=== PATIENT | female | born 1955 | race American Indian/Alaskan Native ===

== ENCOUNTER 2017-04-08 19:18 | Inpatient (IN) | payer BC ==
[2017-04-08] MEDS ORDERED: ZOFRAN IM ONE (19:47)
[2017-04-08] MEDS ORDERED: TORADOL IM ONE (19:55)
[2017-04-08 20:36] LABS: Basophils % (Auto) 0.5 % (0.0-1.8); Eosinophils % (Auto) 0.4 % (0.0-4.3); Hematocrit 43.6 % (30.3-42.9); Hemoglobin 15.2 gm/dl (10.1-14.3); Mean Corpuscular HGB Conc 35 % (30-34); Mean Corpuscular Hemoglobin 31 pg (28-32); Mean Corpuscular Volume 89 fl (79-97); Platelet Count 254 K/mm3 (140-440); Red Blood Count 4.92 M/mm3 (3.65-5.03); White Blood Count 7.2 K/mm3 (4.5-11.0)
[2017-04-08 20:57] LABS: Alanine Aminotransferase 21 units/L (7-56); Albumin 4.7 g/dL (3.9-5); Albumin/Globulin Ratio 1.2 %; Alkaline Phosphatase 82 units/L (35-129); Anion Gap 24 mmol/L; BUN/Creatinine Ratio 11; Blood Urea Nitrogen 8 mg/dL (7-17); Calcium 10.3 mg/dL (8.4-10.2); Carbon Dioxide 24 mmol/L (22-30); Chloride 96.4 mmol/L (98-107); Glucose 140 mg/dL (65-100); Lipase 21 units/L (13-60); Potassium 4.4 mmol/L (3.6-5.0); Sodium 140 mmol/L (137-145); Total Protein 8.6 g/dL (6.3-8.2)
--- NOTE | 2017-04-08 22:11 | Emergency Department Report ---
ED Abdominal Pain HPI - General Chief Complaint: Abdominal Pain Stated Complaint: CHEST PAIN,KNOTS,SHAKY Time Seen by Provider: 04/08/17 22:08 Source: patient Mode of arrival: Ambulatory Limitations: No Limitations - History of Present Illness Initial Comments: Patient is 61-year-old female that presents with chest pain 4 hours and abdominal pain 4 hours. Patient states that the abdominal pain is generalized and is worse with eating and movement. Patient states that the chest pain and abdominal pain is better with rest. Chest pain is worse with movement. Denies shortness of breath and fever. MD Complaint: abdominal pain -: Sudden, hour(s) (4 hours ago) Location: diffuse Radiation: none Migration to: no migration Severity: severe Severity scale (0 -10): 10 Quality: cramping, stabbing Consistency: constant Improves With: rest Worsens With: eating, movement - Related Data Home Medications Medication Instructions Recorded Confirmed Last Taken No Known Home Medications [No 04/08/17 04/08/17 Unknown Reported Home Medications] Allergies Allergy/AdvReac Type Severity Reaction Status Date / Time No Known Allergies Allergy Verified 04/08/17 22:15 ED Review of Systems ROS: Stated complaint: CHEST PAIN,KNOTS,SHAKY Other details as noted in HPI Constitutional: no symptoms reported, see HPI Eyes: as per HPI ENT: as per HPI Respiratory: see HPI Cardiovascular: chest pain, palpitations Endocrine: no symptoms reported Gastrointestinal: as per HPI, abdominal pain Genitourinary: as per HPI Musculoskeletal: as per HPI, myalgia Skin: as per HPI Neurological: as per HPI Psychiatric: as per HPI Hematological/Lymphatic: as per HPI ED Past Medical Hx - Past Medical History Previous Medical History?: No - Surgical History Past Surgical History?: No - Social History Smoking Status: Never Smoker Substance Use Type: None - Medications Home Medications: Home Medications Medication Instructions Recorded Confirmed Last Taken Type No Known Home Medications [No 04/08/17 04/08/17 Unknown History Reported Home Medications] ED Physical Exam - General Limitations: No Limitations General appearance: alert, in no apparent distress - Head Head exam: Present: atraumatic, normocephalic - Eye Eye exam: Present: normal appearance - ENT ENT exam: Present: mucous membranes moist - Neck Neck exam: Present: normal inspection - Respiratory Respiratory exam: Present: normal lung sounds bilaterally. Absent: respiratory distress - Cardiovascular Cardiovascular Exam: Present: regular rate, normal rhythm. Absent: systolic murmur, diastolic murmur, rubs, gallop - GI/Abdominal GI/Abdominal exam: Present: soft, tenderness (generalized abdominal tenderness) , normal bowel sounds - Extremities Exam Extremities exam: Present: normal inspection - Back Exam Back exam: Present: normal inspection - Neurological Exam Neurological exam: Present: alert, oriented X3 - Psychiatric Psychiatric exam: Present: normal affect, normal mood - Skin Skin exam: Present: warm, dry, intact, normal color. Absent: rash ED Course Vital Signs 04/08/17 04/08/17 04/08/17 19:22 20:43 21:57 Temperature 97.8 F 97.7 F Pulse Rate 105 H 105 H Respiratory 22 18 Rate Blood Pressure 140/79 Blood Pressure 153/95 [Left] O2 Sat by Pulse 100 99 Oximetry 04/08/17 04/08/17 04/08/17 22:00 22:16 22:26 Temperature Pulse Rate Respiratory 22 Rate Blood Pressure 153/95 177/92 Blood Pressure [Left] O2 Sat by Pulse 100 100 Oximetry 04/08/17 04/08/17 04/08/17 22:54 22:56 23:00 Temperature Pulse Rate 97 H Respiratory 11 L 16 24 Rate Blood Pressure 170/72 170/72 Blood Pressure [Left] O2 Sat by Pulse 100 Oximetry 04/08/17 04/08/17 04/08/17 23:15 23:22 23:30 Temperature Pulse Rate 103 H 101 H Respiratory 13 16 17 Rate Blood Pressure 177/92 156/79 Blood Pressure [Left] O2 Sat by Pulse 100 97 Oximetry 04/08/17 04/08/17 04/08/17 23:45 23:51 23:52 Temperature Pulse Rate 108 H Respiratory 16 16 16 Rate Blood Pressure 156/79 Blood Pressure [Left] O2 Sat by Pulse 96 100 Oximetry 04/09/17 00:00 Temperature Pulse Rate 108 H Respiratory 18 Rate Blood Pressure 151/80 Blood Pressure [Left] O2 Sat by Pulse 100 Oximetry ED Medical Decision Making - Lab Data Result diagrams: 04/08/17 19:54 04/08/17 19:54 - EKG Data -: EKG Interpreted by Mi EKG shows normal: sinus rhythm Rate: tachycardia - EKG Data Interpretation: no acute changes, normal EKG - Medical Decision Making Patient is 61 year-old female present with chest pain and abdominal pain. Initial labs negative. EKG negative. Abdominal CT negative. Hospital's consult for admission. Hospice agreed to admit. - Differential Diagnosis cp, acs, abd pain Critical care attestation.: If time is entered above; I have spent that time in minutes in the direct care of this critically ill patient, excluding procedure time. ED Disposition Clinical Impression: Abdominal pain, Chest pain Disposition: DC09 OP ADMIT IP TO THIS HOSP Is pt being admited?: Yes Does the pt Need Aspirin: No Condition: Serious Time of Disposition: 00:46
[2017-04-08] MEDS ORDERED: DILAUDID ONE (22:24)
[2017-04-08] MEDS ORDERED: DILAUDID IV ONE ×2 (22:25→23:16)
[2017-04-08] MEDS ORDERED: NACL 0.9% 500 ML 1,000 ML IV ONE (22:54)
[2017-04-08] MEDS ORDERED: ROBAXIN 1,000 MG in NACL 0.9% 250ML 250 ML IV ONE (22:54)
[2017-04-08 23:02] LABS: Bilirubin,Urine NEG (Negative); Blood,Urine NEG (Negative); Ketones,Urine NEG (Negative); Leukocyte Esterase,Urine TR (Negative); Mucus,Urine FEW /HPF; Nitrite,Urine NEG (Negative); Protein,Urine <15 mg/dL mg/dL (Negative); Urobilinogen,Urine < 2.0 mg/dL (<2.0); WBC,Urine < 1.0 /HPF (0.0-6.0)
--- NOTE | 2017-04-08 23:04 | Cat Scan Report ---
FINAL REPORT EXAM: CT ABDOMEN PELVIS WO CON HISTORY: ABD PAIN TECHNIQUE: Standard unenhanced CT of the abdomen and pelvis. Coronal and sagittal reconstruction was also performed. PRIORS: None. FINDINGS: Within the abdomen, the liver, pancreas, adrenal glands, and kidneys are unremarkable. Layering high densities in the gallbladder are likely small stones or sludge. The several punctate calcified granulomas in the spleen are present. No evidence for retroperitoneal or pelvic lymphadenopathy is seen. The bowel loops have normal caliber. No soft tissue mass, fluid collection, inflammatory change, or free air is seen within the abdomen or pelvis. The appendix is normal and is retrocecal in position. Within the pelvis, the bladder is unremarkable. The uterus is normal in size. No evidence for mass or lymphadenopathy is seen in the pelvis. Images through the upper abdomen include the lung bases which are expanded and clear. Heavily calcified 5 mm granuloma in the left lower lobe laterally is seen. Bony structures show no focal abnormalities. Moderate facet joint degenerative changes are present from L3 through S1 bilaterally. Severe degenerative disc narrowing is present throughout the lower thoracic levels. IMPRESSION: 1. no acute intra-abdominal process noted. 2. granulomatous findings in the spleen and left lower lobe 3. Cholelithiasis 4. Degenerative changes in the lumbar spine.
[2017-04-09] MEDS ORDERED: ASPIRIN PO ONE (00:46)
[2017-04-09] MEDS ORDERED: TYLENOL PO PRN (01:42)
[2017-04-09] MEDS ORDERED: DULCOLAX PR PRN (01:42)
[2017-04-09] MEDS ORDERED: LOPRESSOR PO ONE (01:42)
[2017-04-09] MEDS ORDERED: PERCOCET 5/325 PO PRN (01:42)
[2017-04-09] MEDS ORDERED: MILK OF MAGNESIA PO PRN (01:42)
[2017-04-09] MEDS ORDERED: ZOFRAN IV PRN (01:42)
[2017-04-09] MEDS ORDERED: ATIVAN IV PRN ×2 (01:42)
--- NOTE | 2017-04-09 02:55 | History and Physical Report ---
History of Present Illness Date of examination: 04/09/17 History of present illness: 61 -year-old one with history of asthma comes emergency room with complaints of chest pain located in the epigastric area which she described as sharp pain, intermittent in nature, unable to say how long it lasts for, no radiation, intensity 5/10, cannot identify exacerbating or relieving factors. Also complaining of crampy abdominal pain intermittently. The symptoms started 3 hours after eating a hot dog at work.denies nausea vomiting, shortness of breath , diaphoresis or palpitation Review Of Systems: Constitutional: no weight loss Ears, eyes, nose, mouth and throat: no nasal congestion, no nasal discharge, no sinus pressure, blurry vision, diplopia Neck: No neck pain or rigidity. Cardiovascular: no orthopnea, palpitations Respiratory: No shortness of breath, cough Gastrointestinal: no hematochezia Genitourinary : no dysuria, frequency , hematuria Musculoskeletal: no muscle ache Integumentary: no rash, no pruritis Neurological: no parathesias, focal weakness Endocrine: no cold or heat intolerance, no polyuria or polydipsia Hematologic/Lymphatic: no easy bruising, no easy bleeding, no gland swelling Allergic/Immunologic: no urticaria, no angioedema. PAST MEDICAL HISTORY:asthma PAST SURGICAL HISTORY: None FAMILY HISTORY:asthma SOCIAL HISTORY: Denies alcohol, tobacco, drugs Medications and Allergies Allergies Allergy/AdvReac Type Severity Reaction Status Date / Time No Known Allergies Allergy Verified 04/08/17 22:15 Home Medications Medication Instructions Recorded Confirmed Last Taken Type No Known Home Medications [No 04/08/17 04/08/17 Unknown History Reported Home Medications] Active Meds: Active Medications Acetaminophen (Tylenol) 650 mg PO Q4H PRN PRN Reason: Pain MILD(1-3)/Fever >100.5/DAMON Bisacodyl (Dulcolax) 10 mg [place] QDAY PRN PRN Reason: Constipation unrelieved by MOM Enoxaparin Sodium (Lovenox) 30 mg SUB-Q QDAY CHRISTINE Lorazepam (Ativan) 2 mg IV Q1HR PRN PRN Reason: CIWA-Ar 8-15 Last Admin: 04/09/17 02:23 Dose: 2 mg Lorazepam (Ativan) 4 mg IV Q1HR PRN PRN Reason: CIWA-Ar 16-25 Magnesium Hydroxide (Milk Of Magnesia) 30 ml PO Q4H PRN PRN Reason: Constipation Ondansetron HCl (Zofran) 4 mg IV Q4H PRN PRN Reason: N/V unrelieved by Reglan Oxycodone/Acetaminophen (Percocet 5/325) 1 tab PO Q6H PRN PRN Reason: Pain, Moderate (4-6) Exam - Physical Exam Narrative exam: Gen. appearance: Patient lying in bed in no acute distress HEENT: Normocephalic/atraumatic, pupils equal round reactive to light, extra alkaline movement intact, no scleral icterus, no JVD or thyromegaly or nodule, neck is supple, mucous membrane moist, no erythema or exudate Heart: S1-S2, regular rate and rhythm Lungs: Clear to auscultation bilateral breathing comfortable Abdomen: Positive bowel sounds, nontender, nondistended, no organomegaly Extremities: No edema, cyanosis, clubbing Neuro:: Oriented 3 , cranial nerves II-12 intact, speech, motor intact Skin: No rash, nodules, warm dry - Constitutional Vitals: Temp Pulse Resp BP Pulse Ox 97.7 F 109 H 18 158/78 100 04/08/17 21:57 04/09/17 02:22 04/09/17 00:00 04/09/17 02:22 04/09/17 00:00 Results - Labs CBC & Chem 7: 04/08/17 19:54 04/08/17 19:54 Labs: Abnormal lab results 04/08/17 04/08/17 Range/Units 19:54 19:54 Hgb 15.2 H (10.1-14.3) gm/dl Hct 43.6 H (30.3-42.9) % MCHC 35 H (30-34) % RDW 16.0 H (13.2-15.2) % [place] % (Auto) 8.1 H (0.0-7.3) % Seg Neutrophils % 71.2 H (40.0-70.0) % Chloride 96.4 L (98-107) mmol/L Glucose 140 H (65-100) mg/dL Calcium 10.3 H (8.4-10.2) mg/dL Total Protein 8.6 H (6.3-8.2) g/dL - Imaging and Cardiology CT scan - abdomen: report reviewed CT scan - pelvis: report reviewed Assessment and Plan Assessment Hypertensive urgency, new onset Chest pain Alcohol withdrawal Gastroenteritis Asthma Plan Admit to medicine Check cardiac enzymes, stress test Start IV hydralazine as needed Start CIWA protocol with IV Ativan lopressor now DVT prophylaxis
[2017-04-09 02:58] LABS: Creatine Kinase MB 9.9 ng/mL (0.0-4.0)
[2017-04-09 02:59] LABS: Creatine Kinase 451 units/L (30-135)
[2017-04-09] MEDS ORDERED: APRESOLINE IV PRN (03:06)
--- NOTE | 2017-04-09 08:05 | Event Note ---
Date: 04/09/17 Patient seen and evaluated, medical records reviewed Admitted this morning with atypical chest pain, underwent stress test pending report Patient complains of mild intermittent chest pain, alert awake oriented 3 not in acute distress Vital signs reviewed Admitted with hypertensive urgency, we'll closely monitor, follow with stress test report Possible discharge tomorrow if stable Plan of care discussed with the patient and the family member at the bedside
[2017-04-09] MEDS ORDERED: LEXISCAN IV ONE (10:00)
[2017-04-09] MEDS ORDERED: LOVENOX SUB-Q SCH (10:00)
[2017-04-09] MEDS: LOVENOX SUB-Q SCH (10:34)
[2017-04-09 11:20] LABS: Creatine Kinase MB 9.9 ng/mL (0.0-4.0)
[2017-04-09 11:21] LABS: Creatine Kinase 560 units/L (30-135)
--- NOTE | 2017-04-10 04:27 | Treadmill Report ---
THALLIUM STRESS TEST LEFT VENTRICLE: Left ventricular chamber size is within normal spread. Perfusion study demonstrates homogeneous uptake of the tracer in all segments, no significant defects identified. Gated analysis demonstrates normal left ventricular systolic function, ejection fraction 70%. CONCLUSION: Normal myocardial perfusion study. JOB# [id number] CA/NTS
[2017-04-10 05:30] LABS: Basophils % (Auto) 1.1 % (0.0-1.8); Hematocrit 38.7 % (30.3-42.9); Hemoglobin 13.2 gm/dl (10.1-14.3); Mean Corpuscular HGB Conc 34 % (30-34); Mean Corpuscular Hemoglobin 31 pg (28-32); Mean Corpuscular Volume 90 fl (79-97); Platelet Count 167 K/mm3 (140-440); Red Blood Count 4.32 M/mm3 (3.65-5.03); Red Cell Distribution Width 15.8 % (13.2-15.2); White Blood Count 3.3 K/mm3 (4.5-11.0)
[2017-04-10 05:52] LABS: Anion Gap 16 mmol/L; BUN/Creatinine Ratio 17; Blood Urea Nitrogen 12 mg/dL (7-17); Calcium 9.6 mg/dL (8.4-10.2); Carbon Dioxide 26 mmol/L (22-30); Chloride 101.2 mmol/L (98-107); Glucose 84 mg/dL (65-100); Potassium 4.4 mmol/L (3.6-5.0); Sodium 139 mmol/L (137-145)
--- NOTE | 2017-04-10 08:53 | Discharge Summary ---
Providers - Providers Date of Admission: 04/09/17 02:25 Date of discharge: 04/10/17 Attending physician: DARLYN ARANA Primary care physician: CORPORATE TRAINING MANAGER Hospitalization Reason for admission: chest pain/malignant hypertension Condition: Serious Pertinent studies: Abdominal CT; no acute intra-abdominal process, granulomatous findings and the spleen and left lower lobe, cholelithiasis, degenerative lumbar spine Stress test; negative for reversible ischemia, normal left ventricular function Hospital course: 61-year-old female patient with a significant past medical history of bronchial asthma not on any medications was admitted through emergency room with chest pain patient was initially evaluated and noted to have very high blood pressures , admitted to the hospital symptomatically managed Serial cardiac enzymes and EKGs did not reveal any acute changes, however in view of risk factors Patient underwent exercise stress test, was negative for reversible ischemia and ejection fraction is 70% Patient's blood pressures were closely monitored, brought to reasonable levels did not need any medications except for when necessary hydralazine Patient's chest pain may be secondary to gastroesophageal reflux disease as well as musculoskeletal Patient is advised [id number] pain medications and Pepcid Today she is comfortable in bed no new complaints Vital signs reviewed stable Physical examination no new changes Hemodynamically and clinically stable for discharge Discharge diagnosis: -Hypertensive urgency, the time of admission, resolved -Noncardiac Chest pain probably secondary to gastroesophageal reflux disease -Alcohol abuse; counseling done advised to quit -History of Bronchial asthma; did not require any medications Advised to follow primary care physician in 2-3 days Disposition: DC-01 TO HOME OR SELFCARE Time spent for discharge: 32 min Core Measure Documentation - Palliative Care Palliative Care/ Comfort Measures: Not Applicable - Core Measures Any of the following diagnoses?: none Exam - Constitutional Vitals: Temp Pulse Resp BP Pulse Ox 97.5 F L 70 18 141/80 97 04/10/17 00:22 04/10/17 00:22 04/10/17 00:22 04/10/17 00:22 04/10/17 00:22 General appearance: Present: no acute distress, well-nourished - EENT Eyes: Present: PERRL, EOM intact - Neck Neck: Present: supple, normal ROM - Respiratory Respiratory effort: labored Respiratory: negative: rales, rhonchi, wheezing - Cardiovascular Rhythm: regular Heart Sounds: Present: S1 & S2 - Extremities Extremities: no ischemia, No edema Peripheral Pulses: within normal limits - Abdominal General gastrointestinal: Present: soft, non-tender, non-distended, normal bowel sounds - Integumentary Integumentary: Present: clear, warm - Musculoskeletal Musculoskeletal: strength equal bilaterally - Psychiatric Psychiatric: appropriate mood/affect, cooperative - Neurologic Neurologic: CNII-XII intact, moves all extremities Plan Activity: no restrictions Diet: regular Additional Instructions: If you have chest pain contact MD or go to ER. You need to see private fabrics and material cutter if you have recurrent chest pain for further evaluation. advised to take over the counter pain meds if you have pain Follow up with: [facility] [Provider Group] - 7 Days PRIMARY CARE, [Primary Care Provider] - 7 Days Forms: Work/School Release Form Prescriptions: Famotidine [Pepcid] 20 mg PO BID #30 tablet
[2017-04-10 10:11] VITALS: BP 137/77
[2017-04-10] MEDS: LOVENOX SUB-Q SCH (12:14)
== END 2017-04-10 15:17 | disposition home or self-care (01) | DRG 392 ==
LOC: ED 19:18 → 4A 04-09 02:25
PROVIDERS: ADMIT Internal Medicine; ATTEND Internal Medicine
DX: K21.9 Gastro-esophageal reflux disease without esophagitis (principal); F10.239 Alcohol dependence with withdrawal, unspecified; I16.0 Hypertensive urgency; J45.909 Unspecified asthma, uncomplicated; K52.9 Noninfective gastroenteritis and colitis, unspecified; Y90.9 Presence of alcohol in blood, level not specified; Z71.41 Alcohol abuse counseling and surveillance of alcoholic; Z82.5 Family history of asthma and other chronic lower respiratory diseases
CPT/HCPCS: 36415; 74176; 78452; 80048; 80053; 81001; 82550; 82553; 83690; 84484; 85025; 93005; 93010; 93017; 96365; 96372; 96375; 96376; A9502; J1170; J1650; J1885; J2060; J2405; J2785; J2800; J7040; J7050

== ENCOUNTER 2018-10-29 15:17 | Inpatient (IN) | payer BC ==
--- NOTE | 2018-10-29 16:05 | Emergency Department Report ---
Chief Complaint: Weakness Stated Complaint: CHILLS/WEAK/NOT EATING Time Seen by Provider: 10/29/18 16:01 - HPI History of Present Illness: This is a 62 y.o. F. that presents to the ER with weakness and abdominal pain for 2 days. Patient states patient is not eating only drinking beers daily for a few days. Yesterday was the last alcohol. PMH of Asthma and seasonal allergies. Patient states she is gargling with listerine to help sooth sore throat with no improvement of symptoms. Reports vomiting a few days ago which have resolved. Denies diarrhea - Exam Vital Signs: Vital Signs 10/29/18 16:01 Temperature 97.8 F Pulse Rate 148 H Respiratory 16 Rate Blood Pressure 183/157 O2 Sat by Pulse 98 Oximetry MSE screening note: Focused history and physical exam performed. Due to findings the following was ordered: This initial assessment/diagnostic orders/clinical plan/treatment(s) is/are subject to change based on patient's health status, clinical progression and re-assessment by fellow clinical providers in the ED. Further treatment and workup at subsequent clinical providers discretion. Patient/guardians urged not to elope from the ED as their condition may be serious if not clinically assessed and managed. Initial orders include: Labs, ekg, and CT of abdomen ED Disposition for MSE Condition: Stable
[2018-10-29] MEDS ORDERED: NACL 0.9% 1000 ML 1,000 ML IV ONE ×4 (17:21→22:02)
[2018-10-29] MEDS ORDERED: ZOFRAN IV ONE (17:21)
[2018-10-29] MEDS ORDERED: MORPHINE IV ONE (17:31)
[2018-10-29] MEDS ORDERED: MORPHINE ONE (17:41)
[2018-10-29 17:55] LABS: Mean Corpuscular HGB Conc 37 % (30-34); Mean Corpuscular Volume 97 fl (79-97); Red Blood Count 4.66 M/mm3 (3.65-5.03); Red Cell Distribution Width 12.8 % (13.2-15.2)
[2018-10-29 17:56] LABS: Hemoglobin 16.7 gm/dl (10.1-14.3)
[2018-10-29 17:57] LABS: Hematocrit 45.1 % (30.3-42.9)
[2018-10-29 18:17] LABS: BUN/Creatinine Ratio TNR; Blood Urea Nitrogen TNR mg/dL (7-17)
[2018-10-29 18:18] LABS: Alanine Aminotransferase TNR units/L (7-56); Albumin TNR g/dL (3.9-5); Calcium TNR mg/dL (8.4-10.2); Hemolysis Index TNR
[2018-10-29 19:12] LABS: Basophils % (Manual) 0 % (0.0-1.8); Eosinophils % (Manual) 0 % (0.0-4.3); Total Cells Counted 100
[2018-10-29 19:13] LABS: Giant Platelets 1+; Platelet Clumps 1+; RBC Morphology Normal
[2018-10-29 19:14] LABS: Platelet Count 151 K/mm3 (140-440)
[2018-10-29 19:35] LABS: Albumin 3.6 g/dL (3.9-5); Calcium 9.7 mg/dL (8.4-10.2)
[2018-10-29] MEDS ORDERED: ATIVAN IV ONE (20:10)
--- NOTE | 2018-10-29 20:10 | Emergency Department Report ---
ED General Adult HPI - General Chief complaint: Weakness Stated complaint: CHILLS/WEAK/NOT EATING Time Seen by Provider: 10/29/18 16:01 Source: patient Mode of arrival: Ambulatory Limitations: No Limitations - History of Present Illness Initial comments: Ms. Bunn is a 62 yo female without significant past medical hx who presents with weakness, sore throat poor appetite for 2 days. She was shaky and unable to walk. She drinks beer daily. She has drank more beer recently due to stress. Has been out of work for past 3 months. 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 Denies fever or abdominal pain. Further history obtained from the niece. Due to altered mental status most Oni gave limited history. Niece at the bedside explained that Ms. Bunn had previously abstained from alcohol 2 years ago. She began drinking again 2 years ago. Her drinking quickly escalated from social drinking to severe amount of drinking. 2 years ago her sister of cancer. Severe depression then ensued. Ms. Bunn has been estranged from her large family including her daughters and nieces and nephews the past several months. On yesterday the [place] [employer] police came to the niece's home for a wellness check. Ms. 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 According to the school police she had just not showed up. Nieces had a hard time contacting Mrs. Bunn. She was quite evasive. It was difficult to convince her to come out of the home. She is now living with a friend in her apartment complex. She told the family members that her jaw was "too much". Niece stated she had been on this job for possibly 10 years. -: Gradual, days(s) (2) Severity scale (0 -10): 3 Quality: aching Consistency: constant Improves with: none Worsens with: none Associated Symptoms: diaphoresis - Related Data Previous Rx's Medication Instructions Recorded Last Taken Type Famotidine [Pepcid] 20 mg PO BID #30 tablet 04/10/17 Unknown Rx Allergies Allergy/AdvReac Type Severity Reaction Status Date / Time No Known Allergies Allergy Verified 10/29/18 17:40 ED Review of Systems ROS: Stated complaint: CHILLS/WEAK/NOT EATING Other details as noted in HPI Comment: All other systems reviewed and negative Constitutional: malaise. denies: fever ENT: throat pain Neurological: abnormal gait ED Past Medical Hx - Past Medical History Previous Medical History?: No Hx Congestive Heart Failure: No Hx Diabetes: No Hx Pulmonary Embolism: No Hx Asthma: Yes Hx COPD: No - Surgical History Additional Surgical History: None patient could recall - Social History Smoking Status: Never Smoker Substance Use Type: Alcohol - Medications Home Medications: Home Medications Medication Instructions Recorded Confirmed Last Taken Type Famotidine [Pepcid] 20 mg PO BID #30 tablet 04/10/17 Unknown Rx ED Physical Exam - General Limitations: No Limitations General appearance: alert, other (appears chronically ill, tremulous, slow to respond to questions) - Head Head exam: Present: atraumatic, normocephalic - Eye Eye exam: Present: normal appearance, scleral icterus. Absent: conjunctival injection, nystagmus - ENT ENT exam: Present: mucous membranes moist - Neck Neck exam: Present: normal inspection, full ROM - Respiratory Respiratory exam: Present: normal lung sounds bilaterally. Absent: respiratory distress, wheezes, rales, rhonchi - Cardiovascular Cardiovascular Exam: Present: normal rhythm, tachycardia, normal heart sounds. Absent: systolic murmur, diastolic murmur, rubs, gallop - GI/Abdominal GI/Abdominal exam: Present: soft, distended, diminished bowel sounds. Absent: tenderness, guarding, rebound - Extremities Exam Extremities exam: Present: normal inspection - Back Exam Back exam: Present: normal inspection - Neurological Exam Neurological exam: Present: alert, oriented X3 - Psychiatric Psychiatric exam: Present: depressed, flat affect - Skin Skin exam: Present: warm, dry, intact, normal color. Absent: rash ED Course Vital Signs 10/29/18 10/29/18 10/29/18 16:01 17:14 17:30 Temperature 97.8 F Pulse Rate 148 H 131 H 127 H Respiratory 16 24 23 Rate Blood Pressure 183/157 116/79 O2 Sat by Pulse 98 Oximetry 10/29/18 10/29/18 10/29/18 17:51 18:00 18:30 Temperature Pulse Rate 113 H 106 H Respiratory 18 22 19 Rate Blood Pressure 110/74 129/78 O2 Sat by Pulse Oximetry 10/29/18 10/29/18 10/29/18 19:00 19:30 20:00 Temperature Pulse Rate 105 H 110 H 106 H Respiratory 20 24 22 Rate Blood Pressure 143/93 135/98 127/91 O2 Sat by Pulse 99 Oximetry 10/29/18 10/29/18 20:30 21:30 Temperature Pulse Rate 111 H 121 H Respiratory 29 H 14 Rate Blood Pressure 125/89 129/87 O2 Sat by Pulse 100 Oximetry ED Medical Decision Making - Lab Data Result diagrams: 10/29/18 17:45 10/29/18 18:43 - EKG Data 10/29/18 20:24 EKG obtained 1638 rate 130 bpm nl axis prolonged QTC no ST elevation no signs of ischemia - Radiology Data Radiology results: report reviewed CT head without contrast: NAP CT A/P without contrast: High-grade bowel obstruction secondary to cecal v olvulus portal venous air suspicious for underlying ischemic bowel - Medical Decision Making 1. SIRS, generalized malaise with tremor, tachycardia: suspect alcohol withdraw al, last drink yesterday CIWA score 13 CIWA protocol initiated; while in the ED patient is becoming more confused according to family member beside. With further w/u including elevated lactic acid, CT revealed cecal volvulus with portal venous gas after verbal report provided by radiologist, Dr. Gramajo came immediately to take patient to OR. I discussed case with anesthesiologist Dr. Alvarez who came to ED to evaluate patient prior to surgery. 2. sore throat: no evidence of pharyngitis on exam, possible esophagitis 3. hyponatremia due to beer pot[place] and hypovolemia 4. I suspect undiagnosed alcoholic liver disease with jaundice hyperbilirubinemia elevated transaminases Critical Care Time: Yes Critical care time in (mins) excluding proc time.: 40 Critical care attestation.: If time is entered above; I have spent that time in minutes in the direct care of this critically ill patient, excluding procedure time. 40 minutes of critical care time excluding procedures were used in the care of the patient. I was concerned for severe tachycardia. Patient appeared obviously ill. Patient required multiple assessments and interventions. I reviewed the electronic medical record. I obtained history from him at the bedside. I spoke with consultants involved in the care of the patient. ED Disposition Clinical Impression: Alcohol withdrawal, Hyponatremia, Alcoholic liver disease, Cecal volvulus, Bowel obstruction, Acute intestinal ischemic syndrome Disposition: OP ADMIT IP TO THIS HOSP Is pt being admited?: Yes Does the pt Need Aspirin: No Condition: Stable
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
[2018-10-29] MEDS ORDERED: LIBRIUM PO PRN (21:22)
[2018-10-29] MEDS ORDERED: ATIVAN IV PRN (21:22)
--- NOTE | 2018-10-29 21:51 | Cat Scan Report ---
PROCEDURE: CT ABDOMEN PELVIS WO CON TECHNIQUE: Computerized axial tomography of the abdomen and pelvis was performed without intravenous contrast. This study is performed without intravascular contrast material and its sensitivity for ab dominal and pelvic pathology, including neoplasms, inflammation, abscess, free fluid, thrombosis, art erial dissection and infarction, is reduced compared with a contrast enhanced study. CT DOSE LENGTH PRODUCT: mGycm HISTORY: poor appetite COMPARISONS: None . FINDINGS: This study is limited due to streak artifacts from the arms. Liver, spleen, pancreas and bilateral ad renal glands are within normal limits. Bilateral kidneys demonstrate normal density without calculi o r hydronephrosis. Urinary bladder is well-distended with normal outlines. Aorta is of normal caliber. There is no free fluid or free air. Air is identified in the portal venous system. There is evidence of malrotation of small bowel with duodenal jejunal flexure identified to the right of the spine. Mu ltiple severely dilated loops of small bowel are identified throughout abdomen and pelvis with air-fl uid levels. Cecum appears to be located in the left upper quadrant and is dilated measuring about 6.6 cm in diameter. Rest of the colon is decompressed. Vertebral height is normal. 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 Portal venous air is identified suspicious for underlying ischemic bowel This document is electronically signed by Milind Guy MD., October 29 2018 09:49:04 PM ET
[2018-10-29] MEDS ORDERED: DILAUDID IV PRN (23:30)
[2018-10-29] MEDS ORDERED: ZOFRAN IV PRN (23:30)
--- NOTE | 2018-10-29 23:30 | Anesthesia Consultation ---
Anesthesia Consult and Med Hx Date of service: 10/29/18 - Airway Anesthetic Teeth Evaluation: Dentures ROM Head & Neck: Adequate Mental/Hyoid Distance: Adequate Mallampati Class: Class II Intubation Access Assessment: Probably Good - Pulmonary Exam CTA: Yes - Cardiac Exam Cardiac Exam: RRR - Pre-Operative Health Status ASA Pre-Surgery Classification: ASA4 (Patient in alcoholic withdrawal syndrome and having high grade bowel obstruction likely ischemic ), Emergency - Pulmonary Hx Smoking: No Hx Asthma: Yes COPD: No Hx Pneumonia: No Hx Sleep Apnea: No - Cardiovascular System Hx Hypertension: No - Central Nervous System Hx Psychiatric Problems: No - Endocrine Hx End Stage Renal Disease: No - Other Systems Hx Alcohol Use: Yes (Alcoholic per niece drinks beer daily - unknown quantity) Hx Cancer: No - Additional Comments Anesthesia Medical History Comments: 62 year old female with unclear hx - narrated by niece who does not live with her.Patient is alcoholic and is in withdrawal - currently recieving saline boluses - 3 L so far and ativan , chemistry consistent with alcohol abuse as well as hemoconcentration with low K 3.1 and elevated Hb 16. Patient CT indicated high grade bowel obstruction for Ex lap as an Emergent case . Typed and screened.
--- NOTE | 2018-10-29 23:30 | Anesthesia Day of Surgery ---
Anesthesia Day of Surgery - Day of Surgery Patient Examined: Yes Patient H&P Reviewed: Yes Patient is NPO: Yes
[2018-10-29] MEDS ORDERED: SUBLIMAZE ONE (23:32)
[2018-10-29] MEDS ORDERED: DIPRIVAN 10 MG/ML IV ONE (23:32)
[2018-10-29] MEDS ORDERED: ZOFRAN ONE (23:32)
[2018-10-29] MEDS ORDERED: ZEMURON IV ONE (23:32)
[2018-10-29] MEDS ORDERED: QUELICIN ONE (23:32)
[2018-10-29] MEDS ORDERED: DECADRON ONE (23:32)
[2018-10-29] MEDS ORDERED: XYLOCAINE CARDIAC IV ONE (23:32)
[2018-10-29] MEDS ORDERED: FLAGYL 500 MG/100 ML 500 MG/100 ML BAG IV ONE (23:34)
[2018-10-29] MEDS ORDERED: ANCEF/STERILE WATER 2 GM/20 ML 2 GM/20 ML SYRINGE IV ONE (23:35)
--- NOTE | 2018-10-29 23:45 | Consultation ---
History of Present Illness Consult date: 10/29/18 Reason for consult: abdominal pain Chief complaint: abdominal pain - History of present illness History of present illness: 62 yo F with hx of etoh abuse who was brought to ER by family with AMS. Patient cannot provide a history as she is obtunded. Niece is at bedside. Apparently patient has distanced herself from her family and unexpectedly left her job. She has had problems with etoh and has been living with a friend. She was not feeling well for the last several days. Police went to her niece's home to perform a wellness visit as patient had listed that as her last address. Family went to find her and found that she had been suffering from a "stomach virus", not eating, having trouble moving her bowels, and feeling very weak. They finally convinced her to come to the hospital. Patient's labs were found to be abnormal with elevated lactate and abdomen distended. Ct scan A/P showed cecal volvulus, high grade bowel obstruction, and portal venous air. Past History Past Medical History: No medical history Past Surgical History: No surgical history Social history: alcohol abuse Family history: no significant family history Medications and Allergies Allergies Allergy/AdvReac Type Severity Reaction Status Date / Time No Known Allergies Allergy Verified 10/29/18 17:40 Home Medications Medication Instructions Recorded Confirmed Last Taken Type Famotidine [Pepcid] 20 mg PO BID #30 tablet 04/10/17 Unknown Rx Active Meds: Active Medications Chlordiazepoxide HCl (Librium) 50 mg PO Q1HR PRN PRN Reason: CIWA-Ar 8-15 Hydromorphone HCl (Dilaudid) 0.5 mg IV Q10MIN PRN PRN Reason: Pain , Severe (7-10) Stop: 10/30/18 05:12 Lorazepam (Ativan) 2 mg IV Q1HR PRN PRN Reason: CIWA-Ar 8-15 Last Admin: 10/29/18 21:36 Dose: 2 mg Documented by: Ondansetron HCl (Zofran) 4 mg IV ONCE PRN PRN Reason: Nausea And Vomiting Stop: 10/30/18 05:12 Review of Systems ROS unobtainable: due to mental status Exam Vital Signs Temp Pulse Resp BP Pulse Ox 97.8 F 148 H 16 183/157 98 10/29/18 16:01 10/29/18 16:01 10/29/18 16:01 10/29/18 16:01 10/29/18 16:01 Narrative exam: Gen: Obtunded CV; S1, S2+. tachy resp: even and unlabored Abd: soft, distended, diffuse TTP. Ext: no c/c/e neuro: tremors Results - Labs 10/29/18 17:45 10/29/18 18:43 Abnormal lab results 10/29/18 10/29/18 10/29/18 Range/Units 17:45 17:45 18:43 Hgb 16.7 H (10.1-14.3) gm/dl Hct 45.1 H (30.3-42.9) % MCH 36 H (28-32) pg MCHC 37 H (30-34) % RDW 12.8 L (13.2-15.2) % Seg Neuts % (Manual) 74.0 H (40.0-70.0) % Lymphocytes % (Manual) 8.0 L (13.4-35.0) % Monocytes % (Manual) 18.0 H (0.0-7.3) % Lymphocytes # (Manual) 0.6 L (1.2-5.4) K/mm3 Monocytes # (Manual) 1.5 H (0.0-0.8) K/mm3 Sodium 130 L (137-145) mmol/L Potassium 3.1 L (3.6-5.0) mmol/L Chloride 89.7 L (98-107) mmol/L Carbon Dioxide 20 L (22-30) mmol/L BUN 29 H (7-17) mg/dL Creatinine 1.7 H (0.7-1.2) mg/dL Lactic Acid (0.7-2.0) mmol/L Total Bilirubin 2.50 H (0.1-1.2) mg/dL AST 73 H (5-40) units/L ALT 77 H (7-56) units/L Alkaline Phosphatase 166 H (35-129) units/L Albumin 3.6 L (3.9-5) g/dL TSH 8.610 H (0.270-4.200) mlU/mL 10/29/18 10/29/18 Range/Units 18:43 22:23 Hgb (10.1-14.3) gm/dl Hct (30.3-42.9) % MCH (28-32) pg MCHC (30-34) % RDW (13.2-15.2) % Seg Neuts % (Manual) (40.0-70.0) % Lymphocytes % (Manual) (13.4-35.0) % Monocytes % (Manual) (0.0-7.3) % Lymphocytes # (Manual) (1.2-5.4) K/mm3 Monocytes # (Manual) (0.0-0.8) K/mm3 Sodium (137-145) mmol/L Potassium (3.6-5.0) mmol/L Chloride (98-107) mmol/L Carbon Dioxide (22-30) mmol/L BUN (7-17) mg/dL Creatinine (0.7-1.2) mg/dL Lactic Acid 3.50 H* 2.50 H* (0.7-2.0) mmol/L Total Bilirubin (0.1-1.2) mg/dL AST (5-40) units/L ALT (7-56) units/L Alkaline Phosphatase (35-129) units/L Albumin (3.9-5) g/dL TSH (0.270-4.200) mlU/mL Diabetes panel 10/29/18 10/29/18 Range/Units 17:47 18:43 Sodium TNR 130 L Potassium TNR 3.1 L Chloride TNR 89.7 L Carbon Dioxide TNR 20 L BUN TNR 29 H Creatinine TNR 1.7 H Glucose TNR 79 Calcium TNR 9.7 AST TNR 73 H ALT TNR 77 H Alkaline Phosphatase TNR 166 H Total Protein TNR 6.8 Albumin TNR 3.6 L Thyroid panel 10/29/18 Range/Units 17:45 TSH 8.610 H (0.270-4.200) mlU/mL Calcium panel 10/29/18 10/29/18 Range/Units 17:47 18:43 Calcium TNR 9.7 Albumin TNR 3.6 L Pituitary panel 10/29/18 10/29/18 10/29/18 Range/Units 17:45 17:47 18:43 Sodium TNR 130 L Potassium TNR 3.1 L Chloride TNR 89.7 L Carbon Dioxide TNR 20 L BUN TNR 29 H Creatinine TNR 1.7 H Glucose TNR 79 Calcium TNR 9.7 TSH 8.610 H (0.270-4.200) mlU/mL Adrenal panel 10/29/18 10/29/18 Range/Units 17:47 18:43 Sodium TNR 130 L Potassium TNR 3.1 L Chloride TNR 89.7 L Carbon Dioxide TNR 20 L BUN TNR 29 H Creatinine TNR 1.7 H Glucose TNR 79 Calcium TNR 9.7 Total Bilirubin TNR 2.50 H AST TNR 73 H ALT TNR 77 H Alkaline Phosphatase TNR 166 H Total Protein TNR 6.8 Albumin TNR 3.6 L - Imaging CT scan - abdomen: report reviewed, image reviewed CT scan - pelvis: report reviewed, image reviewed Assessment and Plan 62 yo F with 1. high grade small bowel obstruction 2. cecal volvulus 3. portal venous air, possible bowel ischemia 4. etoh dependence 5. Delerium tremens 6. multiple electrolyte abnormalities Plan: 1. Admit to hospitalist service to the ICU with consult to critical care physician control systems technician 2. aggressive IVF resuscitation 3. DT management 4. IV abx - ancef, flagyl 5. alcazar and NGT will be placed in OR 6. DVT ppx 7. Recommend emergent exploratory laparotomy. Findings of cecal volvulus, SBO, and portal venous air suggest likelihood of bowel ischemia. Discussed surgery risks, benefits, and alternatives with patient's daughter and niece. I explained that patient is in critical condition and will likely remain on vent for several days with careful monitoring of etoh withdrawal. They understand. Consent obtained. D/W Dr. Menjivar in ER Thank you, please call with questions.
[2018-10-29] MEDS ORDERED: TYLENOL PR PRN (23:49)
--- NOTE | 2018-10-29 23:49 | History and Physical Report ---
History of Present Illness Date of examination: 10/29/18 History of present illness: 62 year-old woman with history of asthma was brought to the emergency room by family because she has been feeling weak, has not eaten in several days. The daughter at bedside. Daughter states that she drinks a lot, unknown time of la st drink. In the emergency room she was tremulous, tachycardic, given IV Ativan, she is sedated. Her abdomen was distended, CAT scan of the abdomen and pelvis was done which shows intestinal obstruction secondary to cecal volvulus, possible ischemic bowel. A review of system is unavailable PAST MEDICAL HISTORY:asthma PAST SURGICAL HISTORY: None FAMILY HISTORY:hypertension SOCIAL HISTORY: heavy alcohol use, unknown tobacco or drugs Past History Past Medical History: No medical history Past Surgical History: No surgical history Social history: alcohol abuse Family history: no significant family history Medications and Allergies Allergies Allergy/AdvReac Type Severity Reaction Status Date / Time No Known Allergies Allergy Verified 10/29/18 17:40 Home Medications Medication Instructions Recorded Confirmed Last Taken Type Famotidine [Pepcid] 20 mg PO BID #30 tablet 04/10/17 Unknown Rx Active Meds: Active Medications Chlordiazepoxide HCl (Librium) 50 mg PO Q1HR PRN PRN Reason: CHANG-Juan 8-15 Hydromorphone HCl (Dilaudid) 0.5 mg IV Q10MIN PRN PRN Reason: Pain , Severe (7-10) Stop: 10/30/18 05:12 Lorazepam (Ativan) 2 mg IV Q1HR PRN PRN Reason: CHANG-Juan 8-15 Last Admin: 10/29/18 21:36 Dose: 2 mg Documented by: Ondansetron HCl (Zofran) 4 mg IV ONCE PRN PRN Reason: Nausea And Vomiting Stop: 10/30/18 05:12 Exam - Physical Exam Narrative exam: General Apperance: The patient lying in bed, breathing comfortable HEENT: Normocephalic, atraumatic. Pupils equally round and reactive to light, EOMI, no sclericterus or JVD or thyromegaly or nodule. , no carotid bruit, mucous membranes dry, no exudate or erythema Heart: S1-S2, regular is rhythm Lungs: Clear to auscultation bilaterally, breathing comfortable Abdomen: Positive bowel sounds, soft, +tender, distended Extremities: No edema cyanosis clubbing Skin: no rash, nodule, warm and dry Neuro: sedated - Constitutional Vitals: Temp Pulse Resp BP Pulse Ox 97.8 F 100 H 30 H 137/91 100 10/29/18 16:01 10/29/18 23:00 10/29/18 23:00 10/29/18 23:00 10/29/18 23:00 Results - Labs CBC & Chem 7: 11/01/18 04:29 11/01/18 04:29 Labs: Abnormal lab results 10/29/18 10/29/18 10/29/18 Range/Units 17:45 17:45 18:43 Hgb 16.7 H (10.1-14.3) gm/dl Hct 45.1 H (30.3-42.9) % MCH 36 H (28-32) pg MCHC 37 H (30-34) % RDW 12.8 L (13.2-15.2) % Seg Neuts % (Manual) 74.0 H (40.0-70.0) % Lymphocytes % (Manual) 8.0 L (13.4-35.0) % Monocytes % (Manual) 18.0 H (0.0-7.3) % Lymphocytes # (Manual) 0.6 L (1.2-5.4) K/mm3 Monocytes # (Manual) 1.5 H (0.0-0.8) K/mm3 Sodium 130 L (137-145) mmol/L Potassium 3.1 L (3.6-5.0) mmol/L Chloride 89.7 L (98-107) mmol/L Carbon Dioxide 20 L (22-30) mmol/L BUN 29 H (7-17) mg/dL Creatinine 1.7 H (0.7-1.2) mg/dL Lactic Acid (0.7-2.0) mmol/L Total Bilirubin 2.50 H (0.1-1.2) mg/dL AST 73 H (5-40) units/L ALT 77 H (7-56) units/L Alkaline Phosphatase 166 H (35-129) units/L Albumin 3.6 L (3.9-5) g/dL TSH 8.610 H (0.270-4.200) mlU/mL 10/29/18 10/29/18 Range/Units 18:43 22:23 Hgb (10.1-14.3) gm/dl Hct (30.3-42.9) % MCH (28-32) pg MCHC (30-34) % RDW (13.2-15.2) % Seg Neuts % (Manual) (40.0-70.0) % Lymphocytes % (Manual) (13.4-35.0) % Monocytes % (Manual) (0.0-7.3) % Lymphocytes # (Manual) (1.2-5.4) K/mm3 Monocytes # (Manual) (0.0-0.8) K/mm3 Sodium (137-145) mmol/L Potassium (3.6-5.0) mmol/L Chloride (98-107) mmol/L Carbon Dioxide (22-30) mmol/L BUN (7-17) mg/dL Creatinine (0.7-1.2) mg/dL Lactic Acid 3.50 H* 2.50 H* (0.7-2.0) mmol/L Total Bilirubin (0.1-1.2) mg/dL AST (5-40) units/L ALT (7-56) units/L Alkaline Phosphatase (35-129) units/L Albumin (3.9-5) g/dL TSH (0.270-4.200) mlU/mL - Imaging and Cardiology CT scan - abdomen: report reviewed CT Scan - head: report reviewed CT scan - pelvis: report reviewed Assessment and Plan Assessment High grade bowel obstruction secondary to cecal volvulus cecal volvulus Possible bowel ischemia Acute renal insufficiency alcohol withdrawal hypokalemia Elevated TSH Plan Admit to medicine The patient was taken emergently to surgery Consult critical care, chech T4 level Start WA protocol, continue IV fluid DVT prophalaxis Will reassess after surgery Addendum Pt seen and re-examined Discussed with Dr Gramajo at bedside Vent management per critical care Dr Patiño gave orders for sedation
[2018-10-30] MEDS ORDERED: NEO SYNEPHRINE ONE (01:13)
[2018-10-30] MEDS ORDERED: ZEMURON IV ONE (02:11)
--- NOTE | 2018-10-30 02:18 | Post Operative Note ---
Date of procedure: 10/30/18 Pre-op diagnosis: cecal volvulus, small bowel obstruction Post-op diagnosis: other (cecal volvulus, SBO, internal hernia) Findings: 1. cecal volvulus with very dilated cecum in the LUQ 2. internal hernia causing distal SBO 3. hyperemic distal jejunum involved in internal hernia I/Os: IVF: 3500cc Uo: 400cc NGT output: 400cc Procedure: Exploratory laparotomy, reduction of internal hernia, right hemicolectomy with primary ileocolonic anastamosis Anesthesia: YUDITH Surgeon: JAME HARPER Ear Nose Throat Surgeon: LAUREL CHAVEZ Estimated blood loss: 50-100ml Pathology: list (right colon) Specimen disposition: to lab Condition: stable Disposition: PACU
[2018-10-30] MEDS ORDERED: SUBLIMAZE IV PRN (02:20)
[2018-10-30] MEDS ORDERED: VASELINE LIP THERAPY TP PRN (02:20)
[2018-10-30] MEDS ORDERED: ARTIFICIAL TEARS OPHTH OINT OU PRN (02:20)
--- NOTE | 2018-10-30 03:23 | XRay Report ---
PROCEDURE: XR CHEST 1V AP TECHNIQUE: Chest radiograph single view. HISTORY: ETT placement COMPARISONS: None . FINDINGS: Heart: Normal. Mediastinum/Vessels: Normal. Lungs/Pleural space: Lungs are expanded. There are no infiltrates, effusions or pneumothoraces. Ther e is a tiny calcific granuloma at the left lung base.. Bony thorax: No acute osseous abnormality. Life support devices: Endotracheal tube is in the mid trachea. NG tube is in the stomach.. IMPRESSION: The heart size is normal.. Lungs are expanded. There are no infiltrates, effusions or pneumothoraces. There is a tiny calcific g ranuloma at the left lung base.. Endotracheal tube is in the mid trachea. NG tube is in the stomach.. This document is electronically signed by Jeff Jensen MD., October 30 2018 03:22:07 AM ET
[2018-10-30] MEDS ORDERED: NACL 0.9% 1000 ML 1,000 ML IV SCH ×2 (03:29→20:14)
[2018-10-30] MEDS: 1: FOLVITE 1 MG, INFUVITE 10 ML, VITAMIN B-1 100 MG in NACL 0.9% 1000 ML 988.8 ML 2: NA IV SCH ×3 (05:00→10:48)
[2018-10-30 05:26] LABS: INR 1.37 (0.87-1.13)
[2018-10-30] MEDS: ceFAZolin 2 GM in NACL 0.9% 100 ML IV SCH ×2 (05:36→14:02)
[2018-10-30 05:41] LABS: BUN/Creatinine Ratio 25; Blood Urea Nitrogen 20 mg/dL (7-17); Calcium 6.6 mg/dL (8.4-10.2); Hemolysis Index 6
[2018-10-30] MEDS: fentaNYL DRIP Premix 2,000 MCG/100 ML BAG IV SCH ×2 (05:58→06:01)
[2018-10-30] MEDS: FLAGYL 500 MG/100 ML 500 MG/100 ML BAG IV SCH ×2 (06:05→13:53)
[2018-10-30] MEDS: HEPARIN SUB-Q SCH ×2 (06:11→13:56)
[2018-10-30] MEDS ORDERED: VERSED IV ONE (06:48)
[2018-10-30] MEDS ORDERED: VERSED ONE (06:54)
[2018-10-30] MEDS: NACL 0.9% 1000 ML 1,000 ML IV SCH (07:58)
[2018-10-30] MEDS: KCL 10MEQ/100ML 10 MEQ/100 ML BAG IV SCH ×8 (08:35→16:03)
[2018-10-30] MEDS ORDERED: CALCIUM GLUCONATE 2,000 MG in NACL 0.9% 100 ML IV ONE (08:59)
[2018-10-30] MEDS ORDERED: NACL 0.9% 1000 ML 2,000 ML IV ONE (09:00)
[2018-10-30] MEDS ORDERED: MAGNESIUM SULFATE 2GM/50ML 2 GM/50 ML BAG IV ONE (09:00)
[2018-10-30] MEDS ORDERED: MAGNESIUM SULFATE 4GM/100ML 4 GM/100 ML BAG IV SCH (09:00)
[2018-10-30] MEDS: PEPCID IV SCH ×2 (09:09→21:18)
[2018-10-30] MEDS: SODIUM CHLORIDE FLUSH SYRINGE 10 ML IV PRN ×3 (09:09→17:55)
[2018-10-30] MEDS: SODIUM CHLORIDE FLUSH SYRINGE 10 ML IV SCH ×2 (09:09→22:06)
[2018-10-30 09:22] LABS: Hematocrit 33.4 % (30.3-42.9); Hemoglobin 11.4 gm/dl (10.1-14.3); Mean Corpuscular HGB Conc 34 % (30-34); Mean Corpuscular Volume 101 fl (79-97); Red Cell Distribution Width 12.6 % (13.2-15.2)
[2018-10-30 09:32] LABS: Platelet Count 60 K/mm3 (140-440)
[2018-10-30] MEDS ORDERED: LOVENOX SUB-Q SCH (10:00)
[2018-10-30] MEDS: DIPRIVAN 10 MG/ML 1,000 MG/100 ML BOTTLE IV SCH (10:11)
[2018-10-30 10:55] LABS: Band Neutrophils # (Manual) 0.4 K/mm3; Basophils % (Manual) 0 % (0.0-1.8); Eosinophils % (Manual) 0 % (0.0-4.3); Platelet Estimate Consistent w Auto; RBC Morphology Normal; Total Cells Counted 100
--- NOTE | 2018-10-30 11:32 | Consultation ---
History of Present Illness Consult date: 10/30/18 Requesting physician: JAME HARPER Reason for consult: other (acute respiratory failure secondary to sepsis from high grade small bowel obstruction) History of present illness: 62 y/o female, admitted with altered mental state and abdominal pain. Found to have high grad obstruction and taken to OR for Ex-lap and repair. currently patient is intubated and sedated. Oldest daughter who was here with her last night is at the bedside. Patient is awake and alert , follows commands. Remainder of the review is negative. Past History Past Medical History: No medical history, GERD Past Surgical History: No surgical history Social history: alcohol abuse Family history: no significant family history Medications and Allergies Allergies Allergy/AdvReac Type Severity Reaction Status Date / Time No Known Allergies Allergy Verified 10/29/18 17:40 Home Medications Medication Instructions Recorded Confirmed Last Taken Type Famotidine [Pepcid] 20 mg PO BID #30 tablet 04/10/17 Unknown Rx Active Meds: Active Medications Acetaminophen (Tylenol) 650 mg MO Q4H PRN PRN Reason: Pain MILD(1-3)/Fever >100.5/DAMON Famotidine (Pepcid) 20 mg IV BID [facility] Last Admin: 10/30/18 09:09 Dose: 20 mg Documented by: Fentanyl (Sublimaze) 50 mcg IV Q2H PRN PRN Reason: Pain, Moderate (4-6) Heparin Sodium (Porcine) (Heparin) 5,000 unit SUB-Q Q8HR [facility] Last Admin: 10/30/18 06:11 Dose: 5,000 unit Documented by: Hydrophilic Ointment (Vaseline Lip Therapy) 1 applic TP Q2HR PRN PRN Reason: Dry Lips Propofol (Diprivan 10 Mg/Ml) 1,000 mg in 100 mls @ 1.497 mls/hr IV TITR CHRISTINE; Protocol Last Admin: 10/30/18 10:11 Dose: 5 mcg/kg/min, 1.497 mls/hr Documented by: Cefazolin Sodium 2 gm/ Sodium (Chloride) 100 mls @ 200 mls/hr IV Q8HR CHRISTINE; Protocol Stop: 10/30/18 14:29 Last Admin: 10/30/18 05:36 Dose: 200 mls/hr Documented by: Metronidazole (Flagyl 500 Mg/100 Ml) 500 mg in 100 mls @ 100 mls/hr IV Q8HR CHRISTINE; Protocol Stop: 10/30/18 14:59 Last Admin: 10/30/18 06:05 Dose: 100 mls/hr Documented by: Sodium Chloride (Nacl 0.9% 1000 Ml) 1,000 mls @ 200 mls/hr IV DIRECT CHRISTINE Sodium Chloride (Nacl 0.9% 1000 Ml) 1,000 mls @ 0 mls/hr IV ONCE CHRISTINE Stop: 10/31/18 08:01 Last Admin: 10/30/18 07:58 Dose: 999 mls/hr Documented by: Magnesium Sulfate (Magnesium Sulfate 4gm/100ml) 4 gm in 100 mls @ 25 mls/hr IV Q4H [facility] Stop: 10/30/18 16:59 Last Admin: 10/30/18 08:35 Dose: 25 mls/hr Documented by: Potassium Chloride (Kcl 10meq/100ml) 10 meq in 100 mls @ 100 mls/hr IV Q1H [facility] Stop: 10/30/18 16:59 Last Admin: 10/30/18 10:45 Dose: 100 mls/hr Documented by: Midazolam HCl (Versed) 2 mg IV Q4H PRN PRN Reason: Agitation Multi-Ingred Cream/Lotion/Oil/Oint (Artificial Tears Ophth Oint) 1 applic OU Q4HR PRN PRN Reason: Dry Eye(s) Ondansetron HCl (Zofran) 4 mg IV Q4H PRN PRN Reason: Nausea And Vomiting Sodium Chloride (Sodium Chloride Flush Syringe 10 Ml) 10 ml IV BID [facility] Last Admin: 10/30/18 09:09 Dose: 10 ml Documented by: Sodium Chloride (Sodium Chloride Flush Syringe 10 Ml) 10 ml IV PRN PRN PRN Reason: LINE FLUSH Last Admin: 10/30/18 09:09 Dose: 10 ml Documented by: Review of Systems ROS unobtainable: due to endotracheal tube Physical Examination Vital signs: Vital Signs Temp Pulse Resp BP Pulse Ox 97.8 F 148 H 16 183/157 98 10/29/18 16:01 10/29/18 16:01 10/29/18 16:01 10/29/18 16:01 10/29/18 16:01 General appearance: alert, appears uncomfortable Eyes: non-icteric ENT: other (orally intubated and sedated) Neck: supple Effort: mildly labored Ascultation: Bilateral: clear Percussion: Bilateral: not dull Cardiovascular: other (sinus tachycardia) Gastrointestinal: other (post-op changes noted with ostomy present) Integumentary: normal Extremities: cool Musculoskeletal: no deformities normal mental status Results - Laboratory Findings CBC and BMP: 10/30/18 08:51 10/30/18 04:34 ABG POC ABG pH 7.200 (7.35-7.45) L 10/30/18 03:42 POC ABG pCO2 42.6 (35-45) 10/30/18 03:42 POC ABG pO2 186 (80-105) H 10/30/18 03:42 POC ABG HCO3 16.6 (22-26 mml/L) 10/30/18 03:42 POC ABG Total CO2 18 (23-27mmol/L) 10/30/18 03:42 POC ABG O2 Sat 99 10/30/18 03:42 PT/INR, D-dimer PT 17.8 Sec. (12.2-14.9) H 10/30/18 04:34 INR 1.37 (0.87-1.13) H 10/30/18 04:34 Abnormal lab findings: Abnormal Labs 10/29/18 10/29/18 10/29/18 17:45 17:45 18:43 WBC RBC Hgb 16.7 H Hct 45.1 H MCV MCH 36 H MCHC 37 H RDW 12.8 L Plt Count Seg Neuts % (Manual) 74.0 H Lymphocytes % (Manual) 8.0 L Monocytes % (Manual) 18.0 H Seg Neutrophils # Man Lymphocytes # (Manual) 0.6 L Monocytes # (Manual) 1.5 H PT INR POC ABG pH POC ABG pO2 Sodium 130 L Potassium 3.1 L Chloride 89.7 L Carbon Dioxide 20 L BUN 29 H Creatinine 1.7 H Glucose Lactic Acid Calcium Magnesium Total Bilirubin 2.50 H AST 73 H ALT 77 H Alkaline Phosphatase 166 H Albumin 3.6 L TSH 8.610 H 10/29/18 10/29/18 10/30/18 18:43 22:23 03:42 WBC RBC Hgb Hct MCV MCH MCHC RDW Plt Count Seg Neuts % (Manual) Lymphocytes % (Manual) Monocytes % (Manual) Seg Neutrophils # Man Lymphocytes # (Manual) Monocytes # (Manual) PT INR POC ABG pH 7.200 L POC ABG pO2 186 H Sodium Potassium Chloride Carbon Dioxide BUN Creatinine Glucose Lactic Acid 3.50 H* 2.50 H* Calcium Magnesium Total Bilirubin AST ALT Alkaline Phosphatase Albumin TSH 10/30/18 10/30/18 10/30/18 04:34 04:34 08:51 WBC 2.7 L RBC 3.30 L Hgb Hct MCV 101 H MCH 35 H MCHC RDW 12.6 L Plt Count 60 L Seg Neuts % (Manual) Lymphocytes % (Manual) 6.0 L Monocytes % (Manual) 31.0 H Seg Neutrophils # Man 1.3 L Lymphocytes # (Manual) 0.2 L Monocytes # (Manual) PT 17.8 H INR 1.37 H POC ABG pH POC ABG pO2 Sodium 133 L Potassium 3.1 L Chloride Carbon Dioxide 17 L BUN 20 H Creatinine Glucose 116 H Lactic Acid Calcium 6.6 L D Magnesium 1.20 L Total Bilirubin AST ALT Alkaline Phosphatase Albumin TSH - Diagnostic Findings Chest x-ray: image reviewed (no evidence of acute lung disease) Assessment and Plan 62 y/o female with acute respiratory failure secondary to sepsis from high grade bowel obstruction and volvulus with ETOH abuse with concerns for withdrawal. 1. Patient is severely volume deplete. Needs liters and liters of fluid. Have given at least 4 this am. Agree with banana bag and maintenance fluids. May need to give more boluses this afternoon. 2. Will use Diprovan for sedation with PRN fent and Versed. No fever currently and BP is marginal secondary to volume depletion. 3. Follow up any new surgery recs 4. Aggressive replacement of electrolytes, especially magnesium 5. DVT and GI Prophylaxis 6. Overall prognosis is guarded. Long discussion with oldest daughter at bedside. She expressed understanding. CCT 31 minutes.
--- NOTE | 2018-10-30 13:06 | Progress Note ---
Assessment and Plan 62 yo F s/p Exploratory laparotomy, reduction of internal hernia, right hemicolectomy with primary ileocolonic anastamosis, POD 0 1. cecal volvulus 2. high grade SBO 3. etoh abuse 4. delerium tremens 5. TIERRA 6. VDRF 7. malnutrition Overnight, no records of NGT or urine output documented. This am, patient receiving aggressive IVF and urine output 30-40cc/hr, tachycardia improving, and BP improved. Plan: 1. NPO 2. aggressive IVF 3. NGT to LIWS 4. strict I/Os 5. alcazar catheter 6. vent management per ICU team 7. daily CBC, BMP 8. Await bowel function 9. on propofol and fent gtt 10. DVT ppx Discussed with Dr. Patiño. No family at bedside. Thank you, please call with questions. Subjective Date of service: 10/30/18 Narrative: Pt seen and examined. Remains intubated on vent. No f/c. Objective Vital Signs - 12hr 10/30/18 10/30/18 10/30/18 02:33 02:36 02:41 Temperature 97.5 F L Pulse Rate 81 120 H Pulse Rate [ From Monitor] Respiratory 14 15 Rate Blood Pressure 95/67 95/67 93/68 O2 Sat by Pulse 98 100 Oximetry 10/30/18 10/30/18 10/30/18 02:51 02:55 03:00 Temperature Pulse Rate 121 H 121 H 127 H Pulse Rate [ From Monitor] Respiratory 16 16 Rate Blood Pressure 93/68 93/68 100/73 O2 Sat by Pulse 100 100 100 Oximetry 10/30/18 10/30/18 10/30/18 03:05 03:10 03:15 Temperature Pulse Rate 124 H 129 H 131 H Pulse Rate [ From Monitor] Respiratory 16 16 16 Rate Blood Pressure 106/71 104/78 115/79 O2 Sat by Pulse 100 100 100 Oximetry 10/30/18 10/30/18 10/30/18 03:20 03:30 03:40 Temperature Pulse Rate 133 H 134 H 136 H Pulse Rate [ From Monitor] Respiratory 16 16 16 Rate Blood Pressure 117/79 114/79 117/84 O2 Sat by Pulse 100 100 100 Oximetry 10/30/18 10/30/18 10/30/18 03:50 04:00 04:10 Temperature Pulse Rate 137 H 135 H 136 H Pulse Rate [ From Monitor] Respiratory 16 16 16 Rate Blood Pressure 120/80 119/82 123/81 O2 Sat by Pulse 100 100 100 Oximetry 10/30/18 10/30/18 10/30/18 04:20 04:30 04:41 Temperature Pulse Rate 140 H 142 H 145 H Pulse Rate [ From Monitor] Respiratory 16 18 16 Rate Blood Pressure 121/80 122/77 117/78 O2 Sat by Pulse 100 100 100 Oximetry 10/30/18 10/30/18 10/30/18 04:50 05:00 05:10 Temperature 98.4 F Pulse Rate 146 H 151 H 150 H Pulse Rate [ From Monitor] Respiratory 17 19 20 Rate Blood Pressure 115/79 110/77 105/80 O2 Sat by Pulse 100 100 100 Oximetry 10/30/18 10/30/18 10/30/18 05:20 05:30 05:40 Temperature Pulse Rate 152 H 155 H 154 H Pulse Rate [ From Monitor] Respiratory 24 27 H 21 Rate Blood Pressure 112/74 113/79 116/81 O2 Sat by Pulse 100 100 100 Oximetry 10/30/18 10/30/18 10/30/18 05:51 06:01 06:10 Temperature Pulse Rate 155 H 154 H 157 H Pulse Rate [ From Monitor] Respiratory 30 H 28 H 28 H Rate Blood Pressure 106/77 103/73 107/76 O2 Sat by Pulse 100 100 100 Oximetry 10/30/18 10/30/18 10/30/18 06:21 06:31 06:41 Temperature Pulse Rate 162 H 158 H 163 H Pulse Rate [ From Monitor] Respiratory 30 H 28 H 30 H Rate Blood Pressure 100/70 99/70 103/47 O2 Sat by Pulse 100 100 100 Oximetry 10/30/18 10/30/18 10/30/18 06:50 07:01 07:10 Temperature Pulse Rate 163 H 145 H 145 H Pulse Rate [ From Monitor] Respiratory 31 H 16 18 Rate Blood Pressure 93/69 73/52 96/63 O2 Sat by Pulse 100 100 100 Oximetry 10/30/18 10/30/18 10/30/18 07:20 07:30 07:40 Temperature Pulse Rate 144 H 144 H 144 H Pulse Rate [ From Monitor] Respiratory 22 22 25 H Rate Blood Pressure 101/67 108/70 107/76 O2 Sat by Pulse 100 100 100 Oximetry 10/30/18 10/30/1819 07:50 08:00 08:10 Temperature 98.0 F Pulse Rate 141 H 145 H 142 H Pulse Rate [ 145 H From Monitor] Respiratory 22 27 H 25 H Rate Blood Pressure 108/73 110/76 114/77 O2 Sat by Pulse 100 100 100 Oximetry 10/30/18 10/30/18 10/30/18 08:20 08:30 08:40 Temperature Pulse Rate 142 H 143 H 143 H Pulse Rate [ From Monitor] Respiratory 25 H 24 27 H Rate Blood Pressure 116/77 115/74 124/80 O2 Sat by Pulse 100 100 100 Oximetry 10/30/18 10/30/18 10/30/18 08:50 09:00 09:10 Temperature Pulse Rate 140 H 142 H 142 H Pulse Rate [ From Monitor] Respiratory 27 H 27 H 26 H Rate Blood Pressure 119/76 116/74 105/78 O2 Sat by Pulse 100 100 100 Oximetry 10/30/18 10/30/18 10/30/18 09:20 09:30 09:40 Temperature Pulse Rate 141 H 144 H 142 H Pulse Rate [ From Monitor] Respiratory 26 H 31 H 30 H Rate Blood Pressure 113/76 125/73 121/76 O2 Sat by Pulse 100 100 100 Oximetry 10/30/18 10/30/18 10/30/18 09:50 09:58 10:00 Temperature Pulse Rate 140 H 135 H 139 H Pulse Rate [ From Monitor] Respiratory 28 H 10 L 27 H Rate Blood Pressure 126/76 117/75 119/74 O2 Sat by Pulse 100 100 100 Oximetry 10/30/18 10/30/18 10/30/18 10:10 10:20 10:30 Temperature Pulse Rate 136 H 137 H 135 H Pulse Rate [ From Monitor] Respiratory 27 H 26 H 33 H Rate Blood Pressure 118/78 113/80 122/74 O2 Sat by Pulse 100 100 99 Oximetry 10/30/18 10/30/18 10/30/18 10:40 10:50 11:00 Temperature Pulse Rate 131 H 132 H 134 H Pulse Rate [ From Monitor] Respiratory 26 H 25 H 30 H Rate Blood Pressure 117/77 129/77 124/75 O2 Sat by Pulse 100 100 94 Oximetry 10/30/18 10/30/18 10/30/18 11:11 11:20 11:30 Temperature Pulse Rate 134 H 134 H 132 H Pulse Rate [ From Monitor] Respiratory 24 26 H 27 H Rate Blood Pressure 113/72 116/67 106/69 O2 Sat by Pulse 100 100 100 Oximetry 10/30/18 10/30/18 10/30/18 11:40 11:50 12:00 Temperature 100.2 F H Pulse Rate 137 H 133 H 137 H Pulse Rate [ From Monitor] Respiratory 29 H 28 H 27 H Rate Blood Pressure 105/69 104/70 110/72 O2 Sat by Pulse 100 100 100 Oximetry 10/30/18 10/30/18 10/30/18 12:10 12:20 12:30 Temperature Pulse Rate 133 H 143 H 133 H Pulse Rate [ From Monitor] Respiratory 30 H 30 H 30 H Rate Blood Pressure 103/68 115/77 111/70 O2 Sat by Pulse 100 100 100 Oximetry 10/30/18 10/30/18 12:40 12:50 Temperature Pulse Rate 139 H 137 H Pulse Rate [ From Monitor] Respiratory 31 H 30 H Rate Blood Pressure 119/74 118/67 O2 Sat by Pulse 100 100 Oximetry - General physical appearance Narrative Exam: Gen: Intubated on vent, sedated ENT: NGT with dark bilious drainage CV: S1, S2+, tachy Resp: on vent Abd: soft, NT, moderately distended. Dressing c/d/i Ext: no c/c/e - Labs 10/30/18 08:51 10/30/18 04:34 Diabetes panel 10/29/18 10/29/18 10/30/18 Range/Units 17:47 18:43 04:34 Sodium TNR 130 L 133 L Potassium TNR 3.1 L 3.1 L Chloride TNR 89.7 L 104.7 Carbon Dioxide TNR 20 L 17 L BUN TNR 29 H 20 H Creatinine TNR 1.7 H 0.8 D Glucose TNR 79 116 H Calcium TNR 9.7 6.6 L D AST TNR 73 H ALT TNR 77 H Alkaline Phosphatase TNR 166 H Total Protein TNR 6.8 Albumin TNR 3.6 L Thyroid panel 10/29/18 Range/Units 17:45 TSH 8.610 H (0.270-4.200) mlU/mL Calcium panel 10/29/18 10/29/18 10/30/18 Range/Units 17:47 18:43 04:34 Calcium TNR 9.7 6.6 L D Phosphorus 2.70 (2.5-4.5) mg/dL Albumin TNR 3.6 L Pituitary panel 10/29/18 10/29/18 10/29/18 Range/Units 17:45 17:47 18:43 Sodium TNR 130 L Potassium TNR 3.1 L Chloride TNR 89.7 L Carbon Dioxide TNR 20 L BUN TNR 29 H Creatinine TNR 1.7 H Glucose TNR 79 Calcium TNR 9.7 TSH 8.610 H (0.270-4.200) mlU/mL 10/30/18 Range/Units 04:34 Sodium 133 L Potassium 3.1 L Chloride 104.7 Carbon Dioxide 17 L BUN 20 H Creatinine 0.8 D Glucose 116 H Calcium 6.6 L D TSH (0.270-4.200) mlU/mL Adrenal panel 10/29/18 10/29/18 10/30/18 Range/Units 17:47 18:43 04:34 Sodium TNR 130 L 133 L Potassium TNR 3.1 L 3.1 L Chloride TNR 89.7 L 104.7 Carbon Dioxide TNR 20 L 17 L BUN TNR 29 H 20 H Creatinine TNR 1.7 H 0.8 D Glucose TNR 79 116 H Calcium TNR 9.7 6.6 L D Total Bilirubin TNR 2.50 H AST TNR 73 H ALT TNR 77 H Alkaline Phosphatase TNR 166 H Total Protein TNR 6.8 Albumin TNR 3.6 L
[2018-10-30] MEDS: VERSED IV PRN ×3 (13:52→22:05)
--- NOTE | 2018-10-30 14:08 | Progress Note ---
Assessment and Plan Assessment and plan: 62-year-old female with past medical history significant for asthma was brought by her family members for the complaints of shortness was not eating and drinking for the last few days. She has been constantly drinking alcohol. Patient has been complaining that she has abdominal pain. In the emergency department patient was tremulous and was given ativan. CT scan of the abdomen showed high-grade bowel obstruction due to volvulus. 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 and did hemicolectomy - Postop management per general surgery Thrombocytopenia, ?HIT - Patient platelet count was 151 yesterday and today it is 60 - Headed heparin - Hematology oncology consulted Alcohol withdrawal DT - Patient is sedated - CIWA protocol Acute renal failure - IV fluids - Patient is catheterized, strict input and output Electrolyte derangements; which include hyperkalemia, hypocalcemia and hypomagnesemia - Repleted Acute respiratory failure - Patient is on mechanical ventilation after surgery - Patient is sedated - Vent management per education trainer DVT prophylaxis - On SCDs Disposition - Continue ICU care The high probability of a clinically significant, sudden or life threatening deterioration of the [GI, neurology, repiratory] system(s) required my full and direct attention, intervention and personal management. The aggregate critical care time was [45] minutes. This time is in addition to time spent performing reported procedures but includes the following: [x] Data Review and interpretation [x] Patient assessment and monitoring of vital signs [x] Documentation [x] Medication orders and management History Interval history: Patient was seen and evaluated this morning, patient was intubated and on mechanical ventilation. No prominent emergency room. Hospitalist Physical - Physical exam Narrative exam: Patient intubated and on mechanical ventilation The patient appeared well nourished and normally developed. Vital signs as documented. Head exam is unremarkable. No scleral icterus . Neck is without jugular venous distension, thyromegaly, or carotid bruits. Lungs are clear to auscultation. Cardiac exam reveals regular rate and Rhythm. First and second heart sounds normal. No murmurs, rubs or gallops. Abdominal exam reveals clean midline abdominal dressing. Extremities are nonedematous and both femoral and pedal pulses are normal. 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 - Constitutional Vitals: Temp Pulse Resp BP Pulse Ox 100.2 F H 133 H 31 H 111/68 100 06//19 12:00 06/05/19 13:10 10/30/18 13:10 10/30/18 13:10 10/30/18 13:10 Results - Labs CBC & Chem 7: 10/30/18 08:51 10/30/18 04:34 Labs: Laboratory Last Values WBC 2.7 K/mm3 (4.5-11.0) L 10/30/18 08:51 RBC 3.30 M/mm3 (3.65-5.03) L 10/30/18 08:51 Hgb 11.4 gm/dl (10.1-14.3) D 10/30/18 08:51 Hct 33.4 % (30.3-42.9) D 10/30/18 08:51 MCV 101 fl (79-97) H 10/30/18 08:51 MCH 35 pg (28-32) H 10/30/18 08:51 MCHC 34 % (30-34) 10/30/18 08:51 RDW 12.6 % (13.2-15.2) L 10/30/18 08:51 Plt Count 60 K/mm3 (140-440) L 10/30/18 08:51 [place] % (Auto) Water Main Pipe Layer 10/30/18 08:51 Add Manual Diff Complete 10/30/18 08:51 Total Counted 100 10/30/18 08:51 Seg Neuts % (Manual) 48.0 % (40.0-70.0) 10/30/18 08:51 15.0 % 10/30/18 08:51 6.0 % (13.4-35.0) L 10/30/18 08:51 Reactive Lymphs % (Man) 0 % 10/30/18 08:51 31.0 % (0.0-7.3) H 10/30/18 08:51 0 % (0.0-4.3) 10/30/18 08:51 0 % (0.0-1.8) 10/30/18 08:51 0 % 10/30/18 08:51 0 % 10/30/18 08:51 0 % 10/30/18 08:51 0 % 10/30/18 08:51 Nucleated RBC % Not Reportable 10/30/18 08:51 Seg Neutrophils # Man 1.3 K/mm3 (1.8-7.7) L 10/30/18 08:51 Band Neutrophils # 0.4 K/mm3 10/30/18 08:51 0.2 K/mm3 (1.2-5.4) L 10/30/18 08:51 Abs React Lymphs (Man) 0.0 K/mm3 10/30/18 08:51 0.8 K/mm3 (0.0-0.8) 10/30/18 08:51 0.0 K/mm3 (0.0-0.4) 10/30/18 08:51 0.0 K/mm3 (0.0-0.1) 10/30/18 08:51 0.0 K/mm3 10/30/18 08:51 0.0 K/mm3 10/30/18 08:51 0.0 K/mm3 10/30/18 08:51 Blast Cells # 0.0 K/mm3 10/30/18 08:51 WBC Morphology Not Reportable 10/30/18 08:51 Hypersegmented Neuts Not Reportable 10/30/18 08:51 Hyposegmented Neuts Not Reportable 10/30/18 08:51 Hypogranular Neuts Not Reportable 10/30/18 08:51 Not Reportable 10/30/18 08:51 Not Reportable 10/30/18 08:51 Not Reportable 10/30/18 08:51 Not Reportable 10/30/18 08:51 Not Reportable 10/30/18 08:51 Not Reportable 10/30/18 08:51 Consistent w auto 10/30/18 08:51 Not Reportable 10/30/18 08:51 Plt Clumps, EDTA Not Reportable 10/30/18 08:51 Not Reportable 10/30/18 08:51 Not Reportable 10/30/18 08:51 Not Reportable 10/30/18 08:51 Plt Morphology Comment Not Reportable 10/30/18 08:51 RBC Morphology Normal 10/30/18 08:51 Dimorphic RBCs Not Reportable 10/30/18 08:51 Not Reportable 10/30/18 08:51 Not Reportable 10/30/18 08:51 Not Reportable 10/30/18 08:51 Not Reportable 10/30/18 08:51 Not Reportable 10/30/18 08:51 Not Reportable 10/30/18 08:51 Not Reportable 10/30/18 08:51 Not Reportable 10/30/18 08:51 Not Reportable 10/30/18 08:51 Not Reportable 10/30/18 08:51 Not Reportable 10/30/18 08:51 Not Reportable 10/30/18 08:51 Not Reportable 10/30/18 08:51 Not Reportable 10/30/18 08:51 Not Reportable 10/30/18 08:51 Not Reportable 10/30/18 08:51 Not Reportable 10/30/18 08:51 Not Reportable 10/30/18 08:51 Not Reportable 10/30/18 08:51 Acanthocytes (Spur) Not Reportable 10/30/18 08:51 Rouleaux Not Reportable 10/30/18 08:51 Not Reportable 10/30/18 08:51 Not Reportable 10/30/18 08:51 Not Reportable 10/30/18 08:51 Not Reportable 10/30/18 08:51 Hem Pathologist Commnt No 10/30/18 08:51 PT 17.8 Sec. (12.2-14.9) H 10/30/18 04:34 INR 1.37 (0.87-1.13) H 10/30/18 04:34 POC ABG pH 7.200 (7.35-7.45) L 10/30/18 03:42 POC ABG pCO2 42.6 (35-45) 10/30/18 03:42 POC ABG pO2 186 (80-105) H 10/30/18 03:42 POC ABG HCO3 16.6 (22-26 mml/L) 10/30/18 03:42 POC ABG Total CO2 18 (23-27mmol/L) 10/30/18 03:42 POC ABG O2 Sat 99 10/30/18 03:42 POC ABG Base Excess -11 ((-2) - (+3)mmol/L) 10/30/18 03:42 50 % 10/30/18 03:42 Sodium 133 mmol/L (137-145) L 10/30/18 04:34 Potassium 3.1 mmol/L (3.6-5.0) L 10/30/18 04:34 Chloride 104.7 mmol/L (98-107) 10/30/18 04:34 Carbon Dioxide 17 mmol/L (22-30) L 10/30/18 04:34 14 mmol/L 10/30/18 04:34 BUN 20 mg/dL (7-17) H 10/30/18 04:34 0.8 mg/dL (0.7-1.2) D 10/30/18 04:34 Estimated GFR > 60 ml/min 10/30/18 04:34 25 % 10/30/18 04:34 Glucose 116 mg/dL (65-100) H 10/30/18 04:34 Lactic Acid 1.00 mmol/L (0.7-2.0) 10/30/18 04:34 Calcium 6.6 mg/dL (8.4-10.2) L D 10/30/18 04:34 Phosphorus 2.70 mg/dL (2.5-4.5) 10/30/18 04:34 Magnesium 1.20 mg/dL (1.7-2.3) L 10/30/18 04:34 2.50 mg/dL (0.1-1.2) H 10/29/18 18:43 AST 73 units/L (5-40) H 10/29/18 18:43 ALT 77 units/L (7-56) H 10/29/18 18:43 166 units/L (35-129) H 10/29/18 18:43 26.0 umol/L (25-60) 10/29/18 22:23 6.8 g/dL (6.3-8.2) 10/29/18 18:43 3.6 g/dL (3.9-5) L 10/29/18 18:43 1.1 % 10/29/18 18:43 14 units/L (13-60) 10/29/18 18:43 TSH 8.610 mlU/mL (0.270-4.200) H 10/29/18 17:45 Plasma/Serum Alcohol < 0.01 % (0-0.07) 10/29/18 17:45 Group A Strep Rapid Negative (Negative) 10/29/18 19:28 Blood Type B POSITIVE 10/29/18 23:48 Antibody Screen TNR 10/29/18 23:48 ALEC Antibody Screen Negative 10/29/18 23:48 Active Medications - Current Medications Current Medications: Generic Name Dose Route Start Last Admin Trade Name Freq PRN Reason Stop Dose Admin Acetaminophen 650 mg 10/29/18 23:49 Tylenol CA Q4H PRN Pain MILD(1-3)/Fever >100.5/DAMON Famotidine 20 mg 10/30/18 10:00 10/30/18 09:09 Pepcid IV 20 mg BID CHRISTINE Administration Fentanyl 50 mcg 10/30/18 08:14 Sublimaze IV Q2H PRN Pain, Moderate (4-6) Heparin Sodium (Porcine) 5,000 unit 10/30/18 06:00 10/30/18 13:56 Heparin SUB-Q Not Given Q8HR CHRISTINE Hydrophilic Ointment 1 applic 10/30/18 02:20 Vaseline Lip Therapy TP Q2HR PRN Dry Lips Propofol 1,000 mg in 100 mls @ 1.497 mls/hr 10/30/18 03:00 10/30/18 10:11 Diprivan 10 Mg/Ml IV 5 mcg/kg/min TITR CHRISTINE 1.497 mls/hr Administration Protocol 5 MCG/KG/MIN Cefazolin Sodium 2 gm/ Sodium 100 mls @ 200 mls/hr 10/30/18 06:00 10/30/18 14:02 Chloride IV 10/30/18 14:29 200 mls/hr Q8HR CHRISTINE Administration Protocol Metronidazole 500 mg in 100 mls @ 100 mls/hr 10/30/18 06:00 10/30/18 13:53 Flagyl 500 Mg/100 Ml IV 10/30/18 14:59 100 mls/hr Q8HR CHRISTINE Administration Protocol Sodium Chloride 1,000 mls @ 200 mls/hr 10/30/18 03:29 Nacl 0.9% 1000 Ml IV DIRECT CHRISTINE Sodium Chloride 1,000 mls @ 0 mls/hr 10/30/18 08:00 10/30/18 07:58 Nacl 0.9% 1000 Ml IV 10/31/18 08:01 999 mls/hr ONCE CHRISTINE Administration As Directed Magnesium Sulfate 4 gm in 100 mls @ 25 mls/hr 10/30/18 09:00 10/30/18 08:35 Magnesium Sulfate 4gm/100ml IV 10/30/18 16:59 25 mls/hr Q4H CHRISTINE Administration Potassium Chloride 10 meq in 100 mls @ 100 mls/hr 10/30/18 09:00 10/30/18 13:52 Kcl 10meq/100ml IV 10/30/18 16:59 100 mls/hr Q1H CHRISTINE Administration Midazolam HCl 2 mg 10/30/18 08:15 10/30/18 13:52 Versed IV 2 mg Q4H PRN Administration Agitation Multi-Ingred Cream/Lotion/Oil/Oint 1 applic 10/30/18 02:20 Artificial Tears Ophth Oint OU Q4HR PRN Dry Eye(s) Ondansetron HCl 4 mg 10/29/18 23:49 Zofran IV Q4H PRN Nausea And Vomiting Sodium Chloride 10 ml 10/30/18 10:00 10/30/18 09:09 Sodium Chloride Flush Syringe 10 Ml IV 10 ml BID CHRISTINE Administration Sodium Chloride 10 ml 10/29/18 23:49 10/30/18 13:57 Sodium Chloride Flush Syringe 10 Ml IV 10 ml PRN PRN Administration LINE FLUSH
--- NOTE | 2018-10-30 19:39 | Operative Report ---
PREOPERATIVE DIAGNOSIS: Cecal volvulus, small-bowel obstruction, intestinal ischemia. POSTOPERATIVE DIAGNOSIS: Cecal volvulus, small-bowel obstruction, intestinal ischemia. FINDINGS: 1. 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 2. Internal hernia causing distal small-bowel obstruction. 3. Hyperemic distal jejunum involving the internal hernia. INTAKE AND OUTPUT: IV fluids 3500 mL, urine output 400 mL, NG tube output 400 mL and EBL 100 mL. PROCEDURE: Exploratory laparotomy, reduction of internal hernia, right hemicolectomy with primary ileocolonic anastomosis. ANESTHESIA: General endotracheal anesthesia. SURGEON: Molly Gramajo DO VETERINARY DENTIST: Leigha Zamudio MD PATHOLOGY: Right colon. SPECIMEN DISPOSITION: To lab. CONDITION AND DISPOSITION: The patient is stable to the ICU. HISTORY OF PRESENT ILLNESS AND INDICATION: The patient is a 62-year-old female who has a history of alcohol abuse who presented to the Emergency Room with her family due to not feeling well. The patient cannot elaborate on her condition and all the history is obtained from her niece at the bedside and her chart. Apparently, the patient had been suffering from a stomach virus recently and was not able to eat. When she arrived to the hospital, she was found to have abnormal labs including an elevated lactate and a distended abdomen. CT scan of abdomen and pelvis showed a cecal volvulus and a high-grade small-bowel obstruction as well as portal venous air concerning for ischemia of the bowel. At this point, an emergent exploratory laparotomy was recommended. I discussed all risks, benefits and alternatives to surgery with the patient's family and questions were answered. Consent was obtained. PROCEDURE IN DETAIL: The patient was identified in the preoperative area and taken back to the operating room and placed on the operating table in supine position. After anesthesia was induced, a Maria catheter was sterilely placed by the circulating nurse. An NG tube was placed by Anesthesia. Abdomen was then prepped and draped in the usual sterile fashion. Timeout was performed. A midline incision was made using a #10 blade and dissection was carried down through the subcutaneous tissue using Bovie electrocautery until the fascia was encountered. The fascia was scored and then grasped between 2 hemostats. The fascia was then incised. The peritoneum was then identified and the abdomen was entered bluntly with a gloved finger. The incision was carried out in the cephalad and caudad direction using electrocautery. There was immediate visualization of very distended small bowel. All the small bowel was eviscerated and the cecum was identified. The cecum was twisted upon its mesentery causing a volvulus and positioned in the left upper quadrant. However, the cecum did appear viable just very distended and with a thinned out wall. The cecum was untwisted and traced back to the terminal ileum. The terminal ileum was adhesed to the left lower quadrant with the very thickened adhesions. This appeared to be causing an internal hernia with a large quantity of small bowel in the right lower quadrant, which appeared ischemic. This adhesion was taken down with great care using electrocautery and blunt dissection. Once the terminal ileum was freed and mobilized, the small bowel in the right lower quadrant was able to be eviscerated and evaluated. The bowel did appear very hyperemic and therefore it was covered with warm saline moistened towels. At this point, the decision was made to perform a right hemicolectomy. The lateral adhesions to the right colon were taken down by incising the white line of Toldt and mobilizing colon from lateral to medial. This was taken up to the hepatic flexure and around to the proximal portion of the transverse colon. The omentum and the transverse colon were also in the avascular plane using the EnSeal device. The colon was then bluntly dissected off of the retroperitoneal structures bluntly with great care to identify the duodenum and to protect it. Once adequate mobilization was achieved, a window in the mesentery was created using Bovie electrocautery in the terminal ileum approximately 3-4 cm from the ileocecal valve. The terminal ileum was transected using a ENIO-75 mm blue load stapler. The middle colic vessels were then identified and a window was made in the mesentery of the transverse colon to the right of the takeoff of the middle colic artery. The transverse colon was then transected using a ENIO-75 mm blue load stapler. The mesentery for the right colon was ligated using the EnSeal and the specimen was passed off the table as right colon. The wound bed was then examined and hemostasis was carefully achieved. The right lower quadrant was irrigated until the irrigant returned clear. The small bowel that was involved in an internal hernia was then examined. This was distal jejunum, approximately 30-35 cm was involved. The bowel remained hyperemic; however, did appear improved from initial evaluation. Therefore, it was decided to leave this bowel in situ. The remainder of the bowel was ran all the way to the ligament of Treitz and was pink and viable as well. The mesentery was splayed out in order to ensure that the bowel was lying without any twisting. The decision was then made to create a [id number] functional end-to-end ileocolonic anastomosis. The small bowel and transverse colon were aligned at the antimesenteric borders and a 3-0 silk stay stitch was placed. Blue towels were placed around the bowel and the corners of the staple lines were cut off using Metzenbaum scissors. A [id number] functional end-to-end anastomosis was then created using a ENIO-75 mm blue load stapler. The small bowel was decompressed using suction. The common channel was checked for hemostasis, which was carefully ensured. The common channel was then closed with a TA 60 stapler. The corner of the overlapping staple lines was imbricated using 3-0 silk sutures. Any bleeding from the staple line was controlled using 3-0 silk suture. The mesenteric defect was then closed with interrupted 3-0 Vicryl suture. The common channel was palpated and was widely open. There was no twist in the mesentery. The abdomen was once again irrigated until the irrigant returned clear. Hemostasis was carefully checked for and ensured. The abdomen was inspected for any sponges and none were found. The NG tube was palpated and was present in the stomach. A tongue of omentum was then laid over the anastomosis and secured over the anastomosis using a 3-0 silk suture. The bowel was then placed back into anatomic position and the abdomen closed using looped 0 PDS suture. The patient's peak airway pressures prior to closure was 20 and post-closure was 24. The subcutaneous tissue was then irrigated and checked for hemostasis, which was assured using Bovie electrocautery. The skin was then closed approximated using johanna. An island dressing was then applied. At the end of the case, all sponge, instrument, sharp counts were correct x 2. The patient was taken directly to the ICU in stable condition for recovery. JOB# [id number] ELDA/JYOTI KAMARA
[2018-10-30] MEDS: SUBLIMAZE IV PRN (20:01)
--- NOTE | 2018-10-30 21:28 | Event Note ---
Date: 10/30/18 [id number]
[2018-10-31] MEDS: SUBLIMAZE IV PRN ×2 (01:08→20:01)
--- NOTE | 2018-10-31 02:22 | XRay Report ---
PROCEDURE: XR CHEST 1V AP TECHNIQUE: Chest radiograph single view. HISTORY: follow up respiratory failure COMPARISONS: October 30, 2018 . FINDINGS: Heart: Normal. Mediastinum/Vessels: Normal. Lungs/Pleural space: Normal. Bony thorax: No acute osseous abnormality. Life support devices: The endotracheal tube ends 3 cm above the cheko. A nasogastric tube ends below the hemidiaphragms.. IMPRESSION: There is no evidence of an acute cardiopulmonary process. The endotracheal tube and naso gastric are properly positioned. This document is electronically signed by Carmen Menjivar DO., October 31 2018 02:20:55 AM ET
[2018-10-31] MEDS: VERSED IV PRN ×2 (03:36→16:11)
[2018-10-31 05:32] LABS: Hematocrit 31.8 % (30.3-42.9); Hemoglobin 10.4 gm/dl (10.1-14.3); Mean Corpuscular HGB Conc 33 % (30-34); Mean Corpuscular Volume 107 fl (79-97); Red Blood Count 2.97 M/mm3 (3.65-5.03); Red Cell Distribution Width 12.9 % (13.2-15.2)
[2018-10-31 05:37] LABS: INR 1.23 (0.87-1.13)
[2018-10-31 05:38] LABS: Platelet Count 68 K/mm3 (140-440)
[2018-10-31 05:50] LABS: BUN/Creatinine Ratio 21; Blood Urea Nitrogen 15 mg/dL (7-17); Calcium 7.4 mg/dL (8.4-10.2); Hemolysis Index 15
[2018-10-31] MEDS: DIPRIVAN 10 MG/ML 1,000 MG/100 ML BOTTLE IV SCH (06:23)
--- NOTE | 2018-10-31 06:33 | Consultation ---
REFERRING PHYSICIAN: Flash Brooks MD REASON FOR CONSULTATION: Thrombocytopenia, evaluate for HIT. HISTORY OF PRESENT ILLNESS: I saw the patient, a 62-year-old female with a history of asthma and alcohol usage, was brought to the hospital by family because the patient has been weak and not eating. The patient was in restraints and not communicative when I saw her, I spoke to the nursing staff. During this admission, CT scan of abdomen showed intestinal obstruction and ischemic bowel. The patient underwent surgery for same and the patient was intubated and sedated, the patient's platelet count was low and I have been asked to evaluate the patient for same. Details about recent hospitalization not clear. The patient has been in the hospital for only 1 day and she had received heparin. REVIEW OF SYSTEMS: Not reliable. PAST MEDICAL HISTORY: Not available. PAST SURGICAL HISTORY: Not available. During this admission, the patient underwent abdominal surgery. SOCIAL HISTORY: History of alcohol usage present. ALLERGIES: None. PHYSICAL EXAMINATION: VITAL SIGNS: Temperature 99, pulse 130, respirations 32, BP 118/74. GENERAL: The patient is agitated, tremulous, nonverbal. HEENT: No pallor. Icterus present. NECK: No neck lymph nodes. HEART: S1, S2. LUNGS: Decreased air entry. ABDOMEN: Status post surgery. The patient has NG tube. NEUROLOGIC: The patient is in restraints. LABORATORY DATA: White cell 2.7, hemoglobin 11.4, MCV 101, platelets 68. Admission platelets 151. Potassium 3.1, creatinine 0.8, calcium was 9.7, then 6.6, bilirubin 2.5. RADIOLOGY: Chest x-ray and abdomen CT was done. ASSESSMENT: 1. Thrombocytopenia. The duration of time since admission is very small. It is not clear if there was a recent hospitalization. The patient is postoperative, had ischemic bowel and history of alcohol usage. This may have more role in the thrombocytopenia. We will do deficiency investigate and follow the trend. 2. Admitted with altered mentation, underwent abdominal surgery, was intubated. 3. History of alcohol usage and delirium tremens, in restraints. 4. Renal impairment. 5. Liver function test abnormalities. 6. Electrolyte imbalance. 7. Heparin has been held. I will follow the patient during inpatient stay. JOB# [id number] NM/NTS
[2018-10-31 07:04] LABS: Band Neutrophils # (Manual) 0.8 K/mm3; Basophils % (Manual) 0 % (0.0-1.8); Eosinophils % (Manual) 0 % (0.0-4.3); Total Cells Counted 100
[2018-10-31 07:05] LABS: Platelet Estimate Consistent w Auto; RBC Morphology Normal
[2018-10-31] MEDS: HEPARIN SUB-Q SCH ×3 (07:19→22:00)
[2018-10-31] MEDS: NACL 0.9% 1000 ML 1,000 ML IV SCH (07:20)
--- NOTE | 2018-10-31 07:29 | Hem/Onc Progress Note ---
Assessment and Plan 1. Thrombocytopenia. The duration of time since admission is very small. It is not clear if there was a recent hospitalization. The patient is postoperative, had ischemic bowel and history of alcohol usage. This may have more role in the thrombocytopenia. We will and follow the trend. 2. Admitted with altered mentation, underwent abdominal surgery, was intubated. 3. History of alcohol usage and delirium tremens, in restraints. 4. Renal impairment. 5. Liver function test abnormalities. 6. Electrolyte imbalance. 7. Heparin has been held. I will follow the patient during inpatient stay. - Patient Problems (1) Thrombocytopenia Current Visit: Yes Status: Acute Subjective Date of service: 10/31/18 Principal diagnosis: low plt Interval history: pt calmer today Objective - Constitutional Vitals: Last Vital Signs Temp 99.4 F 10/30/18 16:00 Pulse 119 H 10/31/18 06:41 Resp 30 H 10/31/18 06:41 BP 122/67 10/31/18 06:41 Pulse Ox 100 10/31/18 06:41 General appearance: no acute distress Performance status: 4-completely disabled - EENT Eyes: EOM intact Lymph node exam: negative cervical - Respiratory Respiratory effort: Positive: normal Respiratory: bilateral: CTA (anteriorly) - Cardiovascular Heart Sounds: Present: S1 & S2 Extremities: normal temperature - Gastrointestinal General gastrointestinal: Present: soft, non-tender, other (s/p sx) Rectal Exam: deferred - Genitourinary Female genitourinary: Present: deferred - Integumentary Integumentary: warm - Musculoskeletal Musculoskeletal: generalized weakness - Neurologic Neurologic: moves all extremities - Labs Lab Results: Laboratory Results - last 24 hr 10/30/18 10/30/18 10/31/18 08:51 17:17 04:57 WBC 2.7 L 8.6 RBC 3.30 L 2.97 L Hgb 11.4 D 10.4 Hct 33.4 D 31.8 MCV 101 H 107 H MCH 35 H 35 H MCHC 34 33 RDW 12.6 L 12.9 L Plt Count 60 L 68 L [place] % (Auto) Rn Mobile Rn Mobile Add Manual Diff Complete Complete Total Counted 100 100 Seg Neuts % (Manual) 48.0 60.0 Band Neutrophils % 15.0 9.0 Lymphocytes % (Manual) 6.0 L 5.0 L Reactive Lymphs % (Man) 0 0 Monocytes % (Manual) 31.0 H 25.0 H Eosinophils % (Manual) 0 0 Basophils % (Manual) 0 0 Metamyelocytes % 0 1.0 Myelocytes % 0 0 Promyelocytes % 0 0 Blast Cells % 0 0 Nucleated RBC % Not Reportable Not Reportable Seg Neutrophils # Man 1.3 L 5.2 Band Neutrophils # 0.4 0.8 Lymphocytes # (Manual) 0.2 L 0.4 L Abs React Lymphs (Man) 0.0 0.0 Monocytes # (Manual) 0.8 2.2 H Eosinophils # (Manual) 0.0 0.0 Basophils # (Manual) 0.0 0.0 Metamyelocytes # 0.0 0.1 Myelocytes # 0.0 0.0 Promyelocytes # 0.0 0.0 Blast Cells # 0.0 0.0 WBC Morphology Not Reportable Not Reportable Hypersegmented Neuts Not Reportable Not Reportable Hyposegmented Neuts Not Reportable Not Reportable Hypogranular Neuts Not Reportable Not Reportable Smudge Cells Not Reportable Not Reportable Toxic Granulation Not Reportable Not Reportable Toxic Vacuolation Not Reportable Not Reportable Dohle Bodies Not Reportable Not Reportable Pelger-Huet Anomaly Not Reportable Not Reportable Carlee Rods Not Reportable Not Reportable Platelet Estimate Consistent w auto Consistent w auto Clumped Platelets Not Reportable Not Reportable Plt Clumps, EDTA Not Reportable Not Reportable Large Platelets Not Reportable Not Reportable Giant Platelets Not Reportable Not Reportable Platelet Satelliting Not Reportable Not Reportable Plt Morphology Comment Not Reportable Not Reportable RBC Morphology Normal Normal Dimorphic RBCs Not Reportable Not Reportable Polychromasia Not Reportable Not Reportable Hypochromasia Not Reportable Not Reportable Poikilocytosis Not Reportable Not Reportable Anisocytosis Not Reportable Not Reportable Microcytosis Not Reportable Not Reportable Macrocytosis Not Reportable Not Reportable Spherocytes Not Reportable Not Reportable Pappenheimer Bodies Not Reportable Not Reportable Sickle Cells Not Reportable Not Reportable Target Cells Not Reportable Not Reportable Tear Drop Cells Not Reportable Not Reportable Ovalocytes Not Reportable Not Reportable Helmet Cells Not Reportable Not Reportable [place] Bodies Not Reportable Not Reportable [place] Rings Not Reportable Not Reportable [place] Cells Not Reportable Not Reportable Bite Cells Not Reportable Not Reportable Crenated Cell Not Reportable Not Reportable Elliptocytes Not Reportable Not Reportable Acanthocytes (Spur) Not Reportable Not Reportable Rouleaux Not Reportable Not Reportable Hemoglobin C Crystals Not Reportable Not Reportable Schistocytes Not Reportable Not Reportable Malaria parasites Not Reportable Not Reportable Oziel Bodies Not Reportable Not Reportable Hem Pathologist Commnt No No PT INR POC ABG pH POC ABG pO2 POC ABG HCO3 POC ABG Total CO2 POC ABG O2 Sat POC ABG Base Excess FiO2 Sodium Potassium Chloride Carbon Dioxide Anion Gap BUN Creatinine Estimated GFR BUN/Creatinine Ratio Glucose Calcium Magnesium Vitamin B12 Folate Free T4 1.06 10/31/18 10/31/18 10/31/18 04:57 04:57 04:57 WBC RBC Hgb Hct MCV MCH MCHC RDW Plt Count [place] % (Auto) Add Manual Diff Total Counted Seg Neuts % (Manual) Band Neutrophils % Lymphocytes % (Manual) Reactive Lymphs % (Man) Monocytes % (Manual) Eosinophils % (Manual) Basophils % (Manual) Metamyelocytes % Myelocytes % Promyelocytes % Blast Cells % Nucleated RBC % Seg Neutrophils # Man Band Neutrophils # Lymphocytes # (Manual) Abs React Lymphs (Man) Monocytes # (Manual) Eosinophils # (Manual) Basophils # (Manual) Metamyelocytes # Myelocytes # Promyelocytes # Blast Cells # WBC Morphology Hypersegmented Neuts Hyposegmented Neuts Hypogranular Neuts Smudge Cells Toxic Granulation Toxic Vacuolation Dohle Bodies Pelger-Huet Anomaly Carlee Rods Platelet Estimate Clumped Platelets Plt Clumps, EDTA Large Platelets Giant Platelets Platelet Satelliting Plt Morphology Comment RBC Morphology Dimorphic RBCs Polychromasia Hypochromasia Poikilocytosis Anisocytosis Microcytosis Macrocytosis Spherocytes Pappenheimer Bodies Sickle Cells Target Cells Tear Drop Cells Ovalocytes Helmet Cells [place] Bodies Emerson Rings Giovanni Cells Bite Cells Crenated Cell Elliptocytes Acanthocytes (Spur) Rouleaux Hemoglobin C Crystals Schistocytes Malaria parasites Oziel Bodies Hem Pathologist Commnt PT 16.3 H INR 1.23 H POC ABG pH POC ABG pO2 POC ABG HCO3 POC ABG Total CO2 POC ABG O2 Sat POC ABG Base Excess FiO2 Sodium 139 Potassium 3.8 D Chloride 114.8 H Carbon Dioxide 13 L Anion Gap 15 BUN 15 Creatinine 0.7 Estimated GFR > 60 BUN/Creatinine Ratio 21 Glucose 56 L Calcium 7.4 L Magnesium 2.20 Vitamin B12 1966 H Folate Free T4 10/31/18 10/31/18 04:57 05:05 WBC RBC Hgb Hct MCV MCH MCHC RDW Plt Count [place] % (Auto) Add Manual Diff Total Counted Seg Neuts % (Manual) Band Neutrophils % Lymphocytes % (Manual) Reactive Lymphs % (Man) Monocytes % (Manual) Eosinophils % (Manual) Basophils % (Manual) Metamyelocytes % Myelocytes % Promyelocytes % Blast Cells % Nucleated RBC % Seg Neutrophils # Man Band Neutrophils # Lymphocytes # (Manual) Abs React Lymphs (Man) Monocytes # (Manual) Eosinophils # (Manual) Basophils # (Manual) Metamyelocytes # Myelocytes # Promyelocytes # Blast Cells # WBC Morphology Hypersegmented Neuts Hyposegmented Neuts Hypogranular Neuts Smudge Cells Toxic Granulation Toxic Vacuolation Dohle Bodies Pelger-Huet Anomaly Carlee Rods Platelet Estimate Clumped Platelets Plt Clumps, EDTA Large Platelets Giant Platelets Platelet Satelliting Plt Morphology Comment RBC Morphology Dimorphic RBCs Polychromasia Hypochromasia Poikilocytosis Anisocytosis Microcytosis Macrocytosis Spherocytes Pappenheimer Bodies Sickle Cells Target Cells Tear Drop Cells Ovalocytes Helmet Cells [place] Bodies Emerson Rings Giovanni Cells Bite Cells Crenated Cell Elliptocytes Acanthocytes (Spur) Rouleaux Hemoglobin C Crystals Schistocytes Malaria parasites Oziel Bodies Hem Pathologist Commnt PT INR POC ABG pH 7.300 L POC ABG pO2 89 POC ABG HCO3 11.3 POC ABG Total CO2 12 POC ABG O2 Sat 96 POC ABG Base Excess -15 FiO2 30 Sodium Potassium Chloride Carbon Dioxide Anion Gap BUN Creatinine Estimated GFR BUN/Creatinine Ratio Glucose Calcium Magnesium Vitamin B12 Folate 12.21 Free T4 Medications & Allergies - Medications Allergies/Adverse Reactions: Allergies No Known Allergies Allergy (Verified 10/29/18 17:40) Home Medications: Home Medications Medication Instructions Recorded Confirmed Last Taken Type Famotidine [Pepcid] 20 mg PO BID #30 tablet 04/10/17 Unknown Rx Active Medications: Generic Name Dose Route Start Last Admin Trade Name Freq PRN Reason Stop Dose Admin Acetaminophen 650 mg 10/29/18 23:49 Tylenol FL Q4H PRN Pain MILD(1-3)/Fever >100.5/DAMON Famotidine 20 mg 10/30/18 10:00 10/30/18 21:18 Pepcid IV 20 mg BID CHRISTINE Administration Fentanyl 50 mcg 10/30/18 08:14 10/31/18 01:08 Sublimaze IV 50 mcg Q2H PRN Administration Pain, Moderate (4-6) Heparin Sodium (Porcine) 5,000 unit 10/30/18 06:00 10/31/18 07:19 Heparin SUB-Q Not Given Q8HR CHRISTINE Hydrophilic Ointment 1 applic 10/30/18 02:20 Vaseline Lip Therapy TP Q2HR PRN Dry Lips Propofol 1,000 mg in 100 mls @ 1.497 mls/hr 10/30/18 03:00 10/31/18 06:23 Diprivan 10 Mg/Ml IV 10 mcg/kg/min TITR CHRISTINE 2.994 mls/hr Administration Protocol 5 MCG/KG/MIN Sodium Chloride 1,000 mls @ 200 mls/hr 10/30/18 03:29 10/30/18 18:55 Nacl 0.9% 1000 Ml IV 200 mls/hr DIRECT CHRISTINE Administration Sodium Chloride 1,000 mls @ 0 mls/hr 10/30/18 08:00 10/31/18 07:20 Nacl 0.9% 1000 Ml IV 10/31/18 08:01 999 mls/hr ONCE CHRISTINE Administration As Directed Sodium Chloride 1,000 mls @ 0 mls/hr 10/30/18 20:14 10/30/18 21:18 Nacl 0.9% 1000 Ml IV 10/31/18 20:15 200 mls/hr ONCE CHRISTINE Administration As Directed Midazolam HCl 2 mg 10/30/18 08:15 10/31/18 03:36 Versed IV 2 mg Q4H PRN Administration Agitation Multi-Ingred Cream/Lotion/Oil/Oint 1 applic 10/30/18 02:20 Artificial Tears Ophth Oint OU Q4HR PRN Dry Eye(s) Ondansetron HCl 4 mg 10/29/18 23:49 Zofran IV Q4H PRN Nausea And Vomiting Sodium Chloride 10 ml 10/30/18 10:00 10/30/18 22:06 Sodium Chloride Flush Syringe 10 Ml IV 10 ml BID CHRISTINE Administration Sodium Chloride 10 ml 10/29/18 23:49 10/30/18 17:55 Sodium Chloride Flush Syringe 10 Ml IV 10 ml PRN PRN Administration LINE FLUSH
[2018-10-31] MEDS ORDERED: D50W (25GM) Syringe IV PRN (07:36)
[2018-10-31] MEDS: PEPCID IV SCH ×2 (09:26→22:00)
[2018-10-31] MEDS: SODIUM CHLORIDE FLUSH SYRINGE 10 ML IV SCH ×2 (09:26→22:00)
[2018-10-31] MEDS: D5/0.45NS 1,000 ML IV SCH ×2 (10:49→17:30)
--- NOTE | 2018-10-31 11:11 | Progress Note ---
Assessment and Plan - Patient Problems (1) Cecal volvulus Current Visit: Yes Status: Acute Plan to address problem: 62 yo F s/p Exploratory laparotomy, reduction of internal hernia, right hemicolectomy with primary ileocolonic anastamosis, POD 1. Pt awake. Appears to understand what is said to her. I explained to her what happened and what was done for her. She nodded her head. 1. cecal volvulus 2. high grade SBO 3. etoh abuse 4. delerium tremens 5. TIERRA 6. VDRF 7. malnutrition Plan: 1. NPO 2. resuscitation 3. NGT to LIWS 4. strict I/Os 5. alcazar catheter 6. vent management per ICU team 7. daily CBC, BMP 8. Await bowel function 9. on propofol and fent gtt 10. DVT ppx Please call with questions. Subjective Date of service: 10/31/18 Patient Reports: Positive: other (staff reports no problems. Pt seems to indicate that she does not have abdominal pain) Objective Vital Signs - 12hr 10/30/18 10/30/18 10/30/18 23:21 23:30 23:41 Temperature Pulse Rate 118 H 120 H 117 H Pulse Rate [ From Monitor] Respiratory 26 H 29 H 26 H Rate Blood Pressure 117/71 119/68 119/68 O2 Sat by Pulse 100 100 100 Oximetry 10/30/18 10/31/18 10/31/18 23:51 00:00 00:11 Temperature Pulse Rate 122 H 121 H 121 H Pulse Rate [ 121 H From Monitor] Respiratory 20 30 H 30 H Rate Blood Pressure 116/72 110/67 110/67 O2 Sat by Pulse 100 98 99 Oximetry 10/31/18 10/31/18 10/31/18 00:19 00:21 00:30 Temperature Pulse Rate 118 H 118 H 121 H Pulse Rate [ From Monitor] Respiratory 28 H 28 H Rate Blood Pressure 104/65 104/65 109/72 O2 Sat by Pulse 100 99 100 Oximetry 10/31/18 10/31/18 10/31/18 00:41 00:51 01:00 Temperature Pulse Rate 119 H 120 H 127 H Pulse Rate [ From Monitor] Respiratory 27 H 27 H 28 H Rate Blood Pressure 109/72 109/72 101/66 O2 Sat by Pulse 98 98 100 Oximetry 10/31/18 10/31/18 10/31/18 01:11 01:21 01:30 Temperature Pulse Rate 119 H 118 H 116 H Pulse Rate [ From Monitor] Respiratory 27 H 19 18 Rate Blood Pressure 101/66 108/69 103/63 O2 Sat by Pulse 100 100 100 Oximetry 10/31/18 10/31/18 10/31/18 01:41 01:51 02:00 Temperature Pulse Rate 117 H 116 H 119 H Pulse Rate [ 113 H From Monitor] Respiratory 22 18 21 Rate Blood Pressure 103/63 103/63 123/74 O2 Sat by Pulse 100 100 100 Oximetry 10/31/18 10/31/18 10/31/18 02:11 02:21 02:30 Temperature Pulse Rate 120 H 117 H 113 H Pulse Rate [ From Monitor] Respiratory 26 H 25 H 21 Rate Blood Pressure 123/74 104/65 113/65 O2 Sat by Pulse 100 100 100 Oximetry 10/31/18 10/31/18 10/31/18 02:41 02:51 03:01 Temperature Pulse Rate 113 H 124 H 122 H Pulse Rate [ From Monitor] Respiratory 21 21 24 Rate Blood Pressure 113/65 118/68 119/74 O2 Sat by Pulse 100 98 99 Oximetry 10/31/18 10/31/18 10/31/18 03:11 03:21 03:30 Temperature Pulse Rate 124 H 122 H 122 H Pulse Rate [ From Monitor] Respiratory 27 H 32 H 27 H Rate Blood Pressure 119/74 119/74 119/75 O2 Sat by Pulse 100 100 Oximetry 10/31/18 10/31/18 10/31/18 03:41 03:51 04:00 Temperature Pulse Rate 119 H 117 H 113 H Pulse Rate [ 119 H From Monitor] Respiratory 27 H 25 H 21 Rate Blood Pressure 119/75 119/75 110/67 O2 Sat by Pulse 100 100 100 Oximetry 10/31/18 10/31/18 10/31/18 04:11 04:21 04:30 Temperature Pulse Rate 111 H 111 H 114 H Pulse Rate [ From Monitor] Respiratory 22 25 H 23 Rate Blood Pressure 110/67 108/70 118/71 O2 Sat by Pulse 100 100 100 Oximetry 10/31/18 10/31/18 10/31/18 04:41 04:47 04:51 Temperature Pulse Rate 114 H 118 H 118 H Pulse Rate [ From Monitor] Respiratory 24 29 H Rate Blood Pressure 118/71 123/69 123/69 O2 Sat by Pulse 100 100 100 Oximetry 10/31/18 10/31/18 10/31/18 05:00 05:11 05:21 Temperature Pulse Rate 116 H 115 H 118 H Pulse Rate [ From Monitor] Respiratory 30 H 28 H 28 H Rate Blood Pressure 117/68 117/68 117/68 O2 Sat by Pulse 100 100 100 Oximetry 10/31/18 10/31/18 10/31/18 05:30 05:41 05:51 Temperature Pulse Rate 119 H 117 H 119 H Pulse Rate [ From Monitor] Respiratory 27 H 28 H 28 H Rate Blood Pressure 118/71 118/71 114/68 O2 Sat by Pulse 100 100 100 Oximetry 10/31/18 10/31/18 10/31/18 06:00 06:11 06:21 Temperature Pulse Rate 123 H 120 H 120 H Pulse Rate [ From Monitor] Respiratory 30 H 28 H 27 H Rate Blood Pressure 108/75 108/75 116/72 O2 Sat by Pulse 100 100 100 Oximetry 10/31/18 10/31/18 10/31/18 06:30 06:41 06:51 Temperature Pulse Rate 121 H 119 H 110 H Pulse Rate [ From Monitor] Respiratory 28 H 30 H 28 H Rate Blood Pressure 122/67 122/67 118/73 O2 Sat by Pulse 100 100 100 Oximetry 10/31/18 10/31/18 10/31/18 07:00 07:11 07:21 Temperature Pulse Rate 121 H 118 H 121 H Pulse Rate [ From Monitor] Respiratory 27 H 31 H 31 H Rate Blood Pressure 118/71 118/71 120/71 O2 Sat by Pulse 100 82 L 99 Oximetry 10/31/18 10/31/18 10/31/18 07:30 07:41 07:47 Temperature 99.5 F Pulse Rate 120 H 111 H Pulse Rate [ From Monitor] Respiratory 31 H 27 H Rate Blood Pressure 104/76 104/76 O2 Sat by Pulse 100 98 Oximetry 10/31/18 10/31/18 10/31/18 07:51 07:55 08:00 Temperature Pulse Rate 119 H 119 H 116 H Pulse Rate [ 116 H From Monitor] Respiratory 31 H 31 H Rate Blood Pressure 118/74 122/67 121/77 O2 Sat by Pulse 97 100 100 Oximetry 10/31/18 10/31/18 10/31/18 08:11 08:21 08:30 Temperature Pulse Rate 110 H 111 H 113 H Pulse Rate [ From Monitor] Respiratory 25 H 26 H 28 H Rate Blood Pressure 121/77 109/78 116/75 O2 Sat by Pulse 100 99 99 Oximetry 10/31/18 10/31/18 10/31/18 08:41 08:51 09:00 Temperature Pulse Rate 107 H 109 H Pulse Rate [ From Monitor] Respiratory 25 H 34 H 26 H Rate Blood Pressure 116/75 119/74 118/73 O2 Sat by Pulse 100 99 100 Oximetry 10/31/18 09:11 Temperature Pulse Rate 113 H Pulse Rate [ From Monitor] Respiratory 27 H Rate Blood Pressure 118/73 O2 Sat by Pulse 100 Oximetry - General physical appearance no distress, no pain, other (awake on vent. Appears to nod appropriately to questions. ) - Respiratory normal expansion, normal respiratory effort - Abdomen soft, not tender, distended (mild), not guarding, not rigid, other (dressing was dry) - Labs 10/31/18 04:57 10/31/18 04:57 Diabetes panel 10/31/18 Range/Units 04:57 Sodium 139 (137-145) mmol/L Potassium 3.8 D (3.6-5.0) mmol/L Chloride 114.8 H (98-107) mmol/L Carbon Dioxide 13 L (22-30) mmol/L BUN 15 (7-17) mg/dL Creatinine 0.7 (0.7-1.2) mg/dL Glucose 56 L (65-100) mg/dL Calcium 7.4 L (8.4-10.2) mg/dL Calcium panel 10/31/18 Range/Units 04:57 Calcium 7.4 L (8.4-10.2) mg/dL Pituitary panel 10/31/18 Range/Units 04:57 Sodium 139 (137-145) mmol/L Potassium 3.8 D (3.6-5.0) mmol/L Chloride 114.8 H (98-107) mmol/L Carbon Dioxide 13 L (22-30) mmol/L BUN 15 (7-17) mg/dL Creatinine 0.7 (0.7-1.2) mg/dL Glucose 56 L (65-100) mg/dL Calcium 7.4 L (8.4-10.2) mg/dL Adrenal panel 10/31/18 Range/Units 04:57 Sodium 139 (137-145) mmol/L Potassium 3.8 D (3.6-5.0) mmol/L Chloride 114.8 H (98-107) mmol/L Carbon Dioxide 13 L (22-30) mmol/L BUN 15 (7-17) mg/dL Creatinine 0.7 (0.7-1.2) mg/dL Glucose 56 L (65-100) mg/dL Calcium 7.4 L (8.4-10.2) mg/dL
--- NOTE | 2018-10-31 11:44 | Progress Note ---
Assessment and Plan 62 y/o female with acute respiratory failure secondary to sepsis from high grade bowel obstruction and volvulus with ETOH abuse with concerns for withdrawal. 1. Changed fluid to D5 1/2 normal saline 2. Will use Diprovan for sedation with PRN fent and Versed. No fever currently and BP is marginal secondary to volume depletion. 3. Follow up any new surgery recs, will ask when they are ready for us to try to feed. 4. Aggressive replacement of electrolytes 5. DVT and GI Prophylaxis 6. No real signs of DT's as of yet. Will keep intubated again today and reasses the next 24 hours. Patient may have already passed through this phase but without knowledge of last drink, tough to tell. CCT 31 minutes. Subjective Date of service: 10/31/18 Principal diagnosis: low plt Interval history: Much more awake today. ON Diprovan at 10 and stable. HR stable. BP stable. UOP is better. Still with some metabolic acidosis but likely secondary to the additional saline boluses I gave last night. Family not present at the bedside. No fever. No real signs of DT's. Patient cannot remember when she had her last drink. Did get one dose of versed last night. Objective Vital Signs - 12hr 10/30/18 10/30/18 10/31/18 23:41 23:51 00:00 Temperature Pulse Rate 117 H 122 H 121 H Pulse Rate [ 121 H From Monitor] Respiratory 26 H 20 30 H Rate Blood Pressure 119/68 116/72 110/67 O2 Sat by Pulse 100 100 98 Oximetry 10/31/18 10/31/18 10/31/18 00:11 00:19 00:21 Temperature Pulse Rate 121 H 118 H 118 H Pulse Rate [ From Monitor] Respiratory 30 H 28 H Rate Blood Pressure 110/67 104/65 104/65 O2 Sat by Pulse 99 100 99 Oximetry 10/31/18 10/31/18 10/31/18 00:30 00:41 00:51 Temperature Pulse Rate 121 H 119 H 120 H Pulse Rate [ From Monitor] Respiratory 28 H 27 H 27 H Rate Blood Pressure 109/72 109/72 109/72 O2 Sat by Pulse 100 98 98 Oximetry 10/31/18 10/31/18 10/31/18 01:00 01:11 01:21 Temperature Pulse Rate 127 H 119 H 118 H Pulse Rate [ From Monitor] Respiratory 28 H 27 H 19 Rate Blood Pressure 101/66 101/66 108/69 O2 Sat by Pulse 100 100 100 Oximetry 10/31/18 10/31/18 10/31/18 01:30 01:41 01:51 Temperature Pulse Rate 116 H 117 H 116 H Pulse Rate [ From Monitor] Respiratory 18 22 18 Rate Blood Pressure 103/63 103/63 103/63 O2 Sat by Pulse 100 100 100 Oximetry 10/31/18 10/31/18 10/31/18 02:00 02:11 02:21 Temperature Pulse Rate 119 H 120 H 117 H Pulse Rate [ 113 H From Monitor] Respiratory 21 26 H 25 H Rate Blood Pressure 123/74 123/74 104/65 O2 Sat by Pulse 100 100 100 Oximetry 10/31/18 10/31/18 10/31/18 02:30 02:41 02:51 Temperature Pulse Rate 113 H 113 H 124 H Pulse Rate [ From Monitor] Respiratory 21 21 21 Rate Blood Pressure 113/65 113/65 118/68 O2 Sat by Pulse 100 100 98 Oximetry 10/31/18 10/31/18 10/31/18 03:01 03:11 03:21 Temperature Pulse Rate 122 H 124 H 122 H Pulse Rate [ From Monitor] Respiratory 24 27 H 32 H Rate Blood Pressure 119/74 119/74 119/74 O2 Sat by Pulse 99 100 Oximetry 10/31/18 10/31/18 10/31/18 03:30 03:41 03:51 Temperature Pulse Rate 122 H 119 H 117 H Pulse Rate [ From Monitor] Respiratory 27 H 27 H 25 H Rate Blood Pressure 119/75 119/75 119/75 O2 Sat by Pulse 100 100 100 Oximetry 10/31/18 10/31/18 10/31/18 04:00 04:11 04:21 Temperature Pulse Rate 113 H 111 H 111 H Pulse Rate [ 119 H From Monitor] Respiratory 21 22 25 H Rate Blood Pressure 110/67 110/67 108/70 O2 Sat by Pulse 100 100 100 Oximetry 10/31/18 10/31/18 10/31/18 04:30 04:41 04:47 Temperature Pulse Rate 114 H 114 H 118 H Pulse Rate [ From Monitor] Respiratory 23 24 Rate Blood Pressure 118/71 118/71 123/69 O2 Sat by Pulse 100 100 100 Oximetry 10/31/18 10/31/18 10/31/18 04:51 05:00 05:11 Temperature Pulse Rate 118 H 116 H 115 H Pulse Rate [ From Monitor] Respiratory 29 H 30 H 28 H Rate Blood Pressure 123/69 117/68 117/68 O2 Sat by Pulse 100 100 100 Oximetry 10/31/18 10/31/18 10/31/18 05:21 05:30 05:41 Temperature Pulse Rate 118 H 119 H 117 H Pulse Rate [ From Monitor] Respiratory 28 H 27 H 28 H Rate Blood Pressure 117/68 118/71 118/71 O2 Sat by Pulse 100 100 100 Oximetry 10/31/18 10/31/18 10/31/18 05:51 06:00 06:11 Temperature Pulse Rate 119 H 123 H 120 H Pulse Rate [ From Monitor] Respiratory 28 H 30 H 28 H Rate Blood Pressure 114/68 108/75 108/75 O2 Sat by Pulse 100 100 100 Oximetry 10/31/18 10/31/18 10/31/18 06:21 06:30 06:41 Temperature Pulse Rate 120 H 121 H 119 H Pulse Rate [ From Monitor] Respiratory 27 H 28 H 30 H Rate Blood Pressure 116/72 122/67 122/67 O2 Sat by Pulse 100 100 100 Oximetry 10/31/18 10/31/18 10/31/18 06:51 07:00 07:11 Temperature Pulse Rate 110 H 121 H 118 H Pulse Rate [ From Monitor] Respiratory 28 H 27 H 31 H Rate Blood Pressure 118/73 118/71 118/71 O2 Sat by Pulse 100 100 82 L Oximetry 10/31/18 10/31/18 10/31/18 07:21 07:30 07:41 Temperature Pulse Rate 121 H 120 H 111 H Pulse Rate [ From Monitor] Respiratory 31 H 31 H 27 H Rate Blood Pressure 120/71 104/76 104/76 O2 Sat by Pulse 99 100 98 Oximetry 10/31/18 10/31/18 10/31/18 07:47 07:51 07:55 Temperature 99.5 F Pulse Rate 119 H 119 H Pulse Rate [ From Monitor] Respiratory 31 H Rate Blood Pressure 118/74 122/67 O2 Sat by Pulse 97 100 Oximetry 10/31/18 10/31/18 10/31/18 08:00 08:11 08:21 Temperature Pulse Rate 116 H 110 H 111 H Pulse Rate [ 116 H From Monitor] Respiratory 31 H 25 H 26 H Rate Blood Pressure 121/77 121/77 109/78 O2 Sat by Pulse 100 100 99 Oximetry 10/31/18 10/31/18 10/31/18 08:30 08:41 08:51 Temperature Pulse Rate 113 H 107 H Pulse Rate [ From Monitor] Respiratory 28 H 25 H 34 H Rate Blood Pressure 116/75 116/75 119/74 O2 Sat by Pulse 99 100 99 Oximetry 10/31/18 10/31/18 09:00 09:11 Temperature Pulse Rate 109 H 113 H Pulse Rate [ From Monitor] Respiratory 26 H 27 H Rate Blood Pressure 118/73 118/73 O2 Sat by Pulse 100 100 Oximetry Constitutional: alert, appears uncomfortable Eyes: non-icteric ENT: other (orally intubated and sedated) Neck: supple Effort: mildly labored Ascultation: Bilateral: clear Percussion: Bilateral: not dull Cardiovascular: other (sinus tachycardia) Gastrointestinal: other (post-op changes noted with ostomy present) Integumentary: normal Extremities: cool Neurologic: normal mental status CBC and BMP: 10/31/18 04:57 10/31/18 04:57 ABG, PT/INR, D-dimer: ABG POC ABG pH 7.300 (7.35-7.45) L 10/31/18 05:05 POC ABG pO2 89 (80-105) 10/31/18 05:05 POC ABG HCO3 11.3 (22-26 mml/L) 10/31/18 05:05 POC ABG Total CO2 12 (23-27mmol/L) 10/31/18 05:05 POC ABG O2 Sat 96 10/31/18 05:05 PT/INR, D-dimer PT 16.3 Sec. (12.2-14.9) H 10/31/18 04:57 INR 1.23 (0.87-1.13) H 10/31/18 04:57 Abnormal lab findings: Abnormal Labs 10/29/18 10/29/18 10/29/18 17:45 17:45 18:43 WBC RBC Hgb 16.7 H Hct 45.1 H MCV MCH 36 H MCHC 37 H RDW 12.8 L Plt Count Seg Neuts % (Manual) 74.0 H Lymphocytes % (Manual) 8.0 L Monocytes % (Manual) 18.0 H Seg Neutrophils # Man Lymphocytes # (Manual) 0.6 L Monocytes # (Manual) 1.5 H PT INR POC ABG pH POC ABG pO2 Sodium 130 L Potassium 3.1 L Chloride 89.7 L Carbon Dioxide 20 L BUN 29 H Creatinine 1.7 H Glucose POC Glucose Lactic Acid Calcium Magnesium Total Bilirubin 2.50 H AST 73 H ALT 77 H Alkaline Phosphatase 166 H Albumin 3.6 L Vitamin B12 TSH 8.610 H 10/29/18 10/29/18 10/30/18 18:43 22:23 03:42 WBC RBC Hgb Hct MCV MCH MCHC RDW Plt Count Seg Neuts % (Manual) Lymphocytes % (Manual) Monocytes % (Manual) Seg Neutrophils # Man Lymphocytes # (Manual) Monocytes # (Manual) PT INR POC ABG pH 7.200 L POC ABG pO2 186 H Sodium Potassium Chloride Carbon Dioxide BUN Creatinine Glucose POC Glucose Lactic Acid 3.50 H* 2.50 H* Calcium Magnesium Total Bilirubin AST ALT Alkaline Phosphatase Albumin Vitamin B12 TSH 10/30/18 10/30/18 10/30/18 04:34 04:34 08:51 WBC 2.7 L RBC 3.30 L Hgb Hct MCV 101 H MCH 35 H MCHC RDW 12.6 L Plt Count 60 L Seg Neuts % (Manual) Lymphocytes % (Manual) 6.0 L Monocytes % (Manual) 31.0 H Seg Neutrophils # Man 1.3 L Lymphocytes # (Manual) 0.2 L Monocytes # (Manual) PT 17.8 H INR 1.37 H POC ABG pH POC ABG pO2 Sodium 133 L Potassium 3.1 L Chloride Carbon Dioxide 17 L BUN 20 H Creatinine Glucose 116 H POC Glucose Lactic Acid Calcium 6.6 L D Magnesium 1.20 L Total Bilirubin AST ALT Alkaline Phosphatase Albumin Vitamin B12 TSH 10/31/18 10/31/18 10/31/18 04:57 04:57 04:57 WBC RBC 2.97 L Hgb Hct MCV 107 H MCH 35 H MCHC RDW 12.9 L Plt Count 68 L Seg Neuts % (Manual) Lymphocytes % (Manual) 5.0 L Monocytes % (Manual) 25.0 H Seg Neutrophils # Man Lymphocytes # (Manual) 0.4 L Monocytes # (Manual) 2.2 H PT 16.3 H INR 1.23 H POC ABG pH POC ABG pO2 Sodium Potassium Chloride 114.8 H Carbon Dioxide 13 L BUN Creatinine Glucose 56 L POC Glucose Lactic Acid Calcium 7.4 L Magnesium Total Bilirubin AST ALT Alkaline Phosphatase Albumin Vitamin B12 TSH 10/31/18 10/31/18 10/31/18 04:57 05:05 07:33 WBC RBC Hgb Hct MCV MCH MCHC RDW Plt Count Seg Neuts % (Manual) Lymphocytes % (Manual) Monocytes % (Manual) Seg Neutrophils # Man Lymphocytes # (Manual) Monocytes # (Manual) PT INR POC ABG pH 7.300 L POC ABG pO2 Sodium Potassium Chloride Carbon Dioxide BUN Creatinine Glucose POC Glucose 62 L Lactic Acid Calcium Magnesium Total Bilirubin AST ALT Alkaline Phosphatase Albumin Vitamin B12 1966 H TSH 10/31/18 08:20 WBC RBC Hgb Hct MCV MCH MCHC RDW Plt Count Seg Neuts % (Manual) Lymphocytes % (Manual) Monocytes % (Manual) Seg Neutrophils # Man Lymphocytes # (Manual) Monocytes # (Manual) PT INR POC ABG pH POC ABG pO2 Sodium Potassium Chloride Carbon Dioxide BUN Creatinine Glucose POC Glucose 156 H Lactic Acid Calcium Magnesium Total Bilirubin AST ALT Alkaline Phosphatase Albumin Vitamin B12 [facility]
--- NOTE | 2018-10-31 18:15 | Progress Note ---
Assessment and Plan Assessment and plan: 62-year-old female with past medical history significant for asthma was brought by her family members for the complaints of shortness was not eating and drinking for the last few days. She has been constantly drinking alcohol. Patient has been complaining that she has abdominal pain. In the emergency department patient was tremulous and was given ativan. CT scan of the abdomen showed high-grade bowel obstruction due to volvulus. 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 and did hemicolectomy - Postop management per general surgery Thrombocytopenia, ?HIT - Patient platelet count was 151 yesterday and today it is 60 - Headed heparin - Hematology oncology consulted Alcohol withdrawal DT - Patient is sedated - CIWA protocol Acute renal failure - IV fluids - Patient is catheterized, strict input and output Electrolyte derangements; which include hyperkalemia, hypocalcemia and hypomagnesemia - Repleted Acute respiratory failure - Patient is on mechanical ventilation after surgery - Patient is sedated - Vent management per airplane pilot chief DVT prophylaxis - On SCDs Disposition - Continue ICU care The high probability of a clinically significant, sudden or life threatening deterioration of the [GI, neurology, repiratory] system(s) required my full and direct attention, intervention and personal management. The aggregate critical care time was [45] minutes. This time is in addition to time spent performing reported procedures but includes the following: [x] Data Review and interpretation [x] Patient assessment and monitoring of vital signs [x] Documentation [x] Medication orders and management History Interval history: Patient was seen and evaluated this morning, patient was intubated and alert Hospitalist Physical - Physical exam Narrative exam: Patient intubated and on mechanical ventilation The patient appeared well nourished and normally developed. Vital signs as documented. Head exam is unremarkable. No scleral icterus . Neck is without jugular venous distension, thyromegaly, or carotid bruits. Lungs are clear to auscultation. Cardiac exam reveals regular rate and Rhythm. First and second heart sounds normal. No murmurs, rubs or gallops. Abdominal exam reveals clean midline abdominal dressing. Extremities are nonedematous and both femoral and pedal pulses are normal. PAYMENT POSTER: Sedated. - Constitutional Vitals: Temp Pulse Resp BP Pulse Ox 98.6 F 113 H 29 H 112/74 97 10/31/18 15:57 10/31/18 17:30 10/31/18 17:30 10/31/18 17:30 10/31/18 17:30 Results - Labs CBC & Chem 7: 10/31/18 04:57 10/31/18 04:57 Labs: Laboratory Last Values WBC 8.6 K/mm3 (4.5-11.0) 10/31/18 04:57 RBC 2.97 M/mm3 (3.65-5.03) L 10/31/18 04:57 Hgb 10.4 gm/dl (10.1-14.3) 10/31/18 04:57 Hct 31.8 % (30.3-42.9) 10/31/18 04:57 MCV 107 fl (79-97) H 10/31/18 04:57 MCH 35 pg (28-32) H 10/31/18 04:57 MCHC 33 % (30-34) 10/31/18 04:57 RDW 12.9 % (13.2-15.2) L 10/31/18 04:57 Plt Count 68 K/mm3 (140-440) L 10/31/18 04:57 Morrison % (Auto) Medical Esthetician 10/31/18 04:57 Add Manual Diff Complete 10/31/18 04:57 Total Counted 100 10/31/18 04:57 Seg Neuts % (Manual) 60.0 % (40.0-70.0) 10/31/18 04:57 9.0 % 10/31/18 04:57 5.0 % (13.4-35.0) L 10/31/18 04:57 Reactive Lymphs % (Man) 0 % 10/31/18 04:57 25.0 % (0.0-7.3) H 10/31/18 04:57 0 % (0.0-4.3) 10/31/18 04:57 0 % (0.0-1.8) 10/31/18 04:57 1.0 % 10/31/18 04:57 0 % 10/31/18 04:57 0 % 10/31/18 04:57 0 % 10/31/18 04:57 Nucleated RBC % Not Reportable 10/31/18 04:57 Seg Neutrophils # Man 5.2 K/mm3 (1.8-7.7) 10/31/18 04:57 Band Neutrophils # 0.8 K/mm3 10/31/18 04:57 0.4 K/mm3 (1.2-5.4) L 10/31/18 04:57 Abs React Lymphs (Man) 0.0 K/mm3 10/31/18 04:57 2.2 K/mm3 (0.0-0.8) H 10/31/18 04:57 0.0 K/mm3 (0.0-0.4) 10/31/18 04:57 0.0 K/mm3 (0.0-0.1) 10/31/18 04:57 0.1 K/mm3 10/31/18 04:57 0.0 K/mm3 10/31/18 04:57 0.0 K/mm3 10/31/18 04:57 Blast Cells # 0.0 K/mm3 10/31/18 04:57 WBC Morphology Not Reportable 10/31/18 04:57 Hypersegmented Neuts Not Reportable 10/31/18 04:57 Hyposegmented Neuts Not Reportable 10/31/18 04:57 Hypogranular Neuts Not Reportable 10/31/18 04:57 Not Reportable 10/31/18 04:57 Not Reportable 10/31/18 04:57 Not Reportable 10/31/18 04:57 Not Reportable 10/31/18 04:57 Not Reportable 10/31/18 04:57 Not Reportable 10/31/18 04:57 Consistent w auto 10/31/18 04:57 Not Reportable 10/31/18 04:57 Plt Clumps, EDTA Not Reportable 10/31/18 04:57 Not Reportable 10/31/18 04:57 Not Reportable 10/31/18 04:57 Not Reportable 10/31/18 04:57 Plt Morphology Comment Not Reportable 10/31/18 04:57 RBC Morphology Normal 10/31/18 04:57 Dimorphic RBCs Not Reportable 10/31/18 04:57 Not Reportable 10/31/18 04:57 Not Reportable 10/31/18 04:57 Not Reportable 10/31/18 04:57 Not Reportable 10/31/18 04:57 Not Reportable 10/31/18 04:57 Not Reportable 10/31/18 04:57 Not Reportable 10/31/18 04:57 Not Reportable 10/31/18 04:57 Not Reportable 10/31/18 04:57 Not Reportable 10/31/18 04:57 Not Reportable 10/31/18 04:57 Not Reportable 10/31/18 04:57 Not Reportable 10/31/18 04:57 Not Reportable 10/31/18 04:57 Not Reportable 10/31/18 04:57 Not Reportable 10/31/18 04:57 Not Reportable 10/31/18 04:57 Not Reportable 10/31/18 04:57 Not Reportable 10/31/18 04:57 Acanthocytes (Spur) Not Reportable 10/31/18 04:57 Rouleaux Not Reportable 10/31/18 04:57 Not Reportable 10/31/18 04:57 Not Reportable 10/31/18 04:57 Not Reportable 10/31/18 04:57 Not Reportable 10/31/18 04:57 Hem Pathologist Commnt No 10/31/18 04:57 PT 16.3 Sec. (12.2-14.9) H 10/31/18 04:57 INR 1.23 (0.87-1.13) H 10/31/18 04:57 POC ABG pH 7.300 (7.35-7.45) L 10/31/18 05:05 POC ABG pCO2 42.6 (35-45) 10/30/18 03:42 POC ABG pO2 89 (80-105) 10/31/18 05:05 POC ABG HCO3 11.3 (22-26 mml/L) 10/31/18 05:05 POC ABG Total CO2 12 (23-27mmol/L) 10/31/18 05:05 POC ABG O2 Sat 96 10/31/18 05:05 POC ABG Base Excess -15 ((-2) - (+3)mmol/L) 10/31/18 05:05 30 % 10/31/18 05:05 Sodium 139 mmol/L (137-145) 10/31/18 04:57 Potassium 3.8 mmol/L (3.6-5.0) D 10/31/18 04:57 Chloride 114.8 mmol/L (98-107) H 10/31/18 04:57 Carbon Dioxide 13 mmol/L (22-30) L 10/31/18 04:57 15 mmol/L 10/31/18 04:57 BUN 15 mg/dL (7-17) 10/31/18 04:57 0.7 mg/dL (0.7-1.2) 10/31/18 04:57 Estimated GFR > 60 ml/min 10/31/18 04:57 21 % 10/31/18 04:57 Glucose 56 mg/dL (65-100) L 10/31/18 04:57 POC Glucose 147 (70-105) H 10/31/18 15:35 Lactic Acid 1.00 mmol/L (0.7-2.0) 10/30/18 04:34 Calcium 7.4 mg/dL (8.4-10.2) L 10/31/18 04:57 Phosphorus 2.70 mg/dL (2.5-4.5) 10/30/18 04:34 Magnesium 2.20 mg/dL (1.7-2.3) 10/31/18 04:57 2.50 mg/dL (0.1-1.2) H 10/29/18 18:43 AST 73 units/L (5-40) H 10/29/18 18:43 ALT 77 units/L (7-56) H 10/29/18 18:43 166 units/L (35-129) H 10/29/18 18:43 26.0 umol/L (25-60) 10/29/18 22:23 6.8 g/dL (6.3-8.2) 10/29/18 18:43 3.6 g/dL (3.9-5) L 10/29/18 18:43 1.1 % 10/29/18 18:43 14 units/L (13-60) 10/29/18 18:43 Vitamin B12 1966 pg/mL (211-911) H 10/31/18 04:57 12.21 ng/mL (7.3-26.0) 10/31/18 04:57 TSH 8.610 mlU/mL (0.270-4.200) H 10/29/18 17:45 Free T4 1.06 ng/dL (0.76-1.46) 10/30/18 17:17 Plasma/Serum Alcohol < 0.01 % (0-0.07) 10/29/18 17:45 Group A Strep Rapid Negative (Negative) 10/29/18 19:28 Blood Type B POSITIVE 10/29/18 23:48 Antibody Screen TNR 10/29/18 23:48 ALEC Antibody Screen Negative 10/29/18 23:48 Active Medications - Current Medications Current Medications: Generic Name Dose Route Start Last Admin Trade Name Freq PRN Reason Stop Dose Admin Acetaminophen 650 mg 10/29/18 23:49 Tylenol MA Q4H PRN Pain MILD(1-3)/Fever >100.5/DAMON Dextrose 50 ml 10/31/18 07:36 10/31/18 07:45 D50w (25gm) Syringe IV 50 ml PRN PRN Administration Hypoglycemia Famotidine 20 mg 10/30/18 10:00 10/31/18 09:26 Pepcid IV 20 mg BID CHRISTINE Administration Fentanyl 50 mcg 10/30/18 08:14 10/31/18 01:08 Sublimaze IV 50 mcg Q2H PRN Administration Pain, Moderate (4-6) Heparin Sodium (Porcine) 5,000 unit 10/30/18 06:00 10/31/18 14:00 Heparin SUB-Q Not Given Q8HR CHRISTINE Hydrophilic Ointment 1 applic 10/30/18 02:20 Vaseline Lip Therapy TP Q2HR PRN Dry Lips Propofol 1,000 mg in 100 mls @ 1.497 mls/hr 10/30/18 03:00 10/31/18 11:03 Diprivan 10 Mg/Ml IV 10 mcg/kg/min TITR CHRISTINE 2.994 mls/hr Titration Protocol 5 MCG/KG/MIN Dextrose/Sodium Chloride 1,000 mls @ 150 mls/hr 10/31/18 11:00 10/31/18 17:30 D5/0.45ns IV 150 mls/hr DIRECT CHRISTINE Administration Midazolam HCl 2 mg 10/30/18 08:15 10/31/18 16:11 Versed IV 2 mg Q4H PRN Administration Agitation Multi-Ingred Cream/Lotion/Oil/Oint 1 applic 10/30/18 02:20 Artificial Tears Ophth Oint OU Q4HR PRN Dry Eye(s) Ondansetron HCl 4 mg 10/29/18 23:49 Zofran IV Q4H PRN Nausea And Vomiting Sodium Chloride 10 ml 10/30/18 10:00 10/31/18 09:26 Sodium Chloride Flush Syringe 10 Ml IV 10 ml BID CHRISTINE Administration Sodium Chloride 10 ml 10/29/18 23:49 10/30/18 17:55 Sodium Chloride Flush Syringe 10 Ml IV 10 ml PRN PRN Administration LINE FLUSH Nutrition/Malnutrition Assess - Dietary Evaluation Nutrition/Malnutrition Findings: Nutrition Notes Start: 10/30/18 15:07 Freq: Status: Active Protocol: Document 10/30/18 15:07 RM (Rec: 10/30/18 15:21 RM [id number]) Nutrition Notes Need for Assessment generated from: MD Order Initial or Follow up Assessment Current Diagnosis Acute Kidney Injury Other Pertinent Diagnosis Bowel obstruction, Alcohol withdrawal, S/P hemicolectomy Current Diet No diet ordered Labs/Tests Reviewed Pertinent Medications Propofol at 1.5 ml/hr Height 5 ft Weight 49.9 kg [place] Body Weight (kg) 45.45 BMI 21.4 Subjective/Other Information Consulted for evaluate nutritional intake. Pt brother stated that pt ht is 5ft. Corrected accordingly in record. Burn Absent Trauma Absent #1 Nutrition Diagnosis Inadequate oral intake Etiology on vent As Evidenced by Signs and Symptoms NPO status Is patient on ventilator? Yes Is Patient Ambulatory and/or Out of Bed No REE-([facility]-confined to bed) 1187.856 Kcal/Kg value to use for calculation 27 Approximate Energy Requirements Using 1347 kcal/Kg Calculation Used for Recommendations Kcal/kg Additional Notes Protein Needs: 60-100g (1.2-2g /kg) Fluid Needs: 1 ml/kcal Nutrition Intervention Change Diet Order: TF consult Nutrition Support: Vital 1.2 at 45 ml/hr Water flush of 100 ml q 4 hrs Kcal 1,296 Protein (gm) 81 Fluid (mL) 876 Goal #1 TF consult Anticipated Discharge Needs: Unable to determine at this time Follow-Up By: 11/01/18 Additional Comments Follow for TF consult
[2018-11-01] MEDS: VERSED IV PRN (00:31)
[2018-11-01] MEDS: D5/0.45NS 1,000 ML IV SCH (00:34)
--- NOTE | 2018-11-01 02:53 | XRay Report ---
PROCEDURE: XR CHEST 1V AP TECHNIQUE: Chest radiograph single view. HISTORY: follow up respiratory failure COMPARISONS: None . FINDINGS: Heart: Normal. Mediastinum/Vessels: Normal. Lungs/Pleural space: Lungs are expanded. There are no infiltrates. There is a small left pleural eff usion. There is calcified granuloma in the left lung base. There is no pneumothorax.. Bony thorax: No acute osseous abnormality. Life support devices: Endotracheal tube is in the midtrachea. NG tube is in the stomach.. IMPRESSION: Heart size is normal.. Lungs are expanded. There are no infiltrates. There is a small left pleural effusion. There is calcif ied granuloma in the left lung base. There is no pneumothorax.. Endotracheal tube is in the midtrachea. NG tube is in the stomach.. This document is electronically signed by Jeff Jensen MD., November 01 2018 02:51:39 AM ET
[2018-11-01] MEDS: SUBLIMAZE IV PRN (03:13)
[2018-11-01 05:13] LABS: Hematocrit 27.2 % (30.3-42.9); Hemoglobin 9.4 gm/dl (10.1-14.3); Mean Corpuscular HGB Conc 35 % (30-34); Mean Corpuscular Volume 101 fl (79-97); Red Cell Distribution Width 12.7 % (13.2-15.2)
[2018-11-01 05:19] LABS: Platelet Count 88 K/mm3 (140-440)
[2018-11-01 05:39] LABS: BUN/Creatinine Ratio 20; Blood Urea Nitrogen 8 mg/dL (7-17); Calcium 7.6 mg/dL (8.4-10.2); Hemolysis Index 152
[2018-11-01] MEDS: HEPARIN SUB-Q SCH ×3 (06:00→22:35)
[2018-11-01 06:14] LABS: Band Neutrophils # (Manual) 0.3 K/mm3; Basophils % (Manual) 0 % (0.0-1.8); Eosinophils % (Manual) 0 % (0.0-4.3); Total Cells Counted 100
[2018-11-01 06:15] LABS: Platelet Estimate Consistent w Auto; RBC Morphology Normal
--- NOTE | 2018-11-01 09:04 | Progress Note ---
Assessment and Plan 62 y/o female with acute respiratory failure secondary to sepsis from high grade bowel obstruction and volvulus with ETOH abuse with concerns for withdrawal. 1. Changed fluid to D5 1/2 normal saline, may need to change to just D5W as met abolic acidosis remains 2. Will discontinue diprovan and attempt extubation today. Patient has not exhibited further signs of delirium tremens. 3. Follow up any new surgery recs, will ask when they are ready for us to try to feed. 4. Aggressive replacement of electrolytes, IV potassium today. 5. DVT and GI Prophylaxis CCT 31 minutes. Subjective Date of service: 11/01/18 Principal diagnosis: low plt Interval history: Awake and alert, stable. HR better, BP good. No family currently present. No fevers. Objective Vital Signs - 12hr 10/31/18 10/31/18 10/31/18 21:11 21:21 21:30 Temperature Pulse Rate 100 H 94 H 96 H Pulse Rate [ From Monitor] Respiratory 21 21 21 Rate Blood Pressure 108/71 120/77 116/73 O2 Sat by Pulse 97 97 97 Oximetry 10/31/18 10/31/18 10/31/18 21:41 21:42 21:51 Temperature Pulse Rate 96 H 94 H 98 H Pulse Rate [ From Monitor] Respiratory 20 21 22 Rate Blood Pressure 116/73 116/73 116/70 O2 Sat by Pulse 98 98 98 Oximetry 10/31/18 10/31/18 10/31/18 22:00 22:01 22:11 Temperature Pulse Rate 95 H 96 H 98 H Pulse Rate [ 95 H From Monitor] Respiratory 26 H 21 19 Rate Blood Pressure 121/77 121/77 121/77 O2 Sat by Pulse 98 98 98 Oximetry 10/31/18 10/31/18 10/31/18 22:21 22:30 22:41 Temperature Pulse Rate 100 H 100 H 103 H Pulse Rate [ From Monitor] Respiratory 26 H 19 19 Rate Blood Pressure 116/73 121/75 121/75 O2 Sat by Pulse 98 98 99 Oximetry 10/31/18 10/31/18 10/31/18 22:51 23:00 23:11 Temperature Pulse Rate 96 H 98 H 96 H Pulse Rate [ From Monitor] Respiratory 19 18 18 Rate Blood Pressure 124/74 118/74 118/74 O2 Sat by Pulse 98 99 98 Oximetry 10/31/18 10/31/18 10/31/18 23:20 23:21 23:30 Temperature 98 F Pulse Rate 103 H 97 H Pulse Rate [ From Monitor] Respiratory 23 20 Rate Blood Pressure 115/83 122/75 O2 Sat by Pulse 98 98 Oximetry 10/31/18 10/31/18 11/01/18 23:41 23:51 00:00 Temperature Pulse Rate 96 H 97 H 99 H Pulse Rate [ 105 H From Monitor] Respiratory 20 18 22 Rate Blood Pressure 122/75 128/78 122/79 O2 Sat by Pulse 99 98 97 Oximetry 11/01/18 11/01/18 11/01/18 00:11 00:21 00:30 Temperature Pulse Rate 94 H 110 H 100 H Pulse Rate [ From Monitor] Respiratory 18 32 H 28 H Rate Blood Pressure 122/79 128/78 114/73 O2 Sat by Pulse 98 97 100 Oximetry 11/01/18 11/01/18 11/01/18 00:37 00:41 00:51 Temperature Pulse Rate 100 H 97 H 100 H Pulse Rate [ From Monitor] Respiratory 29 H 29 H Rate Blood Pressure 114/73 114/73 124/81 O2 Sat by Pulse 99 99 100 Oximetry 11/01/18 11/01/18 11/01/18 01:00 01:11 01:21 Temperature Pulse Rate 99 H 92 H 100 H Pulse Rate [ From Monitor] Respiratory 28 H 29 H 29 H Rate Blood Pressure 122/79 122/79 129/84 O2 Sat by Pulse 100 100 100 Oximetry 11/01/18 11/01/18 11/01/18 01:30 01:41 01:51 Temperature Pulse Rate 102 H 99 H 96 H Pulse Rate [ From Monitor] Respiratory 31 H 28 H 28 H Rate Blood Pressure 120/82 120/82 121/83 O2 Sat by Pulse 100 100 100 Oximetry 11/01/18 11/01/18 11/01/18 02:00 02:01 02:11 Temperature Pulse Rate 102 H 100 H Pulse Rate [ 102 H From Monitor] Respiratory 32 H 32 H 30 H Rate Blood Pressure 119/78 119/78 O2 Sat by Pulse 100 100 100 Oximetry 11/01/18 11/01/18 11/01/18 02:21 02:30 02:41 Temperature Pulse Rate 102 H 98 H 101 H Pulse Rate [ From Monitor] Respiratory 30 H 28 H 31 H Rate Blood Pressure 130/81 125/80 125/80 O2 Sat by Pulse 99 100 100 Oximetry 11/01/18 11/01/18 11/01/18 02:51 03:00 03:11 Temperature Pulse Rate 103 H 103 H 103 H Pulse Rate [ From Monitor] Respiratory 29 H 30 H 29 H Rate Blood Pressure 120/78 124/81 124/81 O2 Sat by Pulse 100 100 100 Oximetry 11/01/18 11/01/18 11/01/18 03:21 03:30 03:34 Temperature Pulse Rate 96 H 96 H 94 H Pulse Rate [ From Monitor] Respiratory 17 22 Rate Blood Pressure 123/83 123/79 123/79 O2 Sat by Pulse 100 100 99 Oximetry 11/01/18 11/01/18 11/01/18 03:41 03:51 04:00 Temperature 98.5 F Pulse Rate 97 H 104 H 101 H Pulse Rate [ 101 H From Monitor] Respiratory 22 25 H 21 Rate Blood Pressure 123/79 124/80 133/88 O2 Sat by Pulse 99 98 100 Oximetry 11/01/18 11/01/18 11/01/18 04:11 04:20 04:30 Temperature Pulse Rate 99 H 96 H 104 H Pulse Rate [ From Monitor] Respiratory 17 18 24 Rate Blood Pressure 133/88 120/74 123/84 O2 Sat by Pulse 100 100 99 Oximetry 11/01/18 11/01/18 11/01/18 04:41 04:51 05:00 Temperature Pulse Rate 107 H 104 H 105 H Pulse Rate [ From Monitor] Respiratory 27 H 22 19 Rate Blood Pressure 123/84 126/78 132/81 O2 Sat by Pulse 99 100 100 Oximetry 11/01/18 11/01/18 11/01/18 05:11 05:21 05:30 Temperature Pulse Rate 104 H 113 H 111 H Pulse Rate [ From Monitor] Respiratory 22 25 H 25 H Rate Blood Pressure 132/81 136/82 136/78 O2 Sat by Pulse 100 98 100 Oximetry 11/01/18 11/01/18 11/01/18 05:41 05:51 06:00 Temperature Pulse Rate 106 H 109 H 113 H Pulse Rate [ 113 H From Monitor] Respiratory 22 26 H 27 H Rate Blood Pressure 136/78 124/81 122/83 O2 Sat by Pulse 100 100 100 Oximetry 11/01/18 11/01/18 11/01/18 06:11 06:21 06:30 Temperature Pulse Rate 108 H 104 H 106 H Pulse Rate [ From Monitor] Respiratory 23 23 24 Rate Blood Pressure 122/83 125/78 133/77 O2 Sat by Pulse 100 100 100 Oximetry Constitutional: alert, appears uncomfortable Eyes: non-icteric ENT: other (orally intubated and sedated) Neck: supple Effort: mildly labored Ascultation: Bilateral: clear Percussion: Bilateral: not dull Cardiovascular: other (sinus tachycardia) Gastrointestinal: other (post-op changes noted with ostomy present) Integumentary: normal Extremities: cool Neurologic: normal mental status CBC and BMP: 11/01/18 04:29 11/01/18 04:29 ABG, PT/INR, D-dimer: ABG POC ABG pH 7.299 (7.35-7.45) L 11/01/18 04:03 POC ABG pCO2 30.3 (35-45) L 11/01/18 04:03 POC ABG pO2 67 (80-105) L 11/01/18 04:03 POC ABG HCO3 14.9 (22-26 mml/L) 11/01/18 04:03 POC ABG Total CO2 16 (23-27mmol/L) 11/01/18 04:03 POC ABG O2 Sat 91 11/01/18 04:03 PT/INR, D-dimer PT 16.3 Sec. (12.2-14.9) H 10/31/18 04:57 INR 1.23 (0.87-1.13) H 10/31/18 04:57 Abnormal lab findings: Abnormal Labs 10/29/18 10/29/18 10/29/18 17:45 17:45 18:43 WBC RBC Hgb 16.7 H Hct 45.1 H MCV MCH 36 H MCHC 37 H RDW 12.8 L Plt Count Seg Neuts % (Manual) 74.0 H Lymphocytes % (Manual) 8.0 L Monocytes % (Manual) 18.0 H Seg Neutrophils # Man Lymphocytes # (Manual) 0.6 L Monocytes # (Manual) 1.5 H PT INR POC ABG pH POC ABG pCO2 POC ABG pO2 Sodium 130 L Potassium 3.1 L Chloride 89.7 L Carbon Dioxide 20 L BUN 29 H Creatinine 1.7 H Glucose POC Glucose Lactic Acid Calcium Magnesium Total Bilirubin 2.50 H AST 73 H ALT 77 H Alkaline Phosphatase 166 H Albumin 3.6 L Vitamin B12 TSH 8.610 H 10/29/18 10/29/18 10/30/18 18:43 22:23 03:42 WBC RBC Hgb Hct MCV MCH MCHC RDW Plt Count Seg Neuts % (Manual) Lymphocytes % (Manual) Monocytes % (Manual) Seg Neutrophils # Man Lymphocytes # (Manual) Monocytes # (Manual) PT INR POC ABG pH 7.200 L POC ABG pCO2 POC ABG pO2 186 H Sodium Potassium Chloride Carbon Dioxide BUN Creatinine Glucose POC Glucose Lactic Acid 3.50 H* 2.50 H* Calcium Magnesium Total Bilirubin AST ALT Alkaline Phosphatase Albumin Vitamin B12 TSH 10/30/18 10/30/18 10/30/18 04:34 04:34 08:51 WBC 2.7 L RBC 3.30 L Hgb Hct MCV 101 H MCH 35 H MCHC RDW 12.6 L Plt Count 60 L Seg Neuts % (Manual) Lymphocytes % (Manual) 6.0 L Monocytes % (Manual) 31.0 H Seg Neutrophils # Man 1.3 L Lymphocytes # (Manual) 0.2 L Monocytes # (Manual) PT 17.8 H INR 1.37 H POC ABG pH POC ABG pCO2 POC ABG pO2 Sodium 133 L Potassium 3.1 L Chloride Carbon Dioxide 17 L BUN 20 H Creatinine Glucose 116 H POC Glucose Lactic Acid Calcium 6.6 L D Magnesium 1.20 L Total Bilirubin AST ALT Alkaline Phosphatase Albumin Vitamin B12 TSH 10/31/18 10/31/18 10/31/18 04:57 04:57 04:57 WBC RBC 2.97 L Hgb Hct MCV 107 H MCH 35 H MCHC RDW 12.9 L Plt Count 68 L Seg Neuts % (Manual) Lymphocytes % (Manual) 5.0 L Monocytes % (Manual) 25.0 H Seg Neutrophils # Man Lymphocytes # (Manual) 0.4 L Monocytes # (Manual) 2.2 H PT 16.3 H INR 1.23 H POC ABG pH POC ABG pCO2 POC ABG pO2 Sodium Potassium Chloride 114.8 H Carbon Dioxide 13 L BUN Creatinine Glucose 56 L POC Glucose Lactic Acid Calcium 7.4 L Magnesium Total Bilirubin AST ALT Alkaline Phosphatase Albumin Vitamin B12 TSH 10/31/18 10/31/18 10/31/18 04:57 05:05 07:33 WBC RBC Hgb Hct MCV MCH MCHC RDW Plt Count Seg Neuts % (Manual) Lymphocytes % (Manual) Monocytes % (Manual) Seg Neutrophils # Man Lymphocytes # (Manual) Monocytes # (Manual) PT INR POC ABG pH 7.300 L POC ABG pCO2 POC ABG pO2 Sodium Potassium Chloride Carbon Dioxide BUN Creatinine Glucose POC Glucose 62 L Lactic Acid Calcium Magnesium Total Bilirubin AST ALT Alkaline Phosphatase Albumin Vitamin B12 1966 H TSH 10/31/18 10/31/18 11/01/18 08:20 15:35 00:55 WBC RBC Hgb Hct MCV MCH MCHC RDW Plt Count Seg Neuts % (Manual) Lymphocytes % (Manual) Monocytes % (Manual) Seg Neutrophils # Man Lymphocytes # (Manual) Monocytes # (Manual) PT INR POC ABG pH POC ABG pCO2 POC ABG pO2 Sodium Potassium Chloride Carbon Dioxide BUN Creatinine Glucose POC Glucose 156 H 147 H 149 H Lactic Acid Calcium Magnesium Total Bilirubin AST ALT Alkaline Phosphatase Albumin Vitamin B12 TSH 11/01/18 11/01/18 11/01/18 04:03 04:29 04:29 WBC RBC 2.70 L Hgb 9.4 L Hct 27.2 L MCV 101 H MCH 35 H MCHC 35 H RDW 12.7 L Plt Count 88 L Seg Neuts % (Manual) 80.0 H Lymphocytes % (Manual) 2.0 L Monocytes % (Manual) 14.0 H Seg Neutrophils # Man Lymphocytes # (Manual) 0.2 L Monocytes # (Manual) 1.1 H PT INR POC ABG pH 7.299 L POC ABG pCO2 30.3 L POC ABG pO2 67 L Sodium 136 L Potassium 3.2 L Chloride 109.4 H Carbon Dioxide 16 L BUN Creatinine 0.4 L Glucose 134 H POC Glucose Lactic Acid Calcium 7.6 L Magnesium Total Bilirubin AST ALT Alkaline Phosphatase Albumin Vitamin B12 TSH 11/01/18 05:56 WBC RBC Hgb Hct MCV MCH MCHC RDW Plt Count Seg Neuts % (Manual) Lymphocytes % (Manual) Monocytes % (Manual) Seg Neutrophils # Man Lymphocytes # (Manual) Monocytes # (Manual) PT INR POC ABG pH POC ABG pCO2 POC ABG pO2 Sodium Potassium Chloride Carbon Dioxide BUN Creatinine Glucose POC Glucose 152 H Lactic Acid Calcium Magnesium Total Bilirubin AST ALT Alkaline Phosphatase Albumin Vitamin B12 [facility]
[2018-11-01] MEDS: PEPCID IV SCH ×2 (09:30→22:31)
[2018-11-01] MEDS: SODIUM CHLORIDE FLUSH SYRINGE 10 ML IV SCH ×2 (09:30→22:32)
[2018-11-01] MEDS ORDERED: ATIVAN IV PRN ×2 (10:45)
[2018-11-01] MEDS: KCL 10MEQ/100ML 10 MEQ/100 ML BAG IV SCH ×6 (11:58→14:36)
[2018-11-01] MEDS: D5W 1,000 ML IV SCH ×2 (12:38→18:53)
--- NOTE | 2018-11-01 13:18 | Progress Note ---
Assessment and Plan Assessment and plan: 62-year-old female with past medical history significant for asthma was brought by her family members for the complaints of shortness was not eating and drinking for the last few days. She has been constantly drinking alcohol. Patient has been complaining that she has abdominal pain. In the emergency department patient was tremulous and was given ativan. CT scan of the abdomen showed high-grade bowel obstruction due to volvulus. 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 and did hemicolectomy - Postop management per general surgery Thrombocytopenia, ?HIT - Patient platelet count was 151 yesterday and today it is 60 - Headed heparin - Hematology oncology consulted Alcohol withdrawal DT - Patient is sedated - CIWA protocol Acute renal failure - IV fluids - Patient is catheterized, strict input and output Electrolyte derangements; which include hyperkalemia, hypocalcemia and hypomagnesemia - Repleted Acute respiratory failure - Patient is on mechanical ventilation after surgery - Patient is sedated - Vent management per airway controller DVT prophylaxis - On SCDs Disposition - Continue ICU care The high probability of a clinically significant, sudden or life threatening deterioration of the [GI, neurology, repiratory] system(s) required my full and direct attention, intervention and personal management. The aggregate critical care time was [45] minutes. This time is in addition to time spent performing reported procedures but includes the following: [x] Data Review and interpretation [x] Patient assessment and monitoring of vital signs [x] Documentation [x] Medication orders and management History Interval history: Patient was seen and evaluated this morning, patient was intubated and alert Hospitalist Physical - Physical exam Narrative exam: Patient intubated and alert The patient appeared well nourished and normally developed. Vital signs as documented. Head exam is unremarkable. No scleral icterus . Neck is without jugular venous distension, thyromegaly, or carotid bruits. Lungs are clear to auscultation. Cardiac exam reveals regular rate and Rhythm. First and second heart sounds normal. No murmurs, rubs or gallops. Abdominal exam reveals clean midline abdominal dressing. Extremities are nonedematous and both femoral and pedal pulses are normal. [employer] TE[employer]ER: alert. - Constitutional Vitals: Temp Pulse Resp BP Pulse Ox 98.5 F 98 H 30 H 120/76 100 11/01/18 04:00 11/01/18 12:21 11/01/18 12:21 11/01/18 12:21 11/01/18 12:21 Results - Labs CBC & Chem 7: 11/01/18 04:29 11/01/18 04:29 Labs: Laboratory Last Values WBC 8.0 K/mm3 (4.5-11.0) 11/01/18 04:29 RBC 2.70 M/mm3 (3.65-5.03) L 11/01/18 04:29 Hgb 9.4 gm/dl (10.1-14.3) L 11/01/18 04:29 Hct 27.2 % (30.3-42.9) L 11/01/18 04:29 MCV 101 fl (79-97) H 11/01/18 04:29 MCH 35 pg (28-32) H 11/01/18 04:29 MCHC 35 % (30-34) H 11/01/18 04:29 RDW 12.7 % (13.2-15.2) L 11/01/18 04:29 Plt Count 88 K/mm3 (140-440) L 11/01/18 04:29 [place] % (Auto) Columnist/Commentator 11/01/18 04:29 Add Manual Diff Complete 11/01/18 04:29 Total Counted 100 11/01/18 04:29 Seg Neuts % (Manual) 80.0 % (40.0-70.0) H 11/01/18 04:29 4.0 % 11/01/18 04:29 2.0 % (13.4-35.0) L 11/01/18 04:29 Reactive Lymphs % (Man) 0 % 11/01/18 04:29 14.0 % (0.0-7.3) H 11/01/18 04:29 0 % (0.0-4.3) 11/01/18 04:29 0 % (0.0-1.8) 11/01/18 04:29 0 % 11/01/18 04:29 0 % 11/01/18 04:29 0 % 11/01/18 04:29 0 % 11/01/18 04:29 Nucleated RBC % Not Reportable 11/01/18 04:29 Seg Neutrophils # Man 6.4 K/mm3 (1.8-7.7) 11/01/18 04:29 Band Neutrophils # 0.3 K/mm3 11/01/18 04:29 0.2 K/mm3 (1.2-5.4) L 11/01/18 04:29 Abs React Lymphs (Man) 0.0 K/mm3 11/01/18 04:29 1.1 K/mm3 (0.0-0.8) H 11/01/18 04:29 0.0 K/mm3 (0.0-0.4) 11/01/18 04:29 0.0 K/mm3 (0.0-0.1) 11/01/18 04:29 0.0 K/mm3 11/01/18 04:29 0.0 K/mm3 11/01/18 04:29 0.0 K/mm3 11/01/18 04:29 Blast Cells # 0.0 K/mm3 11/01/18 04:29 WBC Morphology Not Reportable 11/01/18 04:29 Hypersegmented Neuts Not Reportable 11/01/18 04:29 Hyposegmented Neuts Not Reportable 11/01/18 04:29 Hypogranular Neuts Not Reportable 11/01/18 04:29 Not Reportable 11/01/18 04:29 Not Reportable 11/01/18 04:29 Not Reportable 11/01/18 04:29 Not Reportable 11/01/18 04:29 Not Reportable 11/01/18 04:29 Not Reportable 11/01/18 04:29 Consistent w auto 11/01/18 04:29 Not Reportable 11/01/18 04:29 Plt Clumps, EDTA Not Reportable 11/01/18 04:29 Not Reportable 11/01/18 04:29 Not Reportable 11/01/18 04:29 Not Reportable 11/01/18 04:29 Plt Morphology Comment Not Reportable 11/01/18 04:29 RBC Morphology Normal 11/01/18 04:29 Dimorphic RBCs Not Reportable 11/01/18 04:29 Not Reportable 11/01/18 04:29 Not Reportable 11/01/18 04:29 Not Reportable 11/01/18 04:29 Not Reportable 11/01/18 04:29 Not Reportable 11/01/18 04:29 Not Reportable 11/01/18 04:29 Not Reportable 11/01/18 04:29 Not Reportable 11/01/18 04:29 Not Reportable 11/01/18 04:29 Not Reportable 11/01/18 04:29 Not Reportable 11/01/18 04:29 Not Reportable 11/01/18 04:29 Not Reportable 11/01/18 04:29 Not Reportable 11/01/18 04:29 Not Reportable 11/01/18 04:29 Not Reportable 11/01/18 04:29 Not Reportable 11/01/18 04:29 Not Reportable 11/01/18 04:29 Not Reportable 11/01/18 04:29 Acanthocytes (Spur) Not Reportable 11/01/18 04:29 Rouleaux Not Reportable 11/01/18 04:29 Not Reportable 11/01/18 04:29 Not Reportable 11/01/18 04:29 Not Reportable 11/01/18 04:29 Not Reportable 11/01/18 04:29 Hem Pathologist Commnt No 11/01/18 04:29 PT 16.3 Sec. (12.2-14.9) H 10/31/18 04:57 INR 1.23 (0.87-1.13) H 10/31/18 04:57 POC ABG pH 7.299 (7.35-7.45) L 11/01/18 04:03 POC ABG pCO2 30.3 (35-45) L 11/01/18 04:03 POC ABG pO2 67 (80-105) L 11/01/18 04:03 POC ABG HCO3 14.9 (22-26 mml/L) 11/01/18 04:03 POC ABG Total CO2 16 (23-27mmol/L) 11/01/18 04:03 POC ABG O2 Sat 91 11/01/18 04:03 POC ABG Base Excess -12 ((-2) - (+3)mmol/L) 11/01/18 04:03 30 % 11/01/18 04:03 Sodium 136 mmol/L (137-145) L 11/01/18 04:29 Potassium 3.2 mmol/L (3.6-5.0) L 11/01/18 04:29 Chloride 109.4 mmol/L (98-107) H 11/01/18 04:29 Carbon Dioxide 16 mmol/L (22-30) L 11/01/18 04:29 14 mmol/L 11/01/18 04:29 BUN 8 mg/dL (7-17) 11/01/18 04:29 0.4 mg/dL (0.7-1.2) L 11/01/18 04:29 Estimated GFR > 60 ml/min 11/01/18 04:29 20 % 11/01/18 04:29 Glucose 134 mg/dL (65-100) H 11/01/18 04:29 POC Glucose 132 (70-105) H 11/01/18 11:34 Lactic Acid 1.00 mmol/L (0.7-2.0) 10/30/18 04:34 Calcium 7.6 mg/dL (8.4-10.2) L 11/01/18 04:29 Phosphorus 1.30 mg/dL (2.5-4.5) L 11/01/18 04:29 Magnesium 2.30 mg/dL (1.7-2.3) 11/01/18 04:29 2.50 mg/dL (0.1-1.2) H 10/29/18 18:43 AST 73 units/L (5-40) H 10/29/18 18:43 ALT 77 units/L (7-56) H 10/29/18 18:43 166 units/L (35-129) H 10/29/18 18:43 26.0 umol/L (25-60) 10/29/18 22:23 6.8 g/dL (6.3-8.2) 10/29/18 18:43 3.6 g/dL (3.9-5) L 10/29/18 18:43 1.1 % 10/29/18 18:43 14 units/L (13-60) 10/29/18 18:43 Vitamin B12 1966 pg/mL (211-911) H 10/31/18 04:57 12.21 ng/mL (7.3-26.0) 10/31/18 04:57 TSH 8.610 mlU/mL (0.270-4.200) H 10/29/18 17:45 Free T4 1.06 ng/dL (0.76-1.46) 10/30/18 17:17 Plasma/Serum Alcohol < 0.01 % (0-0.07) 10/29/18 17:45 Group A Strep Rapid Negative (Negative) 10/29/18 19:28 Blood Type B POSITIVE 10/29/18 23:48 Antibody Screen TNR 10/29/18 23:48 ALEC Antibody Screen Negative 10/29/18 23:48 Active Medications - Current Medications Current Medications: Generic Name Dose Route Start Last Admin Trade Name Freq PRN Reason Stop Dose Admin Acetaminophen 650 mg 10/29/18 23:49 Tylenol MO Q4H PRN Pain MILD(1-3)/Fever >100.5/DAMON Dextrose 50 ml 10/31/18 07:36 10/31/18 07:45 D50w (25gm) Syringe IV 50 ml PRN PRN Administration Hypoglycemia Famotidine 20 mg 10/30/18 10:00 11/01/18 09:30 Pepcid IV 20 mg BID CHRISTINE Administration Heparin Sodium (Porcine) 5,000 unit 10/30/18 06:00 11/01/18 13:07 Heparin SUB-Q 5,000 unit Q8HR CHRISTINE Administration Hydrophilic Ointment 1 applic 10/30/18 02:20 Vaseline Lip Therapy TP Q2HR PRN Dry Lips Dextrose 1,000 mls @ 150 mls/hr 11/01/18 11:00 11/01/18 12:38 D5w IV 150 mls/hr DIRECT CHRISTINE Administration Potassium Phosphate 30 mmol/ 510 mls @ 83 mls/hr 11/01/18 14:00 Sodium Chloride IV 11/01/18 20:08 ONCE ONE Lorazepam 2 mg 11/01/18 10:45 Ativan IV Q1HR PRN CIWA-Ar 8-15 Lorazepam 4 mg 11/01/18 10:45 Ativan IV Q1HR PRN CIWA-Ar 16-25 Lorazepam 4 mg 11/01/18 10:45 Ativan IV Q15MIN PRN CIWA-Ar >25 Multi-Ingred Cream/Lotion/Oil/Oint 1 applic 10/30/18 02:20 Artificial Tears Ophth Oint OU Q4HR PRN Dry Eye(s) Ondansetron HCl 4 mg 10/29/18 23:49 Zofran IV Q4H PRN Nausea And Vomiting Sodium Chloride 10 ml 10/30/18 10:00 10/31/18 22:00 Sodium Chloride Flush Syringe 10 Ml IV 10 ml BID CHRISTINE Administration Sodium Chloride 10 ml 10/29/18 23:49 10/30/18 17:55 Sodium Chloride Flush Syringe 10 Ml IV 10 ml PRN PRN Administration LINE FLUSH Nutrition/Malnutrition Assess - Dietary Evaluation Nutrition/Malnutrition Findings: Nutrition Notes Start: 10/30/18 15:07 Freq: Status: Active Protocol: Document 10/30/18 15:07 RM (Rec: 10/30/18 15:21 RM [id number]) Nutrition Notes Need for Assessment generated from: MD Order Initial or Follow up Assessment Current Diagnosis Acute Kidney Injury Other Pertinent Diagnosis Bowel obstruction, Alcohol withdrawal, S/P hemicolectomy Current Diet No diet ordered Labs/Tests Reviewed Pertinent Medications Propofol at 1.5 ml/hr Height 5 ft Weight 49.9 kg [place] Body Weight (kg) 45.45 BMI 21.4 Subjective/Other Information Consulted for evaluate nutritional intake. Pt brother stated that pt ht is 5ft. Corrected accordingly in record. Burn Absent Trauma Absent #1 Nutrition Diagnosis Inadequate oral intake Etiology on vent As Evidenced by Signs and Symptoms NPO status Is patient on ventilator? Yes Is Patient Ambulatory and/or Out of Bed No REE-([facility]-confined to bed) 1187.856 Kcal/Kg value to use for calculation 27 Approximate Energy Requirements Using 1347 kcal/Kg Calculation Used for Recommendations Kcal/kg Additional Notes Protein Needs: 60-100g (1.2-2g /kg) Fluid Needs: 1 ml/kcal Nutrition Intervention Change Diet Order: TF consult Nutrition Support: Vital 1.2 at 45 ml/hr Water flush of 100 ml q 4 hrs Kcal 1,296 Protein (gm) 81 Fluid (mL) 876 Goal #1 TF consult Anticipated Discharge Needs: Unable to determine at this time Follow-Up By: 11/01/18 Additional Comments Follow for TF consult
[2018-11-01] MEDS ORDERED: KPHOS 30 MMOL in NACL 0.9% 500 ML 500 ML IV ONE (14:00)
--- NOTE | 2018-11-01 16:05 | Progress Note ---
Assessment and Plan - Patient Problems (1) Cecal volvulus Current Visit: Yes Status: Acute Plan to address problem: 62 yo F s/p Exploratory laparotomy, reduction of internal hernia, right hemicolectomy with primary ileocolonic anastamosis, POD 2. Pt extubated. 1. cecal volvulus 2. high grade SBO 3. etoh abuse 4. delerium tremens 5. TIERRA 6. VDRF 7. malnutrition Plan: 1. NPO until bowel function resumes 2. resuscitation 3. NGT to LIWS 4. strict I/Os 5. alcazar catheter - may remove from our standpoint 6. DVT ppx 7. OOB to chair Please call with questions. Subjective Date of service: 11/01/18 Patient Reports: Positive: still having pain (moderate), no flatus, no bowel movement. Negative: nausea, vomiting Objective Vital Signs - 12hr 11/01/18 11/01/18 11/01/18 04:11 04:20 04:30 Pulse Rate 99 H 96 H 104 H Pulse Rate [ From Monitor] Respiratory 17 18 24 Rate Blood Pressure 133/88 120/74 123/84 O2 Sat by Pulse 100 100 99 Oximetry 11/01/18 11/01/18 11/01/18 04:41 04:51 05:00 Pulse Rate 107 H 104 H 105 H Pulse Rate [ From Monitor] Respiratory 27 H 22 19 Rate Blood Pressure 123/84 126/78 132/81 O2 Sat by Pulse 99 100 100 Oximetry 11/01/18 11/01/18 11/01/18 05:11 05:21 05:30 Pulse Rate 104 H 113 H 111 H Pulse Rate [ From Monitor] Respiratory 22 25 H 25 H Rate Blood Pressure 132/81 136/82 136/78 O2 Sat by Pulse 100 98 100 Oximetry 11/01/18 11/01/18 11/01/18 05:41 05:51 06:00 Pulse Rate 106 H 109 H 113 H Pulse Rate [ 113 H From Monitor] Respiratory 22 26 H 27 H Rate Blood Pressure 136/78 124/81 122/83 O2 Sat by Pulse 100 100 100 Oximetry 11/01/18 11/01/18 11/01/18 06:11 06:21 06:30 Pulse Rate 108 H 104 H 106 H Pulse Rate [ From Monitor] Respiratory 23 23 24 Rate Blood Pressure 122/83 125/78 133/77 O2 Sat by Pulse 100 100 100 Oximetry 11/01/18 11/01/18 11/01/18 06:41 06:51 07:00 Pulse Rate 106 H 104 H 98 H Pulse Rate [ From Monitor] Respiratory 27 H 22 26 H Rate Blood Pressure 133/77 126/76 131/72 O2 Sat by Pulse 100 100 100 Oximetry 11/01/18 11/01/18 11/01/18 07:11 07:21 07:30 Pulse Rate 107 H 106 H 105 H Pulse Rate [ From Monitor] Respiratory 22 25 H 27 H Rate Blood Pressure 131/72 122/78 130/84 O2 Sat by Pulse 100 100 99 Oximetry 11/01/18 11/01/18 11/01/18 07:41 07:51 08:00 Pulse Rate 104 H 96 H 102 H Pulse Rate [ 102 H From Monitor] Respiratory 24 22 27 H Rate Blood Pressure 130/84 120/82 126/83 O2 Sat by Pulse 100 100 100 Oximetry 11/01/18 11/01/18 11/01/18 08:11 08:21 08:30 Pulse Rate 102 H 101 H 99 H Pulse Rate [ From Monitor] Respiratory 24 26 H 23 Rate Blood Pressure 120/82 126/74 130/82 O2 Sat by Pulse 100 100 100 Oximetry 11/01/18 11/01/18 11/01/18 08:41 08:51 09:00 Pulse Rate 102 H 102 H 94 H Pulse Rate [ From Monitor] Respiratory 29 H 27 H 24 Rate Blood Pressure 130/82 122/80 121/75 O2 Sat by Pulse 100 100 100 Oximetry 11/01/18 11/01/18 11/01/18 09:11 09:21 09:30 Pulse Rate 96 H 98 H 98 H Pulse Rate [ From Monitor] Respiratory 27 H 26 H 24 Rate Blood Pressure 130/82 129/81 121/78 O2 Sat by Pulse 100 100 100 Oximetry 11/01/18 11/01/18 11/01/18 09:41 09:51 10:00 Pulse Rate 96 H 94 H 98 H Pulse Rate [ From Monitor] Respiratory 26 H 25 H 27 H Rate Blood Pressure 121/78 124/76 122/86 O2 Sat by Pulse 100 100 100 Oximetry 11/01/18 11/01/18 11/01/18 10:11 10:21 10:30 Pulse Rate 96 H 98 H 98 H Pulse Rate [ From Monitor] Respiratory 26 H 24 22 Rate Blood Pressure 122/86 130/86 131/72 O2 Sat by Pulse 100 100 97 Oximetry 11/01/18 11/01/18 11/01/18 10:35 10:41 10:51 Pulse Rate 99 H 95 H Pulse Rate [ From Monitor] Respiratory 36 H 30 H Rate Blood Pressure 131/72 124/88 O2 Sat by Pulse 99 100 100 Oximetry 11/01/18 11/01/18 11/01/18 11:00 11:11 11:21 Pulse Rate 90 104 H 109 H Pulse Rate [ From Monitor] Respiratory 31 H 32 H 28 H Rate Blood Pressure 119/78 119/78 125/80 O2 Sat by Pulse 100 100 100 Oximetry 11/01/18 11/01/18 11/01/18 11:30 11:41 11:51 Pulse Rate 103 H 105 H 101 H Pulse Rate [ From Monitor] Respiratory 30 H 28 H 29 H Rate Blood Pressure 133/79 133/79 128/80 O2 Sat by Pulse 99 99 100 Oximetry 11/01/18 11/01/18 11/01/18 12:00 12:11 12:21 Pulse Rate 105 H 104 H 98 H Pulse Rate [ 102 H From Monitor] Respiratory 29 H 34 H 30 H Rate Blood Pressure 131/82 128/80 120/76 O2 Sat by Pulse 100 100 100 Oximetry 11/01/18 11/01/18 11/01/18 12:30 12:41 12:51 Pulse Rate 103 H 100 H 100 H Pulse Rate [ From Monitor] Respiratory 30 H 34 H 25 H Rate Blood Pressure 130/85 130/85 122/83 O2 Sat by Pulse 100 100 100 Oximetry 11/01/18 11/01/18 11/01/18 13:00 13:11 13:21 Pulse Rate 101 H 103 H 102 H Pulse Rate [ From Monitor] Respiratory 29 H 30 H 31 H Rate Blood Pressure 119/79 119/79 119/83 O2 Sat by Pulse 100 100 100 Oximetry 11/01/18 11/01/18 11/01/18 13:30 13:41 13:51 Pulse Rate 101 H 117 H 101 H Pulse Rate [ From Monitor] Respiratory 30 H 29 H 30 H Rate Blood Pressure 119/83 119/83 123/88 O2 Sat by Pulse 100 100 100 Oximetry 11/01/18 11/01/18 11/01/18 14:01 14:11 14:21 Pulse Rate 107 H 103 H 102 H Pulse Rate [ From Monitor] Respiratory 33 H 34 H 28 H Rate Blood Pressure 110/64 123/88 112/70 O2 Sat by Pulse 100 Oximetry 11/01/18 11/01/18 11/01/18 14:30 14:41 14:51 Pulse Rate 100 H 103 H 100 H Pulse Rate [ From Monitor] Respiratory 28 H 27 H 30 H Rate Blood Pressure 128/88 128/88 123/76 O2 Sat by Pulse 99 99 Oximetry 11/01/18 15:00 Pulse Rate 102 H Pulse Rate [ From Monitor] Respiratory 29 H Rate Blood Pressure 126/84 O2 Sat by Pulse 98 Oximetry - General physical appearance no distress, no pain - Eyes normal occular movement - Respiratory normal expansion, normal respiratory effort - Abdomen soft, tender (mild), distended (mild), not guarding, not rigid, surgical scars (C/D/I) - Integumentary no rash, no growths, no abnormal pigmentation - Psychiatric speech is normal - Labs 11/01/18 04:29 11/01/18 04:29 Diabetes panel 11/01/18 Range/Units 04:29 Sodium 136 L (137-145) mmol/L Potassium 3.2 L (3.6-5.0) mmol/L Chloride 109.4 H (98-107) mmol/L Carbon Dioxide 16 L (22-30) mmol/L BUN 8 (7-17) mg/dL Creatinine 0.4 L (0.7-1.2) mg/dL Glucose 134 H (65-100) mg/dL Calcium 7.6 L (8.4-10.2) mg/dL Calcium panel 11/01/18 11/01/18 Range/Units 04:29 04:29 Calcium 7.6 L (8.4-10.2) mg/dL Phosphorus 1.30 L (2.5-4.5) mg/dL Pituitary panel 11/01/18 Range/Units 04:29 Sodium 136 L (137-145) mmol/L Potassium 3.2 L (3.6-5.0) mmol/L Chloride 109.4 H (98-107) mmol/L Carbon Dioxide 16 L (22-30) mmol/L BUN 8 (7-17) mg/dL Creatinine 0.4 L (0.7-1.2) mg/dL Glucose 134 H (65-100) mg/dL Calcium 7.6 L (8.4-10.2) mg/dL Adrenal panel 11/01/18 Range/Units 04:29 Sodium 136 L (137-145) mmol/L Potassium 3.2 L (3.6-5.0) mmol/L Chloride 109.4 H (98-107) mmol/L Carbon Dioxide 16 L (22-30) mmol/L BUN 8 (7-17) mg/dL Creatinine 0.4 L (0.7-1.2) mg/dL Glucose 134 H (65-100) mg/dL Calcium 7.6 L (8.4-10.2) mg/dL
--- NOTE | 2018-11-01 16:58 | Hem/Onc Progress Note ---
Assessment and Plan 1. Thrombocytopenia. The duration of time since admission is very small. It is not clear if there was a recent hospitalization. The patient is postoperative, had ischemic bowel and history of alcohol usage. This may have more role in the thrombocytopenia. We will and follow the trend. 2. Admitted with altered mentation, underwent abdominal surgery, was intubated. 3. History of alcohol usage and delirium tremens, in restraints. 4. Renal impairment. 5. Liver function test abnormalities. 6. Electrolyte imbalance. 7. Heparin has been held. I will follow the patient during inpatient stay. 6/7 plt better more awake d/w multiple family - Patient Problems (1) Thrombocytopenia Current Visit: Yes Status: Acute Subjective Date of service: 11/01/18 Principal diagnosis: low plt Interval history: more awake Objective - Constitutional Vitals: Last Vital Signs Temp 98.5 F 11/01/18 04:00 Pulse 102 H 11/01/18 15:00 Resp 29 H 11/01/18 15:00 BP 126/84 11/01/18 15:00 Pulse Ox 98 11/01/18 15:00 Pain Intensity (0-10): denies any pain General appearance: no acute distress Performance status: 3-limited selfcare - EENT Eyes: EOM intact ENT: hearing intact, other (ngt+) Lymph node exam: negative cervical - Respiratory Respiratory effort: Positive: normal Respiratory: bilateral: diminished Extremities: normal temperature - Gastrointestinal General gastrointestinal: Present: soft, other (s/p sx) Rectal Exam: deferred - Genitourinary Female genitourinary: Present: deferred - Integumentary Integumentary: warm - Neurologic Neurologic: moves all extremities - Labs Lab Results: Laboratory Results - last 24 hr 11/01/18 11/01/18 11/01/18 00:55 04:03 04:29 WBC 8.0 RBC 2.70 L Hgb 9.4 L Hct 27.2 L MCV 101 H MCH 35 H MCHC 35 H RDW 12.7 L Plt Count 88 L [place] % (Auto) Brass Wind Instruments Tube Bender Add Manual Diff Complete Total Counted 100 Seg Neuts % (Manual) 80.0 H Band Neutrophils % 4.0 Lymphocytes % (Manual) 2.0 L Reactive Lymphs % (Man) 0 Monocytes % (Manual) 14.0 H Eosinophils % (Manual) 0 Basophils % (Manual) 0 Metamyelocytes % 0 Myelocytes % 0 Promyelocytes % 0 Blast Cells % 0 Nucleated RBC % Not Reportable Seg Neutrophils # Man 6.4 Band Neutrophils # 0.3 Lymphocytes # (Manual) 0.2 L Abs React Lymphs (Man) 0.0 Monocytes # (Manual) 1.1 H Eosinophils # (Manual) 0.0 Basophils # (Manual) 0.0 Metamyelocytes # 0.0 Myelocytes # 0.0 Promyelocytes # 0.0 Blast Cells # 0.0 WBC Morphology Not Reportable Hypersegmented Neuts Not Reportable Hyposegmented Neuts Not Reportable Hypogranular Neuts Not Reportable Smudge Cells Not Reportable Toxic Granulation Not Reportable Toxic Vacuolation Not Reportable Dohle Bodies Not Reportable Pelger-Huet Anomaly Not Reportable Carlee Rods Not Reportable Platelet Estimate Consistent w auto Clumped Platelets Not Reportable Plt Clumps, EDTA Not Reportable Large Platelets Not Reportable Giant Platelets Not Reportable Platelet Satelliting Not Reportable Plt Morphology Comment Not Reportable RBC Morphology Normal Dimorphic RBCs Not Reportable Polychromasia Not Reportable Hypochromasia Not Reportable Poikilocytosis Not Reportable Anisocytosis Not Reportable Microcytosis Not Reportable Macrocytosis Not Reportable Spherocytes Not Reportable Pappenheimer Bodies Not Reportable Sickle Cells Not Reportable Target Cells Not Reportable Tear Drop Cells Not Reportable Ovalocytes Not Reportable Helmet Cells Not Reportable Aguero-Correll Bodies Not Reportable [place] Rings Not Reportable [place] Cells Not Reportable Bite Cells Not Reportable Crenated Cell Not Reportable Elliptocytes Not Reportable Acanthocytes (Spur) Not Reportable Rouleaux Not Reportable Hemoglobin C Crystals Not Reportable Schistocytes Not Reportable Malaria parasites Not Reportable Oziel Bodies Not Reportable Hem Pathologist Commnt No POC ABG pH 7.299 L POC ABG pCO2 30.3 L POC ABG pO2 67 L POC ABG HCO3 14.9 POC ABG Total CO2 16 POC ABG O2 Sat 91 POC ABG Base Excess -12 FiO2 30 Sodium Potassium Chloride Carbon Dioxide Anion Gap BUN Creatinine Estimated GFR BUN/Creatinine Ratio Glucose POC Glucose 149 H Calcium Phosphorus Magnesium 11/01/18 11/01/18 11/01/18 04:29 04:29 05:56 WBC RBC Hgb Hct MCV MCH MCHC RDW Plt Count [place] % (Auto) Add Manual Diff Total Counted Seg Neuts % (Manual) Band Neutrophils % Lymphocytes % (Manual) Reactive Lymphs % (Man) Monocytes % (Manual) Eosinophils % (Manual) Basophils % (Manual) Metamyelocytes % Myelocytes % Promyelocytes % Blast Cells % Nucleated RBC % Seg Neutrophils # Man Band Neutrophils # Lymphocytes # (Manual) Abs React Lymphs (Man) Monocytes # (Manual) Eosinophils # (Manual) Basophils # (Manual) Metamyelocytes # Myelocytes # Promyelocytes # Blast Cells # WBC Morphology Hypersegmented Neuts Hyposegmented Neuts Hypogranular Neuts Smudge Cells Toxic Granulation Toxic Vacuolation Dohle Bodies Pelger-Huet Anomaly Carlee Rods Platelet Estimate Clumped Platelets Plt Clumps, EDTA Large Platelets Giant Platelets Platelet Satelliting Plt Morphology Comment RBC Morphology Dimorphic RBCs Polychromasia Hypochromasia Poikilocytosis Anisocytosis Microcytosis Macrocytosis Spherocytes Pappenheimer Bodies Sickle Cells Target Cells Tear Drop Cells Ovalocytes Helmet Cells Aguero-Correll Bodies [place] Rings [place] Cells Bite Cells Crenated Cell Elliptocytes Acanthocytes (Spur) Rouleaux Hemoglobin C Crystals Schistocytes Malaria parasites Oziel Bodies Hem Pathologist Commnt POC ABG pH POC ABG pCO2 POC ABG pO2 POC ABG HCO3 POC ABG Total CO2 POC ABG O2 Sat POC ABG Base Excess FiO2 Sodium 136 L Potassium 3.2 L Chloride 109.4 H Carbon Dioxide 16 L Anion Gap 14 BUN 8 Creatinine 0.4 L Estimated GFR > 60 BUN/Creatinine Ratio 20 Glucose 134 H POC Glucose 152 H Calcium 7.6 L Phosphorus 1.30 L Magnesium 2.30 11/01/18 11/01/18 08:44 11:34 WBC RBC Hgb Hct MCV MCH MCHC RDW Plt Count [place] % (Auto) Add Manual Diff Total Counted Seg Neuts % (Manual) Band Neutrophils % Lymphocytes % (Manual) Reactive Lymphs % (Man) Monocytes % (Manual) Eosinophils % (Manual) Basophils % (Manual) Metamyelocytes % Myelocytes % Promyelocytes % Blast Cells % Nucleated RBC % Seg Neutrophils # Man Band Neutrophils # Lymphocytes # (Manual) Abs React Lymphs (Man) Monocytes # (Manual) Eosinophils # (Manual) Basophils # (Manual) Metamyelocytes # Myelocytes # Promyelocytes # Blast Cells # WBC Morphology Hypersegmented Neuts Hyposegmented Neuts Hypogranular Neuts Smudge Cells Toxic Granulation Toxic Vacuolation Dohle Bodies Pelger-Huet Anomaly Carlee Rods Platelet Estimate Clumped Platelets Plt Clumps, EDTA Large Platelets Giant Platelets Platelet Satelliting Plt Morphology Comment RBC Morphology Dimorphic RBCs Polychromasia Hypochromasia Poikilocytosis Anisocytosis Microcytosis Macrocytosis Spherocytes Pappenheimer Bodies Sickle Cells Target Cells Tear Drop Cells Ovalocytes Helmet Cells Aguero-Correll Bodies [place] Rings Giovanni Cells Bite Cells Crenated Cell Elliptocytes Acanthocytes (Spur) Rouleaux Hemoglobin C Crystals Schistocytes Malaria parasites Oziel Bodies Hem Pathologist Commnt POC ABG pH POC ABG pCO2 POC ABG pO2 POC ABG HCO3 POC ABG Total CO2 POC ABG O2 Sat POC ABG Base Excess FiO2 Sodium Potassium Chloride Carbon Dioxide Anion Gap BUN Creatinine Estimated GFR BUN/Creatinine Ratio Glucose POC Glucose 120 H 132 H Calcium Phosphorus Magnesium Medications & Allergies - Medications Allergies/Adverse Reactions: Allergies No Known Allergies Allergy (Verified 10/29/18 17:40) Home Medications: Home Medications Medication Instructions Recorded Confirmed Last Taken Type Famotidine [Pepcid] 20 mg PO BID #30 tablet 04/10/17 Unknown Rx Active Medications: Generic Name Dose Route Start Last Admin Trade Name Freq PRN Reason Stop Dose Admin Acetaminophen 650 mg 10/29/18 23:49 Tylenol NE Q4H PRN Pain MILD(1-3)/Fever >100.5/DAMON Dextrose 50 ml 10/31/18 07:36 10/31/18 07:45 D50w (25gm) Syringe IV 50 ml PRN PRN Administration Hypoglycemia Famotidine 20 mg 10/30/18 10:00 11/01/18 09:30 Pepcid IV 20 mg BID CHRISTINE Administration Heparin Sodium (Porcine) 5,000 unit 10/30/18 06:00 11/01/18 13:07 Heparin SUB-Q 5,000 unit Q8HR CHRISTINE Administration Hydrophilic Ointment 1 applic 10/30/18 02:20 Vaseline Lip Therapy TP Q2HR PRN Dry Lips Dextrose 1,000 mls @ 150 mls/hr 11/01/18 11:00 11/01/18 12:38 D5w IV 150 mls/hr DIRECT CHRISTINE Administration Potassium Phosphate 30 mmol/ 510 mls @ 83 mls/hr 11/01/18 14:00 11/01/18 16:45 Sodium Chloride IV 11/01/18 20:08 83 mls/hr ONCE ONE Administration Lorazepam 2 mg 11/01/18 10:45 Ativan IV Q1HR PRN CIWA-Ar 8-15 Lorazepam 4 mg 11/01/18 10:45 Ativan IV Q1HR PRN CIWA-Ar 16-25 Lorazepam 4 mg 11/01/18 10:45 Ativan IV Q15MIN PRN CIWA-Ar >25 Multi-Ingred Cream/Lotion/Oil/Oint 1 applic 10/30/18 02:20 Artificial Tears Ophth Oint OU Q4HR PRN Dry Eye(s) Ondansetron HCl 4 mg 10/29/18 23:49 Zofran IV Q4H PRN Nausea And Vomiting Sodium Chloride 10 ml 10/30/18 10:00 11/01/18 09:30 Sodium Chloride Flush Syringe 10 Ml IV 10 ml BID CHRISTINE Administration Sodium Chloride 10 ml 10/29/18 23:49 10/30/18 17:55 Sodium Chloride Flush Syringe 10 Ml IV 10 ml PRN PRN Administration LINE FLUSH
[2018-11-01] MEDS: ATIVAN IV PRN (18:46)
[2018-11-02] MEDS: D5W 1,000 ML IV SCH (01:50)
--- NOTE | 2018-11-02 02:38 | XRay Report ---
PROCEDURE: XR CHEST 1V AP TECHNIQUE: Chest radiograph single view. HISTORY: follow up respiratory failure COMPARISONS: November 01, 2018 . FINDINGS: Heart: Normal. Mediastinum/Vessels: Normal. Lungs/Pleural space: Slight left effusion is again noted. No consolidation. Bony thorax: No acute osseous abnormality. Life support devices: The nasogastric tube ends in the upper stomach. IMPRESSION: Slight left effusion is again noted. The nasogastric tube ends in the upper stomach.. This document is electronically signed by Carmen Menjivar DO., November 02 2018 02:36:57 AM ET
[2018-11-02 05:28] LABS: Hematocrit 26.8 % (30.3-42.9); Hemoglobin 9.5 gm/dl (10.1-14.3); Mean Corpuscular HGB Conc 35 % (30-34); Mean Corpuscular Volume 99 fl (79-97); Platelet Count 113 K/mm3 (140-440); Red Blood Count 2.72 M/mm3 (3.65-5.03); Red Cell Distribution Width 12.7 % (13.2-15.2)
[2018-11-02 05:40] LABS: BUN/Creatinine Ratio 13; Blood Urea Nitrogen 4 mg/dL (7-17); Calcium 8.1 mg/dL (8.4-10.2); Hemolysis Index 12
[2018-11-02] MEDS: HEPARIN SUB-Q SCH ×3 (06:48→22:26)
[2018-11-02 07:06] LABS: Band Neutrophils # (Manual) 0.8 K/mm3; Basophils % (Manual) 0 % (0.0-1.8); Total Cells Counted 100
[2018-11-02 07:07] LABS: Anisocytosis 1+; Platelet Estimate Consistent w Auto
[2018-11-02] MEDS: KCL 10MEQ/100ML 10 MEQ/100 ML BAG IV SCH ×4 (08:33→11:44)
[2018-11-02] MEDS: PEPCID IV SCH ×2 (09:41→22:26)
[2018-11-02] MEDS: SODIUM CHLORIDE FLUSH SYRINGE 10 ML IV SCH ×2 (09:41→22:28)
--- NOTE | 2018-11-02 11:35 | Progress Note ---
Assessment and Plan - Patient Problems (1) Cecal volvulus Current Visit: Yes Status: Acute Plan to address problem: 62 yo F s/p Exploratory laparotomy, reduction of internal hernia, right hemicolectomy with primary ileocolonic anastamosis, POD 3. Pt reports passing flatus. Would like to try something to drink. 1. cecal volvulus 2. high grade SBO 3. etoh abuse 4. delerium tremens 5. TIERRA 6. VDRF 7. malnutrition Plan: 1. Try clears today 2. resuscitation 3. NGT - clamp today. If no issues, remove tomorrow. 4. strict I/Os 5. alcazar catheter - may remove from our standpoint 6. DVT ppx 7. OOB to chair Please call with questions. Subjective Date of service: 11/02/18 Patient Reports: Positive: flatus Objective Vital Signs - 12hr 11/01/18 11/01/18 11/02/18 23:40 23:50 00:00 Temperature Pulse Rate 96 H 96 H 93 H Pulse Rate [ 93 H From Monitor] Respiratory 28 H 29 H 32 H Rate Blood Pressure 147/84 148/89 138/90 O2 Sat by Pulse 90 100 100 Oximetry 11/02/18 11/02/18 11/02/18 00:10 00:20 00:30 Temperature Pulse Rate 99 H 99 H 101 H Pulse Rate [ From Monitor] Respiratory 32 H 38 H 37 H Rate Blood Pressure 138/90 129/84 147/94 O2 Sat by Pulse 100 99 99 Oximetry 11/02/18 11/02/18 11/02/18 00:40 00:50 01:00 Temperature Pulse Rate 99 H 109 H Pulse Rate [ From Monitor] Respiratory 33 H 39 H 38 H Rate Blood Pressure 147/94 140/95 131/95 O2 Sat by Pulse 99 97 98 Oximetry 11/02/18 11/02/18 11/02/18 01:10 01:20 01:30 Temperature Pulse Rate 90 112 H 99 H Pulse Rate [ From Monitor] Respiratory 30 H 36 H 34 H Rate Blood Pressure 131/95 131/95 138/89 O2 Sat by Pulse 100 64 L 99 Oximetry 11/02/18 11/02/18 11/02/18 01:40 01:50 02:00 Temperature Pulse Rate 101 H 102 H 104 H Pulse Rate [ 104 H From Monitor] Respiratory 33 H 34 H 35 H Rate Blood Pressure 138/89 146/99 146/99 O2 Sat by Pulse 97 97 99 Oximetry 11/02/18 11/02/18 11/02/18 02:10 02:20 02:30 Temperature Pulse Rate 95 H 106 H 97 H Pulse Rate [ From Monitor] Respiratory 36 H 35 H 31 H Rate Blood Pressure 129/78 125/90 133/83 O2 Sat by Pulse Oximetry 11/02/18 11/02/18 11/02/18 02:40 02:50 03:00 Temperature Pulse Rate 105 H 103 H 94 H Pulse Rate [ From Monitor] Respiratory 37 H 34 H 37 H Rate Blood Pressure 133/83 133/95 123/85 O2 Sat by Pulse Oximetry 11/02/18 11/02/18 11/02/18 03:10 03:20 03:30 Temperature Pulse Rate 91 H 97 H 94 H Pulse Rate [ From Monitor] Respiratory 33 H 35 H 32 H Rate Blood Pressure 123/85 132/87 132/88 O2 Sat by Pulse 96 Oximetry 11/02/18 11/02/18 11/02/18 03:40 03:49 03:50 Temperature 98.4 F Pulse Rate 95 H 90 Pulse Rate [ From Monitor] Respiratory 29 H 33 H Rate Blood Pressure 132/88 143/89 O2 Sat by Pulse 96 97 Oximetry 11/02/18 11/02/18 11/02/18 04:00 04:10 04:20 Temperature Pulse Rate 82 86 86 Pulse Rate [ 93 H From Monitor] Respiratory 28 H 18 20 Rate Blood Pressure 143/89 145/82 128/78 O2 Sat by Pulse 97 100 100 Oximetry 11/02/18 11/02/18 11/02/18 04:30 04:40 04:50 Temperature Pulse Rate 85 92 H 82 Pulse Rate [ From Monitor] Respiratory 21 32 H 20 Rate Blood Pressure 123/78 123/78 124/77 O2 Sat by Pulse 100 100 100 Oximetry 11/02/18 11/02/18 11/02/18 05:00 05:10 05:20 Temperature Pulse Rate 82 92 H 91 H Pulse Rate [ From Monitor] Respiratory 20 27 H 24 Rate Blood Pressure 110/69 110/69 126/81 O2 Sat by Pulse 100 99 100 Oximetry 11/02/18 11/02/18 11/02/18 05:30 05:40 05:50 Temperature Pulse Rate 96 H 80 82 Pulse Rate [ From Monitor] Respiratory 30 H 19 19 Rate Blood Pressure 135/86 135/86 116/74 O2 Sat by Pulse 99 100 100 Oximetry 11/02/18 11/02/18 11/02/18 06:00 06:10 06:20 Temperature Pulse Rate 82 89 82 Pulse Rate [ From Monitor] Respiratory 18 30 H 17 Rate Blood Pressure 120/77 120/77 121/74 O2 Sat by Pulse 100 100 100 Oximetry 11/02/18 11/02/18 11/02/18 06:30 06:40 06:50 Temperature Pulse Rate 78 80 93 H Pulse Rate [ From Monitor] Respiratory 20 19 34 H Rate Blood Pressure 112/72 112/72 126/78 O2 Sat by Pulse 100 100 100 Oximetry 11/02/18 11/02/18 11/02/18 07:00 07:10 07:20 Temperature Pulse Rate 87 89 87 Pulse Rate [ From Monitor] Respiratory 29 H 27 H 29 H Rate Blood Pressure 133/88 133/88 132/86 O2 Sat by Pulse 100 98 97 Oximetry 11/02/18 11/02/18 11/02/18 07:30 07:40 07:50 Temperature Pulse Rate 89 92 H 92 H Pulse Rate [ From Monitor] Respiratory 33 H 35 H 33 H Rate Blood Pressure 133/88 133/88 128/83 O2 Sat by Pulse 99 98 99 Oximetry 11/02/18 11/02/18 11/02/18 08:00 08:10 08:20 Temperature 97.4 F L Pulse Rate 94 H 90 92 H Pulse Rate [ 94 H From Monitor] Respiratory 29 H 28 H 34 H Rate Blood Pressure 137/83 137/83 126/86 O2 Sat by Pulse 98 100 98 Oximetry 11/02/18 11/02/18 11/02/18 08:30 08:40 08:50 Temperature Pulse Rate 91 H 91 H 85 Pulse Rate [ From Monitor] Respiratory 33 H 27 H 23 Rate Blood Pressure 124/90 124/90 120/85 O2 Sat by Pulse 100 100 100 Oximetry 11/02/18 11/02/18 11/02/18 09:00 09:04 09:10 Temperature Pulse Rate 101 H 90 91 H Pulse Rate [ From Monitor] Respiratory 33 H 21 Rate Blood Pressure 131/105 131/105 O2 Sat by Pulse 100 100 Oximetry 06/08/19 06/08/19 06/08/19 09:20 09:30 09:40 Temperature Pulse Rate 87 84 90 Pulse Rate [ From Monitor] Respiratory 18 26 H 22 Rate Blood Pressure 114/75 130/78 130/78 O2 Sat by Pulse 100 100 100 Oximetry 11/02/18 11/02/18 11/02/18 09:50 10:00 10:10 Temperature Pulse Rate 86 90 86 Pulse Rate [ From Monitor] Respiratory 20 22 22 Rate Blood Pressure 124/76 118/79 118/79 O2 Sat by Pulse 100 100 100 Oximetry 11/02/18 11/02/18 11/02/18 10:20 10:30 10:40 Temperature Pulse Rate 85 91 H 90 Pulse Rate [ From Monitor] Respiratory 21 28 H 22 Rate Blood Pressure 108/71 117/83 124/76 O2 Sat by Pulse 100 100 100 Oximetry 11/02/18 11/02/18 10:50 11:00 Temperature Pulse Rate 91 H 92 H Pulse Rate [ From Monitor] Respiratory 34 H 30 H Rate Blood Pressure 127/82 125/81 O2 Sat by Pulse 100 100 Oximetry - General physical appearance no distress, no pain, other (sleepy) - Respiratory normal expansion, normal respiratory effort - Abdomen soft, tender (mild), bowel sounds hypoactive, distended (mild), not guarding, not rigid, surgical scars (C/D/I) - Labs 11/02/18 05:04 11/02/18 05:04 Diabetes panel 11/02/18 Range/Units 05:04 Sodium 134 L (137-145) mmol/L Potassium 2.5 L* D (3.6-5.0) mmol/L Chloride 108.1 H (98-107) mmol/L Carbon Dioxide 19 L (22-30) mmol/L BUN 4 L (7-17) mg/dL Creatinine 0.3 L (0.7-1.2) mg/dL Glucose 119 H (65-100) mg/dL Calcium 8.1 L (8.4-10.2) mg/dL Triglycerides 65 (2-149) mg/dL Calcium panel 11/02/18 11/02/18 Range/Units 05:04 05:04 Calcium 8.1 L (8.4-10.2) mg/dL Phosphorus 1.60 L D (2.5-4.5) mg/dL Pituitary panel 11/02/18 Range/Units 05:04 Sodium 134 L (137-145) mmol/L Potassium 2.5 L* D (3.6-5.0) mmol/L Chloride 108.1 H (98-107) mmol/L Carbon Dioxide 19 L (22-30) mmol/L BUN 4 L (7-17) mg/dL Creatinine 0.3 L (0.7-1.2) mg/dL Glucose 119 H (65-100) mg/dL Calcium 8.1 L (8.4-10.2) mg/dL Adrenal panel 11/02/18 Range/Units 05:04 Sodium 134 L (137-145) mmol/L Potassium 2.5 L* D (3.6-5.0) mmol/L Chloride 108.1 H (98-107) mmol/L Carbon Dioxide 19 L (22-30) mmol/L BUN 4 L (7-17) mg/dL Creatinine 0.3 L (0.7-1.2) mg/dL Glucose 119 H (65-100) mg/dL Calcium 8.1 L (8.4-10.2) mg/dL
[2018-11-02] MEDS ORDERED: KPHOS 30 MMOL in NACL 0.9% 500 ML 500 ML IV ONE (12:00)
[2018-11-02] MEDS: NACL 0.9% 1000 ML 1,000 ML IV SCH (12:40)
--- NOTE | 2018-11-02 14:06 | Progress Note ---
Assessment and Plan Assessment and plan: 62-year-old female with past medical history significant for asthma was brought by her family members for the complaints of shortness was not eating and drinking for the last few days. She has been constantly drinking alcohol. Patient has been complaining that she has abdominal pain. In the emergency department patient was tremulous and was given ativan. CT scan of the abdomen showed high-grade bowel obstruction due to volvulus. 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 and did hemicolectomy - Postop management per general surgery - Patient started on clear - Oatient has NG tube, clamped Thrombocytopenia, ?HIT - Patient platelet count is getting better - Hematology oncology consulted and following Alcohol withdrawal DT - On CIWA protocol Acute renal failure - resolved with IVF Electrolyte derangements; which include hyperkalemia, hypocalcemia and hypomagnesemia - Repleted - Will check BMP and Magnesium Acute respiratory failure - patient extubated and saturating well on IN oxygen DVT prophylaxis - On SCDs Disposition - Continue ICU care The high probability of a clinically significant, sudden or life threatening deterioration of the [GI, neurology, repiratory] system(s) required my full and direct attention, intervention and personal management. The aggregate critical care time was [45] minutes. This time is in addition to time spent performing r eported procedures but includes the following: [x] Data Review and interpretation [x] Patient assessment and monitoring of vital signs [x] Documentation [x] Medication orders and management History Interval history: Patient was seen and evaluated this morning, patient extubated on 11/01/18. Not in pain or in distress. Hospitalist Physical - Physical exam Narrative exam: Patient extubated 11/01. Saturating well on room air. The patient appeared well nourished and normally developed. Vital signs as documented. Head exam is unremarkable. No scleral icterus . Neck is without jugular venous distension, thyromegaly, or carotid bruits. Lungs are clear to auscultation. Cardiac exam reveals regular rate and Rhythm. First and second heart sounds normal. No murmurs, rubs or gallops. Abdominal exam reveals clean midline abdominal dressing. Extremities are nonedematous and both femoral and pedal pulses are normal. [employer]: alert. - Constitutional Vitals: Temp Pulse Resp BP Pulse Ox 96.7 F L 90 29 H 112/84 100 11/02/18 12:00 11/02/18 12:46 11/02/18 12:40 11/02/18 12:40 11/02/18 12:40 Results - Labs CBC & Chem 7: 11/02/18 05:04 11/02/18 05:04 Labs: Laboratory Last Values WBC 8.6 K/mm3 (4.5-11.0) 11/02/18 05:04 RBC 2.72 M/mm3 (3.65-5.03) L 11/02/18 05:04 Hgb 9.5 gm/dl (10.1-14.3) L 11/02/18 05:04 Hct 26.8 % (30.3-42.9) L 11/02/18 05:04 MCV 99 fl (79-97) H 11/02/18 05:04 MCH 35 pg (28-32) H 11/02/18 05:04 MCHC 35 % (30-34) H 11/02/18 05:04 RDW 12.7 % (13.2-15.2) L 11/02/18 05:04 Plt Count 113 K/mm3 (140-440) L 11/02/18 05:04 [place] % (Auto) Ends Breakage Clerk 11/02/18 05:04 Add Manual Diff Complete 11/02/18 05:04 Total Counted 100 11/02/18 05:04 Seg Neuts % (Manual) 75.0 % (40.0-70.0) H 11/02/18 05:04 9.0 % 11/02/18 05:04 2.0 % (13.4-35.0) L 11/02/18 05:04 Reactive Lymphs % (Man) 0 % 11/02/18 05:04 13.0 % (0.0-7.3) H 11/02/18 05:04 1.0 % (0.0-4.3) 11/02/18 05:04 0 % (0.0-1.8) 11/02/18 05:04 0 % 11/02/18 05:04 0 % 11/02/18 05:04 0 % 11/02/18 05:04 0 % 11/02/18 05:04 Nucleated RBC % Not Reportable 11/02/18 05:04 Seg Neutrophils # Man 6.5 K/mm3 (1.8-7.7) 11/02/18 05:04 Band Neutrophils # 0.8 K/mm3 11/02/18 05:04 0.2 K/mm3 (1.2-5.4) L 11/02/18 05:04 Abs React Lymphs (Man) 0.0 K/mm3 11/02/18 05:04 1.1 K/mm3 (0.0-0.8) H 11/02/18 05:04 0.1 K/mm3 (0.0-0.4) 11/02/18 05:04 0.0 K/mm3 (0.0-0.1) 11/02/18 05:04 0.0 K/mm3 11/02/18 05:04 0.0 K/mm3 11/02/18 05:04 0.0 K/mm3 11/02/18 05:04 Blast Cells # 0.0 K/mm3 11/02/18 05:04 WBC Morphology Not Reportable 11/02/18 05:04 Hypersegmented Neuts Not Reportable 11/02/18 05:04 Hyposegmented Neuts Not Reportable 11/02/18 05:04 Hypogranular Neuts Not Reportable 11/02/18 05:04 Not Reportable 11/02/18 05:04 Not Reportable 11/02/18 05:04 Not Reportable 11/02/18 05:04 Not Reportable 11/02/18 05:04 Not Reportable 11/02/18 05:04 Not Reportable 11/02/18 05:04 Consistent w auto 11/02/18 05:04 Not Reportable 11/02/18 05:04 Plt Clumps, EDTA Not Reportable 11/02/18 05:04 Not Reportable 11/02/18 05:04 Not Reportable 11/02/18 05:04 Not Reportable 11/02/18 05:04 Plt Morphology Comment Not Reportable 11/02/18 05:04 RBC Morphology Not Reportable 11/02/18 05:04 Dimorphic RBCs Not Reportable 11/02/18 05:04 Not Reportable 11/02/18 05:04 Not Reportable 11/02/18 05:04 Not Reportable 11/02/18 05:04 1+ 11/02/18 05:04 Not Reportable 11/02/18 05:04 Not Reportable 11/02/18 05:04 Not Reportable 11/02/18 05:04 Not Reportable 11/02/18 05:04 Not Reportable 11/02/18 05:04 Not Reportable 11/02/18 05:04 Not Reportable 11/02/18 05:04 Not Reportable 11/02/18 05:04 Not Reportable 11/02/18 05:04 Not Reportable 11/02/18 05:04 Not Reportable 11/02/18 05:04 Not Reportable 11/02/18 05:04 Not Reportable 11/02/18 05:04 Not Reportable 11/02/18 05:04 Not Reportable 11/02/18 05:04 Acanthocytes (Spur) Not Reportable 11/02/18 05:04 Rouleaux Not Reportable 11/02/18 05:04 Not Reportable 11/02/18 05:04 Not Reportable 11/02/18 05:04 Not Reportable 11/02/18 05:04 Not Reportable 11/02/18 05:04 Hem Pathologist Commnt No 11/02/18 05:04 PT 16.3 Sec. (12.2-14.9) H 10/31/18 04:57 INR 1.23 (0.87-1.13) H 10/31/18 04:57 POC ABG pH 7.299 (7.35-7.45) L 11/01/18 04:03 POC ABG pCO2 30.3 (35-45) L 11/01/18 04:03 POC ABG pO2 67 (80-105) L 11/01/18 04:03 POC ABG HCO3 14.9 (22-26 mml/L) 11/01/18 04:03 POC ABG Total CO2 16 (23-27mmol/L) 11/01/18 04:03 POC ABG O2 Sat 91 11/01/18 04:03 POC ABG Base Excess -12 ((-2) - (+3)mmol/L) 11/01/18 04:03 30 % 11/01/18 04:03 Sodium 134 mmol/L (137-145) L 11/02/18 05:04 Potassium 2.5 mmol/L (3.6-5.0) L* D 11/02/18 05:04 Chloride 108.1 mmol/L (98-107) H 11/02/18 05:04 Carbon Dioxide 19 mmol/L (22-30) L 11/02/18 05:04 9 mmol/L 11/02/18 05:04 BUN 4 mg/dL (7-17) L 11/02/18 05:04 0.3 mg/dL (0.7-1.2) L 11/02/18 05:04 Estimated GFR > 60 ml/min 11/02/18 05:04 13 % 11/02/18 05:04 Glucose 119 mg/dL (65-100) H 11/02/18 05:04 POC Glucose 85 (70-105) 11/02/18 11:51 Lactic Acid 1.00 mmol/L (0.7-2.0) 10/30/18 04:34 Calcium 8.1 mg/dL (8.4-10.2) L 11/02/18 05:04 Phosphorus 1.60 mg/dL (2.5-4.5) L D 11/02/18 05:04 Magnesium 2.30 mg/dL (1.7-2.3) 11/01/18 04:29 2.50 mg/dL (0.1-1.2) H 10/29/18 18:43 AST 73 units/L (5-40) H 10/29/18 18:43 ALT 77 units/L (7-56) H 10/29/18 18:43 166 units/L (35-129) H 10/29/18 18:43 26.0 umol/L (25-60) 10/29/18 22:23 6.8 g/dL (6.3-8.2) 10/29/18 18:43 3.6 g/dL (3.9-5) L 10/29/18 18:43 1.1 % 10/29/18 18:43 Triglycerides 65 mg/dL (2-149) 11/02/18 05:04 14 units/L (13-60) 10/29/18 18:43 Vitamin B12 1966 pg/mL (211-911) H 10/31/18 04:57 12.21 ng/mL (7.3-26.0) 10/31/18 04:57 TSH 8.610 mlU/mL (0.270-4.200) H 10/29/18 17:45 Free T4 1.06 ng/dL (0.76-1.46) 10/30/18 17:17 Plasma/Serum Alcohol < 0.01 % (0-0.07) 10/29/18 17:45 Group A Strep Rapid Negative (Negative) 10/29/18 19:28 Blood Type B POSITIVE 10/29/18 23:48 Antibody Screen TNR 10/29/18 23:48 ALEC Antibody Screen Negative 10/29/18 23:48 Active Medications - Current Medications Current Medications: Generic Name Dose Route Start Last Admin Trade Name Freq PRN Reason Stop Dose Admin Acetaminophen 650 mg 10/29/18 23:49 Tylenol MT Q4H PRN Pain MILD(1-3)/Fever >100.5/DAMON Dextrose 50 ml 10/31/18 07:36 10/31/18 07:45 D50w (25gm) Syringe IV 50 ml PRN PRN Administration Hypoglycemia Famotidine 20 mg 10/30/18 10:00 11/02/18 09:41 Pepcid IV 20 mg BID CHRISTINE Administration Heparin Sodium (Porcine) 5,000 unit 10/30/18 06:00 11/02/18 13:01 Heparin SUB-Q 5,000 unit Q8HR CHRISTINE Administration Hydrophilic Ointment 1 applic 10/30/18 02:20 Vaseline Lip Therapy TP Q2HR PRN Dry Lips Sodium Chloride 1,000 mls @ 100 mls/hr 11/02/18 10:00 11/02/18 12:40 Nacl 0.9% 1000 Ml IV 100 mls/hr DIRECT CHRISTINE Administration Potassium Phosphate 30 mmol/ 510 mls @ 83 mls/hr 11/02/18 12:00 11/02/18 12:58 Sodium Chloride IV 11/02/18 18:08 83 mls/hr ONCE ONE Administration Lorazepam 2 mg 11/01/18 10:45 11/01/18 18:46 Ativan IV 2 mg Q1HR PRN Administration CIWA-Ar 8-15 Lorazepam 4 mg 11/01/18 10:45 11/02/18 02:59 Ativan IV 4 mg Q1HR PRN Administration CIWA-Ar 16-25 Lorazepam 4 mg 11/01/18 10:45 Ativan IV Q15MIN PRN CIWA-Ar >25 Multi-Ingred Cream/Lotion/Oil/Oint 1 applic 10/30/18 02:20 Artificial Tears Ophth Oint OU Q4HR PRN Dry Eye(s) Ondansetron HCl 4 mg 10/29/18 23:49 Zofran IV Q4H PRN Nausea And Vomiting Sodium Chloride 10 ml 10/30/18 10:00 11/02/18 09:41 Sodium Chloride Flush Syringe 10 Ml IV 10 ml BID CHRISTINE Administration Sodium Chloride 10 ml 10/29/18 23:49 10/30/18 17:55 Sodium Chloride Flush Syringe 10 Ml IV 10 ml PRN PRN Administration LINE FLUSH Nutrition/Malnutrition Assess - Dietary Evaluation Nutrition/Malnutrition Findings: Nutrition Notes Start: 10/30/18 15:07 Freq: Status: Active Protocol: Document 11/01/18 17:36 RM (Rec: 11/01/18 17:39 RM [id number]) Nutrition Notes Initial or Follow up Reassessment Current Diagnosis Acute Kidney Injury Other Pertinent Diagnosis Bowel obstruction, Alcohol withdrawal, S/P hemicolectomy Current Diet No diet ordered Labs/Tests Reviewed Pertinent Medications Propofol at 10 ml/hr (264 kcal ) Height 5 ft Weight 49.9 kg [place] Body Weight (kg) 45.45 BMI 21.4 Subjective/Other Information Per rounds pt planned to be extubated today. Burn Absent Trauma Absent #1 Nutrition Diagnosis Inadequate oral intake Diagnosis Progress(for reassessment Continues documentation) Is patient on ventilator? Yes Is Patient Ambulatory and/or Out of Bed No REE-([facility]-confined to bed) 1187.856 Kcal/Kg value to use for calculation 27 Approximate Energy Requirements Using 1347 kcal/Kg Calculation Used for Recommendations Kcal/kg Additional Notes Protein Needs: 60-100g (1.2-2g /kg) Fluid Needs: 1 ml/kcal Nutrition Intervention Change Diet Order: Order diet Goal #1 Diet advancement Anticipated Discharge Needs: Unable to determine at this time Follow-Up By: 11/04/18 Additional Comments Follow for PO and ONS intakes
--- NOTE | 2018-11-02 14:17 | Progress Note ---
Assessment and Plan 62 y/o female with acute respiratory failure secondary to sepsis from high grade bowel obstruction and volvulus with ETOH abuse with concerns for withdrawal. 1. Aggressive replacement of lytes. 2. Suggest Continue CIWA protocol 3. appreciate Surgery assistance, clears today. 4. PT/OT 5. DVT and GI Prophylaxis 6. Will transfer to Surgical floor with remote tele given history of ETOH abuse, although she should be out of the DT's window. CCT 31 minutes. Subjective Date of service: 11/02/18 Principal diagnosis: low plt Interval history: No acute events. Successful extubation on yesterday. Satting 100%. Sleepy/Lethargic now but stable. Follows commands. Vitas are stable. Started on Clears by surgery today. Objective Vital Signs - 12hr 11/02/18 11/02/18 11/02/18 02:20 02:30 02:40 Temperature Pulse Rate 106 H 97 H 105 H Pulse Rate [ From Monitor] Respiratory 35 H 31 H 37 H Rate Blood Pressure 125/90 133/83 133/83 O2 Sat by Pulse Oximetry 11/02/18 11/02/18 11/02/18 02:50 03:00 03:10 Temperature Pulse Rate 103 H 94 H 91 H Pulse Rate [ From Monitor] Respiratory 34 H 37 H 33 H Rate Blood Pressure 133/95 123/85 123/85 O2 Sat by Pulse Oximetry 11/02/18 11/02/18 11/02/18 03:20 03:30 03:40 Temperature Pulse Rate 97 H 94 H 95 H Pulse Rate [ From Monitor] Respiratory 35 H 32 H 29 H Rate Blood Pressure 132/87 132/88 132/88 O2 Sat by Pulse 96 96 Oximetry 11/02/18 11/02/18 11/02/18 03:49 03:50 04:00 Temperature 98.4 F Pulse Rate 90 82 Pulse Rate [ 93 H From Monitor] Respiratory 33 H 28 H Rate Blood Pressure 143/89 143/89 O2 Sat by Pulse 97 97 Oximetry 11/02/18 11/02/18 11/02/18 04:10 04:20 04:30 Temperature Pulse Rate 86 86 85 Pulse Rate [ From Monitor] Respiratory 18 20 21 Rate Blood Pressure 145/82 128/78 123/78 O2 Sat by Pulse 100 100 100 Oximetry 11/02/18 11/02/18 11/02/18 04:40 04:50 05:00 Temperature Pulse Rate 92 H 82 82 Pulse Rate [ From Monitor] Respiratory 32 H 20 20 Rate Blood Pressure 123/78 124/77 110/69 O2 Sat by Pulse 100 100 100 Oximetry 11/02/18 11/02/18 11/02/18 05:10 05:20 05:30 Temperature Pulse Rate 92 H 91 H 96 H Pulse Rate [ From Monitor] Respiratory 27 H 24 30 H Rate Blood Pressure 110/69 126/81 135/86 O2 Sat by Pulse 99 100 99 Oximetry 11/02/18 11/02/18 11/02/18 05:40 05:50 06:00 Temperature Pulse Rate 80 82 82 Pulse Rate [ From Monitor] Respiratory 19 19 18 Rate Blood Pressure 135/86 116/74 120/77 O2 Sat by Pulse 100 100 100 Oximetry 11/02/18 11/02/18 11/02/18 06:10 06:20 06:30 Temperature Pulse Rate 89 82 78 Pulse Rate [ From Monitor] Respiratory 30 H 17 20 Rate Blood Pressure 120/77 121/74 112/72 O2 Sat by Pulse 100 100 100 Oximetry 11/02/18 11/02/18 11/02/18 06:40 06:50 07:00 Temperature Pulse Rate 80 93 H 87 Pulse Rate [ From Monitor] Respiratory 19 34 H 29 H Rate Blood Pressure 112/72 126/78 133/88 O2 Sat by Pulse 100 100 100 Oximetry 11/02/18 11/02/18 11/02/18 07:10 07:20 07:30 Temperature Pulse Rate 89 87 89 Pulse Rate [ From Monitor] Respiratory 27 H 29 H 33 H Rate Blood Pressure 133/88 132/86 133/88 O2 Sat by Pulse 98 97 99 Oximetry 11/02/18 11/02/18 11/02/18 07:40 07:50 08:00 Temperature 97.4 F L Pulse Rate 92 H 92 H 94 H Pulse Rate [ 94 H From Monitor] Respiratory 35 H 33 H 29 H Rate Blood Pressure 133/88 128/83 137/83 O2 Sat by Pulse 98 99 98 Oximetry 11/02/18 11/02/18 11/02/18 08:10 08:20 08:30 Temperature Pulse Rate 90 92 H 91 H Pulse Rate [ From Monitor] Respiratory 28 H 34 H 33 H Rate Blood Pressure 137/83 126/86 124/90 O2 Sat by Pulse 100 98 100 Oximetry 11/02/18 11/02/18 11/02/18 08:40 08:50 09:00 Temperature Pulse Rate 91 H 85 101 H Pulse Rate [ From Monitor] Respiratory 27 H 23 33 H Rate Blood Pressure 124/90 120/85 131/105 O2 Sat by Pulse 100 100 100 Oximetry 11/02/18 11/02/18 11/02/18 09:04 09:10 09:20 Temperature Pulse Rate 90 91 H 87 Pulse Rate [ From Monitor] Respiratory 21 18 Rate Blood Pressure 131/105 114/75 O2 Sat by Pulse 100 100 Oximetry 11/02/18 11/02/18 11/02/18 09:30 09:40 09:50 Temperature Pulse Rate 84 90 86 Pulse Rate [ From Monitor] Respiratory 26 H 22 20 Rate Blood Pressure 130/78 130/78 124/76 O2 Sat by Pulse 100 100 100 Oximetry 11/02/18 11/02/18 11/02/18 10:00 10:10 10:20 Temperature Pulse Rate 90 86 85 Pulse Rate [ From Monitor] Respiratory 22 22 21 Rate Blood Pressure 118/79 118/79 108/71 O2 Sat by Pulse 100 100 100 Oximetry 11/02/18 11/02/18 11/02/18 10:30 10:40 10:50 Temperature Pulse Rate 91 H 90 91 H Pulse Rate [ From Monitor] Respiratory 28 H 22 34 H Rate Blood Pressure 117/83 124/76 127/82 O2 Sat by Pulse 100 100 100 Oximetry 11/02/18 11/02/18 11/02/18 11:00 11:10 11:20 Temperature Pulse Rate 92 H 96 H 91 H Pulse Rate [ From Monitor] Respiratory 30 H 33 H 34 H Rate Blood Pressure 125/81 127/82 116/89 O2 Sat by Pulse 100 99 99 Oximetry 11/02/18 11/02/18 11/02/18 11:30 11:40 11:50 Temperature Pulse Rate 93 H 91 H 91 H Pulse Rate [ From Monitor] Respiratory 31 H 32 H 30 H Rate Blood Pressure 130/84 125/81 129/87 O2 Sat by Pulse 99 100 100 Oximetry 11/02/18 11/02/18 11/02/18 12:00 12:10 12:20 Temperature 96.7 F L Pulse Rate 90 91 H 86 Pulse Rate [ 90 From Monitor] Respiratory 33 H 30 H 30 H Rate Blood Pressure 126/84 130/84 121/85 O2 Sat by Pulse 100 99 100 Oximetry 11/02/18 11/02/18 11/02/18 12:30 12:40 12:46 Temperature Pulse Rate 88 93 H 90 Pulse Rate [ From Monitor] Respiratory 31 H 29 H Rate Blood Pressure 112/84 112/84 O2 Sat by Pulse 99 100 Oximetry Constitutional: alert, lethargic Eyes: non-icteric ENT: other (orally intubated and sedated) Neck: supple Effort: mildly labored Ascultation: Bilateral: clear Percussion: Bilateral: not dull Cardiovascular: other (sinus tachycardia) Gastrointestinal: other (post-op changes noted with ostomy present) Integumentary: normal Extremities: cool Neurologic: normal mental status CBC and BMP: 11/02/18 05:04 11/02/18 05:04 ABG, PT/INR, D-dimer: ABG POC ABG pH 7.299 (7.35-7.45) L 11/01/18 04:03 POC ABG pCO2 30.3 (35-45) L 11/01/18 04:03 POC ABG pO2 67 (80-105) L 11/01/18 04:03 POC ABG HCO3 14.9 (22-26 mml/L) 11/01/18 04:03 POC ABG Total CO2 16 (23-27mmol/L) 11/01/18 04:03 POC ABG O2 Sat 91 11/01/18 04:03 PT/INR, D-dimer PT 16.3 Sec. (12.2-14.9) H 10/31/18 04:57 INR 1.23 (0.87-1.13) H 10/31/18 04:57 Abnormal lab findings: Abnormal Labs 10/29/18 10/29/18 10/29/18 17:45 17:45 18:43 WBC RBC Hgb 16.7 H Hct 45.1 H MCV MCH 36 H MCHC 37 H RDW 12.8 L Plt Count Seg Neuts % (Manual) 74.0 H Lymphocytes % (Manual) 8.0 L Monocytes % (Manual) 18.0 H Seg Neutrophils # Man Lymphocytes # (Manual) 0.6 L Monocytes # (Manual) 1.5 H PT INR POC ABG pH POC ABG pCO2 POC ABG pO2 Sodium 130 L Potassium 3.1 L Chloride 89.7 L Carbon Dioxide 20 L BUN 29 H Creatinine 1.7 H Glucose POC Glucose Lactic Acid Calcium Phosphorus Magnesium Total Bilirubin 2.50 H AST 73 H ALT 77 H Alkaline Phosphatase 166 H Albumin 3.6 L Vitamin B12 TSH 8.610 H 10/29/18 10/29/18 10/30/18 18:43 22:23 03:42 WBC RBC Hgb Hct MCV MCH MCHC RDW Plt Count Seg Neuts % (Manual) Lymphocytes % (Manual) Monocytes % (Manual) Seg Neutrophils # Man Lymphocytes # (Manual) Monocytes # (Manual) PT INR POC ABG pH 7.200 L POC ABG pCO2 POC ABG pO2 186 H Sodium Potassium Chloride Carbon Dioxide BUN Creatinine Glucose POC Glucose Lactic Acid 3.50 H* 2.50 H* Calcium Phosphorus Magnesium Total Bilirubin AST ALT Alkaline Phosphatase Albumin Vitamin B12 TSH 10/30/18 10/30/18 10/30/18 04:34 04:34 08:51 WBC 2.7 L RBC 3.30 L Hgb Hct MCV 101 H MCH 35 H MCHC RDW 12.6 L Plt Count 60 L Seg Neuts % (Manual) Lymphocytes % (Manual) 6.0 L Monocytes % (Manual) 31.0 H Seg Neutrophils # Man 1.3 L Lymphocytes # (Manual) 0.2 L Monocytes # (Manual) PT 17.8 H INR 1.37 H POC ABG pH POC ABG pCO2 POC ABG pO2 Sodium 133 L Potassium 3.1 L Chloride Carbon Dioxide 17 L BUN 20 H Creatinine Glucose 116 H POC Glucose Lactic Acid Calcium 6.6 L D Phosphorus Magnesium 1.20 L Total Bilirubin AST ALT Alkaline Phosphatase Albumin Vitamin B12 TSH 10/31/18 10/31/18 10/31/18 04:57 04:57 04:57 WBC RBC 2.97 L Hgb Hct MCV 107 H MCH 35 H MCHC RDW 12.9 L Plt Count 68 L Seg Neuts % (Manual) Lymphocytes % (Manual) 5.0 L Monocytes % (Manual) 25.0 H Seg Neutrophils # Man Lymphocytes # (Manual) 0.4 L Monocytes # (Manual) 2.2 H PT 16.3 H INR 1.23 H POC ABG pH POC ABG pCO2 POC ABG pO2 Sodium Potassium Chloride 114.8 H Carbon Dioxide 13 L BUN Creatinine Glucose 56 L POC Glucose Lactic Acid Calcium 7.4 L Phosphorus Magnesium Total Bilirubin AST ALT Alkaline Phosphatase Albumin Vitamin B12 TSH 10/31/18 10/31/18 10/31/18 04:57 05:05 07:33 WBC RBC Hgb Hct MCV MCH MCHC RDW Plt Count Seg Neuts % (Manual) Lymphocytes % (Manual) Monocytes % (Manual) Seg Neutrophils # Man Lymphocytes # (Manual) Monocytes # (Manual) PT INR POC ABG pH 7.300 L POC ABG pCO2 POC ABG pO2 Sodium Potassium Chloride Carbon Dioxide BUN Creatinine Glucose POC Glucose 62 L Lactic Acid Calcium Phosphorus Magnesium Total Bilirubin AST ALT Alkaline Phosphatase Albumin Vitamin B12 1966 H TSH 10/31/18 10/31/18 11/01/18 08:20 15:35 00:55 WBC RBC Hgb Hct MCV MCH MCHC RDW Plt Count Seg Neuts % (Manual) Lymphocytes % (Manual) Monocytes % (Manual) Seg Neutrophils # Man Lymphocytes # (Manual) Monocytes # (Manual) PT INR POC ABG pH POC ABG pCO2 POC ABG pO2 Sodium Potassium Chloride Carbon Dioxide BUN Creatinine Glucose POC Glucose 156 H 147 H 149 H Lactic Acid Calcium Phosphorus Magnesium Total Bilirubin AST ALT Alkaline Phosphatase Albumin Vitamin B12 TSH 11/01/18 11/01/18 11/01/18 04:03 04:29 04:29 WBC RBC 2.70 L Hgb 9.4 L Hct 27.2 L MCV 101 H MCH 35 H MCHC 35 H RDW 12.7 L Plt Count 88 L Seg Neuts % (Manual) 80.0 H Lymphocytes % (Manual) 2.0 L Monocytes % (Manual) 14.0 H Seg Neutrophils # Man Lymphocytes # (Manual) 0.2 L Monocytes # (Manual) 1.1 H PT INR POC ABG pH 7.299 L POC ABG pCO2 30.3 L POC ABG pO2 67 L Sodium 136 L Potassium 3.2 L Chloride 109.4 H Carbon Dioxide 16 L BUN Creatinine 0.4 L Glucose 134 H POC Glucose Lactic Acid Calcium 7.6 L Phosphorus Magnesium Total Bilirubin AST ALT Alkaline Phosphatase Albumin Vitamin B12 TSH 11/01/18 11/01/18 11/01/18 04:29 05:56 08:44 WBC RBC Hgb Hct MCV MCH MCHC RDW Plt Count Seg Neuts % (Manual) Lymphocytes % (Manual) Monocytes % (Manual) Seg Neutrophils # Man Lymphocytes # (Manual) Monocytes # (Manual) PT INR POC ABG pH POC ABG pCO2 POC ABG pO2 Sodium Potassium Chloride Carbon Dioxide BUN Creatinine Glucose POC Glucose 152 H 120 H Lactic Acid Calcium Phosphorus 1.30 L Magnesium Total Bilirubin AST ALT Alkaline Phosphatase Albumin Vitamin B12 TSH 11/01/18 11/01/18 11/02/18 11:34 16:58 00:00 WBC RBC Hgb Hct MCV MCH MCHC RDW Plt Count Seg Neuts % (Manual) Lymphocytes % (Manual) Monocytes % (Manual) Seg Neutrophils # Man Lymphocytes # (Manual) Monocytes # (Manual) PT INR POC ABG pH POC ABG pCO2 POC ABG pO2 Sodium Potassium Chloride Carbon Dioxide BUN Creatinine Glucose POC Glucose 132 H 119 H 108 H Lactic Acid Calcium Phosphorus Magnesium Total Bilirubin AST ALT Alkaline Phosphatase Albumin Vitamin B12 TSH 11/02/18 11/02/18 11/02/18 05:04 05:04 05:04 WBC RBC 2.72 L Hgb 9.5 L Hct 26.8 L MCV 99 H MCH 35 H MCHC 35 H RDW 12.7 L Plt Count 113 L Seg Neuts % (Manual) 75.0 H Lymphocytes % (Manual) 2.0 L Monocytes % (Manual) 13.0 H Seg Neutrophils # Man Lymphocytes # (Manual) 0.2 L Monocytes # (Manual) 1.1 H PT INR POC ABG pH POC ABG pCO2 POC ABG pO2 Sodium 134 L Potassium 2.5 L* D Chloride 108.1 H Carbon Dioxide 19 L BUN 4 L Creatinine 0.3 L Glucose 119 H POC Glucose Lactic Acid Calcium 8.1 L Phosphorus 1.60 L D Magnesium Total Bilirubin AST ALT Alkaline Phosphatase Albumin Vitamin B12 [facility]
[2018-11-02 16:40] LABS: BUN/Creatinine Ratio 17; Blood Urea Nitrogen 5 mg/dL (7-17); Calcium 7.8 mg/dL (8.4-10.2); Hemolysis Index 3
[2018-11-02] MEDS: ATIVAN IV PRN (20:17)
[2018-11-02] MEDS: MORPHINE IV PRN (23:13)
[2018-11-03 04:52] LABS: Hematocrit 31.5 % (30.3-42.9); Hemoglobin 11.1 gm/dl (10.1-14.3); Mean Corpuscular HGB Conc 35 % (30-34); Mean Corpuscular Volume 99 fl (79-97); Platelet Count 179 K/mm3 (140-440); Red Cell Distribution Width 12.7 % (13.2-15.2)
[2018-11-03 05:13] LABS: BUN/Creatinine Ratio 18; Blood Urea Nitrogen 7 mg/dL (7-17); Calcium 7.9 mg/dL (8.4-10.2); Hemolysis Index 4
[2018-11-03 05:36] LABS: Basophils % (Manual) 0 % (0.0-1.8); Eosinophils % (Manual) 0 % (0.0-4.3); Total Cells Counted 100
[2018-11-03 05:37] LABS: Large Platelets 1+; Platelet Estimate Consistent w Auto; RBC Morphology Normal
[2018-11-03] MEDS: NACL 0.9% 1000 ML 1,000 ML IV SCH ×2 (05:43→21:02)
[2018-11-03] MEDS: HEPARIN SUB-Q SCH ×3 (05:44→21:02)
[2018-11-03] MEDS: MORPHINE IV PRN ×3 (05:44→20:22)
--- NOTE | 2018-11-03 08:33 | Hem/Onc Progress Note ---
Assessment and Plan 1. h/o Thrombocytopenia. The duration of time since admission is very small. It is not clear if there was a recent hospitalization. The patient is postoperative, had ischemic bowel and history of alcohol usage. This may have more role in the thrombocytopenia. We will and follow the trend. 2. Admitted with altered mentation, underwent abdominal surgery, was intubated. 3. History of alcohol usage and delirium tremens, in restraints. 4. Renal impairment. 5. Liver function test abnormalities. 6. Electrolyte imbalance. 7. Heparin has been held. I will follow the patient during inpatient stay. 11/03 plt better more awake - Patient Problems (1) Thrombocytopenia Current Visit: Yes Status: Acute Subjective Date of service: 11/03/18 Principal diagnosis: low plt Interval history: pt transferred out from ICU Objective - Constitutional Vitals: Last Vital Signs Temp 99.4 F 11/03/18 07:30 Pulse 111 H 11/03/18 07:48 Resp 22 11/03/18 07:48 BP 113/77 11/03/18 07:30 Pulse Ox 100 11/03/18 07:48 Pain Intensity (0-10): denies any pain General appearance: no acute distress Performance status: 4-completely disabled - EENT Eyes: EOM intact ENT: hearing intact Lymph node exam: negative cervical - Neck Neck: supple - Respiratory Respiratory effort: Positive: normal Respiratory: bilateral: CTA (anteriorly) - Cardiovascular Heart Sounds: Present: S1 & S2 Extremities: normal temperature - Gastrointestinal General gastrointestinal: Present: soft, other (johanna of sx) Rectal Exam: deferred - Genitourinary Female genitourinary: Present: deferred - Integumentary Integumentary: warm - Musculoskeletal Musculoskeletal: generalized weakness - Labs Lab Results: Laboratory Results - last 24 hr 11/02/18 11/02/18 11/03/18 11:51 15:31 04:09 WBC 12.5 H RBC 3.20 L Hgb 11.1 Hct 31.5 MCV 99 H MCH 35 H MCHC 35 H RDW 12.7 L Plt Count 179 [place] % (Auto) Teradata Developer Add Manual Diff Complete Total Counted 100 Seg Neuts % (Manual) 88.0 H Band Neutrophils % 0 Lymphocytes % (Manual) 1.0 L Reactive Lymphs % (Man) 0 Monocytes % (Manual) 11.0 H Eosinophils % (Manual) 0 Basophils % (Manual) 0 Metamyelocytes % 0 Myelocytes % 0 Promyelocytes % 0 Blast Cells % 0 Nucleated RBC % Not Reportable Seg Neutrophils # Man 11.0 H Band Neutrophils # 0.0 Lymphocytes # (Manual) 0.1 L Abs React Lymphs (Man) 0.0 Monocytes # (Manual) 1.4 H Eosinophils # (Manual) 0.0 Basophils # (Manual) 0.0 Metamyelocytes # 0.0 Myelocytes # 0.0 Promyelocytes # 0.0 Blast Cells # 0.0 WBC Morphology Not Reportable Hypersegmented Neuts Not Reportable Hyposegmented Neuts Not Reportable Hypogranular Neuts Not Reportable Smudge Cells Not Reportable Toxic Granulation Not Reportable Toxic Vacuolation Not Reportable Dohle Bodies Not Reportable Pelger-Huet Anomaly Not Reportable Carlee Rods Not Reportable Platelet Estimate Consistent w auto Clumped Platelets Not Reportable Plt Clumps, EDTA Not Reportable Large Platelets 1+ Giant Platelets Not Reportable Platelet Satelliting Not Reportable Plt Morphology Comment Not Reportable RBC Morphology Normal Dimorphic RBCs Not Reportable Polychromasia Not Reportable Hypochromasia Not Reportable Poikilocytosis Not Reportable Anisocytosis Not Reportable Microcytosis Not Reportable Macrocytosis Not Reportable Spherocytes Not Reportable Pappenheimer Bodies Not Reportable Sickle Cells Not Reportable Target Cells Not Reportable Tear Drop Cells Not Reportable Ovalocytes Not Reportable Helmet Cells Not Reportable Aguero-Clymer Bodies Not Reportable Cost Rings Not Reportable Giovanni Cells Not Reportable Bite Cells Not Reportable Crenated Cell Not Reportable Elliptocytes Not Reportable Acanthocytes (Spur) Not Reportable Rouleaux Not Reportable Hemoglobin C Crystals Not Reportable Schistocytes Not Reportable Malaria parasites Not Reportable Oziel Bodies Not Reportable Hem Pathologist Commnt No Sodium 133 L Potassium 3.3 L D Chloride 103.3 Carbon Dioxide 18 L Anion Gap 15 BUN 5 L Creatinine 0.3 L Estimated GFR > 60 BUN/Creatinine Ratio 17 Glucose 75 POC Glucose 85 Calcium 7.8 L Magnesium 1.80 11/03/18 11/03/18 04:09 07:43 WBC RBC Hgb Hct MCV MCH MCHC RDW Plt Count [place] % (Auto) Add Manual Diff Total Counted Seg Neuts % (Manual) Band Neutrophils % Lymphocytes % (Manual) Reactive Lymphs % (Man) Monocytes % (Manual) Eosinophils % (Manual) Basophils % (Manual) Metamyelocytes % Myelocytes % Promyelocytes % Blast Cells % Nucleated RBC % Seg Neutrophils # Man Band Neutrophils # Lymphocytes # (Manual) Abs React Lymphs (Man) Monocytes # (Manual) Eosinophils # (Manual) Basophils # (Manual) Metamyelocytes # Myelocytes # Promyelocytes # Blast Cells # WBC Morphology Hypersegmented Neuts Hyposegmented Neuts Hypogranular Neuts Smudge Cells Toxic Granulation Toxic Vacuolation Dohle Bodies Pelger-Huet Anomaly Carlee Rods Platelet Estimate Clumped Platelets Plt Clumps, EDTA Large Platelets Giant Platelets Platelet Satelliting Plt Morphology Comment RBC Morphology Dimorphic RBCs Polychromasia Hypochromasia Poikilocytosis Anisocytosis Microcytosis Macrocytosis Spherocytes Pappenheimer Bodies Sickle Cells Target Cells Tear Drop Cells Ovalocytes Helmet Cells Aguero-Clymer Bodies Cost Rings [place] Cells Bite Cells Crenated Cell Elliptocytes Acanthocytes (Spur) Rouleaux Hemoglobin C Crystals Schistocytes Malaria parasites Oziel Bodies Hem Pathologist Commnt Sodium 137 Potassium 3.1 L Chloride 105.1 Carbon Dioxide 18 L Anion Gap 17 BUN 7 Creatinine 0.4 L Estimated GFR > 60 BUN/Creatinine Ratio 18 Glucose 59 L POC Glucose 77 Calcium 7.9 L Magnesium Medications & Allergies - Medications Allergies/Adverse Reactions: Allergies No Known Allergies Allergy (Verified 10/29/18 17:40) Home Medications: Home Medications Medication Instructions Recorded Confirmed Last Taken Type Famotidine [Pepcid] 20 mg PO BID #30 tablet 04/10/17 Unknown Rx Active Medications: Generic Name Dose Route Start Last Admin Trade Name Martha PRN Reason Stop Dose Admin Acetaminophen 650 mg 10/29/18 23:49 Tylenol IN Q4H PRN Pain MILD(1-3)/Fever >100.5/DAMON Dextrose 50 ml 10/31/18 07:36 10/31/18 07:45 D50w (25gm) Syringe IV 50 ml PRN PRN Administration Hypoglycemia Famotidine 20 mg 10/30/18 10:00 11/02/18 22:26 Pepcid IV 20 mg BID CHRISTINE Administration Heparin Sodium (Porcine) 5,000 unit 10/30/18 06:00 11/03/18 05:44 Heparin SUB-Q 5,000 unit Q8HR CHRISTINE Administration Sodium Chloride 1,000 mls @ 100 mls/hr 11/02/18 10:00 11/03/18 05:43 Nacl 0.9% 1000 Ml IV 100 mls/hr DIRECT CHRISTINE Administration Lorazepam 2 mg 11/01/18 10:45 11/02/18 20:17 Ativan IV 2 mg Q1HR PRN Administration CIWA-Ar 8-15 Lorazepam 4 mg 11/01/18 10:45 11/02/18 02:59 Ativan IV 4 mg Q1HR PRN Administration CIWA-Ar 16-25 Lorazepam 4 mg 11/01/18 10:45 Ativan IV Q15MIN PRN CIWA-Ar >25 Morphine Sulfate 2 mg 11/02/18 23:07 11/03/18 05:44 Morphine IV 2 mg Q4H PRN Administration Pain, Moderate (4-6) Ondansetron HCl 4 mg 10/29/18 23:49 Zofran IV Q4H PRN Nausea And Vomiting Sodium Chloride 10 ml 10/30/18 10:00 11/02/18 22:28 Sodium Chloride Flush Syringe 10 Ml IV 10 ml BID CHRISTINE Administration Sodium Chloride 10 ml 10/29/18 23:49 10/30/18 17:55 Sodium Chloride Flush Syringe 10 Ml IV 10 ml PRN PRN Administration LINE FLUSH
--- NOTE | 2018-11-03 08:46 | Progress Note ---
Assessment and Plan 62 y/o female with acute respiratory failure secondary to sepsis from high grade bowel obstruction and volvulus with ETOH abuse with concerns for withdrawal. 1. Aggressive replacement of lytes. 2. Suggest Continue CIWA protocol 3. Follow up any new surgery recs 4. PT/OT 5. DVT and GI Prophylaxis 6. Will sign off, call if questions or concerns. Subjective Date of service: 11/03/18 Principal diagnosis: low plt Interval history: No acute events. Successful transfer out of unit. Pulm status is stable. Objective Vital Signs - 12hr 11/02/18 11/03/18 11/03/18 22:15 05:54 06:05 Temperature 98.4 F 99.0 F Pulse Rate 110 H 108 H Pulse Rate [ From Monitor] Respiratory 18 24 24 Rate Blood Pressure Blood Pressure 123/82 115/80 [Left] O2 Sat by Pulse 95 95 99 Oximetry 11/03/18 11/03/18 11/03/18 07:30 07:46 07:48 Temperature 99.4 F Pulse Rate 111 H 111 H Pulse Rate [ 111 H From Monitor] Respiratory 22 22 Rate Blood Pressure 113/77 Blood Pressure [Left] O2 Sat by Pulse 100 100 Oximetry Constitutional: alert, lethargic Eyes: non-icteric ENT: other (orally intubated and sedated) Neck: supple Effort: mildly labored Ascultation: Bilateral: clear Percussion: Bilateral: not dull Cardiovascular: other (sinus tachycardia) Gastrointestinal: other (post-op changes noted with ostomy present) Integumentary: normal Extremities: cool Neurologic: normal mental status CBC and BMP: 11/03/18 04:09 11/03/18 04:09 ABG, PT/INR, D-dimer: ABG POC ABG pH 7.299 (7.35-7.45) L 11/01/18 04:03 POC ABG pCO2 30.3 (35-45) L 11/01/18 04:03 POC ABG pO2 67 (80-105) L 11/01/18 04:03 POC ABG HCO3 14.9 (22-26 mml/L) 11/01/18 04:03 POC ABG Total CO2 16 (23-27mmol/L) 11/01/18 04:03 POC ABG O2 Sat 91 11/01/18 04:03 PT/INR, D-dimer PT 16.3 Sec. (12.2-14.9) H 10/31/18 04:57 INR 1.23 (0.87-1.13) H 10/31/18 04:57 Abnormal lab findings: Abnormal Labs 10/29/18 10/29/18 10/29/18 17:45 17:45 18:43 WBC RBC Hgb 16.7 H Hct 45.1 H MCV MCH 36 H MCHC 37 H RDW 12.8 L Plt Count Seg Neuts % (Manual) 74.0 H Lymphocytes % (Manual) 8.0 L Monocytes % (Manual) 18.0 H Seg Neutrophils # Man Lymphocytes # (Manual) 0.6 L Monocytes # (Manual) 1.5 H PT INR POC ABG pH POC ABG pCO2 POC ABG pO2 Sodium 130 L Potassium 3.1 L Chloride 89.7 L Carbon Dioxide 20 L BUN 29 H Creatinine 1.7 H Glucose POC Glucose Lactic Acid Calcium Phosphorus Magnesium Total Bilirubin 2.50 H AST 73 H ALT 77 H Alkaline Phosphatase 166 H Albumin 3.6 L Vitamin B12 TSH 8.610 H 10/29/18 10/29/18 10/30/18 18:43 22:23 03:42 WBC RBC Hgb Hct MCV MCH MCHC RDW Plt Count Seg Neuts % (Manual) Lymphocytes % (Manual) Monocytes % (Manual) Seg Neutrophils # Man Lymphocytes # (Manual) Monocytes # (Manual) PT INR POC ABG pH 7.200 L POC ABG pCO2 POC ABG pO2 186 H Sodium Potassium Chloride Carbon Dioxide BUN Creatinine Glucose POC Glucose Lactic Acid 3.50 H* 2.50 H* Calcium Phosphorus Magnesium Total Bilirubin AST ALT Alkaline Phosphatase Albumin Vitamin B12 TSH 10/30/18 10/30/18 10/30/18 04:34 04:34 08:51 WBC 2.7 L RBC 3.30 L Hgb Hct MCV 101 H MCH 35 H MCHC RDW 12.6 L Plt Count 60 L Seg Neuts % (Manual) Lymphocytes % (Manual) 6.0 L Monocytes % (Manual) 31.0 H Seg Neutrophils # Man 1.3 L Lymphocytes # (Manual) 0.2 L Monocytes # (Manual) PT 17.8 H INR 1.37 H POC ABG pH POC ABG pCO2 POC ABG pO2 Sodium 133 L Potassium 3.1 L Chloride Carbon Dioxide 17 L BUN 20 H Creatinine Glucose 116 H POC Glucose Lactic Acid Calcium 6.6 L D Phosphorus Magnesium 1.20 L Total Bilirubin AST ALT Alkaline Phosphatase Albumin Vitamin B12 TSH 10/31/18 10/31/18 10/31/18 04:57 04:57 04:57 WBC RBC 2.97 L Hgb Hct MCV 107 H MCH 35 H MCHC RDW 12.9 L Plt Count 68 L Seg Neuts % (Manual) Lymphocytes % (Manual) 5.0 L Monocytes % (Manual) 25.0 H Seg Neutrophils # Man Lymphocytes # (Manual) 0.4 L Monocytes # (Manual) 2.2 H PT 16.3 H INR 1.23 H POC ABG pH POC ABG pCO2 POC ABG pO2 Sodium Potassium Chloride 114.8 H Carbon Dioxide 13 L BUN Creatinine Glucose 56 L POC Glucose Lactic Acid Calcium 7.4 L Phosphorus Magnesium Total Bilirubin AST ALT Alkaline Phosphatase Albumin Vitamin B12 TSH 10/31/18 10/31/18 10/31/18 04:57 05:05 07:33 WBC RBC Hgb Hct MCV MCH MCHC RDW Plt Count Seg Neuts % (Manual) Lymphocytes % (Manual) Monocytes % (Manual) Seg Neutrophils # Man Lymphocytes # (Manual) Monocytes # (Manual) PT INR POC ABG pH 7.300 L POC ABG pCO2 POC ABG pO2 Sodium Potassium Chloride Carbon Dioxide BUN Creatinine Glucose POC Glucose 62 L Lactic Acid Calcium Phosphorus Magnesium Total Bilirubin AST ALT Alkaline Phosphatase Albumin Vitamin B12 1966 H TSH 10/31/18 10/31/18 11/01/18 08:20 15:35 00:55 WBC RBC Hgb Hct MCV MCH MCHC RDW Plt Count Seg Neuts % (Manual) Lymphocytes % (Manual) Monocytes % (Manual) Seg Neutrophils # Man Lymphocytes # (Manual) Monocytes # (Manual) PT INR POC ABG pH POC ABG pCO2 POC ABG pO2 Sodium Potassium Chloride Carbon Dioxide BUN Creatinine Glucose POC Glucose 156 H 147 H 149 H Lactic Acid Calcium Phosphorus Magnesium Total Bilirubin AST ALT Alkaline Phosphatase Albumin Vitamin B12 TSH 11/01/18 11/01/18 11/01/18 04:03 04:29 04:29 WBC RBC 2.70 L Hgb 9.4 L Hct 27.2 L MCV 101 H MCH 35 H MCHC 35 H RDW 12.7 L Plt Count 88 L Seg Neuts % (Manual) 80.0 H Lymphocytes % (Manual) 2.0 L Monocytes % (Manual) 14.0 H Seg Neutrophils # Man Lymphocytes # (Manual) 0.2 L Monocytes # (Manual) 1.1 H PT INR POC ABG pH 7.299 L POC ABG pCO2 30.3 L POC ABG pO2 67 L Sodium 136 L Potassium 3.2 L Chloride 109.4 H Carbon Dioxide 16 L BUN Creatinine 0.4 L Glucose 134 H POC Glucose Lactic Acid Calcium 7.6 L Phosphorus Magnesium Total Bilirubin AST ALT Alkaline Phosphatase Albumin Vitamin B12 TSH 11/01/18 11/01/18 11/01/18 04:29 05:56 08:44 WBC RBC Hgb Hct MCV MCH MCHC RDW Plt Count Seg Neuts % (Manual) Lymphocytes % (Manual) Monocytes % (Manual) Seg Neutrophils # Man Lymphocytes # (Manual) Monocytes # (Manual) PT INR POC ABG pH POC ABG pCO2 POC ABG pO2 Sodium Potassium Chloride Carbon Dioxide BUN Creatinine Glucose POC Glucose 152 H 120 H Lactic Acid Calcium Phosphorus 1.30 L Magnesium Total Bilirubin AST ALT Alkaline Phosphatase Albumin Vitamin B12 TSH 11/01/18 11/01/18 11/02/18 11:34 16:58 00:00 WBC RBC Hgb Hct MCV MCH MCHC RDW Plt Count Seg Neuts % (Manual) Lymphocytes % (Manual) Monocytes % (Manual) Seg Neutrophils # Man Lymphocytes # (Manual) Monocytes # (Manual) PT INR POC ABG pH POC ABG pCO2 POC ABG pO2 Sodium Potassium Chloride Carbon Dioxide BUN Creatinine Glucose POC Glucose 132 H 119 H 108 H Lactic Acid Calcium Phosphorus Magnesium Total Bilirubin AST ALT Alkaline Phosphatase Albumin Vitamin B12 TSH 11/02/18 11/02/18 11/02/18 05:04 05:04 05:04 WBC RBC 2.72 L Hgb 9.5 L Hct 26.8 L MCV 99 H MCH 35 H MCHC 35 H RDW 12.7 L Plt Count 113 L Seg Neuts % (Manual) 75.0 H Lymphocytes % (Manual) 2.0 L Monocytes % (Manual) 13.0 H Seg Neutrophils # Man Lymphocytes # (Manual) 0.2 L Monocytes # (Manual) 1.1 H PT INR POC ABG pH POC ABG pCO2 POC ABG pO2 Sodium 134 L Potassium 2.5 L* D Chloride 108.1 H Carbon Dioxide 19 L BUN 4 L Creatinine 0.3 L Glucose 119 H POC Glucose Lactic Acid Calcium 8.1 L Phosphorus 1.60 L D Magnesium Total Bilirubin AST ALT Alkaline Phosphatase Albumin Vitamin B12 TSH 06/08/19 06/09/19 06/09/19 15:31 04:09 04:09 WBC 12.5 H RBC 3.20 L Hgb Hct MCV 99 H MCH 35 H MCHC 35 H RDW 12.7 L Plt Count Seg Neuts % (Manual) 88.0 H Lymphocytes % (Manual) 1.0 L Monocytes % (Manual) 11.0 H Seg Neutrophils # Man 11.0 H Lymphocytes # (Manual) 0.1 L Monocytes # (Manual) 1.4 H PT INR POC ABG pH POC ABG pCO2 POC ABG pO2 Sodium 133 L Potassium 3.3 L D 3.1 L Chloride Carbon Dioxide 18 L 18 L BUN 5 L Creatinine 0.3 L 0.4 L Glucose 59 L POC Glucose Lactic Acid Calcium 7.8 L 7.9 L Phosphorus Magnesium Total Bilirubin AST ALT Alkaline Phosphatase Albumin Vitamin B12 TSH
--- NOTE | 2018-11-03 08:54 | Progress Note ---
Assessment and Plan Assessment and plan: 62-year-old female with past medical history significant for asthma was brought by her family members for the complaints of shortness was not eating and drinking for the last few days. She has been constantly drinking alcohol. Patient has been complaining that she has abdominal pain. In the emergency department patient was tremulous and was given ativan. CT scan of the abdomen showed high-grade bowel obstruction due to volvulus. Large bowel Obstruction Caecal volvulus sp hemicolectomy - Postop management per general surgery ADAT per GS Dysphagia ST eval eval, npo for now Thrombocytopenia, ?HIT - Patient platelet count is getting better - Hematology oncology consulted and following Alcohol withdrawal DT - On CIWA protocol Acute renal failure - resolved with IVF Electrolyte derangements; which include hyperkalemia, hypocalcemia and hypomagnesemia - Repleted Acute respiratory failure - patient extubated and saturating well on [place] oxygen DVT prophylaxis - On SCDs History Interval history: Review of systems Constitutional: No fevers, no malaise, no joint pains CVS: No chest pain, no orthopnea, no dyspnea on exertion, no pedal edema GI: Abdominal pain is improved, no diarrhea, no vomiting, no constipation Respiratory: No shortness of breath, no wheezing, no coughing Hospitalist Physical - Physical exam Narrative exam: General.: Appears well, no distress, nontoxic HEENT: Moist mucous membranes, extraocular muscles intact, no lymphadenopathy Neck: supple Cardiac: S1-S2 heard Lungs: clear to auscultation bilaterally Abdomen: soft , nontender, nondistended, bowel sounds positive Extremities: no edema clubbing or cyanosis Skin: no rash or lesions Neurologic: no gross focal deficits Psych: calm, and cooperative - Constitutional Vitals: Temp Pulse Resp BP Pulse Ox 99.4 F 111 H 22 113/77 100 11/03/18 07:30 11/03/18 07:48 11/03/18 07:48 11/03/18 07:30 11/03/18 07:48 Results - Labs CBC & Chem 7: 11/12/18 04:50 11/13/18 01:35 Labs: Laboratory Last Values WBC 12.5 K/mm3 (4.5-11.0) H 11/03/18 04:09 RBC 3.20 M/mm3 (3.65-5.03) L 11/03/18 04:09 Hgb 11.1 gm/dl (10.1-14.3) 11/03/18 04:09 Hct 31.5 % (30.3-42.9) 11/03/18 04:09 MCV 99 fl (79-97) H 11/03/18 04:09 MCH 35 pg (28-32) H 11/03/18 04:09 MCHC 35 % (30-34) H 11/03/18 04:09 RDW 12.7 % (13.2-15.2) L 11/03/18 04:09 Plt Count 179 K/mm3 (140-440) 11/03/18 04:09 Brown % (Auto) School Admissions Representative 11/03/18 04:09 Add Manual Diff Complete 11/03/18 04:09 Total Counted 100 11/03/18 04:09 Seg Neuts % (Manual) 88.0 % (40.0-70.0) H 11/03/18 04:09 0 % 11/03/18 04:09 1.0 % (13.4-35.0) L 11/03/18 04:09 Reactive Lymphs % (Man) 0 % 11/03/18 04:09 11.0 % (0.0-7.3) H 11/03/18 04:09 0 % (0.0-4.3) 11/03/18 04:09 0 % (0.0-1.8) 11/03/18 04:09 0 % 11/03/18 04:09 0 % 11/03/18 04:09 0 % 11/03/18 04:09 0 % 11/03/18 04:09 Nucleated RBC % Not Reportable 11/03/18 04:09 Seg Neutrophils # Man 11.0 K/mm3 (1.8-7.7) H 11/03/18 04:09 Band Neutrophils # 0.0 K/mm3 11/03/18 04:09 0.1 K/mm3 (1.2-5.4) L 11/03/18 04:09 Abs React Lymphs (Man) 0.0 K/mm3 11/03/18 04:09 1.4 K/mm3 (0.0-0.8) H 11/03/18 04:09 0.0 K/mm3 (0.0-0.4) 11/03/18 04:09 0.0 K/mm3 (0.0-0.1) 11/03/18 04:09 0.0 K/mm3 11/03/18 04:09 0.0 K/mm3 11/03/18 04:09 0.0 K/mm3 11/03/18 04:09 Blast Cells # 0.0 K/mm3 11/03/18 04:09 WBC Morphology Not Reportable 11/03/18 04:09 Hypersegmented Neuts Not Reportable 11/03/18 04:09 Hyposegmented Neuts Not Reportable 11/03/18 04:09 Hypogranular Neuts Not Reportable 11/03/18 04:09 Not Reportable 11/03/18 04:09 Not Reportable 11/03/18 04:09 Not Reportable 11/03/18 04:09 Not Reportable 11/03/18 04:09 Not Reportable 11/03/18 04:09 Not Reportable 11/03/18 04:09 Consistent w auto 11/03/18 04:09 Not Reportable 11/03/18 04:09 Plt Clumps, EDTA Not Reportable 11/03/18 04:09 1+ 11/03/18 04:09 Not Reportable 11/03/18 04:09 Not Reportable 11/03/18 04:09 Plt Morphology Comment Not Reportable 11/03/18 04:09 RBC Morphology Normal 11/03/18 04:09 Dimorphic RBCs Not Reportable 11/03/18 04:09 Not Reportable 11/03/18 04:09 Not Reportable 11/03/18 04:09 Not Reportable 11/03/18 04:09 Not Reportable 11/03/18 04:09 Not Reportable 11/03/18 04:09 Not Reportable 11/03/18 04:09 Not Reportable 11/03/18 04:09 Not Reportable 11/03/18 04:09 Not Reportable 11/03/18 04:09 Not Reportable 11/03/18 04:09 Not Reportable 11/03/18 04:09 Not Reportable 11/03/18 04:09 Not Reportable 11/03/18 04:09 Not Reportable 11/03/18 04:09 Not Reportable 11/03/18 04:09 Not Reportable 11/03/18 04:09 Not Reportable 11/03/18 04:09 Not Reportable 11/03/18 04:09 Not Reportable 11/03/18 04:09 Acanthocytes (Spur) Not Reportable 11/03/18 04:09 Rouleaux Not Reportable 11/03/18 04:09 Not Reportable 11/03/18 04:09 Not Reportable 11/03/18 04:09 Not Reportable 11/03/18 04:09 Not Reportable 11/03/18 04:09 Hem Pathologist Commnt No 11/03/18 04:09 PT 16.3 Sec. (12.2-14.9) H 10/31/18 04:57 INR 1.23 (0.87-1.13) H 10/31/18 04:57 POC ABG pH 7.299 (7.35-7.45) L 11/01/18 04:03 POC ABG pCO2 30.3 (35-45) L 11/01/18 04:03 POC ABG pO2 67 (80-105) L 11/01/18 04:03 POC ABG HCO3 14.9 (22-26 mml/L) 11/01/18 04:03 POC ABG Total CO2 16 (23-27mmol/L) 11/01/18 04:03 POC ABG O2 Sat 91 11/01/18 04:03 POC ABG Base Excess -12 ((-2) - (+3)mmol/L) 11/01/18 04:03 30 % 11/01/18 04:03 Sodium 137 mmol/L (137-145) 11/03/18 04:09 Potassium 3.1 mmol/L (3.6-5.0) L 11/03/18 04:09 Chloride 105.1 mmol/L (98-107) 11/03/18 04:09 Carbon Dioxide 18 mmol/L (22-30) L 11/03/18 04:09 17 mmol/L 11/03/18 04:09 BUN 7 mg/dL (7-17) 11/03/18 04:09 0.4 mg/dL (0.7-1.2) L 11/03/18 04:09 Estimated GFR > 60 ml/min 11/03/18 04:09 18 % 11/03/18 04:09 Glucose 59 mg/dL (65-100) L 11/03/18 04:09 POC Glucose 77 (70-105) 11/03/18 07:43 Lactic Acid 1.00 mmol/L (0.7-2.0) 10/30/18 04:34 Calcium 7.9 mg/dL (8.4-10.2) L 11/03/18 04:09 Phosphorus 1.60 mg/dL (2.5-4.5) L D 11/02/18 05:04 Magnesium 1.80 mg/dL (1.7-2.3) 11/02/18 15:31 2.50 mg/dL (0.1-1.2) H 10/29/18 18:43 AST 73 units/L (5-40) H 10/29/18 18:43 ALT 77 units/L (7-56) H 10/29/18 18:43 166 units/L (35-129) H 10/29/18 18:43 26.0 umol/L (25-60) 10/29/18 22:23 6.8 g/dL (6.3-8.2) 10/29/18 18:43 3.6 g/dL (3.9-5) L 10/29/18 18:43 1.1 % 10/29/18 18:43 Triglycerides 65 mg/dL (2-149) 11/02/18 05:04 14 units/L (13-60) 10/29/18 18:43 Vitamin B12 1966 pg/mL (211-911) H 10/31/18 04:57 12.21 ng/mL (7.3-26.0) 10/31/18 04:57 TSH 8.610 mlU/mL (0.270-4.200) H 10/29/18 17:45 Free T4 1.06 ng/dL (0.76-1.46) 10/30/18 17:17 Plasma/Serum Alcohol < 0.01 % (0-0.07) 10/29/18 17:45 Group A Strep Rapid Negative (Negative) 10/29/18 19:28 Blood Type B POSITIVE 10/29/18 23:48 Antibody Screen TNR 10/29/18 23:48 ALEC Antibody Screen Negative 10/29/18 23:48 Active Medications - Current Medications Current Medications: Generic Name Dose Route Start Last Admin Trade Name Freq PRN Reason Stop Dose Admin Acetaminophen 650 mg 10/29/18 23:49 Tylenol NE Q4H PRN Pain MILD(1-3)/Fever >100.5/DAMON Dextrose 50 ml 10/31/18 07:36 10/31/18 07:45 D50w (25gm) Syringe IV 50 ml PRN PRN Administration Hypoglycemia Famotidine 20 mg 10/30/18 10:00 11/02/18 22:26 Pepcid IV 20 mg BID CHRISTINE Administration Heparin Sodium (Porcine) 5,000 unit 10/30/18 06:00 11/03/18 05:44 Heparin SUB-Q 5,000 unit Q8HR CHRISTINE Administration Sodium Chloride 1,000 mls @ 100 mls/hr 11/02/18 10:00 11/03/18 05:43 Nacl 0.9% 1000 Ml IV 100 mls/hr DIRECT CHRISTINE Administration Lorazepam 2 mg 11/01/18 10:45 11/02/18 20:17 Ativan IV 2 mg Q1HR PRN Administration CIWA-Ar 8-15 Lorazepam 4 mg 11/01/18 10:45 11/02/18 02:59 Ativan IV 4 mg Q1HR PRN Administration CIWA-Ar 16-25 Lorazepam 4 mg 11/01/18 10:45 Ativan IV Q15MIN PRN CIWA-Ar >25 Morphine Sulfate 2 mg 11/02/18 23:07 11/03/18 05:44 Morphine IV 2 mg Q4H PRN Administration Pain, Moderate (4-6) Ondansetron HCl 4 mg 10/29/18 23:49 Zofran IV Q4H PRN Nausea And Vomiting Sodium Chloride 10 ml 10/30/18 10:00 11/02/18 22:28 Sodium Chloride Flush Syringe 10 Ml IV 10 ml BID CHRISTINE Administration Sodium Chloride 10 ml 10/29/18 23:49 10/30/18 17:55 Sodium Chloride Flush Syringe 10 Ml IV 10 ml PRN PRN Administration LINE FLUSH Nutrition/Malnutrition Assess - Dietary Evaluation Nutrition/Malnutrition Findings: Nutrition Notes Start: 10/30/18 15:07 Freq: Status: Active Protocol: Document 11/01/18 17:36 RM (Rec: 11/01/18 17:39 RM [id number]) Nutrition Notes Initial or Follow up Reassessment Current Diagnosis Acute Kidney Injury Other Pertinent Diagnosis Bowel obstruction, Alcohol withdrawal, S/P hemicolectomy Current Diet No diet ordered Labs/Tests Reviewed Pertinent Medications Propofol at 10 ml/hr (264 kcal ) Height 5 ft Weight 49.9 kg [place] Body Weight (kg) 45.45 BMI 21.4 Subjective/Other Information Per rounds pt planned to be extubated today. Burn Absent Trauma Absent #1 Nutrition Diagnosis Inadequate oral intake Diagnosis Progress(for reassessment Continues documentation) Is patient on ventilator? Yes Is Patient Ambulatory and/or Out of Bed No REE-([facility]-confined to bed) 1187.856 Kcal/Kg value to use for calculation 27 Approximate Energy Requirements Using 1347 kcal/Kg Calculation Used for Recommendations Kcal/kg Additional Notes Protein Needs: 60-100g (1.2-2g /kg) Fluid Needs: 1 ml/kcal Nutrition Intervention Change Diet Order: Order diet Goal #1 Diet advancement Anticipated Discharge Needs: Unable to determine at this time Follow-Up By: 11/04/18 Additional Comments Follow for PO and ONS intakes
[2018-11-03] MEDS: PEPCID IV SCH ×2 (09:29→21:02)
[2018-11-03] MEDS: SODIUM CHLORIDE FLUSH SYRINGE 10 ML IV SCH ×2 (09:30→21:04)
[2018-11-03] MEDS ORDERED: KPHOS 40 MMOL in NACL 0.9% 500 ML 500 ML IV ONE (11:01)
[2018-11-03] MEDS ORDERED: K-DUR PO ONE (11:02)
--- NOTE | 2018-11-03 11:58 | Progress Note ---
Assessment and Plan - Patient Problems (1) Cecal volvulus Current Visit: Yes Status: Acute Plan to address problem: 62 yo F s/p Exploratory laparotomy, reduction of internal hernia, right hemicolectomy with primary ileocolonic anastamosis, POD 4. Pt reports passing flatus. 1. cecal volvulus 2. high grade SBO 3. etoh abuse 4. delerium tremens 5. TIERRA 6. VDRF 7. malnutrition Plan: 1. Try full liquid diet - perhaps may take more if taste is better 2. resuscitation 3. strict I/Os 4. DVT ppx 5. OOB to chair Please call with questions. Subjective Date of service: 11/03/18 Patient Reports: Positive: no new complaints, tolerating liquids well, flatus, other (nurse reports that NGT accidentally came out last night. Nurse concerned that patient has a sore throat). Negative: nausea, vomiting Objective Vital Signs - 12hr 11/03/18 11/03/18 11/03/18 05:54 06:05 07:30 Temperature 99.0 F 99.4 F Pulse Rate 108 H 111 H Pulse Rate [ From Monitor] Respiratory 24 24 22 Rate Blood Pressure 113/77 Blood Pressure 115/80 [Left] O2 Sat by Pulse 95 99 100 Oximetry 11/03/18 11/03/18 07:46 07:48 Temperature Pulse Rate 111 H Pulse Rate [ 111 H From Monitor] Respiratory 22 Rate Blood Pressure Blood Pressure [Left] O2 Sat by Pulse 100 Oximetry - General physical appearance no distress, no pain, other (more awake. not very interactive) - Respiratory normal expansion, normal respiratory effort - Abdomen soft, tender (minimal), not distended, not guarding, not rigid, surgical scars (C/D/I) - Integumentary no rash, no growths, no abnormal pigmentation - Labs 11/03/18 04:09 11/03/18 04:09 Diabetes panel 11/02/18 11/03/18 Range/Units 15:31 04:09 Sodium 133 L 137 (137-145) mmol/L Potassium 3.3 L D 3.1 L (3.6-5.0) mmol/L Chloride 103.3 105.1 (98-107) mmol/L Carbon Dioxide 18 L 18 L (22-30) mmol/L BUN 5 L 7 (7-17) mg/dL Creatinine 0.3 L 0.4 L (0.7-1.2) mg/dL Glucose 75 59 L (65-100) mg/dL Calcium 7.8 L 7.9 L (8.4-10.2) mg/dL Calcium panel 11/02/18 11/03/18 Range/Units 15:31 04:09 Calcium 7.8 L 7.9 L (8.4-10.2) mg/dL Pituitary panel 11/02/18 11/03/18 Range/Units 15:31 04:09 Sodium 133 L 137 (137-145) mmol/L Potassium 3.3 L D 3.1 L (3.6-5.0) mmol/L Chloride 103.3 105.1 (98-107) mmol/L Carbon Dioxide 18 L 18 L (22-30) mmol/L BUN 5 L 7 (7-17) mg/dL Creatinine 0.3 L 0.4 L (0.7-1.2) mg/dL Glucose 75 59 L (65-100) mg/dL Calcium 7.8 L 7.9 L (8.4-10.2) mg/dL Adrenal panel 11/02/18 11/03/18 Range/Units 15:31 04:09 Sodium 133 L 137 (137-145) mmol/L Potassium 3.3 L D 3.1 L (3.6-5.0) mmol/L Chloride 103.3 105.1 (98-107) mmol/L Carbon Dioxide 18 L 18 L (22-30) mmol/L BUN 5 L 7 (7-17) mg/dL Creatinine 0.3 L 0.4 L (0.7-1.2) mg/dL Glucose 75 59 L (65-100) mg/dL Calcium 7.8 L 7.9 L (8.4-10.2) mg/dL
[2018-11-03] MEDS ORDERED: POTASSIUM CHLORIDE FEEDTUBE ONE (12:00)
[2018-11-03] MEDS ORDERED: CHLORASEPTIC MM PRN (14:43)
[2018-11-03] MEDS ORDERED: PROVENTIL IH ONE (20:53)
[2018-11-03] MEDS ORDERED: PROVENTIL IH PRN (20:55)
[2018-11-04] MEDS ORDERED: DUONEB *Not for PRN Use IH SCH (02:00)
[2018-11-04] MEDS: HEPARIN SUB-Q SCH ×3 (05:11→21:23)
[2018-11-04] MEDS: NACL 0.9% 1000 ML 1,000 ML IV SCH ×2 (05:11→16:09)
[2018-11-04] MEDS: DUONEB *Not for PRN Use IH SCH ×4 (07:13→20:24)
--- NOTE | 2018-11-04 08:20 | Hem/Onc Progress Note ---
Assessment and Plan 1. h/o Thrombocytopenia. The duration of time since admission is very small. It is not clear if there was a recent hospitalization. The patient is postoperative, had ischemic bowel and history of alcohol usage. This may have more role in the thrombocytopenia. We will and follow the trend. 2. Admitted with altered mentation, underwent abdominal surgery, was intubated. 3. History of alcohol usage and delirium tremens, in restraints. 4. Renal impairment. 5. Liver function test abnormalities. 6. Electrolyte imbalance. 7. Heparin has been held. I will follow the patient during inpatient stay. 11/04 plt better - Patient Problems (1) Thrombocytopenia Current Visit: Yes Status: Acute Subjective Date of service: 11/04/18 Principal diagnosis: low plt Interval history: more awake Objective - Constitutional Vitals: Last Vital Signs Temp 98.3 F 11/04/18 06:58 Pulse 115 H 11/04/18 08:06 Resp 28 H 11/04/18 08:06 BP 123/71 11/04/18 06:58 Pulse Ox 95 11/04/18 08:06 Pain Intensity (0-10): 1/10 (abdo) General appearance: mild distress Performance status: 4-completely disabled - EENT Eyes: EOM intact ENT: hearing intact Lymph node exam: negative cervical - Neck Neck: normal ROM - Respiratory Respiratory effort: Positive: normal Respiratory: bilateral: CTA (anteriorly) - Cardiovascular Heart Sounds: Present: S1 & S2 Extremities: normal temperature - Gastrointestinal General gastrointestinal: Present: soft, other (johanna +) Rectal Exam: deferred - Genitourinary Female genitourinary: Present: deferred - Integumentary Integumentary: warm - Musculoskeletal Musculoskeletal: generalized weakness - Neurologic Neurologic: moves all extremities - Labs Lab Results: Laboratory Results - last 24 hr 11/02/18 11/03/18 11/03/18 22:40 04:21 11:32 Potassium POC Glucose 64 L 64 L 88 Phosphorus Magnesium 11/03/18 11/04/18 19:47 05:24 Potassium 3.6 POC Glucose 74 Phosphorus 3.10 Magnesium 1.70 Medications & Allergies - Medications Allergies/Adverse Reactions: Allergies No Known Allergies Allergy (Verified 10/29/18 17:40) Home Medications: Home Medications Medication Instructions Recorded Confirmed Last Taken Type Famotidine [Pepcid] 20 mg PO BID #30 tablet 04/10/17 Unknown Rx Active Medications: Generic Name Dose Route Start Last Admin Trade Name Freq PRN Reason Stop Dose Admin Acetaminophen 650 mg 10/29/18 23:49 Tylenol OK Q4H PRN Pain MILD(1-3)/Fever >100.5/DAMON Acetaminophen/Hydrocodone Bitart 1 each 11/03/18 11:55 [place] 5/325 PO Q6H PRN Pain, Moderate (4-6) Albuterol 2.5 mg 11/03/18 20:55 Proventil IH Q4HRT PRN Shortness Of Breath Albuterol/Ipratropium 1 ampul 11/04/18 08:00 11/04/18 07:13 Duoneb *Not For Prn Use* IH 1 ampul TIDRT CHRISTINE Administration Dextrose 50 ml 10/31/18 07:36 10/31/18 07:45 D50w (25gm) Syringe IV 50 ml PRN PRN Administration Hypoglycemia Famotidine 20 mg 10/30/18 10:00 11/03/18 21:02 Pepcid IV 20 mg BID CHRISTINE Administration Heparin Sodium (Porcine) 5,000 unit 10/30/18 06:00 11/04/18 05:11 Heparin SUB-Q 5,000 unit Q8HR CHRISTINE Administration Sodium Chloride 1,000 mls @ 100 mls/hr 11/02/18 10:00 11/04/18 05:11 Nacl 0.9% 1000 Ml IV 100 mls/hr DIRECT CHRISTINE Administration Lorazepam 2 mg 11/01/18 10:45 11/02/18 20:17 Ativan IV 2 mg Q1HR PRN Administration CIWA-Ar 8-15 Lorazepam 4 mg 11/01/18 10:45 11/02/18 02:59 Ativan IV 4 mg Q1HR PRN Administration CIWA-Ar 16-25 Lorazepam 4 mg 11/01/18 10:45 Ativan IV Q15MIN PRN CIWA-Ar >25 Morphine Sulfate 2 mg 11/02/18 23:07 11/03/18 20:22 Morphine IV 2 mg Q4H PRN Administration Pain, Moderate (4-6) Ondansetron HCl 4 mg 10/29/18 23:49 Zofran IV Q4H PRN Nausea And Vomiting Phenol 1 spray 11/03/18 14:43 11/03/18 20:22 Chloraseptic MM 1 spray PRN PRN Administration Sore Throat Sodium Chloride 10 ml 10/30/18 10:00 11/03/18 21:04 Sodium Chloride Flush Syringe 10 Ml IV 10 ml BID CHRISTINE Administration Sodium Chloride 10 ml 10/29/18 23:49 10/30/18 17:55 Sodium Chloride Flush Syringe 10 Ml IV 10 ml PRN PRN Administration LINE FLUSH
[2018-11-04] MEDS: PEPCID IV SCH ×2 (09:23→21:23)
[2018-11-04] MEDS: SODIUM CHLORIDE FLUSH SYRINGE 10 ML IV SCH ×2 (09:24→21:24)
[2018-11-04] MEDS: NORCO 5/325 PO PRN (12:21)
--- NOTE | 2018-11-04 13:55 | Progress Note ---
Assessment and Plan - Patient Problems (1) Cecal volvulus Current Visit: Yes Status: Acute Plan to address problem: 62 yo F s/p Exploratory laparotomy, reduction of internal hernia, right hemicolectomy with primary ileocolonic anastamosis, POD 5. Pt reports passing flatus. 1. cecal volvulus 2. high grade SBO 3. etoh abuse 4. delerium tremens 5. TIERRA 6. VDRF 7. malnutrition Plan: 1. try pureed diet. may also want to try protein supplements. If intake does not improve over next 2-3 days, may need to consider TPN or PPN. 2. strict I/Os 3. DVT ppx 4. OOB to chair Please call with questions. Subjective Date of service: 11/04/18 Patient Reports: Positive: tolerating liquids well, flatus, other (denies any difficulty swallowing. Breathing better with her breathing treatments.) Objective Vital Signs - 12hr 11/04/18 11/04/18 11/04/18 05:04 06:58 07:13 Temperature 99.0 F 98.3 F Pulse Rate 124 H 116 H Pulse Rate [ 117 H Anterior Bilateral Throughout] Pulse Rate [ From Monitor] Respiratory 20 28 H Rate Respiratory 20 Rate [Anterior Bilateral Throughout] Blood Pressure 112/77 123/71 Blood Pressure [Left] O2 Sat by Pulse 97 96 96 Oximetry 11/04/18 11/04/18 11/04/18 07:23 08:04 08:06 Temperature Pulse Rate 115 H Pulse Rate [ 119 H Anterior Bilateral Throughout] Pulse Rate [ 115 H From Monitor] Respiratory 28 H Rate Respiratory 20 Rate [Anterior Bilateral Throughout] Blood Pressure Blood Pressure [Left] O2 Sat by Pulse 95 Oximetry 11/04/18 11/04/18 11/04/18 12:13 12:45 12:55 Temperature 98.5 F Pulse Rate 113 H Pulse Rate [ 115 H 117 H Anterior Bilateral Throughout] Pulse Rate [ From Monitor] Respiratory 24 Rate Respiratory 26 H 24 Rate [Anterior Bilateral Throughout] Blood Pressure Blood Pressure 118/76 [Left] O2 Sat by Pulse 94 Oximetry - General physical appearance no distress, no pain, other (more awake today. More interactive) - Respiratory normal expansion, normal respiratory effort, other (currently having breathing treatment) - Abdomen soft, tender (mild), distended (mild), not guarding, not rigid, surgical scars (C/D/I) - Integumentary no rash, no growths, no abnormal pigmentation - Labs 11/03/18 04:09 11/03/18 19:47 Diabetes panel 11/03/18 Range/Units 19:47 Potassium 3.6 (3.6-5.0) mmol/L Calcium panel 11/03/18 Range/Units 19:47 Phosphorus 3.10 (2.5-4.5) mg/dL Pituitary panel 11/03/18 Range/Units 19:47 Potassium 3.6 (3.6-5.0) mmol/L Adrenal panel 11/03/18 Range/Units 19:47 Potassium 3.6 (3.6-5.0) mmol/L
--- NOTE | 2018-11-04 14:40 | Progress Note ---
Assessment and Plan Assessment and plan: 62-year-old female with past medical history significant for asthma was brought by her family members for the complaints of shortness was not eating and drinking for the last few days. She has been constantly drinking alcohol. Patient has been complaining that she has abdominal pain. In the emergency department patient was tremulous and was given ativan. CT scan of the abdomen showed high-grade bowel obstruction due to volvulus. Large bowel Obstruction Caecal volvulus sp hemicolectomy - Postop management per general surgery ADAT per GS Dysphagia ST eval appreciated, advance to pureed diet Thrombocytopenia, ?HIT - Patient platelet count is getting better - Hematology oncology consulted and following Alcohol withdrawal DT - On CIWA protocol Acute renal failure - resolved with IVF Electrolyte derangements; which include hyperkalemia, hypocalcemia and hypomagnesemia - Repleted Acute respiratory failure - patient extubated and saturating well on [place] oxygen DVT prophylaxis - On SCDs History Interval history: Review of systems Constitutional: No fevers, no malaise, no joint pains CVS: No chest pain, no orthopnea, no dyspnea on exertion, no pedal edema GI: Abdominal pain is improved, no diarrhea, no vomiting, no constipation Respiratory: No shortness of breath, no wheezing, no coughing Hospitalist Physical - Physical exam Narrative exam: General.: Appears well, no distress, nontoxic HEENT: Moist mucous membranes, extraocular muscles intact, no lymphadenopathy Neck: supple Cardiac: S1-S2 heard Lungs: clear to auscultation bilaterally Abdomen: soft , nontender, nondistended, bowel sounds positive Extremities: no edema clubbing or cyanosis Skin: no rash or lesions Neurologic: no gross focal deficits Psych: calm, and cooperative - Constitutional Vitals: Temp Pulse Resp BP Pulse Ox 98.5 F 117 H 24 118/76 94 11/04/18 12:13 11/04/18 12:55 11/04/18 12:55 11/04/18 12:13 11/04/18 12:13 Results - Labs CBC & Chem 7: 11/12/18 04:50 11/13/18 01:35 Labs: Laboratory Last Values WBC 12.5 K/mm3 (4.5-11.0) H 11/03/18 04:09 RBC 3.20 M/mm3 (3.65-5.03) L 11/03/18 04:09 Hgb 11.1 gm/dl (10.1-14.3) 11/03/18 04:09 Hct 31.5 % (30.3-42.9) 11/03/18 04:09 MCV 99 fl (79-97) H 11/03/18 04:09 MCH 35 pg (28-32) H 11/03/18 04:09 MCHC 35 % (30-34) H 11/03/18 04:09 RDW 12.7 % (13.2-15.2) L 11/03/18 04:09 Plt Count 179 K/mm3 (140-440) 11/03/18 04:09 Heard % (Auto) [employer] 11/03/18 04:09 Add Manual Diff Complete 11/03/18 04:09 Total Counted 100 11/03/18 04:09 Seg Neuts % (Manual) 88.0 % (40.0-70.0) H 11/03/18 04:09 0 % 11/03/18 04:09 1.0 % (13.4-35.0) L 11/03/18 04:09 Reactive Lymphs % (Man) 0 % 11/03/18 04:09 11.0 % (0.0-7.3) H 11/03/18 04:09 0 % (0.0-4.3) 11/03/18 04:09 0 % (0.0-1.8) 11/03/18 04:09 0 % 11/03/18 04:09 0 % 11/03/18 04:09 0 % 11/03/18 04:09 0 % 11/03/18 04:09 Nucleated RBC % Not Reportable 11/03/18 04:09 Seg Neutrophils # Man 11.0 K/mm3 (1.8-7.7) H 11/03/18 04:09 Band Neutrophils # 0.0 K/mm3 11/03/18 04:09 0.1 K/mm3 (1.2-5.4) L 11/03/18 04:09 Abs React Lymphs (Man) 0.0 K/mm3 11/03/18 04:09 1.4 K/mm3 (0.0-0.8) H 11/03/18 04:09 0.0 K/mm3 (0.0-0.4) 11/03/18 04:09 0.0 K/mm3 (0.0-0.1) 11/03/18 04:09 0.0 K/mm3 11/03/18 04:09 0.0 K/mm3 11/03/18 04:09 0.0 K/mm3 11/03/18 04:09 Blast Cells # 0.0 K/mm3 11/03/18 04:09 WBC Morphology Not Reportable 11/03/18 04:09 Hypersegmented Neuts Not Reportable 11/03/18 04:09 Hyposegmented Neuts Not Reportable 11/03/18 04:09 Hypogranular Neuts Not Reportable 11/03/18 04:09 Not Reportable 11/03/18 04:09 Not Reportable 11/03/18 04:09 Not Reportable 11/03/18 04:09 Not Reportable 11/03/18 04:09 Not Reportable 11/03/18 04:09 Not Reportable 11/03/18 04:09 Consistent w auto 11/03/18 04:09 Not Reportable 11/03/18 04:09 Plt Clumps, EDTA Not Reportable 11/03/18 04:09 1+ 11/03/18 04:09 Not Reportable 11/03/18 04:09 Not Reportable 11/03/18 04:09 Plt Morphology Comment Not Reportable 11/03/18 04:09 RBC Morphology Normal 11/03/18 04:09 Dimorphic RBCs Not Reportable 11/03/18 04:09 Not Reportable 11/03/18 04:09 Not Reportable 11/03/18 04:09 Not Reportable 11/03/18 04:09 Not Reportable 11/03/18 04:09 Not Reportable 11/03/18 04:09 Not Reportable 11/03/18 04:09 Not Reportable 11/03/18 04:09 Not Reportable 11/03/18 04:09 Not Reportable 11/03/18 04:09 Not Reportable 11/03/18 04:09 Not Reportable 11/03/18 04:09 Not Reportable 11/03/18 04:09 Not Reportable 11/03/18 04:09 Not Reportable 11/03/18 04:09 Not Reportable 11/03/18 04:09 Not Reportable 11/03/18 04:09 Not Reportable 11/03/18 04:09 Not Reportable 11/03/18 04:09 Not Reportable 11/03/18 04:09 Acanthocytes (Spur) Not Reportable 11/03/18 04:09 Rouleaux Not Reportable 11/03/18 04:09 Not Reportable 11/03/18 04:09 Not Reportable 11/03/18 04:09 Not Reportable 11/03/18 04:09 Not Reportable 11/03/18 04:09 Hem Pathologist Commnt No 11/03/18 04:09 PT 16.3 Sec. (12.2-14.9) H 10/31/18 04:57 INR 1.23 (0.87-1.13) H 10/31/18 04:57 POC ABG pH 7.299 (7.35-7.45) L 11/01/18 04:03 POC ABG pCO2 30.3 (35-45) L 11/01/18 04:03 POC ABG pO2 67 (80-105) L 11/01/18 04:03 POC ABG HCO3 14.9 (22-26 mml/L) 11/01/18 04:03 POC ABG Total CO2 16 (23-27mmol/L) 11/01/18 04:03 POC ABG O2 Sat 91 11/01/18 04:03 POC ABG Base Excess -12 ((-2) - (+3)mmol/L) 11/01/18 04:03 30 % 11/01/18 04:03 Sodium 137 mmol/L (137-145) 11/03/18 04:09 Potassium 3.6 mmol/L (3.6-5.0) 11/03/18 19:47 Chloride 105.1 mmol/L (98-107) 11/03/18 04:09 Carbon Dioxide 18 mmol/L (22-30) L 11/03/18 04:09 17 mmol/L 11/03/18 04:09 BUN 7 mg/dL (7-17) 11/03/18 04:09 0.4 mg/dL (0.7-1.2) L 11/03/18 04:09 Estimated GFR > 60 ml/min 11/03/18 04:09 18 % 11/03/18 04:09 Glucose 59 mg/dL (65-100) L 11/03/18 04:09 POC Glucose 83 (70-105) 11/04/18 11:15 Lactic Acid 1.00 mmol/L (0.7-2.0) 10/30/18 04:34 Calcium 7.9 mg/dL (8.4-10.2) L 11/03/18 04:09 Phosphorus 3.10 mg/dL (2.5-4.5) 11/03/18 19:47 Magnesium 1.70 mg/dL (1.7-2.3) 11/03/18 19:47 2.50 mg/dL (0.1-1.2) H 10/29/18 18:43 AST 73 units/L (5-40) H 10/29/18 18:43 ALT 77 units/L (7-56) H 10/29/18 18:43 166 units/L (35-129) H 10/29/18 18:43 26.0 umol/L (25-60) 10/29/18 22:23 6.8 g/dL (6.3-8.2) 10/29/18 18:43 3.6 g/dL (3.9-5) L 10/29/18 18:43 1.1 % 10/29/18 18:43 Triglycerides 65 mg/dL (2-149) 11/02/18 05:04 14 units/L (13-60) 10/29/18 18:43 Vitamin B12 1966 pg/mL (211-911) H 10/31/18 04:57 12.21 ng/mL (7.3-26.0) 10/31/18 04:57 TSH 8.610 mlU/mL (0.270-4.200) H 10/29/18 17:45 Free T4 1.06 ng/dL (0.76-1.46) 10/30/18 17:17 Plasma/Serum Alcohol < 0.01 % (0-0.07) 10/29/18 17:45 Group A Strep Rapid Negative (Negative) 10/29/18 19:28 Blood Type B POSITIVE 10/29/18 23:48 Antibody Screen TNR 10/29/18 23:48 ALEC Antibody Screen Negative 10/29/18 23:48 Active Medications - Current Medications Current Medications: Generic Name Dose Route Start Last Admin Trade Name Freq PRN Reason Stop Dose Admin Acetaminophen 650 mg 10/29/18 23:49 Tylenol MA Q4H PRN Pain MILD(1-3)/Fever >100.5/DAMON Acetaminophen/Hydrocodone Bitart 1 each 11/03/18 11:55 11/04/18 12:21 [place] 5/325 PO 1 each Q6H PRN Administration Pain, Moderate (4-6) Albuterol 2.5 mg 11/03/18 20:55 Proventil IH Q4HRT PRN Shortness Of Breath Albuterol/Ipratropium 1 ampul 11/04/18 08:00 11/04/18 13:05 Duoneb *Not For Prn Use* IH Not Given TIDRT CHRISTINE Dextrose 50 ml 10/31/18 07:36 10/31/18 07:45 D50w (25gm) Syringe IV 50 ml PRN PRN Administration Hypoglycemia Famotidine 20 mg 10/30/18 10:00 11/04/18 09:23 Pepcid IV 20 mg BID CHRISTINE Administration Heparin Sodium (Porcine) 5,000 unit 10/30/18 06:00 11/04/18 05:11 Heparin SUB-Q 5,000 unit Q8HR CHRISTINE Administration Sodium Chloride 1,000 mls @ 100 mls/hr 11/02/18 10:00 11/04/18 05:11 Nacl 0.9% 1000 Ml IV 100 mls/hr DIRECT CHRISTINE Administration Lorazepam 2 mg 11/01/18 10:45 11/02/18 20:17 Ativan IV 2 mg Q1HR PRN Administration CIWA-Ar 8-15 Lorazepam 4 mg 11/01/18 10:45 11/02/18 02:59 Ativan IV 4 mg Q1HR PRN Administration CIWA-Ar 16-25 Lorazepam 4 mg 11/01/18 10:45 Ativan IV Q15MIN PRN CIWA-Ar >25 Morphine Sulfate 2 mg 11/02/18 23:07 11/03/18 20:22 Morphine IV 2 mg Q4H PRN Administration Pain, Moderate (4-6) Ondansetron HCl 4 mg 10/29/18 23:49 Zofran IV Q4H PRN Nausea And Vomiting Phenol 1 spray 11/03/18 14:43 11/03/18 20:22 Chloraseptic MM 1 spray PRN PRN Administration Sore Throat Sodium Chloride 10 ml 10/30/18 10:00 11/04/18 09:24 Sodium Chloride Flush Syringe 10 Ml IV 10 ml BID CHRISTINE Administration Sodium Chloride 10 ml 10/29/18 23:49 10/30/18 17:55 Sodium Chloride Flush Syringe 10 Ml IV 10 ml PRN PRN Administration LINE FLUSH Nutrition/Malnutrition Assess - Dietary Evaluation Nutrition/Malnutrition Findings: Nutrition Notes Start: 10/30/18 15:07 Freq: Status: Active Protocol: Document 11/04/18 12:29 LAMAR (Rec: 11/04/18 12:38 LAMAR [email or web address]) Nutrition Notes Initial or Follow up Reassessment Current Diagnosis Small Bowel Obstruction Other Pertinent Diagnosis EtOH dependence, cecal volvulus s/p hemicolectomy Current Diet Pureed Labs/Tests Reviewed Pertinent Medications Reviewed Height 5 ft Weight 49.9 kg [place] Body Weight (kg) 45.45 BMI 21.4 Subjective/Other Information Pt evaluated by DESK DIRECTOR this am; pt approved for a pureed diet. Pt c/o back pain at time of visit; RN informed. Burn Absent Trauma Absent #1 Nutrition Diagnosis Inadequate oral intake As Evidenced by Signs and Symptoms diet advanced, but pt eating very little at time of visit Diagnosis Progress(for reassessment Continues documentation) Is patient on ventilator? No Is Patient Ambulatory and/or Out of Bed No REE-([facility]-confined to bed) 1187.856 Calculation Used for Recommendations [facility] Additional Notes Pro needs 1-1.2g/k-60g/ day Fluid needs 1ml/kcal Nutrition Intervention Change Diet Order: Continue current diet order; advance as tolerated Goal #1 PO intake to meet at least 75% energy and pro needs Anticipated Discharge Needs: None identified at this time Follow-Up By: 11/06/18 Additional Comments F/U: intakes, need for ONS
[2018-11-04] MEDS: MORPHINE IV PRN (21:23)
[2018-11-05] MEDS: NACL 0.9% 1000 ML 1,000 ML IV SCH (00:29)
[2018-11-05] MEDS: ATIVAN IV PRN (00:29)
[2018-11-05] MEDS: HEPARIN SUB-Q SCH ×2 (06:07→16:06)
[2018-11-05] MEDS: MORPHINE IV PRN (06:07)
--- NOTE | 2018-11-05 08:05 | Hem/Onc Progress Note ---
Assessment and Plan 1. h/o Thrombocytopenia. The duration of time since admission is very small. It is not clear if there was a recent hospitalization. The patient is postoperative, had ischemic bowel and history of alcohol usage. This may have more role in the thrombocytopenia. We will and follow the trend. 2. Admitted with altered mentation, underwent abdominal surgery, was intubated. 3. History of alcohol usage and delirium tremens, in restraints. 4. Renal impairment. 5. h/o Liver function test abnormalities. 6. h/o Electrolyte imbalance. 7. Heparin has been held. I will follow the patient during inpatient stay. 11/05 plt better - Patient Problems (1) Thrombocytopenia Current Visit: Yes Status: Acute Subjective Date of service: 11/05/18 Principal diagnosis: h/o low plt Interval history: no bleeding slight SOB Objective - Constitutional Vitals: Last Vital Signs Temp 98.4 F 11/05/18 00:36 Pulse 118 H 11/05/18 04:47 Resp 21 11/05/18 00:36 BP 130/84 11/05/18 00:36 Pulse Ox 96 11/05/18 04:47 Pain Intensity (0-10): denies any pain General appearance: mild distress Performance status: 3-limited selfcare - EENT Eyes: EOM intact ENT: hearing intact Lymph node exam: negative cervical - Neck Neck: normal ROM - Respiratory Respiratory effort: Positive: normal Respiratory: bilateral: CTA - Cardiovascular Heart Sounds: Present: S1 & S2 Extremities: normal temperature - Gastrointestinal General gastrointestinal: Present: soft, other (s/p sx) Rectal Exam: deferred - Genitourinary Female genitourinary: Present: deferred - Integumentary Integumentary: warm - Musculoskeletal Musculoskeletal: generalized weakness - Labs Lab Results: Laboratory Results - last 24 hr 10/30/18 10/31/18 11/04/18 17:17 08:05 11:15 POC Glucose 83 Free T3 Index 1.1 L Miscellaneous Test Flexitest 1 11/04/18 11/05/18 11/05/18 17:33 00:50 06:52 POC Glucose 97 132 H 112 H Free T3 Index Miscellaneous Test Medications & Allergies - Medications Allergies/Adverse Reactions: Allergies No Known Allergies Allergy (Verified 10/29/18 17:40) Home Medications: Home Medications Medication Instructions Recorded Confirmed Last Taken Type Famotidine [Pepcid] 20 mg PO BID #30 tablet 04/10/17 Unknown Rx Active Medications: Generic Name Dose Route Start Last Admin Trade Name Freq PRN Reason Stop Dose Admin Acetaminophen 650 mg 10/29/18 23:49 Tylenol [place] Q4H PRN Pain MILD(1-3)/Fever >100.5/DAMON Acetaminophen/Hydrocodone Bitart 1 each 11/03/18 11:55 11/04/18 12:21 [place] 5/325 PO 1 each Q6H PRN Administration Pain, Moderate (4-6) Albuterol 2.5 mg 11/03/18 20:55 Proventil IH Q4HRT PRN Shortness Of Breath Albuterol/Ipratropium 1 ampul 11/04/18 08:00 11/04/18 20:24 Duoneb *Not For Prn Use* IH 1 ampul TIDRT CHRISTINE Administration Dextrose 50 ml 10/31/18 07:36 10/31/18 07:45 D50w (25gm) Syringe IV 50 ml PRN PRN Administration Hypoglycemia Famotidine 20 mg 10/30/18 10:00 11/04/18 21:23 Pepcid IV 20 mg BID CHRISTINE Administration Heparin Sodium (Porcine) 5,000 unit 10/30/18 06:00 11/05/18 06:07 Heparin SUB-Q 5,000 unit Q8HR CHRISTINE Administration Sodium Chloride 1,000 mls @ 100 mls/hr 11/02/18 10:00 11/05/18 00:29 Nacl 0.9% 1000 Ml IV 100 mls/hr DIRECT CHRISTINE Administration Lorazepam 2 mg 11/01/18 10:45 11/05/18 00:29 Ativan IV 2 mg Q1HR PRN Administration CIWA-Ar 8-15 Lorazepam 4 mg 11/01/18 10:45 11/02/18 02:59 Ativan IV 4 mg Q1HR PRN Administration CIWA-Ar 16-25 Lorazepam 4 mg 11/01/18 10:45 Ativan IV Q15MIN PRN CIWA-Ar >25 Morphine Sulfate 2 mg 11/02/18 23:07 11/05/18 06:07 Morphine IV 2 mg Q4H PRN Administration Pain, Moderate (4-6) Ondansetron HCl 4 mg 10/29/18 23:49 Zofran IV Q4H PRN Nausea And Vomiting Phenol 1 spray 11/03/18 14:43 11/03/18 20:22 Chloraseptic MM 1 spray PRN PRN Administration Sore Throat Sodium Chloride 10 ml 10/30/18 10:00 11/04/18 21:24 Sodium Chloride Flush Syringe 10 Ml IV 10 ml BID CHRISTINE Administration Sodium Chloride 10 ml 10/29/18 23:49 10/30/18 17:55 Sodium Chloride Flush Syringe 10 Ml IV 10 ml PRN PRN Administration LINE FLUSH
[2018-11-05] MEDS: DUONEB *Not for PRN Use IH SCH ×3 (09:12→20:04)
[2018-11-05] MEDS: SODIUM CHLORIDE FLUSH SYRINGE 10 ML IV SCH (11:15)
[2018-11-05] MEDS: PEPCID IV SCH (11:15)
--- NOTE | 2018-11-05 11:52 | Progress Note ---
Assessment and Plan Assessment and plan: 62-year-old female with past medical history significant for asthma was brought by her family members for the complaints of shortness was not eating and drinking for the last few days. She has been constantly drinking alcohol. Patient has been complaining that she has abdominal pain. In the emergency department patient was tremulous and was given ativan. CT scan of the abdomen showed high-grade bowel obstruction due to volvulus. Large bowel Obstruction Caecal volvulus sp hemicolectomy - Postop management per general surgery ADAT per GS Dysphagia ST eval appreciated, advance to pureed diet Thrombocytopenia, ?HIT - Patient platelet count is getting better - Hematology oncology consulted and following Alcohol withdrawal DT - On CIWA protocol Acute renal failure - resolved with IVF Electrolyte derangements; which include hyperkalemia, hypocalcemia and hypomagnesemia - Repleted Acute respiratory failure - patient extubated and saturating well on [place] oxygen DVT prophylaxis - On SCDs History Interval history: Review of systems Constitutional: No fevers, no malaise, no joint pains CVS: No chest pain, no orthopnea, no dyspnea on exertion, no pedal edema GI: Abdominal pain is improved, no diarrhea, no vomiting, no constipation Respiratory: No shortness of breath, no wheezing, no coughing Hospitalist Physical - Physical exam Narrative exam: General.: Appears well, no distress, nontoxic HEENT: Moist mucous membranes, extraocular muscles intact, no lymphadenopathy Neck: supple Cardiac: S1-S2 heard Lungs: clear to auscultation bilaterally Abdomen: soft , nontender, nondistended, bowel sounds positive Extremities: no edema clubbing or cyanosis Skin: no rash or lesions Neurologic: no gross focal deficits Psych: calm, and cooperative - Constitutional Vitals: Temp Pulse Resp BP Pulse Ox 98.4 F 116 H 20 130/84 97 11/05/18 00:36 11/05/18 09:13 11/05/18 09:13 11/05/18 00:36 11/05/18 09:13 Results - Labs CBC & Chem 7: 11/12/18 04:50 11/13/18 01:35 Labs: Laboratory Last Values WBC 12.5 K/mm3 (4.5-11.0) H 11/03/18 04:09 RBC 3.20 M/mm3 (3.65-5.03) L 11/03/18 04:09 Hgb 11.1 gm/dl (10.1-14.3) 11/03/18 04:09 Hct 31.5 % (30.3-42.9) 11/03/18 04:09 MCV 99 fl (79-97) H 11/03/18 04:09 MCH 35 pg (28-32) H 11/03/18 04:09 MCHC 35 % (30-34) H 11/03/18 04:09 RDW 12.7 % (13.2-15.2) L 11/03/18 04:09 Plt Count 179 K/mm3 (140-440) 11/03/18 04:09 [place] % (Auto) Division Sales Manager 11/03/18 04:09 Add Manual Diff Complete 11/03/18 04:09 Total Counted 100 11/03/18 04:09 Seg Neuts % (Manual) 88.0 % (40.0-70.0) H 11/03/18 04:09 0 % 11/03/18 04:09 1.0 % (13.4-35.0) L 11/03/18 04:09 Reactive Lymphs % (Man) 0 % 11/03/18 04:09 11.0 % (0.0-7.3) H 11/03/18 04:09 0 % (0.0-4.3) 11/03/18 04:09 0 % (0.0-1.8) 11/03/18 04:09 0 % 11/03/18 04:09 0 % 11/03/18 04:09 0 % 11/03/18 04:09 0 % 11/03/18 04:09 Nucleated RBC % Not Reportable 11/03/18 04:09 Seg Neutrophils # Man 11.0 K/mm3 (1.8-7.7) H 11/03/18 04:09 Band Neutrophils # 0.0 K/mm3 11/03/18 04:09 0.1 K/mm3 (1.2-5.4) L 11/03/18 04:09 Abs React Lymphs (Man) 0.0 K/mm3 11/03/18 04:09 1.4 K/mm3 (0.0-0.8) H 11/03/18 04:09 0.0 K/mm3 (0.0-0.4) 11/03/18 04:09 0.0 K/mm3 (0.0-0.1) 11/03/18 04:09 0.0 K/mm3 11/03/18 04:09 0.0 K/mm3 11/03/18 04:09 0.0 K/mm3 11/03/18 04:09 Blast Cells # 0.0 K/mm3 11/03/18 04:09 WBC Morphology Not Reportable 11/03/18 04:09 Hypersegmented Neuts Not Reportable 11/03/18 04:09 Hyposegmented Neuts Not Reportable 11/03/18 04:09 Hypogranular Neuts Not Reportable 11/03/18 04:09 Not Reportable 11/03/18 04:09 Not Reportable 11/03/18 04:09 Not Reportable 11/03/18 04:09 Not Reportable 11/03/18 04:09 Not Reportable 11/03/18 04:09 Not Reportable 11/03/18 04:09 Consistent w auto 11/03/18 04:09 Not Reportable 11/03/18 04:09 Plt Clumps, EDTA Not Reportable 11/03/18 04:09 1+ 11/03/18 04:09 Not Reportable 11/03/18 04:09 Not Reportable 11/03/18 04:09 Plt Morphology Comment Not Reportable 11/03/18 04:09 RBC Morphology Normal 11/03/18 04:09 Dimorphic RBCs Not Reportable 11/03/18 04:09 Not Reportable 11/03/18 04:09 Not Reportable 11/03/18 04:09 Not Reportable 11/03/18 04:09 Not Reportable 11/03/18 04:09 Not Reportable 11/03/18 04:09 Not Reportable 11/03/18 04:09 Not Reportable 11/03/18 04:09 Not Reportable 11/03/18 04:09 Not Reportable 11/03/18 04:09 Not Reportable 11/03/18 04:09 Not Reportable 11/03/18 04:09 Not Reportable 11/03/18 04:09 Not Reportable 11/03/18 04:09 Not Reportable 11/03/18 04:09 Not Reportable 11/03/18 04:09 Not Reportable 11/03/18 04:09 Not Reportable 11/03/18 04:09 Not Reportable 11/03/18 04:09 Not Reportable 11/03/18 04:09 Acanthocytes (Spur) Not Reportable 11/03/18 04:09 Rouleaux Not Reportable 11/03/18 04:09 Not Reportable 11/03/18 04:09 Not Reportable 11/03/18 04:09 Not Reportable 11/03/18 04:09 Not Reportable 11/03/18 04:09 Hem Pathologist Commnt No 11/03/18 04:09 PT 16.3 Sec. (12.2-14.9) H 10/31/18 04:57 INR 1.23 (0.87-1.13) H 10/31/18 04:57 POC ABG pH 7.299 (7.35-7.45) L 11/01/18 04:03 POC ABG pCO2 30.3 (35-45) L 11/01/18 04:03 POC ABG pO2 67 (80-105) L 11/01/18 04:03 POC ABG HCO3 14.9 (22-26 mml/L) 11/01/18 04:03 POC ABG Total CO2 16 (23-27mmol/L) 11/01/18 04:03 POC ABG O2 Sat 91 11/01/18 04:03 POC ABG Base Excess -12 ((-2) - (+3)mmol/L) 11/01/18 04:03 30 % 11/01/18 04:03 Sodium 137 mmol/L (137-145) 11/03/18 04:09 Potassium 3.6 mmol/L (3.6-5.0) 11/03/18 19:47 Chloride 105.1 mmol/L (98-107) 11/03/18 04:09 Carbon Dioxide 18 mmol/L (22-30) L 11/03/18 04:09 17 mmol/L 11/03/18 04:09 BUN 7 mg/dL (7-17) 11/03/18 04:09 0.4 mg/dL (0.7-1.2) L 11/03/18 04:09 Estimated GFR > 60 ml/min 11/03/18 04:09 18 % 11/03/18 04:09 Glucose 59 mg/dL (65-100) L 11/03/18 04:09 POC Glucose 112 (70-105) H 11/05/18 06:52 Lactic Acid 1.00 mmol/L (0.7-2.0) 10/30/18 04:34 Calcium 7.9 mg/dL (8.4-10.2) L 11/03/18 04:09 Phosphorus 3.10 mg/dL (2.5-4.5) 11/03/18 19:47 Magnesium 1.70 mg/dL (1.7-2.3) 11/03/18 19:47 2.50 mg/dL (0.1-1.2) H 10/29/18 18:43 AST 73 units/L (5-40) H 10/29/18 18:43 ALT 77 units/L (7-56) H 10/29/18 18:43 166 units/L (35-129) H 10/29/18 18:43 26.0 umol/L (25-60) 10/29/18 22:23 6.8 g/dL (6.3-8.2) 10/29/18 18:43 3.6 g/dL (3.9-5) L 10/29/18 18:43 1.1 % 10/29/18 18:43 Triglycerides 65 mg/dL (2-149) 11/02/18 05:04 14 units/L (13-60) 10/29/18 18:43 Vitamin B12 1966 pg/mL (211-911) H 10/31/18 04:57 12.21 ng/mL (7.3-26.0) 10/31/18 04:57 TSH 8.610 mlU/mL (0.270-4.200) H 10/29/18 17:45 Free T4 1.06 ng/dL (0.76-1.46) 10/30/18 17:17 Free T3 Index 1.1 pg/mL (2.3-4.2) L 10/30/18 17:17 Plasma/Serum Alcohol < 0.01 % (0-0.07) 10/29/18 17:45 Group A Strep Rapid Negative (Negative) 10/29/18 19:28 Flexitest 1 10/31/18 08:05 Blood Type B POSITIVE 10/29/18 23:48 Antibody Screen TNR 10/29/18 23:48 ALEC Antibody Screen Negative 10/29/18 23:48 Active Medications - Current Medications Current Medications: Generic Name Dose Route Start Last Admin Trade Name Freq PRN Reason Stop Dose Admin Acetaminophen 650 mg 10/29/18 23:49 Tylenol AR Q4H PRN Pain MILD(1-3)/Fever >100.5/DAMON Acetaminophen/Hydrocodone Bitart 1 each 11/03/18 11:55 11/04/18 12:21 [place] 5/325 PO 1 each Q6H PRN Administration Pain, Moderate (4-6) Albuterol 2.5 mg 11/03/18 20:55 Proventil IH Q4HRT PRN Shortness Of Breath Albuterol/Ipratropium 1 ampul 11/04/18 08:00 11/05/18 09:12 Duoneb *Not For Prn Use* IH 1 ampul TIDRT CHRISTINE Administration Dextrose 50 ml 10/31/18 07:36 10/31/18 07:45 D50w (25gm) Syringe IV 50 ml PRN PRN Administration Hypoglycemia Famotidine 20 mg 10/30/18 10:00 11/05/18 11:15 Pepcid IV 20 mg BID CHRISTINE Administration Heparin Sodium (Porcine) 5,000 unit 10/30/18 06:00 11/05/18 06:07 Heparin SUB-Q 5,000 unit Q8HR CHRISTINE Administration Sodium Chloride 1,000 mls @ 100 mls/hr 11/02/18 10:00 11/05/18 00:29 Nacl 0.9% 1000 Ml IV 100 mls/hr DIRECT CHRISTINE Administration Lorazepam 2 mg 11/01/18 10:45 11/05/18 00:29 Ativan IV 2 mg Q1HR PRN Administration CIWA-Ar 8-15 Lorazepam 4 mg 11/01/18 10:45 11/02/18 02:59 Ativan IV 4 mg Q1HR PRN Administration CIWA-Ar 16-25 Lorazepam 4 mg 11/01/18 10:45 Ativan IV Q15MIN PRN CIWA-Ar >25 Morphine Sulfate 2 mg 11/02/18 23:07 11/05/18 06:07 Morphine IV 2 mg Q4H PRN Administration Pain, Moderate (4-6) Ondansetron HCl 4 mg 10/29/18 23:49 Zofran IV Q4H PRN Nausea And Vomiting Phenol 1 spray 11/03/18 14:43 11/03/18 20:22 Chloraseptic MM 1 spray PRN PRN Administration Sore Throat Sodium Chloride 10 ml 10/30/18 10:00 11/05/18 11:15 Sodium Chloride Flush Syringe 10 Ml IV 10 ml BID CHRISTINE Administration Sodium Chloride 10 ml 10/29/18 23:49 10/30/18 17:55 Sodium Chloride Flush Syringe 10 Ml IV 10 ml PRN PRN Administration LINE FLUSH Nutrition/Malnutrition Assess - Dietary Evaluation Nutrition/Malnutrition Findings: Nutrition Notes Start: 10/30/18 15:07 Freq: Status: Active Protocol: Document 11/04/18 12:29 LAMAR (Rec: 11/04/18 12:38 LAMAR [email or web address]) Nutrition Notes Initial or Follow up Reassessment Current Diagnosis Small Bowel Obstruction Other Pertinent Diagnosis EtOH dependence, cecal volvulus s/p hemicolectomy Current Diet Pureed Labs/Tests Reviewed Pertinent Medications Reviewed Height 5 ft Weight 49.9 kg [place] Body Weight (kg) 45.45 BMI 21.4 Subjective/Other Information Pt evaluated by [facility] this am; pt approved for a pureed diet. Pt c/o back pain at time of visit; RN informed. Burn Absent Trauma Absent #1 Nutrition Diagnosis Inadequate oral intake As Evidenced by Signs and Symptoms diet advanced, but pt eating very little at time of visit Diagnosis Progress(for reassessment Continues documentation) Is patient on ventilator? No Is Patient Ambulatory and/or Out of Bed No REE-([facility]-confined to bed) 1187.856 Calculation Used for Recommendations [facility] Additional Notes Pro needs 1-1.2g/k-60g/ day Fluid needs 1ml/kcal Nutrition Intervention Change Diet Order: Continue current diet order; advance as tolerated Goal #1 PO intake to meet at least 75% energy and pro needs Anticipated Discharge Needs: None identified at this time Follow-Up By: 11/06/18 Additional Comments F/U: intakes, need for ONS
--- NOTE | 2018-11-05 17:05 | Progress Note ---
Assessment and Plan (1) Cecal volvulus Current Visit: Yes Status: Acute Plan to address problem: 62 yo F s/p Exploratory laparotomy, reduction of internal hernia, right hemicolectomy with primary ileocolonic anastamosis, POD 6. 1. cecal volvulus 2. high grade SBO 3. etoh abuse 4. delerium tremens 5. TIERRA 6. VDRF 7. malnutrition Plan: 1. Continue pureed diet. may also want to try protein supplements. If intake does not improve over next 2-3 days, may need to consider TPN or PPN. 2. strict I/Os 3. DVT ppx 4. OOB to chair/Pt consult Please call with questions. Subjective Date of service: 11/05/18 Narrative: Pt seen and examined. States she feels well. No abdominal pain. No n/v. Tolerati ng diet but not eating much. No f/c. States she had a BM Objective Vital Signs - 12hr 11/05/18 11/05/18 11/05/18 09:00 09:13 10:00 Temperature 98.6 F Pulse Rate 111 H Pulse Rate [ 116 H Anterior Bilateral Throughout] Pulse Rate [ 114 H Throughout] Respiratory 20 Rate Respiratory 20 Rate [Anterior Bilateral Throughout] Respiratory 20 Rate [ Throughout] Blood Pressure 112/73 [Left] O2 Sat by Pulse 98 97 98 Oximetry 11/05/18 11/05/18 14:00 16:00 Temperature 98.9 F Pulse Rate 118 H Pulse Rate [ 104 H Anterior Bilateral Throughout] Pulse Rate [ 103 H Throughout] Respiratory 28 H Rate Respiratory 18 Rate [Anterior Bilateral Throughout] Respiratory 18 Rate [ Throughout] Blood Pressure 117/75 [Left] O2 Sat by Pulse 94 Oximetry - General physical appearance Narrative Exam: Gen: AAOx3. NAD CV: s1, S2+ resp: even and unlabored Abd: soft, NT, ND. Midline incision healing well with johanna intact, mild ecchymosis around umbilical area. No drainage Ext: no c/c/e - Labs 11/03/18 04:09 11/03/18 19:47
[2018-11-06] MEDS: HEPARIN SUB-Q SCH ×4 (03:43→21:56)
[2018-11-06] MEDS: PEPCID IV SCH ×3 (03:44→21:57)
[2018-11-06] MEDS: SODIUM CHLORIDE FLUSH SYRINGE 10 ML IV SCH ×2 (03:45→23:53)
[2018-11-06 05:39] LABS: Alanine Aminotransferase 18 units/L (7-56); Albumin 1.9 g/dL (3.9-5); BUN/Creatinine Ratio 12; Blood Urea Nitrogen 6 mg/dL (7-17); Calcium 7.8 mg/dL (8.4-10.2); Hemolysis Index 3
[2018-11-06] MEDS: MORPHINE IV PRN ×2 (05:56→22:00)
--- NOTE | 2018-11-06 07:38 | Hem/Onc Progress Note ---
Assessment and Plan 1. h/o Thrombocytopenia. The duration of time since admission is very small. It is not clear if there was a recent hospitalization. The patient is postoperative, had ischemic bowel and history of alcohol usage. This may have more role in the thrombocytopenia. We will and follow the trend less likely HIT. 2. Admitted with altered mentation, underwent abdominal surgery, was intubated. 3. History of alcohol usage and delirium tremens, in restraints. 4. Renal impairment. 5. h/o Liver function test abnormalities. 6. h/o Electrolyte imbalance. 7. Heparin has been held. I will follow the patient during inpatient stay. 11/06 plt better - Patient Problems (1) Thrombocytopenia Current Visit: Yes Status: Acute Subjective Date of service: 11/06/18 Principal diagnosis: low plt Interval history: on soft diet Objective - Constitutional Vitals: Last Vital Signs Temp 97.9 F 11/06/18 06:47 Pulse 112 H 11/06/18 06:47 Resp 18 11/06/18 06:47 BP 109/73 11/06/18 06:47 Pulse Ox 93 11/06/18 06:47 Pain Intensity (0-10): denies any pain General appearance: mild distress Performance status: 4-completely disabled - EENT Eyes: EOM intact ENT: hearing intact Lymph node exam: negative cervical - Neck Neck: normal ROM - Respiratory Respiratory effort: Positive: normal Respiratory: bilateral: CTA (anteriorly) - Cardiovascular Heart Sounds: Present: S1 & S2 Extremities: normal temperature - Gastrointestinal General gastrointestinal: Present: soft, other (s/p sx) Rectal Exam: deferred - Genitourinary Female genitourinary: Present: deferred - Integumentary Integumentary: warm - Musculoskeletal Musculoskeletal: generalized weakness - Neurologic Neurologic: moves all extremities - Labs Lab Results: Laboratory Results - last 24 hr 11/05/18 11/05/18 11/06/18 13:06 18:27 00:27 Sodium Potassium Chloride Carbon Dioxide Anion Gap BUN Creatinine Estimated GFR BUN/Creatinine Ratio Glucose POC Glucose 98 92 75 Calcium Phosphorus Magnesium Total Bilirubin AST ALT Alkaline Phosphatase Total Protein Albumin Albumin/Globulin Ratio Prealbumin 11/06/18 11/06/18 04:05 05:42 Sodium 145 D Potassium 2.9 L* Chloride 113.0 H Carbon Dioxide 20 L Anion Gap 15 BUN 6 L Creatinine 0.5 L Estimated GFR > 60 BUN/Creatinine Ratio 12 Glucose 69 POC Glucose 73 Calcium 7.8 L Phosphorus 1.70 L Magnesium 1.60 L Total Bilirubin 0.90 AST 21 ALT 18 Alkaline Phosphatase 124 Total Protein 5.0 L Albumin 1.9 L Albumin/Globulin Ratio 0.6 Prealbumin 0.030 L Medications & Allergies - Medications Allergies/Adverse Reactions: Allergies No Known Allergies Allergy (Verified 10/29/18 17:40) Home Medications: Home Medications Medication Instructions Recorded Confirmed Last Taken Type Famotidine [Pepcid] 20 mg PO BID #30 tablet 04/10/17 Unknown Rx Active Medications: Generic Name Dose Route Start Last Admin Trade Name Freq PRN Reason Stop Dose Admin Acetaminophen 650 mg 10/29/18 23:49 Tylenol [place] Q4H PRN Pain MILD(1-3)/Fever >100.5/DAMON Acetaminophen/Hydrocodone Bitart 1 each 11/03/18 11:55 11/04/18 12:21 [place] 5/325 PO 1 each Q6H PRN Administration Pain, Moderate (4-6) Albuterol 2.5 mg 11/03/18 20:55 Proventil IH Q4HRT PRN Shortness Of Breath Albuterol/Ipratropium 1 ampul 11/04/18 08:00 11/05/18 20:04 Duoneb *Not For Prn Use* IH 1 ampul TIDRT CHRISTINE Administration Dextrose 50 ml 10/31/18 07:36 10/31/18 07:45 D50w (25gm) Syringe IV 50 ml PRN PRN Administration Hypoglycemia Famotidine 20 mg 10/30/18 10:00 11/06/18 03:44 Pepcid IV Not Given BID CHRISTINE Heparin Sodium (Porcine) 5,000 unit 10/30/18 06:00 11/06/18 05:56 Heparin SUB-Q 5,000 unit Q8HR CHRISTINE Administration Potassium Chloride/Sodium Chloride 40 meq in 1,000 mls @ 100 mls/hr 11/06/18 07:00 Ns/Kcl 40meq IV DIRECT CHRISTINE Lorazepam 2 mg 11/01/18 10:45 11/05/18 00:29 Ativan IV 2 mg Q1HR PRN Administration CIWA-Ar 8-15 Lorazepam 4 mg 11/01/18 10:45 11/02/18 02:59 Ativan IV 4 mg Q1HR PRN Administration CIWA-Ar 16-25 Lorazepam 4 mg 11/01/18 10:45 Ativan IV Q15MIN PRN CIWA-Ar >25 Morphine Sulfate 2 mg 11/02/18 23:07 11/06/18 05:56 Morphine IV 2 mg Q4H PRN Administration Pain, Moderate (4-6) Ondansetron HCl 4 mg 10/29/18 23:49 Zofran IV Q4H PRN Nausea And Vomiting Phenol 1 spray 11/03/18 14:43 11/03/18 20:22 Chloraseptic MM 1 spray PRN PRN Administration Sore Throat Sodium Chloride 10 ml 10/30/18 10:00 11/06/18 03:45 Sodium Chloride Flush Syringe 10 Ml IV Not Given BID CHRISTINE Sodium Chloride 10 ml 10/29/18 23:49 10/30/18 17:55 Sodium Chloride Flush Syringe 10 Ml IV 10 ml PRN PRN Administration LINE FLUSH
[2018-11-06] MEDS ORDERED: KPHOS 30 MMOL in NACL 0.9% 500 ML 500 ML IV ONE (07:52)
[2018-11-06] MEDS ORDERED: MAGNESIUM SULFATE 2GM/50ML 2 GM/50 ML BAG IV ONE (07:52)
[2018-11-06] MEDS ORDERED: K-DUR PO ONE (07:52)
[2018-11-06] MEDS: DUONEB *Not for PRN Use IH SCH ×3 (07:56→19:54)
--- NOTE | 2018-11-06 11:13 | Fluoroscopy Report ---
MODIFIED BARIUM SWALLOW History: dysphagia. Findings: Video radiography was provided by the radiologist for speech therapy to assess the swallowing mechanism. 1 fluoroscopic image was captured. Impression: Successful modified barium swallow.
--- NOTE | 2018-11-06 11:54 | Progress Note ---
Assessment and Plan (1) Cecal volvulus Current Visit: Yes Status: Acute Plan to address problem: 62 yo F s/p Exploratory laparotomy, reduction of internal hernia, right hemicolectomy with primary ileocolonic anastamosis, POD 7 1. cecal volvulus 2. high grade SBO 3. etoh abuse 4. delerium tremens 5. TIERRA 6. VDRF 7. malnutrition 8. multiple electrolyte abnormalities Plan: 1. make NPO for now 2. IVF with KCL 3. replace electrolytes 4. strict I/Os 5. DVT ppx 6. OOB to chair/Pt consult 7. suspect dehiscence of wound - will obtain stat CT A/P with oral and IV contrast to evaluate abdomen 8. stat CBC 9. abdominal binder Plan discussed with patient and family at the bedside. Please call with questions. Subjective Date of service: 11/06/18 Narrative: Pt seen and examined. States she is sleepy. No f/c, cp, sob. Tolerating diet. No n/v. + Loose BMs and flatus. Objective Vital Signs - 12hr 11/06/18 11/06/18 11/06/18 01:43 01:59 04:51 Temperature 98.0 F 98.6 F Pulse Rate 116 H 116 H Respiratory 16 17 Rate Blood Pressure 119/77 120/78 O2 Sat by Pulse 96 94 96 Oximetry 11/06/18 06:47 Temperature 97.9 F Pulse Rate 112 H Respiratory 18 Rate Blood Pressure 109/73 O2 Sat by Pulse 93 Oximetry - General physical appearance Narrative Exam: Gen: Awake and alert. NAD CV: s1, S2+ resp: even and unlabored Abd: soft, mildly distended, + minimal TTP near midline incisions. Ecchymosis next to midline incision near inferior portion. Serous drainage from superiormost portion of incision - no odor. 4 johanna removed and wound explored . Fascia gently probed with cotton tip applicator and 5mm opening in fascia between suture. Wound cleaned and packed with 1 piece of 4x4 gauze. Covered with 4x4 gauze, ABD, and tape. - Labs 11/03/18 04:09 11/06/18 04:05 Diabetes panel 11/06/18 Range/Units 04:05 Sodium 145 D (137-145) mmol/L Potassium 2.9 L* (3.6-5.0) mmol/L Chloride 113.0 H (98-107) mmol/L Carbon Dioxide 20 L (22-30) mmol/L BUN 6 L (7-17) mg/dL Creatinine 0.5 L (0.7-1.2) mg/dL Glucose 69 (65-100) mg/dL Calcium 7.8 L (8.4-10.2) mg/dL AST 21 (5-40) units/L ALT 18 (7-56) units/L Alkaline Phosphatase 124 (35-129) units/L Total Protein 5.0 L (6.3-8.2) g/dL Albumin 1.9 L (3.9-5) g/dL Calcium panel 11/06/18 Range/Units 04:05 Calcium 7.8 L (8.4-10.2) mg/dL Phosphorus 1.70 L (2.5-4.5) mg/dL Albumin 1.9 L (3.9-5) g/dL Pituitary panel 11/06/18 Range/Units 04:05 Sodium 145 D (137-145) mmol/L Potassium 2.9 L* (3.6-5.0) mmol/L Chloride 113.0 H (98-107) mmol/L Carbon Dioxide 20 L (22-30) mmol/L BUN 6 L (7-17) mg/dL Creatinine 0.5 L (0.7-1.2) mg/dL Glucose 69 (65-100) mg/dL Calcium 7.8 L (8.4-10.2) mg/dL Adrenal panel 11/06/18 Range/Units 04:05 Sodium 145 D (137-145) mmol/L Potassium 2.9 L* (3.6-5.0) mmol/L Chloride 113.0 H (98-107) mmol/L Carbon Dioxide 20 L (22-30) mmol/L BUN 6 L (7-17) mg/dL Creatinine 0.5 L (0.7-1.2) mg/dL Glucose 69 (65-100) mg/dL Calcium 7.8 L (8.4-10.2) mg/dL Total Bilirubin 0.90 (0.1-1.2) mg/dL AST 21 (5-40) units/L ALT 18 (7-56) units/L Alkaline Phosphatase 124 (35-129) units/L Total Protein 5.0 L (6.3-8.2) g/dL Albumin 1.9 L (3.9-5) g/dL
[2018-11-06 12:42] LABS: Basophils % (Auto) 0.1 % (0.0-1.8); Eosinophils % (Auto) 0.1 % (0.0-4.3); Hematocrit 30.5 % (30.3-42.9); Hemoglobin 10.6 gm/dl (10.1-14.3); Lymphocytes # (Auto) 0.6 K/mm3 (1.2-5.4); Lymphocytes % (Auto) 5.4 % (13.4-35.0); Mean Corpuscular HGB Conc 35 % (30-34); Mean Corpuscular Volume 100 fl (79-97); Monocytes % (Auto) 8.7 % (0.0-7.3); Platelet Count 291 K/mm3 (140-440); Red Blood Count 3.05 M/mm3 (3.65-5.03); Red Cell Distribution Width 13.3 % (13.2-15.2)
--- NOTE | 2018-11-06 16:50 | XRay Report ---
PROCEDURE: XR CHEST 1V AP TECHNIQUE: Chest radiograph single view. HISTORY: L arm PICC placement COMPARISONS: None . FINDINGS: Single frontal view of the chest was acquired and compared to the prior examination of November 02. The heart is mildly large. There is a left-sided PICC line with its tip in superior vena cava. There is bibasilar atelectasis. There is a right pleural effusion. In the upper abdomen there is lucency inferior to the left hemidiaphragm and central diaphragm which could represent free air. Consider CT if this patient has not had recent abdominal surgery. IMPRESSION: Left-sided PICC line terminates in the superior vena cava Possible intraperitoneal free air This document is electronically signed by Roberto Tejada MD., November 06 2018 04:48:36 PM ET
--- NOTE | 2018-11-06 18:22 | Cat Scan Report ---
PROCEDURE: CT abdomen and pelvis with contrast. TECHNIQUE: Computerized axial tomography of the abdomen and pelvis was performed after the IV inject ion of iodinated nonionic contrast. CT DOSE LENGTH PRODUCT: 1482.8 mGycm HISTORY: drainage from midline incision, post op COMPARISONS: CT abdomen and pelvis 10/29/2018. FINDINGS: There is some compressive atelectasis in the dependent portions of both lower lobes. There are modera tely large bilateral pleural effusions. The heart size is normal. The liver, pancreas and spleen appe ar normal. The gallbladder is distended. There may be a small calcified gallstone present. There is n o biliary dilatation. The adrenal glands are not enlarged. Both kidneys appear normal in size and con figuration. There is a tiny cyst in the right kidney. The abdominal aorta has a normal caliber. There is no retroperitoneal adenopathy. There are numerous distended loops of small bowel. The colon has m ild distention with fluid. There are multiple air-fluid levels in the bowel. This could represent a p ostoperative ileus. A small bowel obstruction is not entirely excluded. There is a small amount of as cites adjacent to the liver. The bladder, uterus and adnexal regions are unremarkable. There is a sma ll elongated collection of fluid within the subcutaneous tissues. This is located near the surgical s taples. This could represent a seroma or abscess. The fluid collection is difficult to measure precis alize but is approximately 3.4 cm in width by 1.3 cm in depth by 8.9 cm in length. The regional skeleto n appears intact. IMPRESSION: Moderately large bilateral pleural effusions. Small amount of ascites. Distended gallbladder with pos sible small gallstone. Bowel dilatation that likely represents an ileus. Distal small bowel obstructi on not excluded however. Subcutaneous fluid collection beneath the surgical incision. This document is electronically signed by John Ko MD., November 06 2018 06:20:18 PM ET
[2018-11-06] MEDS: SODIUM CHLORIDE FLUSH SYRINGE 10 ML IV PRN (21:57)
[2018-11-06] MEDS ORDERED: POTASSIUM CHLORIDE FEEDTUBE ONE (23:46)
[2018-11-07] MEDS: HEPARIN SUB-Q SCH ×3 (05:19→22:39)
[2018-11-07 06:56] LABS: Basophils % (Auto) 0.1 % (0.0-1.8); Eosinophils % (Auto) 0.1 % (0.0-4.3); Hematocrit 29.7 % (30.3-42.9); Hemoglobin 10.1 gm/dl (10.1-14.3); Lymphocytes # (Auto) 0.6 K/mm3 (1.2-5.4); Lymphocytes % (Auto) 4.9 % (13.4-35.0); Mean Corpuscular HGB Conc 34 % (30-34); Mean Corpuscular Volume 101 fl (79-97); Monocytes # (Auto) 1.1 K/mm3 (0.0-0.8); Monocytes % (Auto) 9.3 % (0.0-7.3); Platelet Count 283 K/mm3 (140-440); Red Blood Count 2.95 M/mm3 (3.65-5.03)
[2018-11-07 07:32] LABS: Alanine Aminotransferase 16 units/L (7-56); Albumin 1.9 g/dL (3.9-5); BUN/Creatinine Ratio 20; Blood Urea Nitrogen 8 mg/dL (7-17); Calcium 7.9 mg/dL (8.4-10.2); Hemolysis Index 3
[2018-11-07] MEDS ORDERED: XOPENEX IH PRN (07:39)
[2018-11-07] MEDS: XOPENEX IH SCH ×3 (08:01→19:59)
[2018-11-07] MEDS ORDERED: ATROVENT IH ONE (08:01)
[2018-11-07] MEDS: NS/KCL 40MEQ 40 MEQ/1,000 ML BAG IV SCH ×2 (09:29)
[2018-11-07] MEDS: K-DUR PO SCH (09:30)
[2018-11-07] MEDS: PEPCID IV SCH ×2 (09:30→22:39)
[2018-11-07] MEDS: SODIUM CHLORIDE FLUSH SYRINGE 10 ML IV SCH ×2 (09:31→22:40)
[2018-11-07] MEDS: MORPHINE IV PRN (10:41)
[2018-11-07] MEDS ORDERED: DAKIN'S HALF STRENGTH TP PRN (10:57)
--- NOTE | 2018-11-07 11:14 | Progress Note ---
Assessment and Plan 62 yo F s/p Exploratory laparotomy, reduction of internal hernia, right hemicolectomy with primary ileocolonic anastamosis, POD 7 1. cecal volvulus 2. high grade SBO 3. etoh abuse 4. delerium tremens 5. TIERRA 6. VDRF 7. malnutrition 8. multiple electrolyte abnormalities 9. surgical site infection - patient with multiple risk factors Plan: 1. continue diet per speech therapy 2. IVF with KCL 3. start TPN - order was placed yesterday 4. strict I/Os 5. DVT ppx 6. OOB to chair/PT 7. start IV abx - levaquin and flagyl 8. wound cultures obtained 9. wound care consult 10. dakins packing to wound BID Plan discussed with patient and family at the bedside as well as patient's RN. Please call with questions. Subjective Date of service: 11/07/18 Narrative: Pt seen and examined. Has no acute complaints. Overnight, desaturated and became tachycardic and was placed on ventimask. No f/c, cp, sob. Objective Vital Signs - 12hr 11/06/18 11/07/18 11/07/18 23:23 03:54 08:00 Temperature 98.2 F 99.2 F Pulse Rate 120 H 120 H Pulse Rate [ 110 H Throughout] Respiratory 20 20 Rate Respiratory 18 Rate [ Throughout] Blood Pressure 105/74 117/75 O2 Sat by Pulse 96 97 Oximetry 11/07/18 11/07/18 08:11 08:12 Temperature 97.9 F Pulse Rate 110 H Pulse Rate [ 110 H Throughout] Respiratory 18 Rate Respiratory 18 Rate [ Throughout] Blood Pressure 111/76 O2 Sat by Pulse 100 94 Oximetry - General physical appearance Narrative Exam: Gen: Awake and alert. NAD CV: s1, S2+ resp; even and unlabored Abd: soft, ND, NT. Purulent drainage from incision at the umbilicus. Multiple johanna removed and wound probed. Copious amount of purulent foul smelling drainage evacuated. Wound explored and cleansed. Fascial closure is intact. Wound packed with mesalt packing and covered with island dressing. - Labs 11/07/18 06:02 11/07/18 06:02 Diabetes panel 11/06/18 11/07/18 Range/Units 20:09 06:02 Sodium 147 H (137-145) mmol/L Potassium 2.8 L* 3.4 L D (3.6-5.0) mmol/L Chloride 114.6 H (98-107) mmol/L Carbon Dioxide 19 L (22-30) mmol/L BUN 8 (7-17) mg/dL Creatinine 0.4 L (0.7-1.2) mg/dL Glucose 85 (65-100) mg/dL Calcium 7.9 L (8.4-10.2) mg/dL AST 21 (5-40) units/L ALT 16 (7-56) units/L Alkaline Phosphatase 110 (35-129) units/L Total Protein 4.7 L (6.3-8.2) g/dL Albumin 1.9 L (3.9-5) g/dL Calcium panel 11/07/18 Range/Units 06:02 Calcium 7.9 L (8.4-10.2) mg/dL Phosphorus 2.50 D (2.5-4.5) mg/dL Albumin 1.9 L (3.9-5) g/dL Pituitary panel 11/06/18 11/07/18 Range/Units 20:09 06:02 Sodium 147 H (137-145) mmol/L Potassium 2.8 L* 3.4 L D (3.6-5.0) mmol/L Chloride 114.6 H (98-107) mmol/L Carbon Dioxide 19 L (22-30) mmol/L BUN 8 (7-17) mg/dL Creatinine 0.4 L (0.7-1.2) mg/dL Glucose 85 (65-100) mg/dL Calcium 7.9 L (8.4-10.2) mg/dL Adrenal panel 11/06/18 11/07/18 Range/Units 20:09 06:02 Sodium 147 H (137-145) mmol/L Potassium 2.8 L* 3.4 L D (3.6-5.0) mmol/L Chloride 114.6 H (98-107) mmol/L Carbon Dioxide 19 L (22-30) mmol/L BUN 8 (7-17) mg/dL Creatinine 0.4 L (0.7-1.2) mg/dL Glucose 85 (65-100) mg/dL Calcium 7.9 L (8.4-10.2) mg/dL Total Bilirubin 0.80 (0.1-1.2) mg/dL AST 21 (5-40) units/L ALT 16 (7-56) units/L Alkaline Phosphatase 110 (35-129) units/L Total Protein 4.7 L (6.3-8.2) g/dL Albumin 1.9 L (3.9-5) g/dL
--- NOTE | 2018-11-07 11:21 | Progress Note ---
Assessment and Plan Assessment and plan: 62-year-old female with past medical history significant for asthma was brought by her family members for the complaints of shortness was not eating and drinking for the last few days. She has been constantly drinking alcohol. Patient has been complaining that she has abdominal pain. In the emergency department patient was tremulous and was given ativan. CT scan of the abdomen showed high-grade bowel obstruction due to volvulus. Large bowel Obstruction Caecal volvulus sp hemicolectomy - Postop management per general surgery ADAT per GS, TPN ordered per GS Dysphagia ST eval appreciated, advance to pureed diet Thrombocytopenia, ?HIT - Patient platelet count is getting better - Hematology oncology consulted and following Alcohol withdrawal DT - On CIWA protocol Acute renal failure - resolved with IVF Electrolyte derangements; which include hyperkalemia, hypocalcemia and hypomagnesemia - Repleted Acute respiratory failure - patient extubated and saturating well on IN oxygen DVT prophylaxis - On SCDs History Interval history: Review of systems Constitutional: No fevers, no malaise, no joint pains CVS: No chest pain, no orthopnea, no dyspnea on exertion, no pedal edema GI: Abdominal pain is improved, no diarrhea, no vomiting, no constipation Respiratory: No shortness of breath, no wheezing, no coughing Hospitalist Physical - Physical exam Narrative exam: General.: Appears well, no distress, nontoxic HEENT: Moist mucous membranes, extraocular muscles intact, no lymphadenopathy Neck: supple Cardiac: S1-S2 heard Lungs: clear to auscultation bilaterally Abdomen: soft , nontender, nondistended, bowel sounds positive Extremities: no edema clubbing or cyanosis Skin: no rash or lesions Neurologic: no gross focal deficits Psych: calm, and cooperative - Constitutional Vitals: Temp Pulse Resp BP Pulse Ox 97.9 F 110 H 18 111/76 94 11/07/18 08:11 11/07/18 08:12 11/07/18 08:12 11/07/18 08:11 11/07/18 08:12 Results - Labs CBC & Chem 7: 11/12/18 04:50 11/13/18 01:35 Labs: Laboratory Last Values WBC 12.0 K/mm3 (4.5-11.0) H 11/07/18 06:02 RBC 2.95 M/mm3 (3.65-5.03) L 11/07/18 06:02 Hgb 10.1 gm/dl (10.1-14.3) 11/07/18 06:02 Hct 29.7 % (30.3-42.9) L 11/07/18 06:02 MCV 101 fl (79-97) H 11/07/18 06:02 MCH 34 pg (28-32) H 11/07/18 06:02 MCHC 34 % (30-34) 11/07/18 06:02 RDW 13.0 % (13.2-15.2) L 11/07/18 06:02 Plt Count 283 K/mm3 (140-440) 11/07/18 06:02 Lymph % (Auto) 4.9 % (13.4-35.0) L 11/07/18 06:02 [place] % (Auto) 9.3 % (0.0-7.3) H 11/07/18 06:02 Eos % (Auto) 0.1 % (0.0-4.3) 11/07/18 06:02 Baso % (Auto) 0.1 % (0.0-1.8) 11/07/18 06:02 Lymph # 0.6 K/mm3 (1.2-5.4) L 11/07/18 06:02 [place] # 1.1 K/mm3 (0.0-0.8) H 11/07/18 06:02 Eos # 0.0 K/mm3 (0.0-0.4) 11/07/18 06:02 Baso # 0.0 K/mm3 (0.0-0.1) 11/07/18 06:02 Add Manual Diff Complete 11/03/18 04:09 Total Counted 100 11/03/18 04:09 Seg Neutrophils % 85.6 % (40.0-70.0) H 11/07/18 06:02 Seg Neuts % (Manual) 88.0 % (40.0-70.0) H 11/03/18 04:09 0 % 11/03/18 04:09 1.0 % (13.4-35.0) L 11/03/18 04:09 Reactive Lymphs % (Man) 0 % 11/03/18 04:09 11.0 % (0.0-7.3) H 11/03/18 04:09 0 % (0.0-4.3) 11/03/18 04:09 0 % (0.0-1.8) 11/03/18 04:09 0 % 11/03/18 04:09 0 % 11/03/18 04:09 0 % 11/03/18 04:09 0 % 11/03/18 04:09 Nucleated RBC % Not Reportable 11/03/18 04:09 Seg Neutrophils # 10.3 K/mm3 (1.8-7.7) H 11/07/18 06:02 Seg Neutrophils # Man 11.0 K/mm3 (1.8-7.7) H 11/03/18 04:09 Band Neutrophils # 0.0 K/mm3 11/03/18 04:09 0.1 K/mm3 (1.2-5.4) L 11/03/18 04:09 Abs React Lymphs (Man) 0.0 K/mm3 11/03/18 04:09 1.4 K/mm3 (0.0-0.8) H 11/03/18 04:09 0.0 K/mm3 (0.0-0.4) 11/03/18 04:09 0.0 K/mm3 (0.0-0.1) 11/03/18 04:09 0.0 K/mm3 11/03/18 04:09 0.0 K/mm3 11/03/18 04:09 0.0 K/mm3 11/03/18 04:09 Blast Cells # 0.0 K/mm3 11/03/18 04:09 WBC Morphology Not Reportable 11/03/18 04:09 Hypersegmented Neuts Not Reportable 11/03/18 04:09 Hyposegmented Neuts Not Reportable 11/03/18 04:09 Hypogranular Neuts Not Reportable 11/03/18 04:09 Not Reportable 11/03/18 04:09 Not Reportable 11/03/18 04:09 Not Reportable 11/03/18 04:09 Not Reportable 11/03/18 04:09 Not Reportable 11/03/18 04:09 Not Reportable 11/03/18 04:09 Consistent w auto 11/03/18 04:09 Not Reportable 11/03/18 04:09 Plt Clumps, EDTA Not Reportable 11/03/18 04:09 1+ 11/03/18 04:09 Not Reportable 11/03/18 04:09 Not Reportable 11/03/18 04:09 Plt Morphology Comment Not Reportable 11/03/18 04:09 RBC Morphology Normal 11/03/18 04:09 Dimorphic RBCs Not Reportable 11/03/18 04:09 Not Reportable 11/03/18 04:09 Not Reportable 11/03/18 04:09 Not Reportable 11/03/18 04:09 Not Reportable 11/03/18 04:09 Not Reportable 11/03/18 04:09 Not Reportable 11/03/18 04:09 Not Reportable 11/03/18 04:09 Not Reportable 11/03/18 04:09 Not Reportable 11/03/18 04:09 Not Reportable 11/03/18 04:09 Not Reportable 11/03/18 04:09 Not Reportable 11/03/18 04:09 Not Reportable 11/03/18 04:09 Not Reportable 11/03/18 04:09 Not Reportable 11/03/18 04:09 Not Reportable 11/03/18 04:09 Not Reportable 11/03/18 04:09 Not Reportable 11/03/18 04:09 Not Reportable 11/03/18 04:09 Acanthocytes (Spur) Not Reportable 11/03/18 04:09 Rouleaux Not Reportable 11/03/18 04:09 Not Reportable 11/03/18 04:09 Not Reportable 11/03/18 04:09 Not Reportable 11/03/18 04:09 Not Reportable 11/03/18 04:09 Hem Pathologist Commnt No 11/03/18 04:09 PT 16.3 Sec. (12.2-14.9) H 10/31/18 04:57 INR 1.23 (0.87-1.13) H 10/31/18 04:57 POC ABG pH 7.299 (7.35-7.45) L 11/01/18 04:03 POC ABG pCO2 30.3 (35-45) L 11/01/18 04:03 POC ABG pO2 67 (80-105) L 11/01/18 04:03 POC ABG HCO3 14.9 (22-26 mml/L) 11/01/18 04:03 POC ABG Total CO2 16 (23-27mmol/L) 11/01/18 04:03 POC ABG O2 Sat 91 11/01/18 04:03 POC ABG Base Excess -12 ((-2) - (+3)mmol/L) 11/01/18 04:03 30 % 11/01/18 04:03 Sodium 147 mmol/L (137-145) H 11/07/18 06:02 Potassium 3.4 mmol/L (3.6-5.0) L D 11/07/18 06:02 Chloride 114.6 mmol/L (98-107) H 11/07/18 06:02 Carbon Dioxide 19 mmol/L (22-30) L 11/07/18 06:02 17 mmol/L 11/07/18 06:02 BUN 8 mg/dL (7-17) 11/07/18 06:02 0.4 mg/dL (0.7-1.2) L 11/07/18 06:02 Estimated GFR > 60 ml/min 11/07/18 06:02 20 % 11/07/18 06:02 Glucose 85 mg/dL (65-100) 11/07/18 06:02 POC Glucose 83 (70-105) 11/06/18 23:32 Lactic Acid 1.00 mmol/L (0.7-2.0) 10/30/18 04:34 Calcium 7.9 mg/dL (8.4-10.2) L 11/07/18 06:02 Phosphorus 2.50 mg/dL (2.5-4.5) D 11/07/18 06:02 Magnesium 1.60 mg/dL (1.7-2.3) L 11/07/18 06:02 0.80 mg/dL (0.1-1.2) 11/07/18 06:02 AST 21 units/L (5-40) 11/07/18 06:02 ALT 16 units/L (7-56) 11/07/18 06:02 110 units/L (35-129) 11/07/18 06:02 26.0 umol/L (25-60) 10/29/18 22:23 4.7 g/dL (6.3-8.2) L 11/07/18 06:02 1.9 g/dL (3.9-5) L 11/07/18 06:02 0.7 % 11/07/18 06:02 0.030 g/L (0.200-0.400) L 11/06/18 04:05 Triglycerides 65 mg/dL (2-149) 11/02/18 05:04 14 units/L (13-60) 10/29/18 18:43 Vitamin B12 1966 pg/mL (211-911) H 10/31/18 04:57 12.21 ng/mL (7.3-26.0) 10/31/18 04:57 TSH 8.610 mlU/mL (0.270-4.200) H 10/29/18 17:45 Free T4 1.06 ng/dL (0.76-1.46) 10/30/18 17:17 Free T3 Index 1.1 pg/mL (2.3-4.2) L 10/30/18 17:17 Plasma/Serum Alcohol < 0.01 % (0-0.07) 10/29/18 17:45 Group A Strep Rapid Negative (Negative) 10/29/18 19:28 Flexitest 1 10/31/18 08:05 Blood Type B POSITIVE 10/29/18 23:48 Antibody Screen TNR 10/29/18 23:48 ALEC Antibody Screen Negative 10/29/18 23:48 Active Medications - Current Medications Current Medications: Generic Name Dose Route Start Last Admin Trade Name Freq PRN Reason Stop Dose Admin Acetaminophen 650 mg 10/29/18 23:49 Tylenol NV Q4H PRN Pain MILD(1-3)/Fever >100.5/DAMON Acetaminophen/Hydrocodone Bitart 1 each 11/03/18 11:55 11/04/18 12:21 [place] 5/325 PO 1 each Q6H PRN Administration Pain, Moderate (4-6) Albuterol 2.5 mg 11/03/18 20:55 Proventil IH Q4HRT PRN Shortness Of Breath Dextrose 50 ml 10/31/18 07:36 10/31/18 07:45 D50w (25gm) Syringe IV 50 ml PRN PRN Administration Hypoglycemia Famotidine 20 mg 10/30/18 10:00 11/07/18 09:30 Pepcid IV 20 mg BID CHRISTINE Administration Heparin Sodium (Porcine) 5,000 unit 10/30/18 06:00 11/07/18 05:19 Heparin SUB-Q 5,000 unit Q8HR CHRISTINE Administration Potassium Chloride/Sodium Chloride 40 meq in 1,000 mls @ 100 mls/hr 11/06/18 07:00 11/07/18 09:29 Ns/Kcl 40meq IV 100 mls/hr DIRECT CHRISTINE Administration Levofloxacin/Dextrose 500 mg in 100 mls @ 100 mls/hr 11/07/18 11:00 Levaquin 500mg/100ml IV Q24HR CHRISTINE Protocol Metronidazole 500 mg in 100 mls @ 100 mls/hr 11/07/18 14:00 Flagyl 500 Mg/100 Ml IV Q8HR [facility] Protocol Ipratropium [place] 0.5 mg 11/07/18 08:00 Atrovent IH TIDRT CHRISTINE Levalbuterol HCl 0.63 mg 11/07/18 08:00 11/07/18 08:01 Xopenex IH 0.63 mg TID CHRISTINE Administration Lorazepam 2 mg 11/01/18 10:45 11/05/18 00:29 Ativan IV 2 mg Q1HR PRN Administration CIWA-Ar 8-15 Lorazepam 4 mg 11/01/18 10:45 11/02/18 02:59 Ativan IV 4 mg Q1HR PRN Administration CIWA-Ar 16-25 Lorazepam 4 mg 11/01/18 10:45 Ativan IV Q15MIN PRN CIWA-Ar >25 Magnesium Oxide 400 mg 11/07/18 10:00 Mag-Ox PO QDAY [facility] Morphine Sulfate 2 mg 11/02/18 23:07 11/07/18 10:41 Morphine IV 2 mg Q4H PRN Administration Pain, Moderate (4-6) Ondansetron HCl 4 mg 10/29/18 23:49 Zofran IV Q4H PRN Nausea And Vomiting Phenol 1 spray 11/03/18 14:43 11/03/18 20:22 Chloraseptic MM 1 spray PRN PRN Administration Sore Throat Potassium Chloride 40 meq 11/07/18 10:00 11/07/18 09:30 K-Dur PO 40 meq QDAY CHRISTINE Administration Sodium Chloride 10 ml 10/30/18 10:00 11/07/18 09:31 Sodium Chloride Flush Syringe 10 Ml IV 10 ml BID CHRISTINE Administration Sodium Chloride 10 ml 10/29/18 23:49 11/06/18 21:57 Sodium Chloride Flush Syringe 10 Ml IV 10 ml PRN PRN Administration LINE FLUSH Sodium Hypochlorite 1 applic 11/07/18 10:57 Dakin's Half Strength TP Q12H PRN Wound Care Nutrition/Malnutrition Assess - Dietary Evaluation Nutrition/Malnutrition Findings: Nutrition Notes Start: 10/30/18 15:07 Freq: Status: Active Protocol: Document 11/06/18 14:47 LAMAR (Rec: 11/06/18 14:54 LAMAR [email or web address]) Nutrition Notes Need for Assessment generated from: MD Order Initial or Follow up Reassessment Current Diagnosis Small Bowel Obstruction Other Pertinent Diagnosis EtOH dependence, cecal volvulus s/p hemicolectomy Current Diet NPO Labs/Tests K 2.9 Cl 113 CO2 - 20 Phos 1.7 Mg 1.6 PAB 0.03 Pertinent Medications 30mmol KPhos x 1 dose Mag sulfate x 1 dose NS + 40mEq KCl at 100ml/hr Height 5 ft Weight 49.9 kg Adams Body Weight (kg) 45.45 BMI 21.4 Subjective/Other Information RD consulted for TPN. Per surgeon's note on 11/05/18, will consider PN if PO intake does not improve over the next 2-3 days, however, diet changed to NPO for lunch today . Per JERED montgomery, pt had been drinking ONS brought by family , but not eating much of pureed diet. Pt with several electrolyte abnormalities at this time. Burn Absent Trauma Absent #1 Nutrition Diagnosis Inadequate oral intake Diagnosis Progress(for reassessment Continues documentation) Is patient on ventilator? No Is Patient Ambulatory and/or Out of Bed No REE-([place]-St. Jeor-confined to bed) 1857.855 Calculation Used for Recommendations [place]-St Jeor Additional Notes Pro needs 1-1.2g/k-60g/ day Fluid needs 1ml/kcal Nutrition Intervention Nutrition Support: Start PPN tomorrow if unable to advance diet Goal #1 Either advance diet or start Ntr support Follow-Up By: 11/07/18 Additional Comments F/U: Check electrolytes then start PPN if unable to advance diet
[2018-11-07] MEDS: LASIX IV SCH (12:30)
[2018-11-07] MEDS: LEVAQUIN 500MG/100ML 500 MG/100 ML BAG IV SCH (12:30)
[2018-11-07] MEDS: MAG-OX PO SCH (12:31)
[2018-11-07] MEDS: ATROVENT IH SCH ×2 (14:15→19:56)
[2018-11-07] MEDS ORDERED: XOPENEX IH ONE (14:15)
[2018-11-07] MEDS: FLAGYL 500 MG/100 ML 500 MG/100 ML BAG IV SCH ×2 (14:38→22:38)
[2018-11-07] MEDS ORDERED: TPN ADULT 1,800 ML IV SCH (20:00)
[2018-11-08] MEDS: LASIX IV SCH ×2 (01:00→12:21)
[2018-11-08 05:23] LABS: BUN/Creatinine Ratio 18; Blood Urea Nitrogen 7 mg/dL (7-17); Calcium 8.2 mg/dL (8.4-10.2); Hemolysis Index 4
[2018-11-08] MEDS: FLAGYL 500 MG/100 ML 500 MG/100 ML BAG IV SCH ×3 (05:38→22:07)
[2018-11-08] MEDS: HEPARIN SUB-Q SCH ×3 (05:38→22:06)
[2018-11-08] MEDS: XOPENEX IH SCH ×3 (08:36→21:04)
[2018-11-08] MEDS: ATROVENT IH SCH ×3 (08:37→21:03)
[2018-11-08] MEDS: MORPHINE IV PRN ×3 (08:57→22:28)
[2018-11-08] MEDS: ZOFRAN IV PRN (08:57)
[2018-11-08] MEDS: PEPCID IV SCH ×2 (09:05→22:06)
[2018-11-08] MEDS: K-DUR PO SCH (09:05)
[2018-11-08] MEDS: MAG-OX PO SCH (09:06)
[2018-11-08] MEDS: LEVAQUIN 500MG/100ML 500 MG/100 ML BAG IV SCH (09:06)
[2018-11-08] MEDS: SODIUM CHLORIDE FLUSH SYRINGE 10 ML IV SCH ×2 (10:00→22:08)
--- NOTE | 2018-11-08 11:47 | Progress Note ---
Assessment and Plan Assessment and plan: 62-year-old female with past medical history significant for asthma was brought by her family members for the complaints of shortness was not eating and drinking for the last few days. She has been constantly drinking alcohol. Patient has been complaining that she has abdominal pain. In the emergency department patient was tremulous and was given ativan. CT scan of the abdomen showed high-grade bowel obstruction due to volvulus. Large bowel Obstruction Caecal volvulus sp hemicolectomy - Postop management per general surgery ADAT per GS, TPN ordered per GS Dysphagia ST eval appreciated, advance to pureed diet Thrombocytopenia, ?HIT - Patient platelet count is getting better - Hematology oncology consulted and following Alcohol withdrawal DT - On CIWA protocol Acute renal failure - resolved with IVF Electrolyte derangements; which include hyperkalemia, hypocalcemia and hypomagnesemia - Repleted Acute respiratory failure - patient extubated and saturating well on [place] oxygen DVT prophylaxis - On SCDs History Interval history: Review of systems Constitutional: No fevers, no malaise, no joint pains CVS: No chest pain, no orthopnea, no dyspnea on exertion, no pedal edema GI: Abdominal pain is improved, no diarrhea, no vomiting, no constipation Respiratory: No shortness of breath, no wheezing, no coughing Hospitalist Physical - Physical exam Narrative exam: General.: Appears well, no distress, nontoxic HEENT: Moist mucous membranes, extraocular muscles intact, no lymphadenopathy Neck: supple Cardiac: S1-S2 heard Lungs: clear to auscultation bilaterally Abdomen: soft , nontender, nondistended, bowel sounds positive Extremities: no edema clubbing or cyanosis Skin: no rash or lesions Neurologic: no gross focal deficits Psych: calm, and cooperative - Constitutional Vitals: Temp Pulse Resp BP Pulse Ox 97.6 F 97 H 20 100/70 98 11/08/18 11:31 11/08/18 11:31 11/08/18 11:31 11/08/18 11:31 11/08/18 11:31 Results - Labs CBC & Chem 7: 11/12/18 04:50 11/13/18 01:35 Labs: Laboratory Last Values WBC 12.0 K/mm3 (4.5-11.0) H 11/07/18 06:02 RBC 2.95 M/mm3 (3.65-5.03) L 11/07/18 06:02 Hgb 10.1 gm/dl (10.1-14.3) 11/07/18 06:02 Hct 29.7 % (30.3-42.9) L 11/07/18 06:02 MCV 101 fl (79-97) H 11/07/18 06:02 MCH 34 pg (28-32) H 11/07/18 06:02 MCHC 34 % (30-34) 11/07/18 06:02 RDW 13.0 % (13.2-15.2) L 11/07/18 06:02 Plt Count 283 K/mm3 (140-440) 11/07/18 06:02 Lymph % (Auto) 4.9 % (13.4-35.0) L 11/07/18 06:02 Hinds % (Auto) 9.3 % (0.0-7.3) H 11/07/18 06:02 Eos % (Auto) 0.1 % (0.0-4.3) 11/07/18 06:02 Baso % (Auto) 0.1 % (0.0-1.8) 11/07/18 06:02 Lymph # 0.6 K/mm3 (1.2-5.4) L 11/07/18 06:02 Hinds # 1.1 K/mm3 (0.0-0.8) H 11/07/18 06:02 Eos # 0.0 K/mm3 (0.0-0.4) 11/07/18 06:02 Baso # 0.0 K/mm3 (0.0-0.1) 11/07/18 06:02 Add Manual Diff Complete 11/03/18 04:09 Total Counted 100 11/03/18 04:09 Seg Neutrophils % 85.6 % (40.0-70.0) H 11/07/18 06:02 Seg Neuts % (Manual) 88.0 % (40.0-70.0) H 11/03/18 04:09 0 % 11/03/18 04:09 1.0 % (13.4-35.0) L 11/03/18 04:09 Reactive Lymphs % (Man) 0 % 11/03/18 04:09 11.0 % (0.0-7.3) H 11/03/18 04:09 0 % (0.0-4.3) 11/03/18 04:09 0 % (0.0-1.8) 11/03/18 04:09 0 % 11/03/18 04:09 0 % 11/03/18 04:09 0 % 11/03/18 04:09 0 % 11/03/18 04:09 Nucleated RBC % Not Reportable 11/03/18 04:09 Seg Neutrophils # 10.3 K/mm3 (1.8-7.7) H 11/07/18 06:02 Seg Neutrophils # Man 11.0 K/mm3 (1.8-7.7) H 11/03/18 04:09 Band Neutrophils # 0.0 K/mm3 11/03/18 04:09 0.1 K/mm3 (1.2-5.4) L 11/03/18 04:09 Abs React Lymphs (Man) 0.0 K/mm3 11/03/18 04:09 1.4 K/mm3 (0.0-0.8) H 11/03/18 04:09 0.0 K/mm3 (0.0-0.4) 11/03/18 04:09 0.0 K/mm3 (0.0-0.1) 11/03/18 04:09 0.0 K/mm3 11/03/18 04:09 0.0 K/mm3 11/03/18 04:09 0.0 K/mm3 11/03/18 04:09 Blast Cells # 0.0 K/mm3 11/03/18 04:09 WBC Morphology Not Reportable 11/03/18 04:09 Hypersegmented Neuts Not Reportable 11/03/18 04:09 Hyposegmented Neuts Not Reportable 11/03/18 04:09 Hypogranular Neuts Not Reportable 11/03/18 04:09 Not Reportable 11/03/18 04:09 Not Reportable 11/03/18 04:09 Not Reportable 11/03/18 04:09 Not Reportable 11/03/18 04:09 Not Reportable 11/03/18 04:09 Not Reportable 11/03/18 04:09 Consistent w auto 11/03/18 04:09 Not Reportable 11/03/18 04:09 Plt Clumps, EDTA Not Reportable 11/03/18 04:09 1+ 11/03/18 04:09 Not Reportable 11/03/18 04:09 Not Reportable 11/03/18 04:09 Plt Morphology Comment Not Reportable 11/03/18 04:09 RBC Morphology Normal 11/03/18 04:09 Dimorphic RBCs Not Reportable 11/03/18 04:09 Not Reportable 11/03/18 04:09 Not Reportable 11/03/18 04:09 Not Reportable 11/03/18 04:09 Not Reportable 11/03/18 04:09 Not Reportable 11/03/18 04:09 Not Reportable 11/03/18 04:09 Not Reportable 11/03/18 04:09 Not Reportable 11/03/18 04:09 Not Reportable 11/03/18 04:09 Not Reportable 11/03/18 04:09 Not Reportable 11/03/18 04:09 Not Reportable 11/03/18 04:09 Not Reportable 11/03/18 04:09 Not Reportable 11/03/18 04:09 Not Reportable 11/03/18 04:09 Not Reportable 11/03/18 04:09 Not Reportable 11/03/18 04:09 Not Reportable 11/03/18 04:09 Not Reportable 11/03/18 04:09 Acanthocytes (Spur) Not Reportable 11/03/18 04:09 Rouleaux Not Reportable 11/03/18 04:09 Not Reportable 11/03/18 04:09 Not Reportable 11/03/18 04:09 Not Reportable 11/03/18 04:09 Not Reportable 11/03/18 04:09 Hem Pathologist Commnt No 11/03/18 04:09 PT 16.3 Sec. (12.2-14.9) H 10/31/18 04:57 INR 1.23 (0.87-1.13) H 10/31/18 04:57 POC ABG pH 7.299 (7.35-7.45) L 11/01/18 04:03 POC ABG pCO2 30.3 (35-45) L 11/01/18 04:03 POC ABG pO2 67 (80-105) L 11/01/18 04:03 POC ABG HCO3 14.9 (22-26 mml/L) 11/01/18 04:03 POC ABG Total CO2 16 (23-27mmol/L) 11/01/18 04:03 POC ABG O2 Sat 91 11/01/18 04:03 POC ABG Base Excess -12 ((-2) - (+3)mmol/L) 11/01/18 04:03 30 % 11/01/18 04:03 Sodium 147 mmol/L (137-145) H 11/08/18 04:10 Potassium 3.1 mmol/L (3.6-5.0) L 11/08/18 04:10 Chloride 114.9 mmol/L (98-107) H 11/08/18 04:10 Carbon Dioxide 25 mmol/L (22-30) 11/08/18 04:10 10 mmol/L 11/08/18 04:10 BUN 7 mg/dL (7-17) 11/08/18 04:10 0.4 mg/dL (0.7-1.2) L 11/08/18 04:10 Estimated GFR > 60 ml/min 11/08/18 04:10 18 % 11/08/18 04:10 Glucose 116 mg/dL (65-100) H 11/08/18 04:10 POC Glucose 114 (70-105) H 11/08/18 00:15 Lactic Acid 1.00 mmol/L (0.7-2.0) 10/30/18 04:34 Calcium 8.2 mg/dL (8.4-10.2) L 11/08/18 04:10 Phosphorus 2.30 mg/dL (2.5-4.5) L 11/08/18 04:10 Magnesium 1.70 mg/dL (1.7-2.3) 11/08/18 04:10 0.80 mg/dL (0.1-1.2) 11/07/18 06:02 AST 21 units/L (5-40) 11/07/18 06:02 ALT 16 units/L (7-56) 11/07/18 06:02 110 units/L (35-129) 11/07/18 06:02 26.0 umol/L (25-60) 10/29/18 22:23 4.7 g/dL (6.3-8.2) L 11/07/18 06:02 1.9 g/dL (3.9-5) L 11/07/18 06:02 0.7 % 11/07/18 06:02 0.030 g/L (0.200-0.400) L 11/06/18 04:05 Triglycerides 65 mg/dL (2-149) 11/02/18 05:04 14 units/L (13-60) 10/29/18 18:43 Vitamin B12 1966 pg/mL (211-911) H 10/31/18 04:57 12.21 ng/mL (7.3-26.0) 10/31/18 04:57 TSH 8.610 mlU/mL (0.270-4.200) H 10/29/18 17:45 Free T4 1.06 ng/dL (0.76-1.46) 10/30/18 17:17 Free T3 Index 1.1 pg/mL (2.3-4.2) L 10/30/18 17:17 Plasma/Serum Alcohol < 0.01 % (0-0.07) 10/29/18 17:45 Group A Strep Rapid Negative (Negative) 10/29/18 19:28 Flexitest 1 10/31/18 08:05 Blood Type B POSITIVE 10/29/18 23:48 Antibody Screen TNR 10/29/18 23:48 ALEC Antibody Screen Negative 10/29/18 23:48 Active Medications - Current Medications Current Medications: Generic Name Dose Route Start Last Admin Trade Name Freq PRN Reason Stop Dose Admin Acetaminophen 650 mg 10/29/18 23:49 Tylenol [place] Q4H PRN Pain MILD(1-3)/Fever >100.5/DAMON Acetaminophen/Hydrocodone Bitart 1 each 11/03/18 11:55 11/04/18 12:21 [place] 5/325 PO 1 each Q6H PRN Administration Pain, Moderate (4-6) Albuterol 2.5 mg 11/03/18 20:55 Proventil IH Q4HRT PRN Shortness Of Breath Dextrose 50 ml 10/31/18 07:36 10/31/18 07:45 D50w (25gm) Syringe IV 50 ml PRN PRN Administration Hypoglycemia Famotidine 20 mg 10/30/18 10:00 11/08/18 09:05 Pepcid IV 20 mg BID CHRISTINE Administration Furosemide 40 mg 11/07/18 12:00 11/08/18 01:00 Lasix IV 11/09/18 00:01 40 mg Q12H CHRISTINE Administration Heparin Sodium (Porcine) 5,000 unit 10/30/18 06:00 11/08/18 05:38 Heparin SUB-Q 5,000 unit Q8HR CHRISTINE Administration Levofloxacin/Dextrose 500 mg in 100 mls @ 100 mls/hr 11/07/18 11:00 11/08/18 09:06 Levaquin 500mg/100ml IV 100 mls/hr Q24HR CHRISTINE Administration Protocol Metronidazole 500 mg in 100 mls @ 100 mls/hr 11/07/18 14:00 11/08/18 05:38 Flagyl 500 Mg/100 Ml IV 100 mls/hr Q8HR CHRISTINE Administration Protocol Amino Acids/Electrolytes/Dextrose 1,800 mls @ 75 mls/hr 11/07/18 20:00 11/07/18 22:39 Tpn Adult IV 11/08/18 19:59 75 mls/hr DAILY@2000 CHRISTINE Administration Protocol Ipratropium [place] 0.5 mg 11/07/18 08:00 11/08/18 08:37 Atrovent IH 0.5 mg TIDRT CHRISTINE Administration Levalbuterol HCl 0.63 mg 11/07/18 08:00 11/08/18 08:36 Xopenex IH 0.63 mg TID CHRISTINE Administration Lorazepam 2 mg 11/01/18 10:45 11/05/18 00:29 Ativan IV 2 mg Q1HR PRN Administration CIWA-Ar 8-15 Lorazepam 4 mg 11/01/18 10:45 11/02/18 02:59 Ativan IV 4 mg Q1HR PRN Administration CIWA-Ar 16-25 Lorazepam 4 mg 11/01/18 10:45 Ativan IV Q15MIN PRN CIWA-Ar >25 Magnesium Oxide 400 mg 11/07/18 10:00 11/08/18 09:06 Mag-Ox PO 400 mg QDAY CHRISTINE Administration Morphine Sulfate 2 mg 11/02/18 23:07 11/08/18 08:57 Morphine IV 2 mg Q4H PRN Administration Pain, Moderate (4-6) Ondansetron HCl 4 mg 10/29/18 23:49 11/08/18 08:57 Zofran IV 4 mg Q4H PRN Administration Nausea And Vomiting Phenol 1 spray 11/03/18 14:43 11/03/18 20:22 Chloraseptic MM 1 spray PRN PRN Administration Sore Throat Potassium Chloride 40 meq 11/07/18 10:00 11/08/18 09:05 K-Dur PO 40 meq QDAY CHRISTINE Administration Sodium Chloride 10 ml 10/30/18 10:00 11/07/18 22:40 Sodium Chloride Flush Syringe 10 Ml IV 10 ml BID CHRISTINE Administration Sodium Chloride 10 ml 10/29/18 23:49 11/06/18 21:57 Sodium Chloride Flush Syringe 10 Ml IV 10 ml PRN PRN Administration LINE FLUSH Sodium Hypochlorite 1 applic 11/07/18 10:57 Dakin's Half Strength TP Q12H PRN Wound Care Sodium Phosphate 250 mg 11/08/18 14:00 K-Phos Neutral PO QID CHRISTINE Nutrition/Malnutrition Assess - Dietary Evaluation Nutrition/Malnutrition Findings: Nutrition Notes Start: 10/30/18 15:07 Freq: Status: Active Protocol: Document 11/07/18 14:51 RM (Rec: 11/07/18 15:02 RM [email or web address]) Nutrition Notes Initial or Follow up Reassessment Current Diagnosis Small Bowel Obstruction Other Pertinent Diagnosis EtOH dependence, cecal volvulus s/p hemicolectomy Current Diet Pureed Labs/Tests Na 147 P 2.5 K 3.4 Cl 114.6 Mg 1.6 Pertinent Medications K-Dur 40 meq Height 5 ft Weight 49.9 kg [place] Body Weight (kg) 45.45 BMI 21.4 Subjective/Other Information Pt and pt daughter in room at time of visit. Pt daughter stated that pt has not been eating the pureed diet d/t disliking it and requested 2 Ensure Enlive per meal. Burn Absent Trauma Absent #1 Nutrition Diagnosis Inadequate oral intake Diagnosis Progress(for reassessment Continues documentation) Is patient on ventilator? No Is Patient Ambulatory and/or Out of Bed No REE-([facility]-confined to bed) 1187.856 Kcal/Kg value to use for calculation 27 Approximate Energy Requirements Using 1347 kcal/Kg Calculation Used for Recommendations [facility] Additional Notes Pro needs 1-1.2g/k-60g/ day Fluid needs 1ml/kcal Nutrition Intervention Nutrition Support: PPN at 75 ml/hr: 6% dextrose, 2.8% AA, 0 mEq Na, 80 mEq K, 18 mEq Mg, 5 mEq Ca, 20 mmol P , Cl/Acetate: 0/100, MVI, MTE, Thiamine Add Supplement/Snack (indicate name/kcal 2 Ensure Enlive w/each meal /protein ) Provides kCal: 2,800 Provides Protein (gm) 160 Goal #1 PPN + diet + ONS to meet needs as best possible Anticipated Discharge Needs: Unable to determine at this time Follow-Up By: 11/08/18 Additional Comments Follow for labs in AM: BMP, Mg , P
[2018-11-08] MEDS: K-PHOS NEUTRAL PO SCH ×3 (14:22→22:08)
--- NOTE | 2018-11-08 14:52 | Consultation ---
History of Present Illness - Reason for Consult Consult date: 11/08/18 surgical wound infection Requesting physician: SERAFIN BOWERS - History of Present Illness 62 y/o female with history of ETOH intake of admitted on 10/29/2018 due to anorexia, abdominal pain and not moving her bowels. In the ED low fever 100.[address] scan shows cecal volvulus, high grade bowel obstruction, and portal venous air. She is s/p Exploratory laparotomy, reduction of internal hernia, rig ht hemicolectomy with primary ileocolonic anastamosis on 10/30/2018. Was intubated post op then extubated. Repeat CT abdomem shows moderately large bilateral pleural effusions. Small amount of ascites. Distended gallbladder with possible small gallstone. Bowel dilatation that likely represents an ileus. Distal small bowel obstruction not excluded however. Subcutaneous fluid collection beneath the surgical incision. Last 2-3 days wbc went slightly up. Surgical wound draining and dehiscent. Wound cultures growing GNR, ID consulted Review of Systems: General: no fever, chills, no malaise Cutaneous: no rash, pruritus Head: no headaches or injury Eyes: no changes in vision, eye pain, double vision Ears: no ear pain, ear discharge, ringing or hearing loss Nose: no nose bleeding, stuffiness Mouth & throat: no bleeding gums, no horseness, no dental problems, or swollen glands Neck: no pain, node enlargement/lumps, tyroid enlargement or tenderness Respiratory: no cough, wheezing, sputum, hemoptysis, pleuritic chest pain Cardiovascular: no chest pain, leg edema, cyanosis, ADAMS, orthopnea Musculoskeletal: no edema Gastrointestinal: +nausea, +abdominal pain, no vomiting, no hematemesis, diarrhea, constipation, melena, bright red blood in stools, fecal incontinence, jaundice Genitourinary/Reproductive: + frequent urination, dysuria, hematuria, incontinence Neurogical: no seizures, no headaches, no weakness, no paresthesias, no loss of speech or vision; no memory loss, no vertigo, no tremors, no numbness Psychiatric: stable mood; no excessive anxiety, sadness or moodiness Past History Past Medical History: No medical history Past Surgical History: No surgical history Social history: alcohol abuse Family history: no significant family history Medications and Allergies Allergies Allergy/AdvReac Type Severity Reaction Status Date / Time No Known Allergies Allergy Verified 10/29/18 17:40 Home Medications Medication Instructions Recorded Confirmed Last Taken Type Famotidine [Pepcid] 20 mg PO BID #30 tablet 04/10/17 Unknown Rx Active Meds: Active Medications Acetaminophen (Tylenol) 650 mg [place] Q4H PRN PRN Reason: Pain MILD(1-3)/Fever >100.5/DAMON Acetaminophen/Hydrocodone Bitart ([place] 5/325) 1 each PO Q6H PRN PRN Reason: Pain, Moderate (4-6) Last Admin: 11/04/18 12:21 Dose: 1 each Documented by: Albuterol (Proventil) 2.5 mg IH Q4HRT PRN PRN Reason: Shortness Of Breath Dextrose (D50w (25gm) Syringe) 50 ml IV PRN PRN PRN Reason: Hypoglycemia Last Admin: 10/31/18 07:45 Dose: 50 ml Documented by: Famotidine (Pepcid) 20 mg IV BID CHRISTINE Last Admin: 11/08/18 09:05 Dose: 20 mg Documented by: Furosemide (Lasix) 40 mg IV Q12H CHRISTINE Stop: 11/09/18 00:01 Last Admin: 11/08/18 01:00 Dose: 40 mg Documented by: Heparin Sodium (Porcine) (Heparin) 5,000 unit SUB-Q Q8HR CHRISTINE Last Admin: 11/08/18 05:38 Dose: 5,000 unit Documented by: Levofloxacin/Dextrose (Levaquin 500mg/100ml) 500 mg in 100 mls @ 100 mls/hr IV Q24HR CHRISTINE; Protocol Last Admin: 11/08/18 09:06 Dose: 100 mls/hr Documented by: Metronidazole (Flagyl 500 Mg/100 Ml) 500 mg in 100 mls @ 100 mls/hr IV Q8HR CHRISTINE; Protocol Last Admin: 11/08/18 05:38 Dose: 100 mls/hr Documented by: Amino Acids/Electrolytes/Dextrose (Tpn Adult) 1,800 mls @ 75 mls/hr IV DAILY@1999 CHRISTINE; Protocol Stop: 11/08/18 19:59 Last Admin: 11/07/18 22:39 Dose: 75 mls/hr Documented by: Amino Acids/Electrolytes/Dextrose (Tpn Adult) 1,800 mls @ 75 mls/hr IV DAILY@1999 CHRISTINE; Protocol Stop: 11/09/18 19:59 Ipratropium [place] (Atrovent) 0.5 mg IH TIDRT [facility] Last Admin: 11/08/18 08:37 Dose: 0.5 mg Documented by: Levalbuterol HCl (Xopenex) 0.63 mg IH TID [facility] Last Admin: 11/08/18 08:36 Dose: 0.63 mg Documented by: Lorazepam (Ativan) 2 mg IV Q1HR PRN PRN Reason: CIWA-Ar 8-15 Last Admin: 11/05/18 00:29 Dose: 2 mg Documented by: Lorazepam (Ativan) 4 mg IV Q1HR PRN PRN Reason: CIWA-Ar 16-25 Last Admin: 11/02/18 02:59 Dose: 4 mg Documented by: Lorazepam (Ativan) 4 mg IV Q15MIN PRN PRN Reason: CIWA-Ar >25 Magnesium Oxide (Mag-Ox) 400 mg PO QDAY [facility] Last Admin: 11/08/18 09:06 Dose: 400 mg Documented by: Morphine Sulfate (Morphine) 2 mg IV Q4H PRN PRN Reason: Pain, Moderate (4-6) Last Admin: 11/08/18 12:46 Dose: 2 mg Documented by: Ondansetron HCl (Zofran) 4 mg IV Q4H PRN PRN Reason: Nausea And Vomiting Last Admin: 11/08/18 08:57 Dose: 4 mg Documented by: Phenol (Chloraseptic) 1 spray MM PRN PRN PRN Reason: Sore Throat Last Admin: 11/03/18 20:22 Dose: 1 spray Documented by: Potassium Chloride (K-Dur) 40 meq PO QDAY [facility] Last Admin: 11/08/18 09:05 Dose: 40 meq Documented by: Sodium Chloride (Sodium Chloride Flush Syringe 10 Ml) 10 ml IV BID [facility] Last Admin: 11/07/18 22:40 Dose: 10 ml Documented by: Sodium Chloride (Sodium Chloride Flush Syringe 10 Ml) 10 ml IV PRN PRN PRN Reason: LINE FLUSH Last Admin: 11/06/18 21:57 Dose: 10 ml Documented by: Sodium Hypochlorite (Dakin's Half Strength) 1 applic TP Q12H PRN PRN Reason: Wound Care Sodium Phosphate (K-Phos Neutral) 250 mg PO QID [facility] Physical Examination - Physical Exam Narrative exam: General appearance: Alert in NAD NC O2 Eyes: anicteric sclerae, moist conjunctivae; no lid-lag; PERRLA HENT: Atraumatic; oropharynx clear with moist mucous membranes and no mucosal ulcerations/no oral thrush; normal hard and soft palate. Normal external ears. Neck: Trachea midline; supple, no thyromegaly or lymphadenopathy Lungs: CTA decreased BS left CV: RRR no murmur Abdomen: Soft,mild tenderness midline surgical wound with dressing Extremities: no edema, cyanosis Skin: Normal temperature, turgor and texture; no rash, ulcers or subcutaneous nodules Psych: Appropriate affect, alert and oriented to person, place and time. Neuro: alert and oriented x 3. Moving all extermities WOUND CARE CONSULT MIDLINE ABDOMINAL SURGICAL WOUND. WOUND HAS DEHISCED DUE TO INFECTION. PRINCESS STILL INTACT. TWO OPENINGS NOTED. ONE AT THE PROXIMAL END OF WOUND, THE OTHER TOWARD THE CENTER OF THE INCISION. THERE IS STILL A SMALL AMOUT OF PURULENCE NOTED. NO ODOR. CLEANSED WITH WOUND CLEANSER. PACKED WITH DAKINS MOISTENED GAUZE. COVERED WITH 4X4 GAUZE, THEN TELFA. - Constitutional Vitals: Vital Signs Temp Pulse Resp BP Pulse Ox 97.6 F 97 H 20 100/70 98 11/08/18 11:31 11/08/18 11:31 11/08/18 11:31 11/08/18 11:31 11/08/18 11:31 Temperature -Last 24 Hours Temperature 97.6 F Temperature 97.8 F Temperature 97.5 F Temperature 97.4 F Temperature 98.3 F Temperature 98.2 F Results - Labs CBC & Chem 7: 11/07/18 06:02 11/08/18 04:10 Labs: Abnormal lab results 11/08/18 11/08/18 11/08/18 Range/Units 00:15 04:10 04:10 Sodium 147 H (137-145) mmol/L Potassium 3.1 L (3.6-5.0) mmol/L Chloride 114.9 H (98-107) mmol/L Creatinine 0.4 L (0.7-1.2) mg/dL Glucose 116 H (65-100) mg/dL POC Glucose 114 H (70-105) Calcium 8.2 L (8.4-10.2) mg/dL Phosphorus 2.30 L (2.5-4.5) mg/dL Assessment and Plan Cultures: Blood cultures 10/29/2018 no growth Tracheal culture 10/30/2018 usual resp kam Wound culture 11/07/2018 GNR x 2 Assessment: 62 y/o female with history of ETOH intake of admitted on 10/29/2018 due to anorexia, abdominal pain and not moving her bowels; CT scan shows cecal volvulus, high grade bowel obstruction, and portal venous air. s/p Exploratory laparotomy, reduction of internal hernia, right hemicolectomy with primary ileocolonic anastamosis on 10/30/2018. Now with leukocytosis, dehiscent wound, drainage: 1) Leukocytosis: 2) Surgical site infection: dehiscent wound, drainage. Wound cultures growing GNR. Repeat CT abdomem shows subcutaneous fluid collection beneath the surgical incision. 3) Bilateral pleural effusions: tracheal culture + usual resp kam. Recommendations: - follow-up wound cultures - stop levaquin - start cefepime 2 gm IV q12h - continue flagyl - crp Will follow. Sarah Soliman MD [employer]ious Diseases [employer] Fundraising Director [facility] M [phone] O [phone]
--- NOTE | 2018-11-08 15:59 | Progress Note ---
Assessment and Plan 62 yo F s/p Exploratory laparotomy, reduction of internal hernia, right hemicolectomy with primary ileocolonic anastamosis, POD 8 1. cecal volvulus 2. high grade SBO 3. etoh abuse 4. delerium tremens 5. TIERRA 6. VDRF 7. malnutrition 8. multiple electrolyte abnormalities 9. surgical site infection - patient with multiple risk factors Plan: 1. continue diet per speech therapy 2. IVF with KCL 3. TPN per [facility] 4. strict I/Os 5. DVT ppx 6. OOB to chair/PT 7. IV abx, ID consulted 8. wound cultures obtained 9. patient see by wound care today - continue dakins packing BID as ordered, eventual wound vac Please call with questions. Subjective Date of service: 11/08/18 Narrative: Pt seen and examined. Tolerating diet but poor appetite because she doesn't like pureed diet. No f/c. Objective Vital Signs - 12hr 11/08/18 11/08/18 11/08/18 04:40 07:40 11:31 Temperature 97.5 F L 97.8 F 97.6 F Pulse Rate 101 H 99 H 97 H Respiratory 16 20 20 Rate Blood Pressure 100/66 104/77 100/70 O2 Sat by Pulse 100 100 98 Oximetry - General physical appearance Narrative Exam: Gen: Awake and alert. NAD CV: s1, S2+ Resp: even and unlabored Abd: soft, NT, ND. Dressing c/d/i Ext: no c/c/e - Labs 11/07/18 06:02 11/08/18 04:10 Diabetes panel 11/08/18 Range/Units 04:10 Sodium 147 H (137-145) mmol/L Potassium 3.1 L (3.6-5.0) mmol/L Chloride 114.9 H (98-107) mmol/L Carbon Dioxide 25 (22-30) mmol/L BUN 7 (7-17) mg/dL Creatinine 0.4 L (0.7-1.2) mg/dL Glucose 116 H (65-100) mg/dL Calcium 8.2 L (8.4-10.2) mg/dL Calcium panel 11/08/18 11/08/18 Range/Units 04:10 04:10 Calcium 8.2 L (8.4-10.2) mg/dL Phosphorus 2.30 L (2.5-4.5) mg/dL Pituitary panel 11/08/18 Range/Units 04:10 Sodium 147 H (137-145) mmol/L Potassium 3.1 L (3.6-5.0) mmol/L Chloride 114.9 H (98-107) mmol/L Carbon Dioxide 25 (22-30) mmol/L BUN 7 (7-17) mg/dL Creatinine 0.4 L (0.7-1.2) mg/dL Glucose 116 H (65-100) mg/dL Calcium 8.2 L (8.4-10.2) mg/dL Adrenal panel 11/08/18 Range/Units 04:10 Sodium 147 H (137-145) mmol/L Potassium 3.1 L (3.6-5.0) mmol/L Chloride 114.9 H (98-107) mmol/L Carbon Dioxide 25 (22-30) mmol/L BUN 7 (7-17) mg/dL Creatinine 0.4 L (0.7-1.2) mg/dL Glucose 116 H (65-100) mg/dL Calcium 8.2 L (8.4-10.2) mg/dL
[2018-11-08] MEDS: MAXIPIME/NS 2 GM/100 ML 2 GM/100 ML BAG IV SCH (17:34)
[2018-11-08] MEDS ORDERED: TPN ADULT 1,800 ML IV SCH (20:00)
[2018-11-09] MEDS: LASIX IV SCH (01:15)
[2018-11-09] MEDS: MAXIPIME/NS 2 GM/100 ML 2 GM/100 ML BAG IV SCH ×2 (04:41→16:42)
[2018-11-09] MEDS: MORPHINE IV PRN (05:00)
[2018-11-09] MEDS: HEPARIN SUB-Q SCH ×3 (05:02→23:01)
[2018-11-09] MEDS: FLAGYL 500 MG/100 ML 500 MG/100 ML BAG IV SCH ×3 (05:18→23:01)
[2018-11-09 05:36] LABS: BUN/Creatinine Ratio 15; Blood Urea Nitrogen 6 mg/dL (7-17); Calcium 8.1 mg/dL (8.4-10.2); Hemolysis Index 3
[2018-11-09] MEDS: ATROVENT IH SCH ×3 (07:41→21:17)
[2018-11-09] MEDS: XOPENEX IH SCH ×3 (07:41→21:18)
[2018-11-09] MEDS: K-DUR PO SCH (09:50)
[2018-11-09] MEDS: K-PHOS NEUTRAL PO SCH ×4 (09:50→23:28)
[2018-11-09] MEDS: PEPCID IV SCH ×2 (09:50→23:01)
[2018-11-09] MEDS: NORCO 5/325 PO PRN ×2 (09:50→16:24)
[2018-11-09] MEDS: MAG-OX PO SCH (09:50)
[2018-11-09] MEDS: SODIUM CHLORIDE FLUSH SYRINGE 10 ML IV SCH ×3 (09:51→23:08)
[2018-11-09] MEDS: PROTONIX PO SCH (14:42)
--- NOTE | 2018-11-09 15:55 | XRay Report ---
PROCEDURE: XR CHEST 1V AP TECHNIQUE: Chest radiograph single view. HISTORY: sob COMPARISONS: 11/06/2018 . FINDINGS: Persistent moderate bilateral pleural effusions. Right pleural effusion appears slightly smaller. Adjacent lung base opacity may be compressive atelectasis and/or pneumonia. No pneumothorax. Normal cardiac silhouette size without definite vascular congestion. No new focal pulmonary consolidation. No acute displaced fracture. A left venous catheter remains in place with distal tip near the cavoatrial junction region. IMPRESSION: Moderate bilateral pleural effusions. Right pleural effusion appears slightly smaller. Adjacent lung base opacity may be atelectasis and/or pneumonitis This document is electronically signed by Ramin Aiken MD., November 09 2018 03:53:39 PM ET
--- NOTE | 2018-11-09 16:53 | Progress Note ---
Assessment and Plan 62 yo F s/p Exploratory laparotomy, reduction of internal hernia, right hemicolectomy with primary ileocolonic anastamosis, POD 9 1. cecal volvulus 2. high grade SBO 3. etoh abuse 4. delerium tremens 5. TIERRA 6. VDRF 7. malnutrition 8. multiple electrolyte abnormalities 9. surgical site infection - patient with multiple risk factors Wound cultures - ecoli, klebsiella, reji Plan: 1. continue diet per speech therapy 2. NS 500cc bolus x 1 for low BP 3. 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 strict I/Os 5. DVT ppx 6. OOB to chair/PT 7. IV abx, ID consulted 8. continue BID packing changes to wound - wound vac to be placed on Sunday by field pipelines supervisor Please call with questions. Subjective Date of service: 11/09/18 Narrative: Pt seen and examined. States she is doing well. Tends to have low BP after getting morphine IV per RN. + BM. No f/c. Tolerating diet but does not like pur eed food. Objective Vital Signs - 12hr 11/09/18 11/09/18 11/09/18 07:42 07:43 07:52 Temperature 87.8 F L Pulse Rate 81 Pulse Rate [ 88 89 Throughout] Respiratory 18 Rate Respiratory 18 18 Rate [ Throughout] Blood Pressure Blood Pressure 90/59 [Right] O2 Sat by Pulse 100 95 Oximetry 11/09/18 11/09/18 11:53 16:20 Temperature 98.3 F 98.3 F Pulse Rate 102 H 96 H Pulse Rate [ Throughout] Respiratory 18 19 Rate Respiratory Rate [ Throughout] Blood Pressure 94/63 91/62 Blood Pressure [Right] O2 Sat by Pulse 98 95 Oximetry - General physical appearance Narrative Exam: Gen; Awake and alert. NAD CV: s1, S2+ Resp: even and unlabored Abd: soft, ND, + periincisional TTP. no r/r/g. Incision with packing in place. Wound bed pink with some slough. No further purulent drainage or odor. Coversite dressing c/d/i Ext: no c/c/e - Labs 11/07/18 06:02 11/09/18 04:45 Diabetes panel 11/09/18 Range/Units 04:45 Sodium 143 (137-145) mmol/L Potassium 3.4 L (3.6-5.0) mmol/L Chloride 107.2 H (98-107) mmol/L Carbon Dioxide 26 (22-30) mmol/L BUN 6 L (7-17) mg/dL Creatinine 0.4 L (0.7-1.2) mg/dL Glucose 106 H (65-100) mg/dL Calcium 8.1 L (8.4-10.2) mg/dL Calcium panel 11/09/18 Range/Units 04:45 Calcium 8.1 L (8.4-10.2) mg/dL Phosphorus 2.10 L (2.5-4.5) mg/dL Pituitary panel 11/09/18 Range/Units 04:45 Sodium 143 (137-145) mmol/L Potassium 3.4 L (3.6-5.0) mmol/L Chloride 107.2 H (98-107) mmol/L Carbon Dioxide 26 (22-30) mmol/L BUN 6 L (7-17) mg/dL Creatinine 0.4 L (0.7-1.2) mg/dL Glucose 106 H (65-100) mg/dL Calcium 8.1 L (8.4-10.2) mg/dL Adrenal panel 11/09/18 Range/Units 04:45 Sodium 143 (137-145) mmol/L Potassium 3.4 L (3.6-5.0) mmol/L Chloride 107.2 H (98-107) mmol/L Carbon Dioxide 26 (22-30) mmol/L BUN 6 L (7-17) mg/dL Creatinine 0.4 L (0.7-1.2) mg/dL Glucose 106 H (65-100) mg/dL Calcium 8.1 L (8.4-10.2) mg/dL
[2018-11-09] MEDS ORDERED: NACL 0.9% 500 ML 500 ML IV ONE (17:00)
[2018-11-09] MEDS ORDERED: TPN ADULT 1,800 ML IV SCH (20:00)
[2018-11-10] MEDS: MAXIPIME/NS 2 GM/100 ML 2 GM/100 ML BAG IV SCH ×2 (05:31→16:06)
[2018-11-10] MEDS: HEPARIN SUB-Q SCH ×3 (05:31→22:10)
[2018-11-10] MEDS: FLAGYL 500 MG/100 ML 500 MG/100 ML BAG IV SCH ×3 (05:33→22:10)
[2018-11-10 06:36] LABS: BUN/Creatinine Ratio 17; Blood Urea Nitrogen 5 mg/dL (7-17); Hemolysis Index 18
[2018-11-10] MEDS: ATROVENT IH SCH ×3 (11:00→21:53)
[2018-11-10] MEDS: XOPENEX IH SCH ×3 (11:01→21:53)
--- NOTE | 2018-11-10 11:04 | Progress Note ---
Assessment and Plan Assessment and plan: 62-year-old female with past medical history significant for asthma was brought by her family members for the complaints of shortness was not eating and drinking for the last few days. She has been constantly drinking alcohol. Patient has been complaining that she has abdominal pain. In the emergency department patient was tremulous and was given ativan. CT scan of the abdomen showed high-grade bowel obstruction due to volvulus. Large bowel Obstruction Caecal volvulus sp hemicolectomy - Postop management per general surgery ADAT per GS, TPN ordered per GS Dysphagia ST eval appreciated, advance to pureed diet Thrombocytopenia, ?HIT - Patient platelet count is getting better - Hematology oncology consulted and following Alcohol withdrawal DT - On CIWA protocol Acute renal failure - resolved with IVF Electrolyte derangements; which include hyperkalemia, hypocalcemia and hypomagnesemia - Repleted Acute respiratory failure - patient extubated and saturating well on [place] oxygen DVT prophylaxis - On SCDs History Interval history: Review of systems Constitutional: No fevers, no malaise, no joint pains CVS: No chest pain, no orthopnea, no dyspnea on exertion, no pedal edema GI: Abdominal pain is improved, no diarrhea, no vomiting, no constipation Respiratory: No shortness of breath, no wheezing, no coughing Hospitalist Physical - Physical exam Narrative exam: General.: Appears well, no distress, nontoxic HEENT: Moist mucous membranes, extraocular muscles intact, no lymphadenopathy Neck: supple Cardiac: S1-S2 heard Lungs: clear to auscultation bilaterally Abdomen: soft , nontender, nondistended, bowel sounds positive Extremities: no edema clubbing or cyanosis Skin: no rash or lesions Neurologic: no gross focal deficits Psych: calm, and cooperative - Constitutional Vitals: Temp Pulse Resp BP Pulse Ox 97.7 F 100 H 20 93/61 97 11/10/18 09:15 11/10/18 09:15 11/10/18 04:36 11/10/18 09:15 11/10/18 10:00 Results - Labs CBC & Chem 7: 11/12/18 04:50 11/13/18 01:35 Labs: Laboratory Last Values WBC 12.0 K/mm3 (4.5-11.0) H 11/07/18 06:02 RBC 2.95 M/mm3 (3.65-5.03) L 11/07/18 06:02 Hgb 10.1 gm/dl (10.1-14.3) 11/07/18 06:02 Hct 29.7 % (30.3-42.9) L 11/07/18 06:02 MCV 101 fl (79-97) H 11/07/18 06:02 MCH 34 pg (28-32) H 11/07/18 06:02 MCHC 34 % (30-34) 11/07/18 06:02 RDW 13.0 % (13.2-15.2) L 11/07/18 06:02 Plt Count 283 K/mm3 (140-440) 11/07/18 06:02 Lymph % (Auto) 4.9 % (13.4-35.0) L 11/07/18 06:02 Eddy % (Auto) 9.3 % (0.0-7.3) H 11/07/18 06:02 Eos % (Auto) 0.1 % (0.0-4.3) 11/07/18 06:02 Baso % (Auto) 0.1 % (0.0-1.8) 11/07/18 06:02 Lymph # 0.6 K/mm3 (1.2-5.4) L 11/07/18 06:02 Eddy # 1.1 K/mm3 (0.0-0.8) H 11/07/18 06:02 Eos # 0.0 K/mm3 (0.0-0.4) 11/07/18 06:02 Baso # 0.0 K/mm3 (0.0-0.1) 11/07/18 06:02 Add Manual Diff Complete 11/03/18 04:09 Total Counted 100 11/03/18 04:09 Seg Neutrophils % 85.6 % (40.0-70.0) H 11/07/18 06:02 Seg Neuts % (Manual) 88.0 % (40.0-70.0) H 11/03/18 04:09 0 % 11/03/18 04:09 1.0 % (13.4-35.0) L 11/03/18 04:09 Reactive Lymphs % (Man) 0 % 11/03/18 04:09 11.0 % (0.0-7.3) H 11/03/18 04:09 0 % (0.0-4.3) 11/03/18 04:09 0 % (0.0-1.8) 11/03/18 04:09 0 % 11/03/18 04:09 0 % 11/03/18 04:09 0 % 11/03/18 04:09 0 % 11/03/18 04:09 Nucleated RBC % Not Reportable 11/03/18 04:09 Seg Neutrophils # 10.3 K/mm3 (1.8-7.7) H 11/07/18 06:02 Seg Neutrophils # Man 11.0 K/mm3 (1.8-7.7) H 11/03/18 04:09 Band Neutrophils # 0.0 K/mm3 11/03/18 04:09 0.1 K/mm3 (1.2-5.4) L 11/03/18 04:09 Abs React Lymphs (Man) 0.0 K/mm3 11/03/18 04:09 1.4 K/mm3 (0.0-0.8) H 11/03/18 04:09 0.0 K/mm3 (0.0-0.4) 11/03/18 04:09 0.0 K/mm3 (0.0-0.1) 11/03/18 04:09 0.0 K/mm3 11/03/18 04:09 0.0 K/mm3 11/03/18 04:09 0.0 K/mm3 11/03/18 04:09 Blast Cells # 0.0 K/mm3 11/03/18 04:09 WBC Morphology Not Reportable 11/03/18 04:09 Hypersegmented Neuts Not Reportable 11/03/18 04:09 Hyposegmented Neuts Not Reportable 11/03/18 04:09 Hypogranular Neuts Not Reportable 11/03/18 04:09 Not Reportable 11/03/18 04:09 Not Reportable 11/03/18 04:09 Not Reportable 11/03/18 04:09 Not Reportable 11/03/18 04:09 Not Reportable 11/03/18 04:09 Not Reportable 11/03/18 04:09 Consistent w auto 11/03/18 04:09 Not Reportable 11/03/18 04:09 Plt Clumps, EDTA Not Reportable 11/03/18 04:09 1+ 11/03/18 04:09 Not Reportable 11/03/18 04:09 Not Reportable 11/03/18 04:09 Plt Morphology Comment Not Reportable 11/03/18 04:09 RBC Morphology Normal 11/03/18 04:09 Dimorphic RBCs Not Reportable 11/03/18 04:09 Not Reportable 11/03/18 04:09 Not Reportable 11/03/18 04:09 Not Reportable 11/03/18 04:09 Not Reportable 11/03/18 04:09 Not Reportable 11/03/18 04:09 Not Reportable 11/03/18 04:09 Not Reportable 11/03/18 04:09 Not Reportable 11/03/18 04:09 Not Reportable 11/03/18 04:09 Not Reportable 11/03/18 04:09 Not Reportable 11/03/18 04:09 Not Reportable 11/03/18 04:09 Not Reportable 11/03/18 04:09 Not Reportable 11/03/18 04:09 Not Reportable 11/03/18 04:09 Not Reportable 11/03/18 04:09 Not Reportable 11/03/18 04:09 Not Reportable 11/03/18 04:09 Not Reportable 11/03/18 04:09 Acanthocytes (Spur) Not Reportable 11/03/18 04:09 Rouleaux Not Reportable 11/03/18 04:09 Not Reportable 11/03/18 04:09 Not Reportable 11/03/18 04:09 Not Reportable 11/03/18 04:09 Not Reportable 11/03/18 04:09 Hem Pathologist Commnt No 11/03/18 04:09 PT 16.3 Sec. (12.2-14.9) H 10/31/18 04:57 INR 1.23 (0.87-1.13) H 10/31/18 04:57 POC ABG pH 7.299 (7.35-7.45) L 11/01/18 04:03 POC ABG pCO2 30.3 (35-45) L 11/01/18 04:03 POC ABG pO2 67 (80-105) L 11/01/18 04:03 POC ABG HCO3 14.9 (22-26 mml/L) 11/01/18 04:03 POC ABG Total CO2 16 (23-27mmol/L) 11/01/18 04:03 POC ABG O2 Sat 91 11/01/18 04:03 POC ABG Base Excess -12 ((-2) - (+3)mmol/L) 11/01/18 04:03 30 % 11/01/18 04:03 Sodium 137 mmol/L (137-145) 11/10/18 05:47 Potassium 4.1 mmol/L (3.6-5.0) D 11/10/18 05:47 Chloride 103.9 mmol/L (98-107) 11/10/18 05:47 Carbon Dioxide 28 mmol/L (22-30) 11/10/18 05:47 9 mmol/L 11/10/18 05:47 BUN 5 mg/dL (7-17) L 11/10/18 05:47 0.3 mg/dL (0.7-1.2) L 11/10/18 05:47 Estimated GFR > 60 ml/min 11/10/18 05:47 17 % 11/10/18 05:47 Glucose 91 mg/dL (65-100) 11/10/18 05:47 POC Glucose 89 (70-105) 11/10/18 06:00 Lactic Acid 1.00 mmol/L (0.7-2.0) 10/30/18 04:34 Calcium 8.0 mg/dL (8.4-10.2) L 11/10/18 05:47 Phosphorus 2.70 mg/dL (2.5-4.5) D 11/10/18 05:47 Magnesium 1.90 mg/dL (1.7-2.3) 11/10/18 05:47 0.80 mg/dL (0.1-1.2) 11/07/18 06:02 AST 21 units/L (5-40) 11/07/18 06:02 ALT 16 units/L (7-56) 11/07/18 06:02 110 units/L (35-129) 11/07/18 06:02 26.0 umol/L (25-60) 10/29/18 22:23 2.20 mg/dL (0.00-1.30) H 11/08/18 16:21 4.7 g/dL (6.3-8.2) L 11/07/18 06:02 1.9 g/dL (3.9-5) L 11/07/18 06:02 0.7 % 11/07/18 06:02 0.030 g/L (0.200-0.400) L 11/06/18 04:05 Triglycerides 65 mg/dL (2-149) 11/02/18 05:04 14 units/L (13-60) 10/29/18 18:43 Vitamin B12 1966 pg/mL (211-911) H 10/31/18 04:57 12.21 ng/mL (7.3-26.0) 10/31/18 04:57 TSH 8.610 mlU/mL (0.270-4.200) H 10/29/18 17:45 Free T4 1.06 ng/dL (0.76-1.46) 10/30/18 17:17 Free T3 Index 1.1 pg/mL (2.3-4.2) L 10/30/18 17:17 Plasma/Serum Alcohol < 0.01 % (0-0.07) 10/29/18 17:45 Group A Strep Rapid Negative (Negative) 10/29/18 19:28 Flexitest 1 10/31/18 08:05 Blood Type B POSITIVE 10/29/18 23:48 Antibody Screen TNR 10/29/18 23:48 ALEC Antibody Screen Negative 10/29/18 23:48 Active Medications - Current Medications Current Medications: Generic Name Dose Route Start Last Admin Trade Name Freq PRN Reason Stop Dose Admin Acetaminophen 650 mg 10/29/18 23:49 Tylenol OR Q4H PRN Pain MILD(1-3)/Fever >100.5/DAMON Acetaminophen/Hydrocodone Bitart 1 each 11/03/18 11:55 11/09/18 16:24 [place] 5/325 PO 1 each Q6H PRN Administration Pain, Moderate (4-6) Albuterol 2.5 mg 11/03/18 20:55 Proventil IH Q4HRT PRN Shortness Of Breath Dextrose 50 ml 10/31/18 07:36 10/31/18 07:45 D50w (25gm) Syringe IV 50 ml PRN PRN Administration Hypoglycemia Famotidine 20 mg 10/30/18 10:00 11/09/18 23:01 Pepcid IV 20 mg BID CHRISTINE Administration Heparin Sodium (Porcine) 5,000 unit 10/30/18 06:00 11/10/18 05:31 Heparin SUB-Q 5,000 unit Q8HR CHRISTINE Administration Metronidazole 500 mg in 100 mls @ 100 mls/hr 11/07/18 14:00 11/10/18 05:33 Flagyl 500 Mg/100 Ml IV 100 mls/hr Q8HR CHRISTINE Administration Protocol Cefepime HCl 2 gm in 100 mls @ 200 mls/hr 11/08/18 17:00 11/10/18 05:31 Maxipime/Ns 2 Gm/100 Ml IV 200 mls/hr Q12H CHRISTINE Administration Protocol Amino Acids/Electrolytes/Dextrose 1,800 mls @ 75 mls/hr 11/09/18 20:00 11/09/18 23:02 Tpn Adult IV 11/10/18 19:59 75 mls/hr DAILY@2000 CHRISTINE Administration Protocol Ipratropium [place] 0.5 mg 11/07/18 08:00 11/10/18 11:00 Atrovent IH 0.5 mg TIDRT CHRISTINE Administration Levalbuterol HCl 0.63 mg 11/07/18 08:00 11/10/18 11:01 Xopenex IH Not Given TID CHRISTINE Lorazepam 2 mg 11/01/18 10:45 11/05/18 00:29 Ativan IV 2 mg Q1HR PRN Administration CIWA-Ar 8-15 Lorazepam 4 mg 11/01/18 10:45 11/02/18 02:59 Ativan IV 4 mg Q1HR PRN Administration CIWA-Ar 16-25 Lorazepam 4 mg 11/01/18 10:45 Ativan IV Q15MIN PRN CIWA-Ar >25 Morphine Sulfate 2 mg 11/02/18 23:07 11/09/18 05:00 Morphine IV 2 mg Q4H PRN Administration Pain, Moderate (4-6) Ondansetron HCl 4 mg 10/29/18 23:49 11/08/18 08:57 Zofran IV 4 mg Q4H PRN Administration Nausea And Vomiting Pantoprazole Sodium 40 mg 11/09/18 15:00 11/09/18 14:42 Protonix PO 40 mg QDAY CHRISTINE Administration Phenol 1 spray 11/03/18 14:43 11/03/18 20:22 Chloraseptic MM 1 spray PRN PRN Administration Sore Throat Potassium Chloride 40 meq 11/07/18 10:00 11/09/18 09:50 K-Dur PO 40 meq QDAY CHRISTINE Administration Sodium Chloride 10 ml 10/30/18 10:00 11/09/18 23:08 Sodium Chloride Flush Syringe 10 Ml IV 10 ml BID CHRISTINE Administration Sodium Chloride 10 ml 10/29/18 23:49 11/06/18 21:57 Sodium Chloride Flush Syringe 10 Ml IV 10 ml PRN PRN Administration LINE FLUSH Sodium Hypochlorite 1 applic 11/07/18 10:57 Dakin's Half Strength TP Q12H PRN Wound Care Nutrition/Malnutrition Assess - Dietary Evaluation Nutrition/Malnutrition Findings: Nutrition Notes Start: 10/30/18 15:07 Freq: Status: Active Protocol: Document 11/10/18 08:23 LAMAR (Rec: 11/10/18 08:26 FLNAZARIO [email or web address] [email or web address]) Nutrition Notes Initial or Follow up Reassessment Current Diagnosis Small Bowel Obstruction Other Pertinent Diagnosis EtOH dependence, cecal volvulus s/p hemicolectomy Current Diet Pureed + PPN at 75ml/hr Labs/Tests Reviewed Pertinent Medications Reviewed Height 5 ft Weight 49.9 kg [place] Body Weight (kg) 45.45 BMI 21.4 Subjective/Other Information Day 4 PPN. No PO intakes documented, however, pt does not pureed food. Drinks Ensure supplement. Percent of energy/protein needs met: 49% energy 100% pro (from PPN) Burn Absent Trauma Absent #1 Nutrition Diagnosis Inadequate oral intake Diagnosis Progress(for reassessment Continues documentation) Is patient on ventilator? No Is Patient Ambulatory and/or Out of Bed No REE-([facility]-confined to bed) 1187.856 Kcal/Kg value to use for calculation 27 Approximate Energy Requirements Using 1347 kcal/Kg Calculation Used for Recommendations [facility] Additional Notes Pro needs 1-1.2g/k-60g/ day Fluid needs 1ml/kcal Nutrition Intervention Change Diet Order: Continue current diet order Nutrition Support: Continue PPN at 75 ml/hr: MVI, 50mEq Na, 10%/90% chloride/ acetate. Osmolality: 853. Kcal 580 Protein (gm) 60 Carbohydrates (gm) 100 Fat (gm) 0 Fluid (mL) 1,800 Fiber (gm) 0 Add Supplement/Snack (indicate name/kcal Ensure Enlive TID /protein ) Provides kCal: 1,050 Provides Protein (gm) 60 Goal #1 PPN + PO intake to meet at least 75% energy and pro needs Follow-Up By: 11/11/18 Additional Comments Labs in am: BMP, Mg, Phos
[2018-11-10] MEDS: SODIUM CHLORIDE FLUSH SYRINGE 10 ML IV SCH ×2 (12:02→22:10)
[2018-11-10] MEDS: K-DUR PO SCH (12:02)
[2018-11-10] MEDS: PEPCID IV SCH ×2 (12:02→22:10)
[2018-11-10] MEDS: PROTONIX PO SCH (12:02)
--- NOTE | 2018-11-10 13:08 | Progress Note ---
Assessment and Plan 62 yo F s/p Exploratory laparotomy, reduction of internal hernia, right hemicolectomy with primary ileocolonic anastamosis, POD 10 1. cecal volvulus 2. high grade SBO 3. etoh abuse 4. delerium tremens 5. TIERRA 6. VDRF 7. malnutrition 8. multiple electrolyte abnormalities 9. surgical site infection - patient with multiple risk factors Wound cultures - ecoli, klebsiella, reji Plan: 1. continue diet per speech therapy 2. TPN per reception manager 3. prealbumin in am 4. strict I/Os 5. DVT ppx 6. OOB to chair/PT 7. IV abx, ID consulted 8. continue BID packing changes to wound - wound vac to be placed on Sunday by high school foreign language tutor 9. DVT ppx - lovenox and SCDs Patient will benefit from rehab placement upon discharge to help with mobility and deconditioning. Case management on board. Plan discussed with patient and her daughter at the bedside. Please call with questions. Subjective Date of service: 11/10/18 Narrative: Pt seen and examined. Feels well. +Pain at abdominal incision/wound but controlled with pain medications. No n/v. Tolerating diet. No f/c. Has been OOB and standing next to bed. Has not ambulated Objective Vital Signs - 12hr 11/10/18 11/10/18 11/10/18 04:36 08:45 09:15 Temperature 97.9 F 97.7 F Pulse Rate 98 H 100 H Pulse Rate [ 97 H From Monitor] Respiratory 20 Rate Blood Pressure 90/58 93/61 O2 Sat by Pulse 97 100 Oximetry 11/10/18 10:00 Temperature Pulse Rate Pulse Rate [ From Monitor] Respiratory Rate Blood Pressure O2 Sat by Pulse 97 Oximetry - General physical appearance Narrative Exam: Gen; Awake and alert, oriented x3. NAD CV: s1, S2+ Resp: even and unlabored Abd: soft, ND, + periincisional TTP. no r/r/g. Incision with packing in place. Wound bed with some slough. No further purulent drainage or odor. Dressing c/d/i Ext: no c/c/e - Labs 11/07/18 06:02 11/10/18 05:47 Diabetes panel 11/10/18 Range/Units 05:47 Sodium 137 (137-145) mmol/L Potassium 4.1 D (3.6-5.0) mmol/L Chloride 103.9 (98-107) mmol/L Carbon Dioxide 28 (22-30) mmol/L BUN 5 L (7-17) mg/dL Creatinine 0.3 L (0.7-1.2) mg/dL Glucose 91 (65-100) mg/dL Calcium 8.0 L (8.4-10.2) mg/dL Calcium panel 11/10/18 Range/Units 05:47 Calcium 8.0 L (8.4-10.2) mg/dL Phosphorus 2.70 D (2.5-4.5) mg/dL Pituitary panel 11/10/18 Range/Units 05:47 Sodium 137 (137-145) mmol/L Potassium 4.1 D (3.6-5.0) mmol/L Chloride 103.9 (98-107) mmol/L Carbon Dioxide 28 (22-30) mmol/L BUN 5 L (7-17) mg/dL Creatinine 0.3 L (0.7-1.2) mg/dL Glucose 91 (65-100) mg/dL Calcium 8.0 L (8.4-10.2) mg/dL Adrenal panel 11/10/18 Range/Units 05:47 Sodium 137 (137-145) mmol/L Potassium 4.1 D (3.6-5.0) mmol/L Chloride 103.9 (98-107) mmol/L Carbon Dioxide 28 (22-30) mmol/L BUN 5 L (7-17) mg/dL Creatinine 0.3 L (0.7-1.2) mg/dL Glucose 91 (65-100) mg/dL Calcium 8.0 L (8.4-10.2) mg/dL
[2018-11-10] MEDS ORDERED: TPN ADULT 1,800 ML IV SCH (20:00)
[2018-11-10] MEDS: NORCO 5/325 PO PRN (22:12)
[2018-11-10] MEDS: IMODIUM PO PRN (23:15)
[2018-11-11] MEDS: FLAGYL 500 MG/100 ML 500 MG/100 ML BAG IV SCH ×3 (06:04→21:57)
[2018-11-11] MEDS: IMODIUM PO PRN ×2 (06:04→14:47)
[2018-11-11] MEDS: HEPARIN SUB-Q SCH ×3 (06:04→21:12)
[2018-11-11] MEDS: MAXIPIME/NS 2 GM/100 ML 2 GM/100 ML BAG IV SCH ×2 (06:08→18:00)
[2018-11-11 06:20] LABS: BUN/Creatinine Ratio 13; Blood Urea Nitrogen 4 mg/dL (7-17); Calcium 8.3 mg/dL (8.4-10.2); Hemolysis Index 2
[2018-11-11 06:29] LABS: Prealbumin 0.054 g/L (0.200-0.400)
--- NOTE | 2018-11-11 07:43 | Hem/Onc Progress Note ---
Assessment and Plan 1. h/o Thrombocytopenia. The duration of time since admission is very small. It is not clear if there was a recent hospitalization. The patient is postoperative, had ischemic bowel and history of alcohol usage. This may have more role in the thrombocytopenia. We will and follow the trend less likely HIT. 2. Admitted with altered mentation, underwent abdominal surgery, was intubated. 3. History of alcohol usage and delirium tremens, in restraints. 4. Renal impairment. 5. h/o Liver function test abnormalities. 6. h/o Electrolyte imbalance. 7. Heparin has been held. I will follow the patient during inpatient stay. 11/11 plt better hb low - will follow cbc OP follow up for anemia d/w pt reg quitting alcohol - pt says she has stopped same - Patient Problems (1) Thrombocytopenia Current Visit: Yes Status: Acute Subjective Date of service: 11/11/18 Principal diagnosis: anemia Interval history: pt says is better Objective - Constitutional Vitals: Last Vital Signs Temp 98.2 F 11/11/18 04:22 Pulse 92 H 11/11/18 04:22 Resp 20 11/11/18 04:22 BP 111/74 11/11/18 04:22 Pulse Ox 96 11/11/18 04:22 Pain Intensity (0-10): denies any pain General appearance: no acute distress Performance status: 3-limited selfcare - EENT Eyes: EOM intact ENT: hearing intact Lymph node exam: negative cervical - Neck Neck: normal ROM - Respiratory Respiratory effort: Positive: normal Respiratory: bilateral: CTA (anteriorly) - Cardiovascular Heart Sounds: Present: S1 & S2 Extremities: normal temperature - Gastrointestinal General gastrointestinal: Present: soft, other (s/p sx) Rectal Exam: deferred - Genitourinary Female genitourinary: Present: deferred - Integumentary Integumentary: warm - Musculoskeletal Musculoskeletal: generalized weakness - Neurologic Neurologic: moves all extremities - Labs Lab Results: Laboratory Results - last 24 hr 11/10/18 11/10/18 11/10/18 05:47 14:24 18:24 Sodium Potassium 4.1 D Chloride Carbon Dioxide Anion Gap BUN Creatinine Estimated GFR BUN/Creatinine Ratio Glucose POC Glucose 96 93 Calcium Phosphorus Magnesium Prealbumin 11/11/18 11/11/18 05:45 06:17 Sodium 138 Potassium 4.3 Chloride 102.8 Carbon Dioxide 29 Anion Gap 11 BUN 4 L Creatinine 0.3 L Estimated GFR > 60 BUN/Creatinine Ratio 13 Glucose 94 POC Glucose 109 H Calcium 8.3 L Phosphorus 2.60 Magnesium 2.00 Prealbumin 0.054 L Medications & Allergies - Medications Allergies/Adverse Reactions: Allergies No Known Allergies Allergy (Verified 10/29/18 17:40) Home Medications: Home Medications Medication Instructions Recorded Confirmed Last Taken Type Famotidine [Pepcid] 20 mg PO BID #30 tablet 04/10/17 11/09/18 Unknown Rx Active Medications: Generic Name Dose Route Start Last Admin Trade Name Freq PRN Reason Stop Dose Admin Acetaminophen 650 mg 10/29/18 23:49 Tylenol [place] Q4H PRN Pain MILD(1-3)/Fever >100.5/DAMON Acetaminophen/Hydrocodone Bitart 1 each 11/03/18 11:55 11/10/18 22:12 [place] 5/325 PO 1 each Q6H PRN Administration Pain, Moderate (4-6) Albuterol 2.5 mg 11/03/18 20:55 Proventil IH Q4HRT PRN Shortness Of Breath Dextrose 50 ml 10/31/18 07:36 10/31/18 07:45 D50w (25gm) Syringe IV 50 ml PRN PRN Administration Hypoglycemia Famotidine 20 mg 10/30/18 10:00 11/10/18 22:10 Pepcid IV 20 mg BID CHRISTINE Administration Heparin Sodium (Porcine) 5,000 unit 10/30/18 06:00 11/11/18 06:04 Heparin SUB-Q 5,000 unit Q8HR CHRISTINE Administration Metronidazole 500 mg in 100 mls @ 100 mls/hr 11/07/18 14:00 11/11/18 06:04 Flagyl 500 Mg/100 Ml IV 100 mls/hr Q8HR CHRISTINE Administration Protocol Cefepime HCl 2 gm in 100 mls @ 200 mls/hr 11/08/18 17:00 11/11/18 06:08 Maxipime/Ns 2 Gm/100 Ml IV 200 mls/hr Q12H CHRISTINE Administration Protocol Amino Acids/Electrolytes/Dextrose 1,800 mls @ 75 mls/hr 11/10/18 20:00 11/10/18 20:08 Tpn Adult IV 11/11/18 19:59 75 mls/hr DAILY@2000 CHRISTINE Administration Protocol Ipratropium [place] 0.5 mg 11/07/18 08:00 11/10/18 21:53 Atrovent IH 0.5 mg TIDRT CHRISTINE Administration Levalbuterol HCl 0.63 mg 11/07/18 08:00 11/10/18 21:53 Xopenex IH 0.63 mg TID CHRISTINE Administration Loperamide HCl 2 mg 11/10/18 22:38 11/11/18 06:04 Imodium PO 2 mg Q4H PRN Administration Diarrhea Lorazepam 2 mg 11/01/18 10:45 11/05/18 00:29 Ativan IV 2 mg Q1HR PRN Administration CIWA-Ar 8-15 Lorazepam 4 mg 11/01/18 10:45 11/02/18 02:59 Ativan IV 4 mg Q1HR PRN Administration CIWA-Ar 16-25 Lorazepam 4 mg 11/01/18 10:45 Ativan IV Q15MIN PRN CIWA-Ar >25 Morphine Sulfate 2 mg 11/02/18 23:07 11/09/18 05:00 Morphine IV 2 mg Q4H PRN Administration Pain, Moderate (4-6) Ondansetron HCl 4 mg 10/29/18 23:49 11/08/18 08:57 Zofran IV 4 mg Q4H PRN Administration Nausea And Vomiting Pantoprazole Sodium 40 mg 11/09/18 15:00 11/10/18 12:02 Protonix PO 40 mg QDAY CHRISTINE Administration Phenol 1 spray 11/03/18 14:43 11/03/18 20:22 Chloraseptic MM 1 spray PRN PRN Administration Sore Throat Potassium Chloride 40 meq 11/07/18 10:00 11/10/18 12:02 K-Dur PO 40 meq QDAY CHRISTINE Administration Sodium Chloride 10 ml 10/30/18 10:00 11/10/18 22:10 Sodium Chloride Flush Syringe 10 Ml IV 10 ml BID CHRISTINE Administration Sodium Chloride 10 ml 10/29/18 23:49 11/06/18 21:57 Sodium Chloride Flush Syringe 10 Ml IV 10 ml PRN PRN Administration LINE FLUSH Sodium Hypochlorite 1 applic 11/07/18 10:57 Dakin's Half Strength TP Q12H PRN Wound Care
[2018-11-11] MEDS: ATROVENT IH SCH ×3 (07:44→21:21)
[2018-11-11] MEDS: XOPENEX IH SCH ×3 (07:44→21:21)
[2018-11-11] MEDS: PEPCID IV SCH ×2 (09:36→21:12)
[2018-11-11] MEDS: K-DUR PO SCH (09:36)
[2018-11-11] MEDS: PROTONIX PO SCH (09:37)
[2018-11-11] MEDS: SODIUM CHLORIDE FLUSH SYRINGE 10 ML IV SCH (09:48)
--- NOTE | 2018-11-11 10:01 | Progress Note ---
Assessment and Plan Cultures: Blood cultures 10/29/2018 no growth Tracheal culture 10/30/2018 usual resp kam Wound culture 11/07/2018 E.coli, Klebsiella, Nisha Assessment: 62 y/o female with history of ETOH intake of admitted on 10/29/2018 due to anorexia, abdominal pain and not moving her bowels; CT scan shows cecal volvulus, high grade bowel obstruction, and portal venous air. s/p Exploratory laparotomy, reduction of internal hernia, right hemicolectomy with primary ileocolonic anastamosis on 10/30/2018. Now with leukocytosis, dehiscent wound, drainage: 1) Leukocytosis: continuing. No fevers. Blood cultures show no growth. Source most likely surgical site infection. 2) Surgical site infection: dehiscent wound, drainage. Wound culture grew .E.coli, Klebsiella, Nisha. Repeat CT abdomen shows subcutaneous fluid collection beneath the surgical incision. Continue Cefepime and Flagyl. Add Fluconazole. 3) Bilateral pleural effusions: tracheal culture + usual resp kam. Recommendations: - continue cefepime 2 gm IV q12h , D4 - continue flagyl , D5 Start fluconazole 200mg IV every 24 hours Once able to tolerate PO consistently, will switch to Ceftin 500mg PO every 12 hours and Fluconazole 200mg PO every 24 hours [facility] M: [phone] O:[phone] Subjective Date of service: 11/11/18 Principal diagnosis: anemia Interval history: Patient seen and examined. Reports diffuse abdominal pain. +nausea, no vomiting. No fevers. Objective - Exam Narrative Exam: General appearance: Awake. Alert. +abdominal pain Eyes: anicteric sclerae, moist conjunctivae; no lid-lag; PERRLA HENT: Atraumatic; oropharynx clear with moist mucous membranes and no mucosal ulcerations/no oral thrush; normal hard and soft palate. Normal external ears. Neck: Trachea midline; supple, no thyromegaly or lymphadenopathy Lungs: CTA decreased BS left CV: RRR no murmur Abdomen: Soft,mild tenderness midline surgical wound with dressing, + abdominal pain - Surgical site dressing C/D/I Extremities: no edema, cyanosis Skin: Normal temperature, turgor and texture; no rash, ulcers or subcutaneous nodules Psych: Appropriate affect, alert and oriented to person, place and time. Neuro: alert and oriented x 3. Moving all extermities - Constitutional Vitals: Vital Signs Temp Pulse Resp BP Pulse Ox 98.3 F 94 H 20 105/67 100 11/11/18 07:33 11/11/18 08:06 11/11/18 08:06 11/11/18 07:33 11/11/18 07:44 Temperature -Last 24 Hours Temperature 98.3 F Temperature 98.2 F Temperature 98.3 F Temperature 98.1 F Temperature 98.1 F - Labs CBC & Chem 7: 11/07/18 06:02 11/11/18 05:45 Labs: Abnormal lab results 11/11/18 11/11/18 Range/Units 05:45 06:17 BUN 4 L (7-17) mg/dL Creatinine 0.3 L (0.7-1.2) mg/dL POC Glucose 109 H (70-105) Calcium 8.3 L (8.4-10.2) mg/dL Prealbumin 0.054 L (0.200-0.400) g/L
--- NOTE | 2018-11-11 12:53 | Progress Note ---
Assessment and Plan Assessment and plan: 62-year-old female with past medical history significant for asthma was brought by her family members for the complaints of shortness was not eating and drinking for the last few days. She has been constantly drinking alcohol. Patient has been complaining that she has abdominal pain. In the emergency department patient was tremulous and was given ativan. CT scan of the abdomen showed high-grade bowel obstruction due to volvulus. Large bowel Obstruction Caecal volvulus sp hemicolectomy - Postop management per general surgery - on TPN and oral diet Surgical site infection: dehiscent wound, sepsis cont abx per ID, wound mgt per GS Dysphagia ST eval appreciated, oral diet advanced moderate malnutrition; cont tpn and oral diet Thrombocytopenia, - Patient platelet count is getting better - Hematology oncology consulted and following, likely due to etoh, ischemic bowel and sepsis Alcohol withdrawal DT received ciwa protocol, now resolved Acute renal failure - resolved with IVF Electrolyte derangements; which include hyperkalemia, hypocalcemia and hypomagne semia - Repleted Acute respiratory failure with hypoxia -bilat pleural effusions - patient extubated, on NC - obtain echo, cont lasix DVT prophylaxis - On SCDs History Interval history: Review of systems Constitutional: No fevers, no malaise, no joint pains CVS: No chest pain, no orthopnea, no dyspnea on exertion, no pedal edema GI: Abdominal pain is improved, no diarrhea, no vomiting, no constipation Respiratory: No shortness of breath, no wheezing, no coughing Hospitalist Physical - Physical exam Narrative exam: General.: Appears well, no distress, nontoxic HEENT: Moist mucous membranes, extraocular muscles intact, no lymphadenopathy Neck: supple Cardiac: S1-S2 heard Lungs: clear to auscultation bilaterally Abdomen: soft , nontender, nondistended, bowel sounds positive Extremities: no edema clubbing or cyanosis Skin: no rash or lesions Neurologic: no gross focal deficits Psych: calm, and cooperative - Constitutional Vitals: Temp Pulse Resp BP Pulse Ox 98.3 F 94 H 20 105/67 100 11/11/18 07:33 11/11/18 08:06 11/11/18 08:06 11/11/18 07:33 11/11/18 07:44 Results - Labs CBC & Chem 7: 11/12/18 04:50 11/13/18 01:35 Labs: Laboratory Last Values WBC 12.0 K/mm3 (4.5-11.0) H 11/07/18 06:02 RBC 2.95 M/mm3 (3.65-5.03) L 11/07/18 06:02 Hgb 10.1 gm/dl (10.1-14.3) 11/07/18 06:02 Hct 29.7 % (30.3-42.9) L 11/07/18 06:02 MCV 101 fl (79-97) H 11/07/18 06:02 MCH 34 pg (28-32) H 11/07/18 06:02 MCHC 34 % (30-34) 11/07/18 06:02 RDW 13.0 % (13.2-15.2) L 11/07/18 06:02 Plt Count 283 K/mm3 (140-440) 11/07/18 06:02 Lymph % (Auto) 4.9 % (13.4-35.0) L 11/07/18 06:02 [place] % (Auto) 9.3 % (0.0-7.3) H 11/07/18 06:02 Eos % (Auto) 0.1 % (0.0-4.3) 11/07/18 06:02 Baso % (Auto) 0.1 % (0.0-1.8) 11/07/18 06:02 Lymph # 0.6 K/mm3 (1.2-5.4) L 11/07/18 06:02 [place] # 1.1 K/mm3 (0.0-0.8) H 11/07/18 06:02 Eos # 0.0 K/mm3 (0.0-0.4) 11/07/18 06:02 Baso # 0.0 K/mm3 (0.0-0.1) 11/07/18 06:02 Add Manual Diff Complete 11/03/18 04:09 Total Counted 100 11/03/18 04:09 Seg Neutrophils % 85.6 % (40.0-70.0) H 11/07/18 06:02 Seg Neuts % (Manual) 88.0 % (40.0-70.0) H 11/03/18 04:09 0 % 11/03/18 04:09 1.0 % (13.4-35.0) L 11/03/18 04:09 Reactive Lymphs % (Man) 0 % 11/03/18 04:09 11.0 % (0.0-7.3) H 11/03/18 04:09 0 % (0.0-4.3) 11/03/18 04:09 0 % (0.0-1.8) 11/03/18 04:09 0 % 11/03/18 04:09 0 % 11/03/18 04:09 0 % 11/03/18 04:09 0 % 11/03/18 04:09 Nucleated RBC % Not Reportable 11/03/18 04:09 Seg Neutrophils # 10.3 K/mm3 (1.8-7.7) H 11/07/18 06:02 Seg Neutrophils # Man 11.0 K/mm3 (1.8-7.7) H 11/03/18 04:09 Band Neutrophils # 0.0 K/mm3 11/03/18 04:09 0.1 K/mm3 (1.2-5.4) L 11/03/18 04:09 Abs React Lymphs (Man) 0.0 K/mm3 11/03/18 04:09 1.4 K/mm3 (0.0-0.8) H 11/03/18 04:09 0.0 K/mm3 (0.0-0.4) 11/03/18 04:09 0.0 K/mm3 (0.0-0.1) 11/03/18 04:09 0.0 K/mm3 11/03/18 04:09 0.0 K/mm3 11/03/18 04:09 0.0 K/mm3 11/03/18 04:09 Blast Cells # 0.0 K/mm3 11/03/18 04:09 WBC Morphology Not Reportable 11/03/18 04:09 Hypersegmented Neuts Not Reportable 11/03/18 04:09 Hyposegmented Neuts Not Reportable 11/03/18 04:09 Hypogranular Neuts Not Reportable 11/03/18 04:09 Not Reportable 11/03/18 04:09 Not Reportable 11/03/18 04:09 Not Reportable 11/03/18 04:09 Not Reportable 11/03/18 04:09 Not Reportable 11/03/18 04:09 Not Reportable 11/03/18 04:09 Consistent w auto 11/03/18 04:09 Not Reportable 11/03/18 04:09 Plt Clumps, EDTA Not Reportable 11/03/18 04:09 1+ 11/03/18 04:09 Not Reportable 11/03/18 04:09 Not Reportable 11/03/18 04:09 Plt Morphology Comment Not Reportable 11/03/18 04:09 RBC Morphology Normal 11/03/18 04:09 Dimorphic RBCs Not Reportable 11/03/18 04:09 Not Reportable 11/03/18 04:09 Not Reportable 11/03/18 04:09 Not Reportable 11/03/18 04:09 Not Reportable 11/03/18 04:09 Not Reportable 11/03/18 04:09 Not Reportable 11/03/18 04:09 Not Reportable 11/03/18 04:09 Not Reportable 11/03/18 04:09 Not Reportable 11/03/18 04:09 Not Reportable 11/03/18 04:09 Not Reportable 11/03/18 04:09 Not Reportable 11/03/18 04:09 Not Reportable 11/03/18 04:09 Not Reportable 11/03/18 04:09 Not Reportable 11/03/18 04:09 Not Reportable 11/03/18 04:09 Not Reportable 11/03/18 04:09 Not Reportable 11/03/18 04:09 Not Reportable 11/03/18 04:09 Acanthocytes (Spur) Not Reportable 11/03/18 04:09 Rouleaux Not Reportable 11/03/18 04:09 Not Reportable 11/03/18 04:09 Not Reportable 11/03/18 04:09 Not Reportable 11/03/18 04:09 Not Reportable 11/03/18 04:09 Hem Pathologist Commnt No 11/03/18 04:09 PT 16.3 Sec. (12.2-14.9) H 10/31/18 04:57 INR 1.23 (0.87-1.13) H 10/31/18 04:57 POC ABG pH 7.299 (7.35-7.45) L 11/01/18 04:03 POC ABG pCO2 30.3 (35-45) L 11/01/18 04:03 POC ABG pO2 67 (80-105) L 11/01/18 04:03 POC ABG HCO3 14.9 (22-26 mml/L) 11/01/18 04:03 POC ABG Total CO2 16 (23-27mmol/L) 11/01/18 04:03 POC ABG O2 Sat 91 11/01/18 04:03 POC ABG Base Excess -12 ((-2) - (+3)mmol/L) 11/01/18 04:03 30 % 11/01/18 04:03 Sodium 138 mmol/L (137-145) 11/11/18 05:45 Potassium 4.3 mmol/L (3.6-5.0) 11/11/18 05:45 Chloride 102.8 mmol/L (98-107) 11/11/18 05:45 Carbon Dioxide 29 mmol/L (22-30) 11/11/18 05:45 11 mmol/L 11/11/18 05:45 BUN 4 mg/dL (7-17) L 11/11/18 05:45 0.3 mg/dL (0.7-1.2) L 11/11/18 05:45 Estimated GFR > 60 ml/min 11/11/18 05:45 13 % 11/11/18 05:45 Glucose 94 mg/dL (65-100) 11/11/18 05:45 POC Glucose 113 (70-105) H 11/11/18 11:31 Lactic Acid 1.00 mmol/L (0.7-2.0) 10/30/18 04:34 Calcium 8.3 mg/dL (8.4-10.2) L 11/11/18 05:45 Phosphorus 2.60 mg/dL (2.5-4.5) 11/11/18 05:45 Magnesium 2.00 mg/dL (1.7-2.3) 11/11/18 05:45 0.80 mg/dL (0.1-1.2) 11/07/18 06:02 AST 21 units/L (5-40) 11/07/18 06:02 ALT 16 units/L (7-56) 11/07/18 06:02 110 units/L (35-129) 11/07/18 06:02 26.0 umol/L (25-60) 10/29/18 22:23 2.20 mg/dL (0.00-1.30) H 11/08/18 16:21 4.7 g/dL (6.3-8.2) L 11/07/18 06:02 1.9 g/dL (3.9-5) L 11/07/18 06:02 0.7 % 11/07/18 06:02 0.054 g/L (0.200-0.400) L 11/11/18 05:45 Triglycerides 65 mg/dL (2-149) 11/02/18 05:04 14 units/L (13-60) 10/29/18 18:43 Vitamin B12 1966 pg/mL (211-911) H 10/31/18 04:57 12.21 ng/mL (7.3-26.0) 10/31/18 04:57 TSH 8.610 mlU/mL (0.270-4.200) H 10/29/18 17:45 Free T4 1.06 ng/dL (0.76-1.46) 10/30/18 17:17 Free T3 Index 1.1 pg/mL (2.3-4.2) L 10/30/18 17:17 Plasma/Serum Alcohol < 0.01 % (0-0.07) 10/29/18 17:45 Group A Strep Rapid Negative (Negative) 10/29/18 19:28 Flexitest 1 10/31/18 08:05 Blood Type B POSITIVE 10/29/18 23:48 Antibody Screen TNR 10/29/18 23:48 ALEC Antibody Screen Negative 10/29/18 23:48 Active Medications - Current Medications Current Medications: Generic Name Dose Route Start Last Admin Trade Name Freq PRN Reason Stop Dose Admin Acetaminophen 650 mg 10/29/18 23:49 Tylenol ID Q4H PRN Pain MILD(1-3)/Fever >100.5/DAMON Acetaminophen/Hydrocodone Bitart 1 each 11/03/18 11:55 11/10/18 22:12 [place] 5/325 PO 1 each Q6H PRN Administration Pain, Moderate (4-6) Albuterol 2.5 mg 11/03/18 20:55 Proventil IH Q4HRT PRN Shortness Of Breath Dextrose 50 ml 10/31/18 07:36 10/31/18 07:45 D50w (25gm) Syringe IV 50 ml PRN PRN Administration Hypoglycemia Famotidine 20 mg 10/30/18 10:00 11/11/18 09:36 Pepcid IV 20 mg BID CHRISTINE Administration Heparin Sodium (Porcine) 5,000 unit 10/30/18 06:00 11/11/18 06:04 Heparin SUB-Q 5,000 unit Q8HR CHRISTINE Administration Metronidazole 500 mg in 100 mls @ 100 mls/hr 11/07/18 14:00 11/11/18 06:04 Flagyl 500 Mg/100 Ml IV 100 mls/hr Q8HR CHRISTINE Administration Protocol Cefepime HCl 2 gm in 100 mls @ 200 mls/hr 11/08/18 17:00 11/11/18 06:08 Maxipime/Ns 2 Gm/100 Ml IV 200 mls/hr Q12H CHRISTINE Administration Protocol Amino Acids/Electrolytes/Dextrose 1,800 mls @ 75 mls/hr 11/10/18 20:00 11/10/18 20:08 Tpn Adult IV 11/11/18 19:59 75 mls/hr DAILY@2000 CHRISTINE Administration Protocol Fluconazole 200 mg in 100 mls @ 100 mls/hr 11/11/18 13:00 Diflucan IV Q24HR CHRISTINE Protocol Ipratropium [place] 0.5 mg 11/07/18 08:00 11/11/18 07:44 Atrovent IH 0.5 mg TIDRT CHRISTINE Administration Levalbuterol HCl 0.63 mg 11/07/18 08:00 11/11/18 07:44 Xopenex IH 0.63 mg TID CHRISTINE Administration Loperamide HCl 2 mg 11/10/18 22:38 11/11/18 06:04 Imodium PO 2 mg Q4H PRN Administration Diarrhea Lorazepam 2 mg 11/01/18 10:45 11/05/18 00:29 Ativan IV 2 mg Q1HR PRN Administration CIWA-Ar 8-15 Lorazepam 4 mg 11/01/18 10:45 11/02/18 02:59 Ativan IV 4 mg Q1HR PRN Administration CIWA-Ar 16-25 Lorazepam 4 mg 11/01/18 10:45 Ativan IV Q15MIN PRN CIWA-Ar >25 Morphine Sulfate 2 mg 11/02/18 23:07 11/09/18 05:00 Morphine IV 2 mg Q4H PRN Administration Pain, Moderate (4-6) Ondansetron HCl 4 mg 10/29/18 23:49 11/08/18 08:57 Zofran IV 4 mg Q4H PRN Administration Nausea And Vomiting Pantoprazole Sodium 40 mg 11/09/18 15:00 11/11/18 09:37 Protonix PO 40 mg QDAY CHRISTINE Administration Phenol 1 spray 11/03/18 14:43 11/03/18 20:22 Chloraseptic MM 1 spray PRN PRN Administration Sore Throat Potassium Chloride 40 meq 11/07/18 10:00 11/11/18 09:36 K-Dur PO 40 meq QDAY CHRISTINE Administration Sodium Chloride 10 ml 10/30/18 10:00 11/11/18 09:48 Sodium Chloride Flush Syringe 10 Ml IV 10 ml BID CHRISTINE Administration Sodium Chloride 10 ml 10/29/18 23:49 11/06/18 21:57 Sodium Chloride Flush Syringe 10 Ml IV 10 ml PRN PRN Administration LINE FLUSH Sodium Hypochlorite 1 applic 11/07/18 10:57 Dakin's Half Strength TP Q12H PRN Wound Care Nutrition/Malnutrition Assess - Dietary Evaluation Nutrition/Malnutrition Findings: Nutrition Notes Start: 10/30/18 15:07 Freq: Status: Active Protocol: Document 11/10/18 08:23 LAMAR (Rec: 11/10/18 08:26 LAMAR [id number] 1) Nutrition Notes Initial or Follow up Reassessment Current Diagnosis Small Bowel Obstruction Other Pertinent Diagnosis EtOH dependence, cecal volvulus s/p hemicolectomy Current Diet Pureed + PPN at 75ml/hr Labs/Tests Reviewed Pertinent Medications Reviewed Height 5 ft Weight 49.9 kg [place] Body Weight (kg) 45.45 BMI 21.4 Subjective/Other Information Day 4 PPN. No PO intakes documented, however, pt does not pureed food. Drinks Ensure supplement. Percent of energy/protein needs met: 49% energy 100% pro (from PPN) Burn Absent Trauma Absent #1 Nutrition Diagnosis Inadequate oral intake Diagnosis Progress(for reassessment Continues documentation) Is patient on ventilator? No Is Patient Ambulatory and/or Out of Bed No REE-([facility]-confined to bed) 1187.856 Kcal/Kg value to use for calculation 27 Approximate Energy Requirements Using 1347 kcal/Kg Calculation Used for Recommendations [facility] Additional Notes Pro needs 1-1.2g/k-60g/ day Fluid needs 1ml/kcal Nutrition Intervention Change Diet Order: Continue current diet order Nutrition Support: Continue PPN at 75 ml/hr: MVI, 50mEq Na, 10%/90% chloride/ acetate. Osmolality: 853. Kcal 580 Protein (gm) 60 Carbohydrates (gm) 100 Fat (gm) 0 Fluid (mL) 1,800 Fiber (gm) 0 Add Supplement/Snack (indicate name/kcal Ensure Enlive TID /protein ) Provides kCal: 1,050 Provides Protein (gm) 60 Goal #1 PPN + PO intake to meet at least 75% energy and pro needs Follow-Up By: 11/11/18 Additional Comments Labs in am: BMP, Mg, Phos
--- NOTE | 2018-11-11 13:18 | Progress Note ---
Assessment and Plan - Patient Problems (1) Cecal volvulus Current Visit: Yes Status: Acute Plan to address problem: Pt stable. s/p Exploratory laparotomy, reduction of internal hernia, right hemicolectomy with primary ileocolonic anastamosis, POD 11. Wound vac in place. Working well. Ok to discharge from our perspective. Will plan to remove johanna in the [facility] in about 1 week. Will take care of both the wound and post-op care in the Wound Clinic. Diet as tolerated. Encourage ambulation. please call with questions. Subjective Date of service: 11/11/18 Patient Reports: Positive: pain is less, tolerating a regular diet, flatus, bowel movement, other (complained of dizziness. Requested medication. Appetite is poor.). Negative: nausea, vomiting Objective Vital Signs - 12hr 11/11/18 11/11/18 11/11/18 04:22 07:33 07:44 Temperature 98.2 F 98.3 F Pulse Rate 92 H 95 H Pulse Rate [ 93 H Throughout] Respiratory 20 18 Rate Respiratory 18 Rate [ Throughout] Blood Pressure 111/74 105/67 O2 Sat by Pulse 96 100 100 Oximetry 11/11/18 08:06 Temperature Pulse Rate Pulse Rate [ 94 H Throughout] Respiratory Rate Respiratory 20 Rate [ Throughout] Blood Pressure O2 Sat by Pulse Oximetry - General physical appearance no distress, no pain, other (appears to have more energy) - Eyes normal occular movement - Respiratory normal expansion, normal respiratory effort - Abdomen soft, not tender, bowel sounds hypoactive, not distended, not guarding, not rigid, other (wound VAC in place.) - Psychiatric oriented to time, oriented to person, oriented to place, speech is normal, memory intact - Labs 11/07/18 06:02 11/11/18 05:45 Diabetes panel 11/11/18 Range/Units 05:45 Sodium 138 (137-145) mmol/L Potassium 4.3 (3.6-5.0) mmol/L Chloride 102.8 (98-107) mmol/L Carbon Dioxide 29 (22-30) mmol/L BUN 4 L (7-17) mg/dL Creatinine 0.3 L (0.7-1.2) mg/dL Glucose 94 (65-100) mg/dL Calcium 8.3 L (8.4-10.2) mg/dL Calcium panel 11/11/18 Range/Units 05:45 Calcium 8.3 L (8.4-10.2) mg/dL Phosphorus 2.60 (2.5-4.5) mg/dL Pituitary panel 11/11/18 Range/Units 05:45 Sodium 138 (137-145) mmol/L Potassium 4.3 (3.6-5.0) mmol/L Chloride 102.8 (98-107) mmol/L Carbon Dioxide 29 (22-30) mmol/L BUN 4 L (7-17) mg/dL Creatinine 0.3 L (0.7-1.2) mg/dL Glucose 94 (65-100) mg/dL Calcium 8.3 L (8.4-10.2) mg/dL Adrenal panel 11/11/18 Range/Units 05:45 Sodium 138 (137-145) mmol/L Potassium 4.3 (3.6-5.0) mmol/L Chloride 102.8 (98-107) mmol/L Carbon Dioxide 29 (22-30) mmol/L BUN 4 L (7-17) mg/dL Creatinine 0.3 L (0.7-1.2) mg/dL Glucose 94 (65-100) mg/dL Calcium 8.3 L (8.4-10.2) mg/dL
[2018-11-11] MEDS: MORPHINE IV PRN (13:37)
[2018-11-11] MEDS ORDERED: ANTIVERT PO PRN (14:00)
[2018-11-11] MEDS: DIFLUCAN 200 MG/100 ML BAG IV SCH (16:00)
[2018-11-11] MEDS: LASIX IV SCH (17:01)
[2018-11-11] MEDS ORDERED: TPN ADULT 1,800 ML IV SCH (20:00)
[2018-11-12] MEDS: MORPHINE IV PRN (02:14)
[2018-11-12 05:06] LABS: Basophils % (Auto) 0.4 % (0.0-1.8); Eosinophils % (Auto) 0.4 % (0.0-4.3); Hematocrit 29.2 % (30.3-42.9); Lymphocytes # (Auto) 0.7 K/mm3 (1.2-5.4); Lymphocytes % (Auto) 7.8 % (13.4-35.0); Mean Corpuscular HGB Conc 34 % (30-34); Mean Corpuscular Volume 101 fl (79-97); Monocytes # (Auto) 1.1 K/mm3 (0.0-0.8); Monocytes % (Auto) 12.3 % (0.0-7.3); Platelet Count 240 K/mm3 (140-440); Red Cell Distribution Width 13.9 % (13.2-15.2)
[2018-11-12 05:23] LABS: BUN/Creatinine Ratio 13; Blood Urea Nitrogen 4 mg/dL (7-17); Calcium 8.9 mg/dL (8.4-10.2); Hemolysis Index 7
[2018-11-12] MEDS: MAXIPIME/NS 2 GM/100 ML 2 GM/100 ML BAG IV SCH ×2 (05:30→18:09)
[2018-11-12] MEDS: LASIX IV SCH ×2 (05:48→18:09)
[2018-11-12] MEDS: SODIUM CHLORIDE FLUSH SYRINGE 10 ML IV SCH ×2 (06:13→09:57)
[2018-11-12] MEDS: HEPARIN SUB-Q SCH ×3 (06:15→21:44)
[2018-11-12] MEDS: FLAGYL 500 MG/100 ML 500 MG/100 ML BAG IV SCH (06:24)
[2018-11-12] MEDS: ATROVENT IH SCH ×3 (07:57→20:29)
[2018-11-12] MEDS: XOPENEX IH SCH ×3 (07:57→20:48)
--- NOTE | 2018-11-12 09:49 | Progress Note ---
Assessment and Plan Cultures: Blood cultures 10/29/2018 no growth Tracheal culture 10/30/2018 usual resp kam Wound culture 11/07/2018 E.coli, Klebsiella, Nisha Stool Culture 11/08/2018: negative Assessment: 62 y/o female with history of ETOH intake of admitted on 10/29/2018 due to anorexia, abdominal pain and not moving her bowels; CT scan shows cecal volvulus, high grade bowel obstruction, and portal venous air. s/p Exploratory laparotomy, reduction of internal hernia, right hemicolectomy with primary ileocolonic anastamosis on 10/30/2018. Now with leukocytosis, dehiscent wound, drainage: 1) Leukocytosis: Resolved. Blood cultures show no growth. Source most likely surgical site infection. 2) Surgical site infection: dehiscent wound, drainage. Wound culture grew .E.coli, Klebsiella, Nisha. Repeat CT abdomen shows subcutaneous fluid collection beneath the surgical incision. Continue Cefepime, Flagyl and Fluconazole. 3) Bilateral pleural effusions: tracheal culture + usual resp kam. Recommendations: -discontinue flagyl -continue cefepime 2 gm IV q12h , D5 -continue fluconazole 200mg IV every 24 hours, D2 Clinically stable, Anticipate discharge on Ceftin 500mg PO every 12 hours and Fluconazole 200mg PO every 24 hours for 7 days [facility] M: [phone] O:[phone] Subjective Date of service: 11/12/18 Principal diagnosis: anemia Interval history: Patient seen and examined. Generalized weakness with continued incisional pain reported. +wound Vac. Objective - Exam Narrative Exam: General appearance: Awake. Alert. +incisional pain Eyes: anicteric sclerae, moist conjunctivae; no lid-lag; PERRLA HENT: Atraumatic; oropharynx clear with moist mucous membranes and no mucosal ulcerations/no oral thrush; normal hard and soft palate. Normal external ears. Neck: Trachea midline; supple, no thyromegaly or lymphadenopathy Lungs: CTA decreased BS left CV: RRR no murmur Abdomen: Soft,mild tenderness midline surgical wound with dressing, +wound vac Extremities: no edema, cyanosis Skin: Normal temperature, turgor and texture; no rash, ulcers or subcutaneous nodules Psych: Appropriate affect, alert and oriented to person, place and time. Neuro: alert and oriented x 3. Moving all extremities - Constitutional Vitals: Vital Signs Temp Pulse Resp BP Pulse Ox 98.0 F 99 H 18 100/68 100 11/12/18 08:02 11/12/18 08:12 11/12/18 08:12 11/12/18 08:02 11/12/18 08:02 Temperature -Last 24 Hours Temperature 98.0 F Temperature 98.6 F Temperature 99.0 F Temperature 98.9 F Temperature 97.9 F Temperature 98.4 F - Labs CBC & Chem 7: 11/12/18 04:50 11/12/18 04:50 Labs: Abnormal lab results 11/11/18 11/11/18 11/12/18 Range/Units 11:31 16:19 00:17 RBC (3.65-5.03) M/mm3 Hgb (10.1-14.3) gm/dl Hct (30.3-42.9) % MCV (79-97) fl MCH (28-32) pg Lymph % (Auto) (13.4-35.0) % [place] % (Auto) (0.0-7.3) % Lymph # (1.2-5.4) K/mm3 [place] # (0.0-0.8) K/mm3 Seg Neutrophils % (40.0-70.0) % Sodium (137-145) mmol/L BUN (7-17) mg/dL Creatinine (0.7-1.2) mg/dL Glucose (65-100) mg/dL POC Glucose 113 H 107 H 116 H (70-105) 11/12/18 11/12/18 11/12/18 Range/Units 04:50 04:50 06:05 RBC 2.90 L (3.65-5.03) M/mm3 Hgb 10.0 L (10.1-14.3) gm/dl Hct 29.2 L (30.3-42.9) % MCV 101 H (79-97) fl MCH 35 H (28-32) pg Lymph % (Auto) 7.8 L (13.4-35.0) % [place] % (Auto) 12.3 H (0.0-7.3) % Lymph # 0.7 L (1.2-5.4) K/mm3 [place] # 1.1 H (0.0-0.8) K/mm3 Seg Neutrophils % 79.1 H (40.0-70.0) % Sodium 136 L (137-145) mmol/L BUN 4 L (7-17) mg/dL Creatinine 0.3 L (0.7-1.2) mg/dL Glucose 102 H (65-100) mg/dL POC Glucose 117 H (70-105)
[2018-11-12] MEDS: DIFLUCAN 200 MG/100 ML BAG IV SCH (09:55)
[2018-11-12] MEDS: PEPCID IV SCH ×2 (09:56→21:44)
[2018-11-12] MEDS: PROTONIX PO SCH (09:56)
[2018-11-12] MEDS: K-DUR PO SCH (09:56)
--- NOTE | 2018-11-12 12:54 | Hem/Onc Progress Note ---
Assessment and Plan 1. h/o Thrombocytopenia. The duration of time since admission is very small. It is not clear if there was a recent hospitalization. The patient is postoperative, had ischemic bowel and history of alcohol usage. This may have more role in the thrombocytopenia. We will and follow the trend less likely HIT. 2. Admitted with altered mentation, underwent abdominal surgery, was intubated. 3. History of alcohol usage and delirium tremens, in restraints. 4. Renal impairment. 5. h/o Liver function test abnormalities. 6. h/o Electrolyte imbalance. 7. Heparin has been held. I will follow the patient during inpatient stay. 11/12 plt better OP follow up for anemia d/w pt reg quitting alcohol - pt says she has stopped same - Patient Problems (1) Thrombocytopenia Current Visit: Yes Status: Acute Subjective Date of service: 11/12/18 Principal diagnosis: anemia - Bowel obstruction Interval history: feeling better Objective - Constitutional Vitals: Last Vital Signs Temp 98.0 F 11/12/18 08:02 Pulse 99 H 11/12/18 08:12 Resp 18 11/12/18 08:12 BP 100/68 11/12/18 08:02 Pulse Ox 100 11/12/18 08:02 Pain Intensity (0-10): denies any pain General appearance: no acute distress Performance status: 3-limited selfcare - EENT Eyes: EOM intact ENT: hearing intact Lymph node exam: negative cervical - Respiratory Respiratory effort: Positive: normal Respiratory: bilateral: CTA (anteriorly) - Cardiovascular Heart Sounds: Present: S1 & S2 Extremities: normal temperature - Gastrointestinal General gastrointestinal: Present: soft, other (s/p sx) Rectal Exam: deferred - Genitourinary Female genitourinary: Present: deferred - Integumentary Integumentary: warm - Musculoskeletal Musculoskeletal: generalized weakness - Neurologic Neurologic: moves all extremities - Labs Lab Results: Laboratory Results - last 24 hr 11/11/18 11/12/18 11/12/18 16:19 00:17 04:50 WBC RBC Hgb Hct MCV MCH MCHC RDW Plt Count Lymph % (Auto) Martin % (Auto) Eos % (Auto) Baso % (Auto) Lymph # Martin # Eos # Baso # Seg Neutrophils % Seg Neutrophils # Sodium 136 L Potassium 4.2 Chloride 98.4 Carbon Dioxide 29 Anion Gap 13 BUN 4 L Creatinine 0.3 L Estimated GFR > 60 BUN/Creatinine Ratio 13 Glucose 102 H POC Glucose 107 H 116 H Calcium 8.9 Phosphorus 3.50 D Magnesium 1.90 11/12/18 11/12/18 11/12/18 04:50 06:05 11:52 WBC 8.7 RBC 2.90 L Hgb 10.0 L Hct 29.2 L MCV 101 H MCH 35 H MCHC 34 RDW 13.9 Plt Count 240 Lymph % (Auto) 7.8 L Martin % (Auto) 12.3 H Eos % (Auto) 0.4 Baso % (Auto) 0.4 Lymph # 0.7 L Martin # 1.1 H Eos # 0.0 Baso # 0.0 Seg Neutrophils % 79.1 H Seg Neutrophils # 6.9 Sodium Potassium Chloride Carbon Dioxide Anion Gap BUN Creatinine Estimated GFR BUN/Creatinine Ratio Glucose POC Glucose 117 H 121 H Calcium Phosphorus Magnesium Medications & Allergies - Medications Allergies/Adverse Reactions: Allergies No Known Allergies Allergy (Verified 10/29/18 17:40) Home Medications: Home Medications Medication Instructions Recorded Confirmed Last Taken Type Famotidine [Pepcid] 20 mg PO BID #30 tablet 04/10/17 11/09/18 Unknown Rx Fluconazole [Diflucan TAB] 200 mg PO QDAY #7 tablet 11/12/18 Unknown Rx cefUROXime [Ceftin] 500 mg PO Q12H #28 tablet 11/12/18 Unknown Rx Active Medications: Generic Name Dose Route Start Last Admin Trade Name Freq PRN Reason Stop Dose Admin Acetaminophen 650 mg 10/29/18 23:49 Tylenol [place] Q4H PRN Pain MILD(1-3)/Fever >100.5/DAMON Acetaminophen/Hydrocodone Bitart 1 each 11/03/18 11:55 11/10/18 22:12 [place] 5/325 PO 1 each Q6H PRN Administration Pain, Moderate (4-6) Albuterol 2.5 mg 11/03/18 20:55 Proventil IH Q4HRT PRN Shortness Of Breath Dextrose 50 ml 10/31/18 07:36 10/31/18 07:45 D50w (25gm) Syringe IV 50 ml PRN PRN Administration Hypoglycemia Famotidine 20 mg 10/30/18 10:00 11/12/18 09:56 Pepcid IV 20 mg BID CHRISTINE Administration Furosemide 40 mg 11/11/18 17:00 11/12/18 05:48 Lasix IV 11/13/18 05:01 40 mg Q12H CHRISTINE Administration Heparin Sodium (Porcine) 5,000 unit 10/30/18 06:00 11/12/18 06:15 Heparin SUB-Q 5,000 unit Q8HR CHRISTINE Administration Metronidazole 500 mg in 100 mls @ 100 mls/hr 11/07/18 14:00 11/12/18 06:24 Flagyl 500 Mg/100 Ml IV 100 mls/hr Q8HR CHRISTINE Administration Protocol Cefepime HCl 2 gm in 100 mls @ 200 mls/hr 11/08/18 17:00 11/12/18 05:30 Maxipime/Ns 2 Gm/100 Ml IV 200 mls/hr Q12H CHRISTINE Administration Protocol Fluconazole 200 mg in 100 mls @ 100 mls/hr 11/11/18 13:00 11/12/18 09:55 Diflucan IV 100 mls/hr Q24HR CHRISTINE Administration Protocol Amino Acids/Electrolytes/Dextrose 1,800 mls @ 75 mls/hr 11/11/18 20:00 11/11/18 21:10 Tpn Adult IV 11/12/18 19:59 75 mls/hr DAILY@1999 CHRISTINE Administration Protocol Amino Acids/Electrolytes/Dextrose 1,800 mls @ 75 mls/hr 11/12/18 20:00 Tpn Adult IV 11/13/18 19:59 DAILY@1999 [facility] Protocol Ipratropium [place] 0.5 mg 11/07/18 08:00 11/12/18 07:57 Atrovent IH 0.5 mg TIDRT CRHISTINE Administration Levalbuterol HCl 0.63 mg 11/07/18 08:00 11/12/18 07:57 Xopenex IH 0.63 mg TID CHRISTINE Administration Loperamide HCl 2 mg 11/10/18 22:38 11/11/18 14:47 Imodium PO 2 mg Q4H PRN Administration Diarrhea Lorazepam 2 mg 11/01/18 10:45 11/05/18 00:29 Ativan IV 2 mg Q1HR PRN Administration CIWA-Ar 8-15 Lorazepam 4 mg 11/01/18 10:45 11/02/18 02:59 Ativan IV 4 mg Q1HR PRN Administration CIWA-Ar 16-25 Lorazepam 4 mg 11/01/18 10:45 Ativan IV Q15MIN PRN CIWA-Ar >25 Meclizine HCl 25 mg 11/11/18 14:00 Antivert PO Q8H PRN Vertigo Morphine Sulfate 2 mg 11/02/18 23:07 11/12/18 02:14 Morphine IV 2 mg Q4H PRN Administration Pain, Moderate (4-6) Ondansetron HCl 4 mg 10/29/18 23:49 11/08/18 08:57 Zofran IV 4 mg Q4H PRN Administration Nausea And Vomiting Pantoprazole Sodium 40 mg 11/09/18 15:00 11/12/18 09:56 Protonix PO 40 mg QDAY CHRISTINE Administration Phenol 1 spray 11/03/18 14:43 11/03/18 20:22 Chloraseptic MM 1 spray PRN PRN Administration Sore Throat Potassium Chloride 40 meq 11/07/18 10:00 11/12/18 09:56 K-Dur PO 40 meq QDAY CHRISTINE Administration Sodium Chloride 10 ml 10/30/18 10:00 11/12/18 09:57 Sodium Chloride Flush Syringe 10 Ml IV 10 ml BID CHRISTINE Administration Sodium Chloride 10 ml 10/29/18 23:49 11/06/18 21:57 Sodium Chloride Flush Syringe 10 Ml IV 10 ml PRN PRN Administration LINE FLUSH Sodium Hypochlorite 1 applic 11/07/18 10:57 Dakin's Half Strength TP Q12H PRN Wound Care
--- NOTE | 2018-11-12 14:59 | Progress Note ---
Assessment and Plan Assessment and plan: 62-year-old female with past medical history significant for asthma was brought by her family members for the complaints of shortness was not eating and drinking for the last few days. She has been constantly drinking alcohol. Patient has been complaining that she has abdominal pain. In the emergency department patient was tremulous and was given ativan. CT scan of the abdomen showed high-grade bowel obstruction due to volvulus. 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 and did hemicolectomy - Postop management per general surgery - Patient tolerated full liquid diet Surgical site infection: dehiscent wound, drainage. Wound culture grew .E.coli, Klebsiella, Nisha. Repeat CT abdomen shows subcutaneous fluid collection beneath the surgical incision. Continue Cefepime, Flagyl and Fluconazole. ID is following and will change to medications today. Thrombocytopenia - Patient platelet, count normalized - Hem/Onc consult appreciated Alcohol withdrawal DT - On CIWA protocol Acute renal failure - resolved with IVF Electrolyte derangements - Corrected Acute respiratory failure - Resolved DVT prophylaxis - On SCDs Disposition - Patient need acute rehab placement; Consult placed History Interval history: Patient was seen and evaluated this morning, patient was alert and oriented. Hospitalist Physical - Physical exam Narrative exam: Saturating well on room air. The patient appeared well nourished and normally developed. Vital signs as documented. Head exam is unremarkable. No scleral icterus . Neck is without jugular venous distension, thyromegaly, or carotid bruits. Lungs are clear to auscultation. Cardiac exam reveals regular rate and Rhythm. First and second heart sounds normal. No murmurs, rubs or gallops. Abdominal exam reveals clean midline abdominal dressing. Extremities are nonedematous and both femoral and pedal pulses are normal. INTERNIST: alert. - Constitutional Vitals: Temp Pulse Resp BP Pulse Ox 99.1 F 101 H 18 106/64 100 11/12/18 11:41 11/12/18 11:41 11/12/18 11:41 11/12/18 11:41 11/12/18 11:41 Results - Labs CBC & Chem 7: 11/12/18 04:50 11/12/18 04:50 Labs: Laboratory Last Values WBC 8.7 K/mm3 (4.5-11.0) 11/12/18 04:50 RBC 2.90 M/mm3 (3.65-5.03) L 11/12/18 04:50 Hgb 10.0 gm/dl (10.1-14.3) L 11/12/18 04:50 Hct 29.2 % (30.3-42.9) L 11/12/18 04:50 MCV 101 fl (79-97) H 11/12/18 04:50 MCH 35 pg (28-32) H 11/12/18 04:50 MCHC 34 % (30-34) 11/12/18 04:50 RDW 13.9 % (13.2-15.2) 11/12/18 04:50 Plt Count 240 K/mm3 (140-440) 11/12/18 04:50 Lymph % (Auto) 7.8 % (13.4-35.0) L 11/12/18 04:50 [place] % (Auto) 12.3 % (0.0-7.3) H 11/12/18 04:50 Eos % (Auto) 0.4 % (0.0-4.3) 11/12/18 04:50 Baso % (Auto) 0.4 % (0.0-1.8) 11/12/18 04:50 Lymph # 0.7 K/mm3 (1.2-5.4) L 11/12/18 04:50 [place] # 1.1 K/mm3 (0.0-0.8) H 11/12/18 04:50 Eos # 0.0 K/mm3 (0.0-0.4) 11/12/18 04:50 Baso # 0.0 K/mm3 (0.0-0.1) 11/12/18 04:50 Add Manual Diff Complete 11/03/18 04:09 Total Counted 100 11/03/18 04:09 Seg Neutrophils % 79.1 % (40.0-70.0) H 11/12/18 04:50 Seg Neuts % (Manual) 88.0 % (40.0-70.0) H 11/03/18 04:09 0 % 11/03/18 04:09 1.0 % (13.4-35.0) L 11/03/18 04:09 Reactive Lymphs % (Man) 0 % 11/03/18 04:09 11.0 % (0.0-7.3) H 11/03/18 04:09 0 % (0.0-4.3) 11/03/18 04:09 0 % (0.0-1.8) 11/03/18 04:09 0 % 11/03/18 04:09 0 % 11/03/18 04:09 0 % 11/03/18 04:09 0 % 11/03/18 04:09 Nucleated RBC % Not Reportable 11/03/18 04:09 Seg Neutrophils # 6.9 K/mm3 (1.8-7.7) 11/12/18 04:50 Seg Neutrophils # Man 11.0 K/mm3 (1.8-7.7) H 11/03/18 04:09 Band Neutrophils # 0.0 K/mm3 11/03/18 04:09 0.1 K/mm3 (1.2-5.4) L 11/03/18 04:09 Abs React Lymphs (Man) 0.0 K/mm3 11/03/18 04:09 1.4 K/mm3 (0.0-0.8) H 11/03/18 04:09 0.0 K/mm3 (0.0-0.4) 11/03/18 04:09 0.0 K/mm3 (0.0-0.1) 11/03/18 04:09 0.0 K/mm3 11/03/18 04:09 0.0 K/mm3 11/03/18 04:09 0.0 K/mm3 11/03/18 04:09 Blast Cells # 0.0 K/mm3 11/03/18 04:09 WBC Morphology Not Reportable 11/03/18 04:09 Hypersegmented Neuts Not Reportable 11/03/18 04:09 Hyposegmented Neuts Not Reportable 11/03/18 04:09 Hypogranular Neuts Not Reportable 11/03/18 04:09 Not Reportable 11/03/18 04:09 Not Reportable 11/03/18 04:09 Not Reportable 11/03/18 04:09 Not Reportable 11/03/18 04:09 Not Reportable 11/03/18 04:09 Not Reportable 11/03/18 04:09 Consistent w auto 11/03/18 04:09 Not Reportable 11/03/18 04:09 Plt Clumps, EDTA Not Reportable 11/03/18 04:09 1+ 11/03/18 04:09 Not Reportable 11/03/18 04:09 Not Reportable 11/03/18 04:09 Plt Morphology Comment Not Reportable 11/03/18 04:09 RBC Morphology Normal 11/03/18 04:09 Dimorphic RBCs Not Reportable 11/03/18 04:09 Not Reportable 11/03/18 04:09 Not Reportable 11/03/18 04:09 Not Reportable 11/03/18 04:09 Not Reportable 11/03/18 04:09 Not Reportable 11/03/18 04:09 Not Reportable 11/03/18 04:09 Not Reportable 11/03/18 04:09 Not Reportable 11/03/18 04:09 Not Reportable 11/03/18 04:09 Not Reportable 11/03/18 04:09 Not Reportable 11/03/18 04:09 Not Reportable 11/03/18 04:09 Not Reportable 11/03/18 04:09 Not Reportable 11/03/18 04:09 Not Reportable 11/03/18 04:09 Not Reportable 11/03/18 04:09 Not Reportable 11/03/18 04:09 Not Reportable 11/03/18 04:09 Not Reportable 11/03/18 04:09 Acanthocytes (Spur) Not Reportable 11/03/18 04:09 Rouleaux Not Reportable 11/03/18 04:09 Not Reportable 11/03/18 04:09 Not Reportable 11/03/18 04:09 Not Reportable 11/03/18 04:09 Not Reportable 11/03/18 04:09 Hem Pathologist Commnt No 11/03/18 04:09 PT 16.3 Sec. (12.2-14.9) H 10/31/18 04:57 INR 1.23 (0.87-1.13) H 10/31/18 04:57 POC ABG pH 7.299 (7.35-7.45) L 11/01/18 04:03 POC ABG pCO2 30.3 (35-45) L 11/01/18 04:03 POC ABG pO2 67 (80-105) L 11/01/18 04:03 POC ABG HCO3 14.9 (22-26 mml/L) 11/01/18 04:03 POC ABG Total CO2 16 (23-27mmol/L) 11/01/18 04:03 POC ABG O2 Sat 91 11/01/18 04:03 POC ABG Base Excess -12 ((-2) - (+3)mmol/L) 11/01/18 04:03 30 % 11/01/18 04:03 Sodium 136 mmol/L (137-145) L 11/12/18 04:50 Potassium 4.2 mmol/L (3.6-5.0) 11/12/18 04:50 Chloride 98.4 mmol/L (98-107) 11/12/18 04:50 Carbon Dioxide 29 mmol/L (22-30) 11/12/18 04:50 13 mmol/L 11/12/18 04:50 BUN 4 mg/dL (7-17) L 11/12/18 04:50 0.3 mg/dL (0.7-1.2) L 11/12/18 04:50 Estimated GFR > 60 ml/min 11/12/18 04:50 13 % 11/12/18 04:50 Glucose 102 mg/dL (65-100) H 11/12/18 04:50 POC Glucose 121 (70-105) H 11/12/18 11:52 Lactic Acid 1.00 mmol/L (0.7-2.0) 10/30/18 04:34 Calcium 8.9 mg/dL (8.4-10.2) 11/12/18 04:50 Phosphorus 3.50 mg/dL (2.5-4.5) D 11/12/18 04:50 Magnesium 1.90 mg/dL (1.7-2.3) 11/12/18 04:50 0.80 mg/dL (0.1-1.2) 11/07/18 06:02 AST 21 units/L (5-40) 11/07/18 06:02 ALT 16 units/L (7-56) 11/07/18 06:02 110 units/L (35-129) 11/07/18 06:02 26.0 umol/L (25-60) 10/29/18 22:23 2.20 mg/dL (0.00-1.30) H 11/08/18 16:21 4.7 g/dL (6.3-8.2) L 11/07/18 06:02 1.9 g/dL (3.9-5) L 11/07/18 06:02 0.7 % 11/07/18 06:02 0.054 g/L (0.200-0.400) L 11/11/18 05:45 Triglycerides 65 mg/dL (2-149) 11/02/18 05:04 14 units/L (13-60) 10/29/18 18:43 Vitamin B12 1966 pg/mL (211-911) H 10/31/18 04:57 12.21 ng/mL (7.3-26.0) 10/31/18 04:57 TSH 8.610 mlU/mL (0.270-4.200) H 10/29/18 17:45 Free T4 1.06 ng/dL (0.76-1.46) 10/30/18 17:17 Free T3 Index 1.1 pg/mL (2.3-4.2) L 10/30/18 17:17 Plasma/Serum Alcohol < 0.01 % (0-0.07) 10/29/18 17:45 Group A Strep Rapid Negative (Negative) 10/29/18 19:28 Flexitest 1 10/31/18 08:05 Blood Type B POSITIVE 10/29/18 23:48 Antibody Screen TNR 10/29/18 23:48 ALEC Antibody Screen Negative 10/29/18 23:48 Active Medications - Current Medications Current Medications: Generic Name Dose Route Start Last Admin Trade Name Freq PRN Reason Stop Dose Admin Acetaminophen 650 mg 10/29/18 23:49 Tylenol [place] Q4H PRN Pain MILD(1-3)/Fever >100.5/DAMON Acetaminophen/Hydrocodone Bitart 1 each 11/03/18 11:55 11/10/18 22:12 [place] 5/325 PO 1 each Q6H PRN Administration Pain, Moderate (4-6) Albuterol 2.5 mg 11/03/18 20:55 Proventil IH Q4HRT PRN Shortness Of Breath Dextrose 50 ml 10/31/18 07:36 10/31/18 07:45 D50w (25gm) Syringe IV 50 ml PRN PRN Administration Hypoglycemia Famotidine 20 mg 10/30/18 10:00 11/12/18 09:56 Pepcid IV 20 mg BID CHRISTINE Administration Furosemide 40 mg 11/11/18 17:00 11/12/18 05:48 Lasix IV 11/13/18 05:01 40 mg Q12H CHRISTINE Administration Heparin Sodium (Porcine) 5,000 unit 10/30/18 06:00 11/12/18 06:15 Heparin SUB-Q 5,000 unit Q8HR CHRISTINE Administration Metronidazole 500 mg in 100 mls @ 100 mls/hr 11/07/18 14:00 11/12/18 06:24 Flagyl 500 Mg/100 Ml IV 100 mls/hr Q8HR CHRISTINE Administration Protocol Cefepime HCl 2 gm in 100 mls @ 200 mls/hr 11/08/18 17:00 11/12/18 05:30 Maxipime/Ns 2 Gm/100 Ml IV 200 mls/hr Q12H CHRISTINE Administration Protocol Fluconazole 200 mg in 100 mls @ 100 mls/hr 11/11/18 13:00 11/12/18 09:55 Diflucan IV 100 mls/hr Q24HR CHRISTINE Administration Protocol Amino Acids/Electrolytes/Dextrose 1,800 mls @ 75 mls/hr 11/11/18 20:00 11/11/18 21:10 Tpn Adult IV 11/12/18 19:59 75 mls/hr DAILY@1999 CHRISTINE Administration Protocol Amino Acids/Electrolytes/Dextrose 1,800 mls @ 75 mls/hr 11/12/18 20:00 Tpn Adult IV 11/13/18 19:59 DAILY@1999 [facility] Protocol Ipratropium [place] 0.5 mg 11/07/18 08:00 11/12/18 13:44 Atrovent IH Not Given TIDRT CHRISTINE Levalbuterol HCl 0.63 mg 11/07/18 08:00 11/12/18 13:44 Xopenex IH Not Given TID CHRISTINE Loperamide HCl 2 mg 11/10/18 22:38 11/11/18 14:47 Imodium PO 2 mg Q4H PRN Administration Diarrhea Lorazepam 2 mg 11/01/18 10:45 11/05/18 00:29 Ativan IV 2 mg Q1HR PRN Administration CIWA-Ar 8-15 Lorazepam 4 mg 11/01/18 10:45 11/02/18 02:59 Ativan IV 4 mg Q1HR PRN Administration CIWA-Ar 16-25 Lorazepam 4 mg 11/01/18 10:45 Ativan IV Q15MIN PRN CIWA-Ar >25 Meclizine HCl 25 mg 11/11/18 14:00 Antivert PO Q8H PRN Vertigo Morphine Sulfate 2 mg 11/02/18 23:07 11/12/18 02:14 Morphine IV 2 mg Q4H PRN Administration Pain, Moderate (4-6) Ondansetron HCl 4 mg 10/29/18 23:49 11/08/18 08:57 Zofran IV 4 mg Q4H PRN Administration Nausea And Vomiting Pantoprazole Sodium 40 mg 11/09/18 15:00 11/12/18 09:56 Protonix PO 40 mg QDAY CHRISTINE Administration Phenol 1 spray 11/03/18 14:43 11/03/18 20:22 Chloraseptic MM 1 spray PRN PRN Administration Sore Throat Potassium Chloride 40 meq 11/07/18 10:00 11/12/18 09:56 K-Dur PO 40 meq QDAY CHRISTINE Administration Sodium Chloride 10 ml 10/30/18 10:00 11/12/18 09:57 Sodium Chloride Flush Syringe 10 Ml IV 10 ml BID CHRISTINE Administration Sodium Chloride 10 ml 10/29/18 23:49 11/06/18 21:57 Sodium Chloride Flush Syringe 10 Ml IV 10 ml PRN PRN Administration LINE FLUSH Sodium Hypochlorite 1 applic 11/07/18 10:57 Dakin's Half Strength TP Q12H PRN Wound Care Nutrition/Malnutrition Assess - Dietary Evaluation Nutrition/Malnutrition Findings: Nutrition Notes Start: 10/30/18 15:07 Freq: Status: Active Protocol: Document 11/12/18 14:19 RM (Rec: 11/12/18 14:28 RM [id number]) Nutrition Notes Initial or Follow up Reassessment Current Diagnosis Small Bowel Obstruction Other Pertinent Diagnosis EtOH dependence, cecal volvulus s/p hemicolectomy Current Diet Mech soft + PPN at 75ml/hr Labs/Tests Cl 98.4 (trending down) Pertinent Medications Lasix Height 5 ft Weight 49.9 kg [place] Body Weight (kg) 45.45 BMI 21.4 Subjective/Other Information Day 6 CPN. Pt diet advanced to [facility] soft. Pt had eaten 1/3 of lunch by time of visit. Stated she had not received an Ensure Enlive today. Percent of energy/protein needs met: 53%/67% (from diet) 56%/100% (from CPN) Burn Absent Trauma Absent #1 Nutrition Diagnosis Inadequate oral intake As Evidenced by Signs and Symptoms pt had eaten 1/3 of breakfast by time of visit Diagnosis Progress(for reassessment Improved documentation) Is patient on ventilator? No Is Patient Ambulatory and/or Out of Bed No REE-([facility]-confined to bed) 1187.856 Kcal/Kg value to use for calculation 27 Approximate Energy Requirements Using 1347 kcal/Kg Calculation Used for Recommendations [facility] Additional Notes Pro needs 1-1.2g/k-60g/ day Fluid needs 1ml/kcal Nutrition Intervention Change Diet Order: Continue current diet order Nutrition Support: CPN at 75 ml/hr: 11 dextrose, Cl:Acetate: 25/75 Kcal 920 Protein (gm) 60 Carbohydrates (gm) 200 Fat (gm) 0 Fluid (mL) 1,800 Add Supplement/Snack (indicate name/kcal Add back Ensure Enlive BID /protein ) Provides kCal: 700 Provides Protein (gm) 40 Goal #1 PPN + PO intake to meet at least 75% energy and pro needs Anticipated Discharge Needs: [facility] soft diet Follow-Up By: 11/13/18 Additional Comments Labs in am: BMP, Mg, Phos
--- NOTE | 2018-11-12 16:10 | Discharge Summary ---
Providers - Providers Date of Admission: 10/29/18 23:49 Attending physician: MARIAMA STONE MD 10/29/18 23:29 Consult to Physician [CONS] Stat Comment: Dr. Menjivar spoke with Dr. Harper @ [id number] Consulting Provider: JAME HARPER Physician Instructions: Reason For Exam: volvulus ischemic bowel 10/30/18 02:20 Consult to Dietitian/Nutrition [CONS] Routine Physician Instructions: Reason For Exam: Reason for Consult: Evaluate nutritional intake 10/30/18 14:02 Consult to Physician [CONS] Routine Comment: Consulting Provider: ADINA CASEY Physician Instructions: Reason For Exam: HIT 11/03/18 13:36 Speech Therapy Evaluation and Treat [CONS] Routine Reason For Exam: dysphagia 11/04/18 11:07 Physical Therapy Evaluation and Treat [CONS] Routine Comment: Reason For Exam: generalized weakness 11/05/18 10:25 Occupational Therapy Evaluate and Treat [CONS] Routine Comment: Reason For Exam: general weakness 11/06/18 11:49 Consult to Dietitian/Nutrition [CONS] Routine Physician Instructions: Reason For Exam: Reason for Consult: Write/Manage TPN/PPN Consult to PICC Line RN [CONS] Routine Reason For Exam: tpn Type Line:: PICC 11/07/18 10:57 Consult to Wound/ET Nurse [CONS] Routine Reason For Exam: midline surgical wound - infected 11/08/18 14:22 Consult to Physician [CONS] Routine Comment: Consulting Provider: RANDY STAPLETON Physician Instructions: Reason For Exam: skin infection-abdominal/surgical 11/12/18 14:53 Consult Acute Rehabilitation [CONS] Routine Consulting Provider: Physician Instructions: Reason For Exam: IRU Evaluation Primary care physician: JAZMIN GILBERT Hospitalization Reason for admission: Intestinal obstruction due to volvulus, Alcohol withdrawal DT Condition: Stable Procedures: Hemicolectomy Hospital course: 62-year-old female with past medical history significant for asthma was brought by her family members for the complaints of shortness was not eating and drinking for the last few days. She has been constantly drinking alcohol. Patient has been complaining that she has abdominal pain. In the emergency depa rtment patient was tremulous and was given ativan. CT scan of the abdomen showed high-grade bowel obstruction due to volvulus. Patient was admitted and General surgery was consulted and did hemicolectmy was done. patient was intubated after surgery for 2 days and then extubated and saturating well on room air. Patient was tolerating full liquid diet. Her inpatient stay was complicated with Surgical site infection: dehiscent wound, drainage. Wound culture grew .E.coli, Klebsiella, Nisha. Repeat CT abdomen shows subcutaneous fluid collection beneath the surgical incision. treated with Cefepime, Flagyl and Fluconazole. ID consult appreciated. ID change the medications to PO at the time of discharge. Thrombocytopenia on admission which later normalized Alcohol withdrawal DT treated with CIWA protocol Acute renal failure; corrected with IVF Electrolyte derangements; Corrected Patient transferred to acute rehab in the same Hospital. patient was hemodynamically stable at the time of discharge. Disposition: [id number] IN REHAB FACILITY Time spent for discharge: 32 minutes - Discharge Diagnoses (1) Alcohol withdrawal Status: Acute (2) Alcoholic liver disease Status: Acute (3) Bowel obstruction Status: Acute (4) Cecal volvulus Status: Acute (5) Abdominal pain Status: Acute Core Measure Documentation - Palliative Care Palliative Care/ Comfort Measures: Not Applicable - Core Measures Any of the following diagnoses?: none Exam - Physical Exam Narrative exam: Saturating well on room air. The patient appeared well nourished and normally developed. Vital signs as documented. Head exam is unremarkable. No scleral icterus . Neck is without jugular venous distension, thyromegaly, or carotid bruits. Lungs are clear to auscultation. Cardiac exam reveals regular rate and Rhythm. First and second heart sounds normal. No murmurs, rubs or gallops. Abdominal exam reveals clean midline abdominal dressing. Extremities are nonedematous and both femoral and pedal pulses are normal. VACUUM PAN TENDER: alert. - Constitutional Vitals: Temp Pulse Resp BP Pulse Ox 99.1 F 101 H 18 106/64 100 11/12/18 11:41 11/12/18 11:41 11/12/18 11:41 11/12/18 11:41 11/12/18 11:41 Plan Activity: no restrictions Weight Bearing Status: Full Weight Bearing Diet: advance as tolerated (On full liquid diet) Follow up with: JAZMIN GILBERT MD [Primary Care Provider] - 3-5 Days JAME HARPER DO [Staff Physician] - 7 Days Prescriptions: cefUROXime [Ceftin] 500 mg PO Q12H #28 tablet Fluconazole [Diflucan TAB] 200 mg PO QDAY #7 tablet
[2018-11-12] MEDS ORDERED: TPN ADULT 1,800 ML IV SCH (20:00)
[2018-11-13] MEDS: ZOFRAN IV PRN ×2 (05:24→09:37)
[2018-11-13] MEDS: LASIX IV SCH (05:25)
[2018-11-13] MEDS: HEPARIN SUB-Q SCH (05:25)
[2018-11-13] MEDS: MAXIPIME/NS 2 GM/100 ML 2 GM/100 ML BAG IV SCH (05:26)
[2018-11-13] MEDS: MORPHINE IV PRN ×2 (05:26→09:39)
[2018-11-13] MEDS: SODIUM CHLORIDE FLUSH SYRINGE 10 ML IV SCH (08:10)
--- NOTE | 2018-11-13 08:37 | Progress Note ---
Assessment and Plan Cultures: Blood cultures 10/29/2018 no growth Tracheal culture 10/30/2018 usual resp kam Wound culture 11/07/2018 E.coli, Klebsiella, Nisha Stool Culture 11/08/2018: negative Assessment: 62 y/o female with history of ETOH intake of admitted on 10/29/2018 due to anorexia, abdominal pain and not moving her bowels; CT scan shows cecal volvulus, high grade bowel obstruction, and portal venous air. s/p Exploratory laparotomy, reduction of internal hernia, right hemicolectomy with primary ileocolonic anastamosis on 10/30/2018. Now with leukocytosis, dehiscent wound, drainage: 1) Leukocytosis: Resolved. Blood cultures show no growth. Source most likely surgical site infection. 2) Surgical site infection: dehiscent wound, drainage. Wound culture grew .E.coli, Klebsiella, Nisha. Repeat CT abdomen shows subcutaneous fluid collection beneath the surgical incision. Continue Cefepime, Flagyl and Fluconazole. 3) Bilateral pleural effusions: tracheal culture + usual resp kam. Recommendations: -discontinue flagyl -continue cefepime 2 gm IV q12h , D6 -continue fluconazole 200mg IV every 24 hours, D3 Clinically stable, Anticipate discharge on Ceftin 500mg PO every 12 hours and Fluconazole 200mg PO every 24 hours for 7 days [facility] M: [id number] O:[phone] Subjective Date of service: 11/13/18 Principal diagnosis: anemia - Bowel obstruction Objective - Constitutional Vitals: Vital Signs Temp Pulse Resp BP Pulse Ox 97.9 F 105 H 17 112/72 99 11/13/18 05:20 11/13/18 05:20 11/13/18 05:26 11/13/18 05:20 11/13/18 05:20 Temperature -Last 24 Hours Temperature 97.9 F Temperature 97.1 F Temperature 98.4 F Temperature 98.5 F Temperature 99.1 F - Labs CBC & Chem 7: 11/12/18 04:50 11/12/18 04:50 Labs: Abnormal lab results 11/12/18 11/12/18 11/13/18 Range/Units 11:52 23:42 06:55 POC Glucose 121 H 114 H 132 H (70-105)
[2018-11-13] MEDS: PEPCID IV SCH (09:36)
[2018-11-13] MEDS: K-DUR PO SCH (09:41)
[2018-11-13] MEDS: DIFLUCAN 200 MG/100 ML BAG IV SCH (09:42)
[2018-11-13] MEDS: PROTONIX PO SCH (09:53)
[2018-11-13 10:35] VITALS: BP 106/76
[2018-11-13] MEDS: XOPENEX IH SCH (10:48)
[2018-11-13] MEDS: ATROVENT IH SCH (10:49)
[2018-11-13 14:33] LABS: BUN/Creatinine Ratio 20; Blood Urea Nitrogen 8 mg/dL (7-17); Calcium 8.8 mg/dL (8.4-10.2); Hemolysis Index 0
--- NOTE | 2018-11-14 00:07 | Progress Note ---
Assessment and Plan Assessment and plan: 62-year-old female with past medical history significant for asthma was brought by her family members for the complaints of shortness was not eating and drinking for the last few days. She has been constantly drinking alcohol. Patient has been complaining that she has abdominal pain. In the emergency department patient was tremulous and was given ativan. CT scan of the abdomen showed high-grade bowel obstruction due to volvulus. Large bowel Obstruction Caecal volvulus sp hemicolectomy - Postop management per general surgery ADAT per GS Dysphagia ST eval appreciated, advance to pureed diet Thrombocytopenia, ?HIT - Patient platelet count is getting better - Hematology oncology consulted and following Alcohol withdrawal DT - On CIWA protocol Acute renal failure - resolved with IVF Electrolyte derangements; which include hyperkalemia, hypocalcemia and hypomagnesemia - Repleted Acute respiratory failure - patient extubated and saturating well on IN oxygen DVT prophylaxis - On SCDs History Interval history: Review of systems Constitutional: No fevers, no malaise, no joint pains CVS: No chest pain, no orthopnea, no dyspnea on exertion, no pedal edema GI: Abdominal pain is improved, no diarrhea, no vomiting, no constipation Respiratory: No shortness of breath, no wheezing, no coughing Hospitalist Physical - Physical exam Narrative exam: General.: Appears well, no distress, nontoxic HEENT: Moist mucous membranes, extraocular muscles intact, no lymphadenopathy Neck: supple Cardiac: S1-S2 heard Lungs: clear to auscultation bilaterally Abdomen: soft , nontender, nondistended, bowel sounds positive Extremities: no edema clubbing or cyanosis Skin: no rash or lesions Neurologic: no gross focal deficits Psych: calm, and cooperative - Constitutional Vitals: Temp Pulse Resp BP Pulse Ox 98.4 F 92 H 18 106/76 100 11/13/18 10:00 11/13/18 10:45 11/13/18 10:45 11/13/18 10:00 11/13/18 10:00 Results - Labs CBC & Chem 7: 11/12/18 04:50 11/13/18 01:35 Labs: Laboratory Last Values WBC 8.7 K/mm3 (4.5-11.0) 11/12/18 04:50 RBC 2.90 M/mm3 (3.65-5.03) L 11/12/18 04:50 Hgb 10.0 gm/dl (10.1-14.3) L 11/12/18 04:50 Hct 29.2 % (30.3-42.9) L 11/12/18 04:50 MCV 101 fl (79-97) H 11/12/18 04:50 MCH 35 pg (28-32) H 11/12/18 04:50 MCHC 34 % (30-34) 11/12/18 04:50 RDW 13.9 % (13.2-15.2) 11/12/18 04:50 Plt Count 240 K/mm3 (140-440) 11/12/18 04:50 Lymph % (Auto) 7.8 % (13.4-35.0) L 11/12/18 04:50 [place] % (Auto) 12.3 % (0.0-7.3) H 11/12/18 04:50 Eos % (Auto) 0.4 % (0.0-4.3) 11/12/18 04:50 Baso % (Auto) 0.4 % (0.0-1.8) 11/12/18 04:50 Lymph # 0.7 K/mm3 (1.2-5.4) L 11/12/18 04:50 [place] # 1.1 K/mm3 (0.0-0.8) H 11/12/18 04:50 Eos # 0.0 K/mm3 (0.0-0.4) 11/12/18 04:50 Baso # 0.0 K/mm3 (0.0-0.1) 11/12/18 04:50 Add Manual Diff Complete 11/03/18 04:09 Total Counted 100 11/03/18 04:09 Seg Neutrophils % 79.1 % (40.0-70.0) H 11/12/18 04:50 Seg Neuts % (Manual) 88.0 % (40.0-70.0) H 11/03/18 04:09 0 % 11/03/18 04:09 1.0 % (13.4-35.0) L 11/03/18 04:09 Reactive Lymphs % (Man) 0 % 11/03/18 04:09 11.0 % (0.0-7.3) H 11/03/18 04:09 0 % (0.0-4.3) 11/03/18 04:09 0 % (0.0-1.8) 11/03/18 04:09 0 % 11/03/18 04:09 0 % 11/03/18 04:09 0 % 11/03/18 04:09 0 % 11/03/18 04:09 Nucleated RBC % Not Reportable 11/03/18 04:09 Seg Neutrophils # 6.9 K/mm3 (1.8-7.7) 11/12/18 04:50 Seg Neutrophils # Man 11.0 K/mm3 (1.8-7.7) H 11/03/18 04:09 Band Neutrophils # 0.0 K/mm3 11/03/18 04:09 0.1 K/mm3 (1.2-5.4) L 11/03/18 04:09 Abs React Lymphs (Man) 0.0 K/mm3 11/03/18 04:09 1.4 K/mm3 (0.0-0.8) H 11/03/18 04:09 0.0 K/mm3 (0.0-0.4) 11/03/18 04:09 0.0 K/mm3 (0.0-0.1) 11/03/18 04:09 0.0 K/mm3 11/03/18 04:09 0.0 K/mm3 11/03/18 04:09 0.0 K/mm3 11/03/18 04:09 Blast Cells # 0.0 K/mm3 11/03/18 04:09 WBC Morphology Not Reportable 11/03/18 04:09 Hypersegmented Neuts Not Reportable 11/03/18 04:09 Hyposegmented Neuts Not Reportable 11/03/18 04:09 Hypogranular Neuts Not Reportable 11/03/18 04:09 Not Reportable 11/03/18 04:09 Not Reportable 11/03/18 04:09 Not Reportable 11/03/18 04:09 Not Reportable 11/03/18 04:09 Not Reportable 11/03/18 04:09 Not Reportable 11/03/18 04:09 Consistent w auto 11/03/18 04:09 Not Reportable 11/03/18 04:09 Plt Clumps, EDTA Not Reportable 11/03/18 04:09 1+ 11/03/18 04:09 Not Reportable 11/03/18 04:09 Not Reportable 11/03/18 04:09 Plt Morphology Comment Not Reportable 11/03/18 04:09 RBC Morphology Normal 11/03/18 04:09 Dimorphic RBCs Not Reportable 11/03/18 04:09 Not Reportable 11/03/18 04:09 Not Reportable 11/03/18 04:09 Not Reportable 11/03/18 04:09 Not Reportable 11/03/18 04:09 Not Reportable 11/03/18 04:09 Not Reportable 11/03/18 04:09 Not Reportable 11/03/18 04:09 Not Reportable 11/03/18 04:09 Not Reportable 11/03/18 04:09 Not Reportable 11/03/18 04:09 Not Reportable 11/03/18 04:09 Not Reportable 11/03/18 04:09 Not Reportable 11/03/18 04:09 Not Reportable 11/03/18 04:09 Not Reportable 11/03/18 04:09 Not Reportable 11/03/18 04:09 Not Reportable 11/03/18 04:09 Not Reportable 11/03/18 04:09 Not Reportable 11/03/18 04:09 Acanthocytes (Spur) Not Reportable 11/03/18 04:09 Rouleaux Not Reportable 11/03/18 04:09 Not Reportable 11/03/18 04:09 Not Reportable 11/03/18 04:09 Not Reportable 11/03/18 04:09 Not Reportable 11/03/18 04:09 Hem Pathologist Commnt No 11/03/18 04:09 PT 16.3 Sec. (12.2-14.9) H 10/31/18 04:57 INR 1.23 (0.87-1.13) H 10/31/18 04:57 POC ABG pH 7.299 (7.35-7.45) L 11/01/18 04:03 POC ABG pCO2 30.3 (35-45) L 11/01/18 04:03 POC ABG pO2 67 (80-105) L 11/01/18 04:03 POC ABG HCO3 14.9 (22-26 mml/L) 11/01/18 04:03 POC ABG Total CO2 16 (23-27mmol/L) 11/01/18 04:03 POC ABG O2 Sat 91 11/01/18 04:03 POC ABG Base Excess -12 ((-2) - (+3)mmol/L) 11/01/18 04:03 30 % 11/01/18 04:03 Sodium 136 mmol/L (137-145) L 11/13/18 01:35 Potassium 4.8 mmol/L (3.6-5.0) 11/13/18 01:35 Chloride 96.5 mmol/L (98-107) L 11/13/18 01:35 Carbon Dioxide 31 mmol/L (22-30) H 11/13/18 01:35 13 mmol/L 11/13/18 01:35 BUN 8 mg/dL (7-17) 11/13/18 01:35 0.4 mg/dL (0.7-1.2) L 11/13/18 01:35 Estimated GFR > 60 ml/min 11/13/18 01:35 20 % 11/13/18 01:35 Glucose 109 mg/dL (65-100) H 11/13/18 01:35 POC Glucose 136 (70-105) H 11/13/18 11:45 Lactic Acid 1.00 mmol/L (0.7-2.0) 10/30/18 04:34 Calcium 8.8 mg/dL (8.4-10.2) 11/13/18 01:35 Phosphorus 3.60 mg/dL (2.5-4.5) 11/13/18 01:35 Magnesium 1.90 mg/dL (1.7-2.3) 11/13/18 01:35 0.80 mg/dL (0.1-1.2) 11/07/18 06:02 AST 21 units/L (5-40) 11/07/18 06:02 ALT 16 units/L (7-56) 11/07/18 06:02 110 units/L (35-129) 11/07/18 06:02 26.0 umol/L (25-60) 10/29/18 22:23 2.20 mg/dL (0.00-1.30) H 11/08/18 16:21 4.7 g/dL (6.3-8.2) L 11/07/18 06:02 1.9 g/dL (3.9-5) L 11/07/18 06:02 0.7 % 11/07/18 06:02 0.054 g/L (0.200-0.400) L 11/11/18 05:45 Triglycerides 65 mg/dL (2-149) 11/02/18 05:04 14 units/L (13-60) 10/29/18 18:43 Vitamin B12 1966 pg/mL (211-911) H 10/31/18 04:57 12.21 ng/mL (7.3-26.0) 10/31/18 04:57 TSH 8.610 mlU/mL (0.270-4.200) H 10/29/18 17:45 Free T4 1.06 ng/dL (0.76-1.46) 10/30/18 17:17 Free T3 Index 1.1 pg/mL (2.3-4.2) L 10/30/18 17:17 Plasma/Serum Alcohol < 0.01 % (0-0.07) 10/29/18 17:45 Group A Strep Rapid Negative (Negative) 10/29/18 19:28 Flexitest 1 10/31/18 08:05 Blood Type B POSITIVE 10/29/18 23:48 Antibody Screen TNR 10/29/18 23:48 ALEC Antibody Screen Negative 10/29/18 23:48 Nutrition/Malnutrition Assess - Dietary Evaluation Nutrition/Malnutrition Findings: Nutrition Notes Start: 10/30/18 15:07 Freq: Status: Discharge Protocol: Document 11/12/18 14:19 RM (Rec: 11/12/18 14:28 [id number]) Nutrition Notes Initial or Follow up Reassessment Current Diagnosis Small Bowel Obstruction Other Pertinent Diagnosis EtOH dependence, cecal volvulus s/p hemicolectomy Current Diet Mech soft + PPN at 75ml/hr Labs/Tests Cl 98.4 (trending down) Pertinent Medications Lasix Height 5 ft Weight 49.9 kg [place] Body Weight (kg) 45.45 BMI 21.4 Subjective/Other Information Day 6 CPN. Pt diet advanced to Mech soft. Pt had eaten 1/3 of lunch by time of visit. Stated she had not received an Ensure Enlive today. Percent of energy/protein needs met: 53%/67% (from diet) 56%/100% (from CPN) Burn Absent Trauma Absent #1 Nutrition Diagnosis Inadequate oral intake As Evidenced by Signs and Symptoms pt had eaten 1/3 of breakfast by time of visit Diagnosis Progress(for reassessment Improved documentation) Is patient on ventilator? No Is Patient Ambulatory and/or Out of Bed No REE-([place]-St. Jeor-confined to bed) 1187.856 Kcal/Kg value to use for calculation 27 Approximate Energy Requirements Using 1347 kcal/Kg Calculation Used for Recommendations [facility] Additional Notes Pro needs 1-1.2g/k-60g/ day Fluid needs 1ml/kcal Nutrition Intervention Change Diet Order: Continue current diet order Nutrition Support: CPN at 75 ml/hr: 11 dextrose, Cl:Acetate: 25/75 Kcal 920 Protein (gm) 60 Carbohydrates (gm) 200 Fat (gm) 0 Fluid (mL) 1,800 Add Supplement/Snack (indicate name/kcal Add back Ensure Enlive BID /protein ) Provides kCal: 700 Provides Protein (gm) 40 Goal #1 PPN + PO intake to meet at least 75% energy and pro needs Anticipated Discharge Needs: [facility] soft diet Follow-Up By: 11/13/18 Additional Comments Labs in am: BMP, Mg, Phos
== END 2018-11-13 12:26 | DRG 853 ==
LOC: ED 15:17 → CC1 23:49 → 3B-SURG 11-02 18:08 → UNDODISIN 11-12 17:00
PROVIDERS: ADMIT Internal Medicine; ATTEND Internal Medicine
PROC: 5A1945Z Respiratory Ventilation, 24-96 Consecutive Hours (ICD-10-PCS; principal; 2018-10-30)
PROC: 0DTF0ZZ Resection of Right Large Intestine, Open Approach (ICD-10-PCS; 2018-10-30)
PROC: 0DNB0ZZ Release Ileum, Open Approach (ICD-10-PCS; 2018-10-30)
PROC: 0BH17EZ Insertion of Endotracheal Airway into Trachea, Via Natural or Artificial Opening (ICD-10-PCS; 2018-10-30)
PROC: 0D980ZZ Drainage of Small Intestine, Open Approach (ICD-10-PCS; 2018-10-30)
PROC: 0D9670Z Drainage of Stomach with Drainage Device, Via Natural or Artificial Opening (ICD-10-PCS; 2018-10-30)
PROC: 0DQV0ZZ Repair Mesentery, Open Approach (ICD-10-PCS; 2018-10-30)
PROC: 4A033R1 Measurement of Arterial Saturation, Peripheral, Percutaneous Approach (ICD-10-PCS; 2018-10-31)
PROC: 02HV33Z Insertion of Infusion Device into Superior Vena Cava, Percutaneous Approach (ICD-10-PCS; 2018-11-06)
DX: A41.9 Sepsis, unspecified organism (principal); K55.019 Acute (reversible) ischemia of small intestine, extent unspecified; K56.2 Volvulus; J96.00 Acute respiratory failure, unspecified whether with hypoxia or hypercapnia; F10.231 Alcohol dependence with withdrawal delirium; E87.1 Hypo-osmolality and hyponatremia; N17.9 Acute kidney failure, unspecified; K46.0 Unspecified abdominal hernia with obstruction, without gangrene; E46 Unspecified protein-calorie malnutrition; T81.49XA Infection following a procedure, other surgical site, initial encounter; R13.10 Dysphagia, unspecified; B96.20 Unspecified Escherichia coli [E. coli] as the cause of diseases classified elsewhere; B96.1 Klebsiella pneumoniae [K. pneumoniae] as the cause of diseases classified elsewhere; D69.6 Thrombocytopenia, unspecified; K70.9 Alcoholic liver disease, unspecified; Y83.8 Other surgical procedures as the cause of abnormal reaction of the patient, or of later complication, without mention of misadventure at the time of the procedure; Y92.238 Other place in hospital as the place of occurrence of the external cause; E87.6 Hypokalemia; Y90.0 Blood alcohol level of less than 20 mg/100 ml; J45.909 Unspecified asthma, uncomplicated; K21.9 Gastro-esophageal reflux disease without esophagitis; Z82.49 Family history of ischemic heart disease and other diseases of the circulatory system; Z80.9 Family history of malignant neoplasm, unspecified; Z68.21 Body mass index [BMI] 21.0-21.9, adult
CPT/HCPCS: 36415; 36600; 70450; 71045; 74176; 74177; 74230; 80048; 80053; 80320; 82140; 82607; 82747; 82803; 82962; 83690; 83735; 84100; 84132; 84134; 84439; 84443; 84478; 84481; 85007; 85025; 85610; 86140; 86850; 86900; 86901; 87040; 87045; 87070; 87076; 87116; 87186; 87205; 87430; 88307; 93005; 93010; 93306; 94002; 94003; 94640; 94760; 96374; 96375; G0378; A6260; G0480; J0330; J0690; J0692; J1100; J1450; J1644; J1940; J1956; J2001; J2060; J2250; J2270; J2370; J2405; J2704; J3010; J3411; J3475; J3480; J7030; J7040; J7070; Q9967

== ENCOUNTER 2018-11-13 10:50 | Inpatient (IN) | payer BC ==
[2018-11-13] MEDS ORDERED: ZOFRAN IV PRN (11:46)
[2018-11-13] MEDS ORDERED: DAKIN'S HALF STRENGTH TP PRN (11:46)
[2018-11-13] MEDS: XOPENEX IH SCH ×2 (15:08→21:27)
[2018-11-13] MEDS: ATROVENT IH SCH ×2 (15:08→21:27)
[2018-11-13] MEDS: NORCO 5/325 PO PRN (15:20)
[2018-11-13] MEDS: HEPARIN SUB-Q SCH ×2 (15:51→21:57)
[2018-11-13] MEDS ORDERED: PROVENTIL IH PRN (16:00)
[2018-11-13] MEDS ORDERED: ANTIVERT PO PRN (16:00)
[2018-11-13] MEDS: HumaLOG SUB-Q SCH (17:26)
[2018-11-13] MEDS ORDERED: TPN ADULT 1,800 ML IV SCH (20:00)
[2018-11-13] MEDS: PEPCID IV SCH (21:56)
[2018-11-13] MEDS: MAXIPIME/NS 2 GM/100 ML 2 GM/100 ML BAG IV SCH (21:56)
[2018-11-14] MEDS: XOPENEX IH SCH ×4 (01:17→20:30)
[2018-11-14] MEDS: HumaLOG SUB-Q SCH ×4 (02:00→16:30)
[2018-11-14] MEDS: HEPARIN SUB-Q SCH ×3 (05:50→21:38)
[2018-11-14 06:14] LABS: Hematocrit 28.6 % (30.3-42.9); Hemoglobin 9.8 gm/dl (10.1-14.3); Mean Corpuscular HGB Conc 34 % (30-34); Mean Corpuscular Volume 101 fl (79-97); Platelet Count 210 K/mm3 (140-440); Red Blood Count 2.83 M/mm3 (3.65-5.03); Red Cell Distribution Width 13.5 % (13.2-15.2)
[2018-11-14 06:40] LABS: Alanine Aminotransferase 13 units/L (7-56); Albumin 2.7 g/dL (3.9-5); BUN/Creatinine Ratio 23; Blood Urea Nitrogen 7 mg/dL (7-17); Calcium 8.9 mg/dL (8.4-10.2); Hemolysis Index 2; Prealbumin 0.139 g/L (0.200-0.400)
[2018-11-14 07:32] LABS: Eosinophils % (Manual) 0 % (0.0-4.3); Total Cells Counted 100
[2018-11-14 07:33] LABS: Anisocytosis 1+; Platelet Estimate Consistent w Auto
[2018-11-14] MEDS ORDERED: XOPENEX IH ONE (09:11)
--- NOTE | 2018-11-14 09:39 | History and Physical Report ---
History of Present Illness Date: 11/14/18 Date of admission: 11/13/18 14:02 Chief Complaint: Debility s/p exlap with reduction of internal hernia, right hemicolectomy, ileocolonic anastomosis History of present illness: 62-year-old thin female who presented to the ER with decreased by mouth intake and weakness. 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 He was taken to the OR where she underwent an exploratory laparotomy with reduction of an internal hernia, right hemicolectomy and primary ileocolonic anastomosis. She was placed on CIWA protocol. TPN was started due to poor by mouth intake even after diet was advanced. He Stacia was consulted due to thrombocytopenia. On postop day [address] showed likely ileus along with a lateral pleural effusion. Wound care involves wound VAC along with Dakin's and packing. IV antibiotics were started and infectious disease was consulted.After the patient was medically stabilized they were transferred for further rehabilitation. All available medical records have been reviewed but there are limited records from the [facility]. Plan of care was discussed with patient and family. Patient was observed walking in the hallway with therapy. Gait was slowed and of short distance. Left knee is painful due to presumed arthritis. We'll obtain x-ray to ascertain level of involvement. Patient also noted to be short of breath with walking. Pulse ox showed O2 sats in the mid 70s and heart rate in the 120s. She recovered quickly with 3 L of O2 and rest. We'll continue to monitor her pulse ox closely during therapy. Respiratory therapy is already monitoring her. 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 denies: smoking, prescription drug abuse, IV drug use Family history: hypertension Medications and Allergies Allergies Allergy/AdvReac Type Severity Reaction Status Date / Time No Known Allergies Allergy Verified 10/29/18 17:40 Home Medications Medication Instructions Recorded Confirmed Last Taken Type Famotidine [Pepcid] 20 mg PO BID #30 tablet 04/10/17 11/09/18 Unknown Rx Fluconazole [Diflucan TAB] 200 mg PO QDAY #7 tablet 11/12/18 Unknown Rx cefUROXime [Ceftin] 500 mg PO Q12H #28 tablet 11/12/18 Unknown Rx Active Meds: Active Medications Acetaminophen/Hydrocodone Bitart ([place] 5/325) 1 each PO Q4H PRN PRN Reason: Pain, Moderate (4-6) Last Admin: 11/13/18 15:20 Dose: 1 each Documented by: Albuterol (Proventil) 2.5 mg IH Q4HRT PRN PRN Reason: Shortness Of Breath Famotidine (Pepcid) 20 mg IV BID [facility] Last Admin: 11/13/18 21:56 Dose: 20 mg Documented by: Heparin Sodium (Porcine) (Heparin) 5,000 unit SUB-Q Q8HR CHRISTINE Last Admin: 11/14/18 05:50 Dose: 5,000 unit Documented by: Cefepime HCl (Maxipime/Ns 2 Gm/100 Ml) 2 gm in 100 mls @ 200 mls/hr IV Q12H CHRISTINE; Protocol Stop: 11/20/18 21:59 Last Admin: 11/13/18 21:56 Dose: 200 mls/hr Documented by: Fluconazole (Diflucan) 200 mg in 100 mls @ 100 mls/hr IV Q24HR CHRISTINE; Protocol Stop: 11/21/18 09:59 Amino Acids/Electrolytes/Dextrose (Tpn Adult) 1,800 mls @ 75 mls/hr IV DAILY@2000 CHRISTINE; Protocol Stop: 11/14/18 19:59 Last Admin: 11/13/18 21:55 Dose: 75 mls/hr Documented by: Insulin Human Lispro (Humalog) 0 unit SUB-Q Q6HR CHRISTINE; Protocol Last Admin: 11/14/18 06:33 Dose: Not Given Documented by: Ipratropium [place] (Atrovent) 0.5 mg IH TIDRT [facility] Last Admin: 11/13/18 21:27 Dose: 0.5 mg Documented by: Levalbuterol HCl (Xopenex) 0.63 mg IH Q8HRT [facility] Last Admin: 11/14/18 01:17 Dose: Not Given Documented by: Loperamide HCl (Imodium) 2 mg PO Q4H PRN PRN Reason: Diarrhea Meclizine HCl (Antivert) 25 mg PO Q8H PRN PRN Reason: Vertigo Ondansetron HCl (Zofran) 4 mg IV Q4H PRN PRN Reason: Nausea And Vomiting Pantoprazole Sodium (Protonix) 40 mg PO QDAY CHRISTINE Potassium Chloride (K-Dur) 40 meq PO QDAY CHRISTINE Sodium Hypochlorite (Dakin's Half Strength) 1 applic TP Q12H PRN PRN Reason: Wound Care Review of Systems All systems: negative (ROS negative for 12 systems except as noted below with pertinent positives and negatives.) Constitutional: weight loss, fatigue, weakness, poor appetite Ears, nose, mouth and throat: no decreased hearing, no dysphagia Cardiovascular: dyspnea on exertion, no chest pain, no palpitations, no rapid/irregular heart beat Respiratory: dyspnea on exertion, no cough, no cough with sputum Gastrointestinal: abdominal pain (postsurgical, no rebound tenderness), change in bowel habits, excessive gas, no nausea, no vomiting, no diarrhea, no constipation Musculoskeletal: gait dysfunction, arthritis (left knee pain) Integumentary: wounds (surgical) Neurological: weakness, no numbness, no syncope, no tremors, no lack of coordination Exam - Exam Narrative exam: MUSCULOSKELETAL SPECIALTY EXAM CONSTITUTIONAL: Well developed, well nourished, appropriately groomed, thin LYMPHATIC: No appreciable abnormalities palpable in neck EENT: Visual garza full to confrontation. EOMI. Oropharynx clear. Hearing intact to soft voice RESPIRATORY: Clear to auscultation bilaterally, no increased work of breathing CARDIOVASCULAR: Regular Rate/ Rhythm, no swelling, edema or tenderness in BUE or BLE. Pulses palpable in all extremities. All extremities warm. PICC line left upper extremity GI: + bowel sounds, soft, TTP, no rebound tenderness, nondistended, wound VAC in place INTEGUMENTARY: Normal, no lesion, rash, masses or bruising noted in extremities. Wound VAC on abdomen MUSCULOSKELETAL: BUE and BLE normal without defect, crepitus, subluxation, effusion, arthritic changes or TTP, except for left knee which has tenderness to palpation on anterior BUE 4+/5, good ROM, with normal tone. BLE 4-/5 good ROM, with normal tone NEURO: CN 2-12 grossly intact. Sensation intact in all extremities. Reflexes 2+ bilaterally at biceps, brachioradialis and patella. No clonus at ankles. Coordination intact in BUE. No tremor noted in 4 extremities. POSTURE and GAIT: Sitting posture good. Balance appears reasonable. Gait slowed with short steps. PSYCH: Alert, orientated x3, affect appears normal. Insight appears intact. - Constitutional Vitals: Vital Signs - 12hr 11/13/18 11/13/18 11/13/18 21:29 21:30 21:47 Temperature Pulse Rate Pulse Rate [ 88 88 Anterior Bilateral Throughout] Respiratory Rate Respiratory 20 20 Rate [Anterior Bilateral Throughout] Blood Pressure Blood Pressure [Right] O2 Sat by Pulse 99 Oximetry 11/14/18 11/14/18 04:23 08:00 Temperature 37.2 C 37.4 C Pulse Rate 90 92 H Pulse Rate [ Anterior Bilateral Throughout] Respiratory 17 18 Rate Respiratory Rate [Anterior Bilateral Throughout] Blood Pressure 114/69 Blood Pressure 113/74 [Right] O2 Sat by Pulse 95 Oximetry - Labs CBC & Chem 7: 11/14/18 05:30 11/14/18 05:30 Labs: Laboratory Results - last 72 hr 11/13/18 11/13/18 11/14/18 17:26 23:48 05:30 WBC 7.6 RBC 2.83 L Hgb 9.8 L Hct 28.6 L MCV 101 H MCH 34 H MCHC 34 RDW 13.5 Plt Count 210 [place] % (Auto) Pick Out Hand Add Manual Diff Complete Total Counted 100 Seg Neuts % (Manual) 81.0 H Band Neutrophils % 0 Lymphocytes % (Manual) 7.0 L Reactive Lymphs % (Man) 1.0 Monocytes % (Manual) 10.0 H Eosinophils % (Manual) 0 Basophils % (Manual) 1.0 Metamyelocytes % 0 Myelocytes % 0 Promyelocytes % 0 Blast Cells % 0 Nucleated RBC % Not Reportable Seg Neutrophils # Man 6.2 Band Neutrophils # 0.0 Lymphocytes # (Manual) 0.5 L Abs React Lymphs (Man) 0.1 Monocytes # (Manual) 0.8 Eosinophils # (Manual) 0.0 Basophils # (Manual) 0.1 Metamyelocytes # 0.0 Myelocytes # 0.0 Promyelocytes # 0.0 Blast Cells # 0.0 WBC Morphology Not Reportable Hypersegmented Neuts Not Reportable Hyposegmented Neuts Not Reportable Hypogranular Neuts Not Reportable Smudge Cells Not Reportable Toxic Granulation Not Reportable Toxic Vacuolation Not Reportable Dohle Bodies Not Reportable Pelger-Huet Anomaly Not Reportable Carlee Rods Not Reportable Platelet Estimate Consistent w auto Clumped Platelets Not Reportable Plt Clumps, EDTA Not Reportable Large Platelets Not Reportable Giant Platelets Not Reportable Platelet Satelliting Not Reportable Plt Morphology Comment Not Reportable RBC Morphology Not Reportable Dimorphic RBCs Not Reportable Polychromasia Not Reportable Hypochromasia Not Reportable Poikilocytosis Not Reportable Anisocytosis 1+ Microcytosis Not Reportable Macrocytosis Not Reportable Spherocytes Not Reportable Pappenheimer Bodies Not Reportable Sickle Cells Not Reportable Target Cells Not Reportable Tear Drop Cells Not Reportable Ovalocytes Not Reportable Helmet Cells Not Reportable Aguero-[place] Bodies Not Reportable [place] Rings Not Reportable Giovanni Cells Not Reportable Bite Cells Not Reportable Crenated Cell Not Reportable Elliptocytes Not Reportable Acanthocytes (Spur) Not Reportable Rouleaux Not Reportable Hemoglobin C Crystals Not Reportable Schistocytes Not Reportable Malaria parasites Not Reportable Oziel Bodies Not Reportable Hem Pathologist Commnt No Sodium Potassium Chloride Carbon Dioxide Anion Gap BUN Creatinine Estimated GFR BUN/Creatinine Ratio Glucose POC Glucose 114 H 114 H Calcium Phosphorus Magnesium Total Bilirubin AST ALT Alkaline Phosphatase C-Reactive Protein Total Protein Albumin Albumin/Globulin Ratio Prealbumin Triglycerides 11/14/18 11/14/18 05:30 06:06 WBC RBC Hgb Hct MCV MCH MCHC RDW Plt Count Mcn[place] % (Auto) Add Manual Diff Total Counted Seg Neuts % (Manual) Band Neutrophils % Lymphocytes % (Manual) Reactive Lymphs % (Man) Monocytes % (Manual) Eosinophils % (Manual) Basophils % (Manual) Metamyelocytes % Myelocytes % Promyelocytes % Blast Cells % Nucleated RBC % Seg Neutrophils # Man Band Neutrophils # Lymphocytes # (Manual) Abs React Lymphs (Man) Monocytes # (Manual) Eosinophils # (Manual) Basophils # (Manual) Metamyelocytes # Myelocytes # Promyelocytes # Blast Cells # WBC Morphology Hypersegmented Neuts Hyposegmented Neuts Hypogranular Neuts Smudge Cells Toxic Granulation Toxic Vacuolation Dohle Bodies Pelger-Huet Anomaly Carlee Rods Platelet Estimate Clumped Platelets Plt Clumps, EDTA Large Platelets Giant Platelets Platelet Satelliting Plt Morphology Comment RBC Morphology Dimorphic RBCs Polychromasia Hypochromasia Poikilocytosis Anisocytosis Microcytosis Macrocytosis Spherocytes Pappenheimer Bodies Sickle Cells Target Cells Tear Drop Cells Ovalocytes Helmet Cells Aguero-[place] Bodies [place] Rings Giovanni Cells Bite Cells Crenated Cell Elliptocytes Acanthocytes (Spur) Rouleaux Hemoglobin C Crystals Schistocytes Malaria parasites Oziel Bodies Hem Pathologist Commnt Sodium 131 L Potassium 4.9 Chloride 94.0 L Carbon Dioxide 29 Anion Gap 13 BUN 7 Creatinine 0.3 L Estimated GFR > 60 BUN/Creatinine Ratio 23 Glucose 87 POC Glucose 102 Calcium 8.9 Phosphorus 3.80 Magnesium 1.90 Total Bilirubin 0.30 AST 20 ALT 13 Alkaline Phosphatase 80 C-Reactive Protein 0.80 Total Protein 6.2 L Albumin 2.7 L Albumin/Globulin Ratio 0.8 Prealbumin 0.139 L Triglycerides 88 Assessment and Plan Assessment and plan: Patient was assessed and evaluated for Acute Inpatient Rehab Unit. Due to the patients above-mentioned medical complexity, along with decreased functional mobility and self care, this patient continues to require and be appropriate for a comprehensive, multidisciplinary [id number] rehabilitation program. These needs cannot be met in an outpatient or other less intensive setting. The patient would continue to benefit from skilled therapy intervention for at least 3 hours per day, five days a week, with techniques specific to the needs of the patient to improve function, activities of daily living, and reintegration into the community. The patient continues to require: -- OT to improve ROM, self-care, and learn use of adaptive equipment -- PT to improve strength and balance, functional transfers, and ambulation with energy conservation techniques to improve functional mobility -- [employer] to address cognitive deficits and swallowing ability -- 24 hour RN to ensure and prevent skin breakdown, promote progressive independence while ensuring safety, ensure education regarding medications, and incorporation of the rehabilitation at the bedside -- 24 hour Dumper to coordinate this interdisciplinary program, and to manage/prevent complications as a result of the patients medical comorbidities. -Plan of care by day 4 -Weekly team conferences With such a program, there is a reasonable certainty that the goals individualized for this patient can be achieved within the specified length of stay. Z73.6 ADL dysfunction: OT will work on improving ability to perform ADLs (including assistive devices) to increase independence and decrease caregiver burden and improve functional transfers and mobility training. R26.2 Difficulty walking: PT will work on gait training and proper use of assistive devices and advance as appropriate to use of stairs and outside ambulation on uneven surfaces. R26.81 Unsteadiness on feet: PT will work on improving static and dynamic sitting and standing balance as well as proper use of assistive devices to decrease risk of falls. R26.89 Abnormality of gait: PT will work to improve safety and efficiency of gait through neuromotor training and gait training along with instruction on proper use of assistive devices. M62.81 Muscle weakness: PT & OT will work on strengthening exercises to improve functional strength including mixture of closed and open kinetic chain exercises. R53.81 Debility: PT & OT will work on improving overall functional status to improve participation with ADLs, mobility and social involvement. R53.83 Fatigue: PT & OT will work on improving endurance through aerobic exerc ises and therapeutic activity while monitoring patients tolerance for activity and vital signs as needed. Left knee pain: Obtain x-ray to assess for involvement of arthritis. Start Voltaren gel Asthma: Continue inhalers, supplemental oxygen and monitor Surgical Wounds: Wound consult, continue wound VAC, continue IV antibiotics for 7 days per ID Nutrition: Continue TPN until by mouth intake improves. DVT ppx: Heparin Pain: Continue physical modalities in therapy and pain medications as needed to achieve functional pain control. Sleep: Monitor and address as needed. Bowel: Monitor and address as needed. Appetite: Monitor and address as needed. Discharge planning: Pending therapy progress and care plan meeting. Will continue discussion with therapy team, SW, patient and family. Restrictions/ Precautions: Falls, wound VAC WB status: FWB Functional Hx: ADLs: Independent Cognition: Independent Mobility: No AD Barriers to Discharge: Decreased mobility and ability to perform self care, balance deficits, weakness Estimated Length of Stay: 14-18 days Discharge Destination: Home with family POST ADMISSION PHYSICIAN EVALUATION I have examined the patient and find that functional status, medical condition and appropriateness for IRF admission are essentially unchanged from those described in the preadmission screening. Will monitor for worsening infection, DVT/PE, bowel and bladder complications and complications due to respiratory and electrolyte abnormalities. Will attempt to avoid occurrence of these issues or treat them if they present themselves.
[2018-11-14] MEDS: MAXIPIME/NS 2 GM/100 ML 2 GM/100 ML BAG IV SCH ×2 (09:55→21:38)
[2018-11-14] MEDS: ATROVENT IH SCH ×3 (10:07→20:33)
[2018-11-14] MEDS: NORCO 5/325 PO PRN ×3 (10:32→18:55)
[2018-11-14] MEDS: PEPCID IV SCH ×2 (11:17→21:38)
[2018-11-14] MEDS: PROTONIX PO SCH (11:19)
[2018-11-14] MEDS: K-DUR PO SCH (12:40)
--- NOTE | 2018-11-14 13:36 | XRay Report ---
LEFT KNEE, 3 views: History: Left knee pain. Borderline osteopenia. 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 No significant joint space narrowing is appreciated. No evidence for fracture or bone lesion. Soft tissues are unremarkable. IMPRESSION: Calcinosis of the menisci. No acute process.
[2018-11-14] MEDS: DIFLUCAN 200 MG/100 ML BAG IV SCH (15:01)
[2018-11-14] MEDS ORDERED: TPN ADULT 1,800 ML IV SCH (20:00)
[2018-11-15] MEDS: HumaLOG SUB-Q SCH ×4 (00:32→17:59)
[2018-11-15] MEDS: NORCO 5/325 PO PRN ×3 (05:30→20:42)
[2018-11-15] MEDS: HEPARIN SUB-Q SCH ×3 (05:30→21:08)
[2018-11-15 06:40] LABS: Hematocrit 30.5 % (30.3-42.9); Hemoglobin 10.4 gm/dl (10.1-14.3); Mean Corpuscular HGB Conc 34 % (30-34); Mean Corpuscular Volume 101 fl (79-97); Platelet Count 212 K/mm3 (140-440); Red Blood Count 3.02 M/mm3 (3.65-5.03); Red Cell Distribution Width 13.6 % (13.2-15.2)
[2018-11-15 07:06] LABS: BUN/Creatinine Ratio 27; Blood Urea Nitrogen 8 mg/dL (7-17); Calcium 9.1 mg/dL (8.4-10.2); Hemolysis Index 9
[2018-11-15 07:24] LABS: Erythrocyte Sedimentation Rate 70 mm/Hr (0-20)
[2018-11-15] MEDS: ATROVENT IH SCH ×3 (07:57→19:48)
[2018-11-15] MEDS: XOPENEX IH SCH ×3 (07:57→19:48)
[2018-11-15] MEDS: K-DUR PO SCH (08:26)
[2018-11-15] MEDS: PROTONIX PO SCH (08:26)
[2018-11-15] MEDS: PEPCID IV SCH (08:26)
[2018-11-15] MEDS: DIFLUCAN 200 MG/100 ML BAG IV SCH (09:37)
[2018-11-15] MEDS: MAXIPIME/NS 2 GM/100 ML 2 GM/100 ML BAG IV SCH ×3 (09:37→21:08)
--- NOTE | 2018-11-15 17:58 | Progress Note ---
Assessment and Plan - Patient Problems (1) Cecal volvulus Current Visit: No Status: Acute Plan to address problem: Pt stable. Pt is well known to our service. Wound vac - care per [facility] nurse. Nutrition - would recheck prealbumin in 1 week. If rising, can d/c TPN. Pt reports that she is eating her usual amount that she did at home PT - cont per rehab protocol Will be available as needed. Please call with questions. Subjective Date of service: 11/15/18 Patient Reports: Positive: still having pain (primarily with wound care. has occasional stomach cramps when eating. She has always been a slow eater), tolerating a regular diet, flatus, bowel movement. Negative: nausea, vomiting Objective Vital Signs - 12hr 11/15/18 11/15/18 11/15/18 07:52 07:58 07:59 Temperature Pulse Rate 94 H Pulse Rate [ 96 H Anterior Bilateral Throughout] Respiratory Rate Respiratory 18 Rate [Anterior Bilateral Throughout] Blood Pressure O2 Sat by Pulse 100 100 Oximetry 11/15/18 11/15/18 11/15/18 12:49 16:01 16:02 Temperature 98.7 F Pulse Rate 93 H 98 H 67 Pulse Rate [ Anterior Bilateral Throughout] Respiratory 18 Rate Respiratory Rate [Anterior Bilateral Throughout] Blood Pressure 125/73 O2 Sat by Pulse 100 99 81 L Oximetry - General physical appearance no distress, no pain - Eyes normal occular movement - Respiratory normal expansion, normal respiratory effort - Abdomen soft, tender (mild - generalized. ), not distended, not guarding, not rigid, wound (wound vac in place. good seal) - Integumentary no rash, no growths, no abnormal pigmentation - Psychiatric speech is normal - Labs 11/15/18 06:14 11/15/18 06:14 Diabetes panel 11/15/18 Range/Units 06:14 Sodium 131 L (137-145) mmol/L Potassium 4.8 (3.6-5.0) mmol/L Chloride 95.2 L (98-107) mmol/L Carbon Dioxide 26 (22-30) mmol/L BUN 8 (7-17) mg/dL Creatinine 0.3 L (0.7-1.2) mg/dL Glucose 104 H (65-100) mg/dL Calcium 9.1 (8.4-10.2) mg/dL Calcium panel 11/15/18 11/15/18 Range/Units 06:14 06:14 Calcium 9.1 (8.4-10.2) mg/dL Phosphorus 4.30 (2.5-4.5) mg/dL Pituitary panel 11/15/18 Range/Units 06:14 Sodium 131 L (137-145) mmol/L Potassium 4.8 (3.6-5.0) mmol/L Chloride 95.2 L (98-107) mmol/L Carbon Dioxide 26 (22-30) mmol/L BUN 8 (7-17) mg/dL Creatinine 0.3 L (0.7-1.2) mg/dL Glucose 104 H (65-100) mg/dL Calcium 9.1 (8.4-10.2) mg/dL Adrenal panel 11/15/18 Range/Units 06:14 Sodium 131 L (137-145) mmol/L Potassium 4.8 (3.6-5.0) mmol/L Chloride 95.2 L (98-107) mmol/L Carbon Dioxide 26 (22-30) mmol/L BUN 8 (7-17) mg/dL Creatinine 0.3 L (0.7-1.2) mg/dL Glucose 104 H (65-100) mg/dL Calcium 9.1 (8.4-10.2) mg/dL
[2018-11-15] MEDS ORDERED: TPN ADULT 1,800 ML IV SCH (20:00)
[2018-11-16] MEDS: HumaLOG SUB-Q SCH ×4 (02:01→17:11)
[2018-11-16] MEDS: NORCO 5/325 PO PRN ×3 (05:50→14:41)
[2018-11-16] MEDS: HEPARIN SUB-Q SCH ×3 (05:51→21:44)
[2018-11-16 06:44] LABS: Mean Corpuscular HGB Conc 35 % (30-34); Mean Corpuscular Volume 100 fl (79-97); Platelet Count 214 K/mm3 (140-440); Red Blood Count 2.91 M/mm3 (3.65-5.03); Red Cell Distribution Width 13.4 % (13.2-15.2)
[2018-11-16 07:03] LABS: Erythrocyte Sedimentation Rate 93 mm/Hr (0-20)
[2018-11-16 07:14] LABS: BUN/Creatinine Ratio 27; Blood Urea Nitrogen 8 mg/dL (7-17); Calcium 9.3 mg/dL (8.4-10.2); Hemolysis Index 3
[2018-11-16] MEDS ORDERED: XOPENEX IH ONE (07:51)
[2018-11-16] MEDS: ATROVENT IH SCH (07:53)
[2018-11-16] MEDS: K-DUR PO SCH (09:17)
[2018-11-16] MEDS: DIFLUCAN 200 MG/100 ML BAG IV SCH (09:18)
[2018-11-16] MEDS: PROTONIX PO SCH (09:18)
[2018-11-16] MEDS: MAXIPIME/NS 2 GM/100 ML 2 GM/100 ML BAG IV SCH (09:18)
--- NOTE | 2018-11-16 10:34 | Progress Note ---
Subjective Date of service: 11/16/18 Principal diagnosis: Debility s/p exlap with reduction of internal hernia, right hemicolectomy, Interval history: 62-year-old thin female who presented to the ER with decreased by mouth intake and weakness. 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 He was taken to the OR where she underwent an exploratory laparotomy with reduction of an internal hernia, right hemicolectomy and primary ileocolonic anastomosis. She was placed on CIWA protocol. TPN was started due to poor by mouth intake even after diet was advanced. He Stacia was consulted due to thrombocytopenia. On postop day [address] showed likely ileus along with a lateral pleural effusion. Wound care involves wound VAC along with Dakin's and packing. IV antibiotics were started and infectious disease was consulted.After the patient was medically stabilized they were transferred for further rehabilitation. All available medical records have been reviewed but there are limited records from the acute care hospital. Plan of care was discussed with patient and family. Patient is participating in therapy and making reasonable progress. Taking rest breaks as needed. +BM yesterday, not today. Ask nursing to monitor for bowel movement and or flatus. States she has mild pain in her abdomen, otherwise denies pain, palpitations, dyspnea, cough, N/V, weakness, or joint pain. Improving her ability to ambulate for short distances. Heart rate is improved with activity however she still has periods of tachycardia periodically. 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 Discussed with patient. We'll continue to monitor her wound VAC output. Staple removal per surgeon's timeline. Look to DC TPN late next week if she continues to improve her oral intake and pre-albumin level has improved. All records, vitals, labs and medications were reviewed. No other issues per patient, nursing or therapy. Objective - Exam Narrative Exam: MUSCULOSKELETAL SPECIALTY EXAM CONSTITUTIONAL: Well developed, well nourished, appropriately groomed, thin EENT: Visual garza full to confrontation. EOMI. Hearing intact to soft voice RESPIRATORY: Clear to auscultation bilaterally, no increased work of breathing CARDIOVASCULAR: Regular Rate/ Rhythm, no swelling, edema or tenderness in BUE or BLE. All extremities warm. PICC line left upper extremity GI: + bowel sounds, soft, mild TTP, nondistended, wound VAC in place INTEGUMENTARY: Normal, no lesion, rash, masses or bruising noted in extremities. Wound VAC on abdomen MUSCULOSKELETAL: BUE and BLE normal without defect, crepitus, subluxation, effusion, arthritic changes or TTP, except for left knee which has tenderness to palpation on anterior BUE 4+/5, good ROM, with normal tone. BLE 4-/5 good ROM, with normal tone NEURO: CN 2-12 grossly intact. Sensation intact in all extremities. No tremor noted in 4 extremities. POSTURE and GAIT: Sitting posture good. Balance appears reasonable. Gait slowed with short steps. PSYCH: Alert, orientated x3, affect appears normal. Insight appears intact. - Constitutional Vitals: Vital Signs - 12hr 11/16/18 11/16/18 11/16/18 01:49 05:08 06:32 Temperature 36.7 C Pulse Rate 96 H 100 H Respiratory 18 Rate Blood Pressure 119/79 [Right] O2 Sat by Pulse 97 100 Oximetry 11/16/18 07:22 Temperature 36.7 C Pulse Rate 100 H Respiratory 18 Rate Blood Pressure 119/79 [Right] O2 Sat by Pulse 100 Oximetry - Allied health notes Allied health notes reviewed: nursing, PT, ST, OT FIMS assessment as documented by PT/OT/ST: Grooming Patient cleans teeth/dentures: Yes Patient irvin/brushes hair: Yes Patient washes, rinses and Yes dries face: Patient washes, rinses and Yes dries hands: Patient shaves: No Patient applies make-up: No Patient performs (no make-up/ 08/29 (100%) shaving): Grooming FIM Score 5. Supervision ([place] applies toothpaste or opens containers.) Toileting Toileting Device Bedside Commode Patient able to: Adjust clothes before Patient able to perform: 2/3 (67%) Toileting FIM Score 3. Moderate Assistance (Patient = 50% or more. Some lifting.) Social interaction/Memory/Problem solving Social Interaction FIM Score 6. Mod. [place] (Mostly appropriate. May need meds. No supv.) Memory FIM Score 5. Supervision (Needs cueing <10%, stressful/ unfamiliar situations.) Problem Solving FIM Score 5. Supervision (Needs cueing <10% to solve routine problems.) Transfers Mode of Locomotion: Wheelchair Bed/Chair/Wheelchair Transfers 3. Moderate Assistance (Patient = 50% or more. FIM Score Some lifting.) Toilet Transfers FIM Score 2. Maximal Assistance (Patient = 25% or more) Patient transferred to: Shower Tub Transfers FIM Score 2. Maximal Assistance (Patient = 25% or more) Shower Transfers FIM Score 2. Maximal Assistance (Patient = 25% or more) Locomotion- walk/wheelchair Ambulation Distance 23 Walking FIM Score 1. Total Assistance (Pt. < 25%, 2 or more person assist, or <50 ft.) Wheelchair Propulsion Distance 150 Wheelchair FIM Score 3. Moderate Assistance (Patient = 50% or more. Minimum of 150 ft.) Eating Eating Device Adjusted Table Height Eating FIM Score 5. Supervision/Set-Up (Needs help w/ containers, cutting meat, etc.) Dressing-Upper body Patient retrieves clothing No items: Upper Body Dressing FIM Score 4. Minimal Assistance (Patient = 75% or more. Needs touching.) Dressing-lower body Lower Body Dressing Device Varnishing Unit Operator/Stick Patient retrieves clothing No items: Patient applies/removes LE No prosthesis or orthosis: Lower Body Dressing FIM Score 4. Minimal Assistance (Patient = 75% or more. Needs touching.) - Labs CBC & Chem 7: 11/16/18 06:20 11/16/18 06:20 Labs: Laboratory Results - last 72 hr 11/13/18 11/13/18 11/14/18 17:26 23:48 05:30 WBC 7.6 RBC 2.83 L Hgb 9.8 L Hct 28.6 L MCV 101 H MCH 34 H MCHC 34 RDW 13.5 Plt Count 210 [place] % (Auto) [place] Assessment Specialist Add Manual Diff Complete Total Counted 100 Seg Neuts % (Manual) 81.0 H Band Neutrophils % 0 Lymphocytes % (Manual) 7.0 L Reactive Lymphs % (Man) 1.0 Monocytes % (Manual) 10.0 H Eosinophils % (Manual) 0 Basophils % (Manual) 1.0 Metamyelocytes % 0 Myelocytes % 0 Promyelocytes % 0 Blast Cells % 0 Nucleated RBC % Not Reportable Seg Neutrophils # Man 6.2 Band Neutrophils # 0.0 Lymphocytes # (Manual) 0.5 L Abs React Lymphs (Man) 0.1 Monocytes # (Manual) 0.8 Eosinophils # (Manual) 0.0 Basophils # (Manual) 0.1 Metamyelocytes # 0.0 Myelocytes # 0.0 Promyelocytes # 0.0 Blast Cells # 0.0 WBC Morphology Not Reportable Hypersegmented Neuts Not Reportable Hyposegmented Neuts Not Reportable Hypogranular Neuts Not Reportable Smudge Cells Not Reportable Toxic Granulation Not Reportable Toxic Vacuolation Not Reportable Dohle Bodies Not Reportable Pelger-Huet Anomaly Not Reportable Carlee Rods Not Reportable Platelet Estimate Consistent w auto Clumped Platelets Not Reportable Plt Clumps, EDTA Not Reportable Large Platelets Not Reportable Giant Platelets Not Reportable Platelet Satelliting Not Reportable Plt Morphology Comment Not Reportable RBC Morphology Not Reportable Dimorphic RBCs Not Reportable Polychromasia Not Reportable Hypochromasia Not Reportable Poikilocytosis Not Reportable Anisocytosis 1+ Microcytosis Not Reportable Macrocytosis Not Reportable Spherocytes Not Reportable Pappenheimer Bodies Not Reportable Sickle Cells Not Reportable Target Cells Not Reportable Tear Drop Cells Not Reportable Ovalocytes Not Reportable Helmet Cells Not Reportable Aguero-Poneto Bodies Not Reportable [place] Rings Not Reportable Giovanni Cells Not Reportable Bite Cells Not Reportable Crenated Cell Not Reportable Elliptocytes Not Reportable Acanthocytes (Spur) Not Reportable Rouleaux Not Reportable Hemoglobin C Crystals Not Reportable Schistocytes Not Reportable Malaria parasites Not Reportable ESR Oziel Bodies Not Reportable Hem Pathologist Commnt No Sodium Potassium Chloride Carbon Dioxide Anion Gap BUN Creatinine Estimated GFR BUN/Creatinine Ratio Glucose POC Glucose 114 H 114 H Calcium Phosphorus Magnesium Total Bilirubin AST ALT Alkaline Phosphatase C-Reactive Protein Total Protein Albumin Albumin/Globulin Ratio Prealbumin Triglycerides 11/14/18 11/14/18 11/14/18 05:30 06:06 11:39 WBC RBC Hgb Hct MCV MCH MCHC RDW Plt Count [place] % (Auto) Add Manual Diff Total Counted Seg Neuts % (Manual) Band Neutrophils % Lymphocytes % (Manual) Reactive Lymphs % (Man) Monocytes % (Manual) Eosinophils % (Manual) Basophils % (Manual) Metamyelocytes % Myelocytes % Promyelocytes % Blast Cells % Nucleated RBC % Seg Neutrophils # Man Band Neutrophils # Lymphocytes # (Manual) Abs React Lymphs (Man) Monocytes # (Manual) Eosinophils # (Manual) Basophils # (Manual) Metamyelocytes # Myelocytes # Promyelocytes # Blast Cells # WBC Morphology Hypersegmented Neuts Hyposegmented Neuts Hypogranular Neuts Smudge Cells Toxic Granulation Toxic Vacuolation Dohle Bodies Pelger-Huet Anomaly Carlee Rods Platelet Estimate Clumped Platelets Plt Clumps, EDTA Large Platelets Giant Platelets Platelet Satelliting Plt Morphology Comment RBC Morphology Dimorphic RBCs Polychromasia Hypochromasia Poikilocytosis Anisocytosis Microcytosis Macrocytosis Spherocytes Pappenheimer Bodies Sickle Cells Target Cells Tear Drop Cells Ovalocytes Helmet Cells Aguero-Poneto Bodies [place] Rings [place] Cells Bite Cells Crenated Cell Elliptocytes Acanthocytes (Spur) Rouleaux Hemoglobin C Crystals Schistocytes Malaria parasites ESR Oziel Bodies Hem Pathologist Commnt Sodium 131 L Potassium 4.9 Chloride 94.0 L Carbon Dioxide 29 Anion Gap 13 BUN 7 Creatinine 0.3 L Estimated GFR > 60 BUN/Creatinine Ratio 23 Glucose 87 POC Glucose 102 104 Calcium 8.9 Phosphorus 3.80 Magnesium 1.90 Total Bilirubin 0.30 AST 20 ALT 13 Alkaline Phosphatase 80 C-Reactive Protein 0.80 Total Protein 6.2 L Albumin 2.7 L Albumin/Globulin Ratio 0.8 Prealbumin 0.139 L Triglycerides 88 11/14/18 11/14/18 11/15/18 16:26 23:48 06:14 WBC 5.7 RBC 3.02 L Hgb 10.4 Hct 30.5 MCV 101 H MCH 35 H MCHC 34 RDW 13.6 Plt Count 212 [place] % (Auto) Add Manual Diff Total Counted Seg Neuts % (Manual) Band Neutrophils % Lymphocytes % (Manual) Reactive Lymphs % (Man) Monocytes % (Manual) Eosinophils % (Manual) Basophils % (Manual) Metamyelocytes % Myelocytes % Promyelocytes % Blast Cells % Nucleated RBC % Seg Neutrophils # Man Band Neutrophils # Lymphocytes # (Manual) Abs React Lymphs (Man) Monocytes # (Manual) Eosinophils # (Manual) Basophils # (Manual) Metamyelocytes # Myelocytes # Promyelocytes # Blast Cells # WBC Morphology Hypersegmented Neuts Hyposegmented Neuts Hypogranular Neuts Smudge Cells Toxic Granulation Toxic Vacuolation Dohle Bodies Pelger-Huet Anomaly Carlee Rods Platelet Estimate Clumped Platelets Plt Clumps, EDTA Large Platelets Giant Platelets Platelet Satelliting Plt Morphology Comment RBC Morphology Dimorphic RBCs Polychromasia Hypochromasia Poikilocytosis Anisocytosis Microcytosis Macrocytosis Spherocytes Pappenheimer Bodies Sickle Cells Target Cells Tear Drop Cells Ovalocytes Helmet Cells Aguero-Poneto Bodies [place] Rings Giovanni Cells Bite Cells Crenated Cell Elliptocytes Acanthocytes (Spur) Rouleaux Hemoglobin C Crystals Schistocytes Malaria parasites ESR 70 Oziel Bodies Hem Pathologist Commnt Sodium Potassium Chloride Carbon Dioxide Anion Gap BUN Creatinine Estimated GFR BUN/Creatinine Ratio Glucose POC Glucose 118 H 129 H Calcium Phosphorus Magnesium Total Bilirubin AST ALT Alkaline Phosphatase C-Reactive Protein Total Protein Albumin Albumin/Globulin Ratio Prealbumin Triglycerides 11/15/18 11/15/18 11/15/18 06:14 06:14 06:22 WBC RBC Hgb Hct MCV MCH MCHC RDW Plt Count [place] % (Auto) Add Manual Diff Total Counted Seg Neuts % (Manual) Band Neutrophils % Lymphocytes % (Manual) Reactive Lymphs % (Man) Monocytes % (Manual) Eosinophils % (Manual) Basophils % (Manual) Metamyelocytes % Myelocytes % Promyelocytes % Blast Cells % Nucleated RBC % Seg Neutrophils # Man Band Neutrophils # Lymphocytes # (Manual) Abs React Lymphs (Man) Monocytes # (Manual) Eosinophils # (Manual) Basophils # (Manual) Metamyelocytes # Myelocytes # Promyelocytes # Blast Cells # WBC Morphology Hypersegmented Neuts Hyposegmented Neuts Hypogranular Neuts Smudge Cells Toxic Granulation Toxic Vacuolation Dohle Bodies Pelger-Huet Anomaly Carlee Rods Platelet Estimate Clumped Platelets Plt Clumps, EDTA Large Platelets Giant Platelets Platelet Satelliting Plt Morphology Comment RBC Morphology Dimorphic RBCs Polychromasia Hypochromasia Poikilocytosis Anisocytosis Microcytosis Macrocytosis Spherocytes Pappenheimer Bodies Sickle Cells Target Cells Tear Drop Cells Ovalocytes Helmet Cells Aguero-Poneto Bodies [place] Rings Giovanni Cells Bite Cells Crenated Cell Elliptocytes Acanthocytes (Spur) Rouleaux Hemoglobin C Crystals Schistocytes Malaria parasites ESR Oziel Bodies Hem Pathologist Commnt Sodium 131 L Potassium 4.8 Chloride 95.2 L Carbon Dioxide 26 Anion Gap 15 BUN 8 Creatinine 0.3 L Estimated GFR > 60 BUN/Creatinine Ratio 27 Glucose 104 H POC Glucose 117 H Calcium 9.1 Phosphorus 4.30 Magnesium 2.00 Total Bilirubin AST ALT Alkaline Phosphatase C-Reactive Protein 1.30 Total Protein Albumin Albumin/Globulin Ratio Prealbumin Triglycerides 11/15/18 11/15/18 11/15/18 13:02 16:19 21:47 WBC RBC Hgb Hct MCV MCH MCHC RDW Plt Count [place] % (Auto) Add Manual Diff Total Counted Seg Neuts % (Manual) Band Neutrophils % Lymphocytes % (Manual) Reactive Lymphs % (Man) Monocytes % (Manual) Eosinophils % (Manual) Basophils % (Manual) Metamyelocytes % Myelocytes % Promyelocytes % Blast Cells % Nucleated RBC % Seg Neutrophils # Man Band Neutrophils # Lymphocytes # (Manual) Abs React Lymphs (Man) Monocytes # (Manual) Eosinophils # (Manual) Basophils # (Manual) Metamyelocytes # Myelocytes # Promyelocytes # Blast Cells # WBC Morphology Hypersegmented Neuts Hyposegmented Neuts Hypogranular Neuts Smudge Cells Toxic Granulation Toxic Vacuolation Dohle Bodies Pelger-Huet Anomaly Carlee Rods Platelet Estimate Clumped Platelets Plt Clumps, EDTA Large Platelets Giant Platelets Platelet Satelliting Plt Morphology Comment RBC Morphology Dimorphic RBCs Polychromasia Hypochromasia Poikilocytosis Anisocytosis Microcytosis Macrocytosis Spherocytes Pappenheimer Bodies Sickle Cells Target Cells Tear Drop Cells Ovalocytes Helmet Cells Aguero-Poneto Bodies [place] Rings Giovanni Cells Bite Cells Crenated Cell Elliptocytes Acanthocytes (Spur) Rouleaux Hemoglobin C Crystals Schistocytes Malaria parasites ESR Oziel Bodies Hem Pathologist Commnt Sodium Potassium Chloride Carbon Dioxide Anion Gap BUN Creatinine Estimated GFR BUN/Creatinine Ratio Glucose POC Glucose 83 111 H 90 Calcium Phosphorus Magnesium Total Bilirubin AST ALT Alkaline Phosphatase C-Reactive Protein Total Protein Albumin Albumin/Globulin Ratio Prealbumin Triglycerides 11/16/18 11/16/18 11/16/18 06:13 06:20 06:20 WBC 5.5 RBC 2.91 L Hgb 10.0 L Hct 29.0 L MCV 100 H MCH 35 H MCHC 35 H RDW 13.4 Plt Count 214 [place] % (Auto) Add Manual Diff Total Counted Seg Neuts % (Manual) Band Neutrophils % Lymphocytes % (Manual) Reactive Lymphs % (Man) Monocytes % (Manual) Eosinophils % (Manual) Basophils % (Manual) Metamyelocytes % Myelocytes % Promyelocytes % Blast Cells % Nucleated RBC % Seg Neutrophils # Man Band Neutrophils # Lymphocytes # (Manual) Abs React Lymphs (Man) Monocytes # (Manual) Eosinophils # (Manual) Basophils # (Manual) Metamyelocytes # Myelocytes # Promyelocytes # Blast Cells # WBC Morphology Hypersegmented Neuts Hyposegmented Neuts Hypogranular Neuts Smudge Cells Toxic Granulation Toxic Vacuolation Dohle Bodies Pelger-Huet Anomaly Carlee Rods Platelet Estimate Clumped Platelets Plt Clumps, EDTA Large Platelets Giant Platelets Platelet Satelliting Plt Morphology Comment RBC Morphology Dimorphic RBCs Polychromasia Hypochromasia Poikilocytosis Anisocytosis Microcytosis Macrocytosis Spherocytes Pappenheimer Bodies Sickle Cells Target Cells Tear Drop Cells Ovalocytes Helmet Cells Aguero-Poneto Bodies [place] Rings [place] Cells Bite Cells Crenated Cell Elliptocytes Acanthocytes (Spur) Rouleaux Hemoglobin C Crystals Schistocytes Malaria parasites ESR 93 Oziel Bodies Hem Pathologist Commnt Sodium 134 L Potassium 4.1 Chloride 96.5 L Carbon Dioxide 28 Anion Gap 14 BUN 8 Creatinine 0.3 L Estimated GFR > 60 BUN/Creatinine Ratio 27 Glucose 92 POC Glucose 94 Calcium 9.3 Phosphorus Magnesium Total Bilirubin AST ALT Alkaline Phosphatase C-Reactive Protein 0.80 Total Protein Albumin Albumin/Globulin Ratio Prealbumin Triglycerides 11/16/18 06:20 WBC RBC Hgb Hct MCV MCH MCHC RDW Plt Count [place] % (Auto) Add Manual Diff Total Counted Seg Neuts % (Manual) Band Neutrophils % Lymphocytes % (Manual) Reactive Lymphs % (Man) Monocytes % (Manual) Eosinophils % (Manual) Basophils % (Manual) Metamyelocytes % Myelocytes % Promyelocytes % Blast Cells % Nucleated RBC % Seg Neutrophils # Man Band Neutrophils # Lymphocytes # (Manual) Abs React Lymphs (Man) Monocytes # (Manual) Eosinophils # (Manual) Basophils # (Manual) Metamyelocytes # Myelocytes # Promyelocytes # Blast Cells # WBC Morphology Hypersegmented Neuts Hyposegmented Neuts Hypogranular Neuts Smudge Cells Toxic Granulation Toxic Vacuolation Dohle Bodies Pelger-Huet Anomaly Carlee Rods Platelet Estimate Clumped Platelets Plt Clumps, EDTA Large Platelets Giant Platelets Platelet Satelliting Plt Morphology Comment RBC Morphology Dimorphic RBCs Polychromasia Hypochromasia Poikilocytosis Anisocytosis Microcytosis Macrocytosis Spherocytes Pappenheimer Bodies Sickle Cells Target Cells Tear Drop Cells Ovalocytes Helmet Cells Aguero-Poneto Bodies [place] Rings Giovanni Cells Bite Cells Crenated Cell Elliptocytes Acanthocytes (Spur) Rouleaux Hemoglobin C Crystals Schistocytes Malaria parasites ESR Oziel Bodies Hem Pathologist Commnt Sodium Potassium Chloride Carbon Dioxide Anion Gap BUN Creatinine Estimated GFR BUN/Creatinine Ratio Glucose POC Glucose Calcium Phosphorus 3.60 Magnesium 1.70 Total Bilirubin AST ALT Alkaline Phosphatase C-Reactive Protein Total Protein Albumin Albumin/Globulin Ratio Prealbumin Triglycerides - Imaging and cardiology Other: report reviewed, image reviewed (left knee x-ray mild arthritis with calcinosis of meniscus) Assessment and Plan Z73.6 ADL dysfunction: OT will work on improving ability to perform ADLs (including assistive devices) to increase independence and decrease caregiver burden and improve functional transfers and mobility training. R26.2 Difficulty walking: PT will work on gait training and proper use of assistive devices and advance as appropriate to use of stairs and outside ambulation on uneven surfaces. R26.81 Unsteadiness on feet: PT will work on improving static and dynamic sitting and standing balance as well as proper use of assistive devices to decrease risk of falls. R26.89 Abnormality of gait: PT will work to improve safety and efficiency of gait through neuromotor training and gait training along with instruction on proper use of assistive devices. M62.81 Muscle weakness: PT & OT will work on strengthening exercises to improve functional strength including mixture of closed and open kinetic chain exercises. R53.81 Debility: PT & OT will work on improving overall functional status to improve participation with ADLs, mobility and social involvement. R53.83 Fatigue: PT & OT will work on improving endurance through aerobic exercises and therapeutic activity while monitoring patients tolerance for activity and vital signs as needed. Left knee pain: Mild arthritis. Start Voltaren gel Asthma: Continue inhalers, supplemental oxygen and monitor Surgical Wounds: Wound consult, continue wound VAC, continue IV antibiotics for 7 days per ID Nutrition: Continue TPN until oral intake improves. pre-albumin ordered for next week, hope to DC TPN by end of next week. DVT ppx: Heparin Pain: Continue physical modalities in therapy and pain medications as needed to achieve functional pain control. Sleep: Monitor and address as needed. Bowel: Monitor and address as needed. Monitor closely for BM and flatus, recent history of volvulus with surgical correction. Appetite: Monitor and address as needed. Discharge planning: Pending therapy progress and care plan meeting. Will continue discussion with therapy team, SW, patient and family. Restrictions/ Precautions: Falls, wound VAC WB status: FWB Functional Hx: ADLs: Independent Cognition: Independent Mobility: No AD Barriers to Discharge: Decreased mobility and ability to perform self care, balance deficits, weakness Estimated Length of Stay: 14-18 days Discharge Destination: Home with family
[2018-11-16] MEDS: XOPENEX IH SCH (11:19)
--- NOTE | 2018-11-16 11:55 | IRU Plan of Care ---
Interdisciplinary Plan of Care - IP IRU INTERDISCIPLINARY PLAN: [facility] Inpatient Rehab Unit Plan of Care IRU Interdisciplinary Care Plan Start: 11/13/18 14:07 Freq: Admission then PRN Status: Active Protocol: Document 11/15/18 17:46 TH (Rec: 11/15/18 17:52 TH [id number]) Interdisciplinary Problem List Interdisciplinary Problem List Interdisciplinary Problem List Impaired Eating/Swallowing, Query Text:Answers will Trigger Problems Impaired Bathing/Grooming, and Outcomes on Worklist. Impaired Dressing,Impaired Mobility,Impaired Transfers, Impaired Toileting,Pain Management,Impaired Skin/ Tissue Integrity,Discharge Concerns,Impaired Home Management,Impaired Safety, Medications Education,Impaired Cardiovascular System IRU Interdisciplinary Care Plan Therapy Services Therapy Services Will Include: Physical Therapy,Occupational Query Text:Patient will be seen for a Therapy,Speech Therapy minimum of 3 hours of daily therapy 5 out of 7 days a week. Therapy intensity may be adjusted within a 7 consecutive day period to effectively serve the individual needs of the patient. Treatment Frequency/Intensity/Duration Treatment Frequency 5 days per week Treatment Intensity 3 hours per day Treatment Duration 14-21 days Problem Area: Eating/Swallowing Eating/Swallowing Outcomes Consume Least Restrictive Diet ,Improve Lingual ROM/Strength, Feed Self Eating/Swallowing Interventions ADL Training,Patient/Caregiver Education Problem Area: Bathing/Grooming Bathing/Grooming Outcomes Improve [place] w/ Grooming,Improve [place] w/ Bathing Bathing/Grooming Interventions ADL Training,Therapeutic Exercise,Therapeutic Activity, Neuromuscular Re-Education, Balance Work,Activity Tolerance Work,Patient/ Caregiver Education Problem Area: Dressing Dressing Outcomes Improve [place] w/ UB Dressing,Improve [place] w/ LB Dressing Dressing Interventions ADL Training,Neuromuscular Re- Education,Therapeutic Exercise ,Balance Work,Modalities, Patient/Caregiver Education Problem Area: Mobility Mobility Outcomes Improve [place] w/ Bed Mobility,Improve [place] w/ Ambulation,Improve [place] w/ Stairs/Curb, Improve [place] w/ Wheelchair Mobility Interventions Therapeutic Exercise, Neuromuscular Re-Ed.,Activity Tolerance Work,Use of Assistive Devices,Patient/ Caregiver Education,Bed Mobility Work,Gait Training Problem Area: Transfers Transfers Outcomes Improve [place] w/ Bed Transfers,Improve [place] w/ Toilet Transfers,Improve [place] w/ Tub/Shower Transfers,Improve [place] w/ Car Transfers Transfers Interventions Transfer Training,Therapeutic Exercise,Neuromuscular Re- Education,Activity Tolerance Work,Use of Assistive Devices, Patient/Caregiver Education Problem Area: Bowel/Bladder Managment Bowel/Bladder Outcomes Remain free of UTI Bowel/Bladder Interventions Bladder Training Program,Bowel Training Program,Medication Education,Patient/Caregiver Education Problem Area: Toileting Toileting Outcomes Improve [place] w/ Toileting Toileting Interventions ADL Training,Balance Work,Use of Assistive Devices,Patient/ Caregiver Education Problem Area: Nutrition Nutrition Outcomes Improve/Maintain Oral Intake, Improve/Maintain Weight Status ,Improve/Maintain Fluid Intake Nutrition Interventions Provide High kcal/pro Supplements,Monitor Nutrient Intake,Patient/Caregiver Education Problem Area: Comprehension Comprehension Outcomes Improve Comprehension Comprehension Interventions Patient/Caregiver Education Problem Area: Expression Expression Outcomes Expression Interventions Problem Area: Problem Solving Problem Solving Outcomes Improve Problem Solving Problem Solving Interventions Safety Education,Patient/ Caregiver Education Problem Area: Memory Memory Outcomes Memory Interventions Problem Area: Pain Management Pain Management Outcomes Demonstrate/Verbalize Pain Strategies Pain Management Interventions Positioning/Turning,Patient/ Caregiver Education Problem Area: Knowledge Deficits Knowledge Deficits Outcomes Verbalize Precautions Knowledge Deficits Interventions Medication Use Education, Safety Education Problem Area: Skin/Tissue Integrity Skin/Tissue Integrity Outcomes Exhibit Healing of Wound/ Incision,Demonstrate Understanding of Pressure Relief,Demonstrate Understanding of Self Wound Care Skin/Tissue Integrity Interventions Skin/Wound Care Problem Area: Social Interaction Social Interaction Outcomes Exhibit Appropriate Social Skills Social Interaction Interventions Stress Management Problem Area: Adjustment to Disability Adjustment to Disability Outcomes Adjustment to Disability Interventions Problem Area: Discharge Concerns Discharge Concerns Outcomes Discharge w/ Necessary Equipment,Have Home Health/ Outpatient Services Discharge Concerns Interventions Discharge Planning,Family/ Caregiver Conference,Family/ Caregiver Training Problem Area: Community Reintegration Community Reintegration Outcomes Demonstrate Understanding of Community Resources,Able to Re -Enter the Community Community Reintegration Interventions Activity Tolerance Work, Provide Community Resources Problem Area: Home Management Home Management Outcomes Improve [place] w/ Home Management Home Management Interventions Meal Preparation,Clothing Care ,Activity Tolerance Work,House Cleaning Problem Area: Safety Safety Outcomes Provide Safe Environment, Perform Selfcare Safely, Demonstrate Good Safety w/ Transfers/Mobility Safety Interventions Identify Fall Risk,Reduce Environmental Hazards,Re- Educate Patient/Caregiver for Safety (Post Fall Update) Problem Area: Medication Education Medication Education Outcomes Patient/Caregiver will Verbalize Understanding of Medications Medication Education Interventions Explain Administration/Side Effects/Interactions Problem Area: Diabetes Education Diabetes Education Outcomes Diabetes Education Interventions Problem Area: Oxygenation Oxygenation Outcomes Maintain Adequate Oxygenation Oxygenation Interventions Assess Respiratory Status, Monitor Diagnostic Results, Encourage Coughing and Deep Breathing,Elevate Head of Bed Problem Area: Cardiovascular Cardiovascular Outcomes Maintain or Improve Cardiovascular Status Cardiovascular Interventions Assess Vital Signs at least Every 4 hours,Maintain Anticoagulants Within Appropriate Range Physician Only Medical Prognosis and Rehabilitation fair medical prognosis given history of alcoholism. Good rehabilitation potential. We'll continue to monitor patient's abdominal pain which should continue to resolve as time goes. Also closely monitor bowel output and flatus. Patient is participating actively with therapy and showing improvement. Potential (Completed by Physician) This plan of care has been developed based on the findings from the pre- admission assessment, post admission physician evaluation, information gathered from the assessments from all therapy disciplines and other pertinent clinicians. The plan of care has been reviewed and discussed in collaboration with the interdisciplinary team. The plan of care will be reviewed and updated at least weekly.
[2018-11-16] MEDS ORDERED: XOPENEX IH PRN (12:29)
[2018-11-16] MEDS: DICLOFENAC 1% TP SCH ×2 (14:40→20:00)
--- NOTE | 2018-11-16 17:46 | Progress Note ---
Assessment and Plan Cultures: Blood cultures 10/29/2018 no growth Tracheal culture 10/30/2018 usual resp kam Wound culture 11/07/2018 E.coli, Klebsiella, Nisha Stool Culture 11/08/2018: negative Assessment: 63 y/o female with history of ETOH intake of admitted on 10/29/2018 due to anorexia, abdominal pain and not moving her bowels; CT scan shows cecal volvulus, high grade bowel obstruction, and portal venous air. s/p Exploratory laparotomy, reduction of internal hernia, right hemicolectomy with primary i leocolonic anastamosis on 10/30/2018. Now with leukocytosis, dehiscent wound, drainage: 1) Leukocytosis: Resolved. Blood cultures show no growth. Source most likely surgical site infection. 2) Surgical site infection: dehiscent wound, drainage. Wound culture grew .E.coli, Klebsiella, Nisha. Repeat CT abdomen shows subcutaneous fluid collection beneath the surgical incision. Treated with IV Cefepime, Flagyl and Fluconazole. 3) Bilateral pleural effusions: tracheal culture + usual resp kam. Recommendations: - discontinued IV Cefepime and IV Fluconazole - switched to PO Ceftin 500mg every 12 hours and Fluconazole 200mg PO daily x 4 more days to complete abx therapy as planned Rom Marsh MD [facility] C: [phone] O: [phone] F: [phone] Subjective Date of service: 11/16/18 Principal diagnosis: Debility s/p exlap with reduction of internal hernia, right hemicolectomy, Interval history: No fever. Moved to rehab unit. Reports pain around surgical wound. Objective - Exam Narrative Exam: Physical Exam: Constitutional: Alert, cooperative. No acute distress Head, Ears, Nose: Normocephalic, atraumatic. External ears, nose normal Eyes: Conjunctivae/corneas clear. No icterus. No ptosis. Neck: Supple, no meningeal signs Cardiovascular: S1, S2 normal. Respiratory: Good air entry, clear to auscultation bilaterally GI: Soft, bowel sounds +. Midline surgical wound with woundVAC. Musculoskeletal: No pedal edema, no cyanosis. Skin: No rash or abscess Hem/Lymphatic: No palpable cervical or supraclavicular nodes. No lymphangitis Psych: Mood ok. Affect normal Neurological: Awake, alert, oriented. No gross abnormality - Constitutional Vitals: Vital Signs Temp Pulse Resp BP Pulse Ox 98.0 F 96 H 19 115/75 100 11/16/18 14:52 11/16/18 14:52 11/16/18 14:52 11/16/18 14:52 11/16/18 14:52 Temperature -Last 24 Hours Temperature 98.0 F Temperature 98.0 F Temperature 98.0 F Temperature 98.3 F - Labs CBC & Chem 7: 11/16/18 06:20 11/16/18 06:20 Labs: Abnormal lab results 11/16/18 11/16/18 Range/Units 06:20 06:20 RBC 2.91 L (3.65-5.03) M/mm3 Hgb 10.0 L (10.1-14.3) gm/dl Hct 29.0 L (30.3-42.9) % MCV 100 H (79-97) fl MCH 35 H (28-32) pg MCHC 35 H (30-34) % Sodium 134 L (137-145) mmol/L Chloride 96.5 L (98-107) mmol/L Creatinine 0.3 L (0.7-1.2) mg/dL
[2018-11-16] MEDS ORDERED: TPN ADULT 1,800 ML IV SCH (20:00)
[2018-11-16] MEDS ORDERED: TPN ADULT 3,000 ML IV SCH (20:00)
[2018-11-16] MEDS: CEFTIN PO SCH (22:00)
[2018-11-17] MEDS: HumaLOG SUB-Q SCH ×4 (07:00→18:30)
[2018-11-17 07:15] LABS: BUN/Creatinine Ratio 30; Blood Urea Nitrogen 9 mg/dL (7-17); Calcium 9.4 mg/dL (8.4-10.2); Hemolysis Index 4
[2018-11-17] MEDS: HEPARIN SUB-Q SCH ×3 (07:56→21:51)
[2018-11-17] MEDS: K-DUR PO SCH (08:26)
[2018-11-17] MEDS: PROTONIX PO SCH (08:27)
[2018-11-17] MEDS: CEFTIN PO SCH ×3 (08:27→22:38)
[2018-11-17] MEDS: DIFLUCAN PO SCH (08:27)
[2018-11-17 08:54] LABS: Hematocrit 24.8 % (30.3-42.9); Hemoglobin 8.5 gm/dl (10.1-14.3); Mean Corpuscular HGB Conc 34 % (30-34); Mean Corpuscular Volume 100 fl (79-97); Platelet Count 192 K/mm3 (140-440); Red Blood Count 2.48 M/mm3 (3.65-5.03); Red Cell Distribution Width 13.3 % (13.2-15.2)
[2018-11-17] MEDS: DICLOFENAC 1% TP SCH ×3 (09:30→20:48)
[2018-11-17] MEDS: NORCO 5/325 PO PRN ×3 (13:08→22:38)
[2018-11-17] MEDS ORDERED: TPN ADULT 1,800 ML IV SCH (20:00)
[2018-11-18] MEDS: HumaLOG SUB-Q SCH ×4 (00:54→17:22)
[2018-11-18] MEDS: NORCO 5/325 PO PRN ×4 (03:29→21:12)
[2018-11-18] MEDS: HEPARIN SUB-Q SCH ×3 (06:24→21:16)
[2018-11-18 07:22] LABS: BUN/Creatinine Ratio 27; Blood Urea Nitrogen 8 mg/dL (7-17); Calcium 9.3 mg/dL (8.4-10.2); Hematocrit 29.6 % (30.3-42.9); Hemolysis Index 2; Mean Corpuscular HGB Conc 34 % (30-34); Mean Corpuscular Volume 100 fl (79-97); Platelet Count 220 K/mm3 (140-440); Red Blood Count 2.97 M/mm3 (3.65-5.03); Red Cell Distribution Width 13.1 % (13.2-15.2)
[2018-11-18] MEDS: CEFTIN PO SCH ×3 (08:17→21:16)
[2018-11-18] MEDS: DIFLUCAN PO SCH (08:18)
[2018-11-18] MEDS: K-DUR PO SCH (08:18)
[2018-11-18] MEDS: PROTONIX PO SCH (08:18)
[2018-11-18] MEDS: DICLOFENAC 1% TP SCH ×3 (08:20→21:17)
--- NOTE | 2018-11-18 14:45 | Progress Note ---
Assessment and Plan 62 yo F s/p Exploratory laparotomy, reduction of internal hernia, right hemicolectomy with primary ileocolonic anastamosis 10/30/18 1. cecal volvulus 2. high grade SBO 3. etoh abuse 4. delerium tremens 5. TIERRA 6. VDRF 7. malnutrition 8. multiple electrolyte abnormalities 9. surgical site infection - patient with multiple risk factors Plan: 1. continue diet with supplements 2. TPN per sales outfitter 3. recheck prealbumin on Wednesday 11/22 - if improving will dc TPN 4. DVT ppx 5. continue rehab per PT 6. c/w wound vac - will have patient follow up in wound care clinic on dc 7. abx per ID Please call with questions. Subjective Date of service: 11/18/18 Narrative: Pt seen and examined. No acute complaints. No f/c. Having BMs. Has a poor appetite at baseline but drinking enlive TID Objective Vital Signs - 12hr 11/18/18 11/18/18 04:43 08:23 Temperature 98.9 F 98.4 F Pulse Rate 93 H 93 H Respiratory 17 18 Rate Blood Pressure 123/80 Blood Pressure 117/72 [Right] O2 Sat by Pulse 100 98 Oximetry - General physical appearance Narrative Exam: Gen: AAOx3. NAD CV: s1, S2+ Resp; even and unlabored Abd: soft, ND, mild incisional TTP. Wound vac and black sponge packing removed. Open portions of midline wound are clean with red base, minimal slough. Good granulation tissue. No drainage. Stapled portions of incision has healed. All 9 johanna removed. Ext: no c/c/e - Labs 11/18/18 06:15 11/18/18 06:15 Diabetes panel 11/18/18 Range/Units 06:15 Sodium 137 (137-145) mmol/L Potassium 4.4 (3.6-5.0) mmol/L Chloride 101.8 (98-107) mmol/L Carbon Dioxide 28 (22-30) mmol/L BUN 8 (7-17) mg/dL Creatinine 0.3 L (0.7-1.2) mg/dL Glucose 86 (65-100) mg/dL Calcium 9.3 (8.4-10.2) mg/dL Calcium panel 11/18/18 Range/Units 06:15 Calcium 9.3 (8.4-10.2) mg/dL Phosphorus 3.70 D (2.5-4.5) mg/dL Pituitary panel 11/18/18 Range/Units 06:15 Sodium 137 (137-145) mmol/L Potassium 4.4 (3.6-5.0) mmol/L Chloride 101.8 (98-107) mmol/L Carbon Dioxide 28 (22-30) mmol/L BUN 8 (7-17) mg/dL Creatinine 0.3 L (0.7-1.2) mg/dL Glucose 86 (65-100) mg/dL Calcium 9.3 (8.4-10.2) mg/dL Adrenal panel 11/18/18 Range/Units 06:15 Sodium 137 (137-145) mmol/L Potassium 4.4 (3.6-5.0) mmol/L Chloride 101.8 (98-107) mmol/L Carbon Dioxide 28 (22-30) mmol/L BUN 8 (7-17) mg/dL Creatinine 0.3 L (0.7-1.2) mg/dL Glucose 86 (65-100) mg/dL Calcium 9.3 (8.4-10.2) mg/dL
[2018-11-18] MEDS ORDERED: TPN ADULT 1,800 ML IV SCH (20:00)
[2018-11-19] MEDS: HumaLOG SUB-Q SCH ×4 (01:58→21:41)
[2018-11-19] MEDS: HEPARIN SUB-Q SCH ×3 (05:40→21:44)
[2018-11-19 06:48] LABS: Hematocrit 30.2 % (30.3-42.9); Hemoglobin 10.1 gm/dl (10.1-14.3); Mean Corpuscular HGB Conc 33 % (30-34); Mean Corpuscular Volume 99 fl (79-97); Platelet Count 222 K/mm3 (140-440); Red Blood Count 3.05 M/mm3 (3.65-5.03); Red Cell Distribution Width 13.5 % (13.2-15.2)
[2018-11-19 07:13] LABS: BUN/Creatinine Ratio 23; Blood Urea Nitrogen 7 mg/dL (7-17); Calcium 9.7 mg/dL (8.4-10.2); Hemolysis Index 4
[2018-11-19] MEDS: K-DUR PO SCH (07:14)
[2018-11-19] MEDS: PROTONIX PO SCH (07:14)
[2018-11-19] MEDS: CEFTIN PO SCH ×3 (07:14→21:41)
[2018-11-19] MEDS: DIFLUCAN PO SCH (07:14)
[2018-11-19] MEDS: DICLOFENAC 1% TP SCH ×3 (07:15→21:43)
--- NOTE | 2018-11-19 09:51 | Progress Note ---
Subjective Date of service: 11/19/18 Principal diagnosis: Debility s/p exlap with reduction of internal hernia, right hemicolectomy, Interval history: 62-year-old thin female who presented to the ER with decreased by mouth intake and weakness. 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 He was taken to the OR where she underwent an exploratory laparotomy with reduction of an internal hernia, right hemicolectomy and primary ileocolonic anastomosis. She was placed on CIWA protocol. TPN was started due to poor by mouth intake even after diet was advanced. He Stacia was consulted due to thrombocytopenia. On postop day [address] showed likely ileus along with a lateral pleural effusion. Wound care involves wound VAC along with Dakin's and packing. IV antibiotics were started and infectious disease was consulted.After the patient was medically stabilized they were transferred for further rehabilitation. All available medical records have been reviewed but there are limited records from the acute care hospital. Plan of care was discussed with patient and family. Patient is participating in therapy and making reasonable progress. Taking rest breaks as needed. +BM . States she has mild pain in her abdomen, otherwise denies pain, palpitations, dyspnea, cough, N/V, weakness, or joint pain. Improving her ability to ambulate for short distances. Heart rate is improved with activity however she still has periods of tachycardia periodically. We'll continue to monitor her wound VAC output. ID changed abx. Johanna removed by surgeon. Look to DC TPN late this week if she continues to improve her oral intake and pre-albumin level has improved, discussed with patient. Discussed in Team Conference. Making slower progress but she is improving. Ambulation distance has improved but celena is slow. Strength is decreased. Less issue with pain since johanna were removed and Vac was replaced. Should continue to improve. Encouraging to improve PO intake - better with outside food. Frequent visitors with some interference with therapy - Shefali will address. Continue as planned. All records, vitals, labs and medications were reviewed. No other issues per patient, nursing or therapy. Objective - Exam Narrative Exam: MUSCULOSKELETAL SPECIALTY EXAM CONSTITUTIONAL: Well developed, well nourished, appropriately groomed, thin EENT: Visual garza full to confrontation. EOMI. Hearing intact to soft voice RESPIRATORY: Clear to auscultation bilaterally, no increased work of breathing CARDIOVASCULAR: Regular Rate/ Rhythm, no swelling, edema or tenderness in BUE or BLE. All extremities warm. PICC line left upper extremity GI: + bowel sounds, soft, mild TTP, nondistended, wound VAC in place INTEGUMENTARY: Normal, no lesion, rash, masses or bruising noted in extremities. Wound VAC on abdomen MUSCULOSKELETAL: BUE and BLE normal without defect, crepitus, subluxation, effusion, arthritic changes or TTP, except for left knee which has tenderness to palpation on anterior BUE 4+/5, good ROM, with normal tone. BLE 4-/5 good ROM, with normal tone NEURO: CN 2-12 grossly intact. Sensation intact in all extremities. No tremor noted in 4 extremities. POSTURE and GAIT: Sitting posture good. Balance appears reasonable. Gait slowed with short steps. PSYCH: Alert, orientated x3, affect appears normal. Insight appears intact. - Constitutional Vitals: Vital Signs - 12hr 11/18/18 11/19/18 11/19/18 22:12 00:58 07:09 Temperature 37.1 C 37.2 C Pulse Rate 92 H 90 Respiratory 17 17 Rate Blood Pressure 111/79 121/80 O2 Sat by Pulse 100 100 100 Oximetry - Allied health notes Allied health notes reviewed: nursing, PT, OT FIMS assessment as documented by PT/OT/ST: Grooming Patient cleans teeth/dentures: Yes Patient irvin/brushes hair: Yes Patient washes, rinses and Yes dries face: Patient washes, rinses and Yes dries hands: Patient shaves: No Patient applies make-up: No Patient performs (no make-up/ /4 (100%) shaving): Grooming FIM Score 5. Supervision ([place] applies toothpaste or opens containers.) Toileting Toileting Device Bedside Commode Patient able to: Adjust clothes before Patient able to perform: 2/3 (67%) Toileting FIM Score 3. Moderate Assistance (Patient = 50% or more. Some lifting.) Social interaction/Memory/Problem solving Social Interaction FIM Score 5. Supervision (Needs supv. <10%. Needs encouragement to participate.) Memory FIM Score 5. Supervision (Needs cueing <10%, stressful/ unfamiliar situations.) Problem Solving FIM Score 5. Supervision (Needs cueing <10% to solve routine problems.) Transfers Mode of Locomotion: Wheelchair Bed/Chair/Wheelchair Transfers 4. Minimal Assistance (Patient = 75% or more. FIM Score Needs touching.) Toilet Transfers FIM Score 2. Maximal Assistance (Patient = 25% or more) Patient transferred to: Shower Tub Transfers FIM Score 2. Maximal Assistance (Patient = 25% or more) Shower Transfers FIM Score 2. Maximal Assistance (Patient = 25% or more) Locomotion- walk/wheelchair Most Frequent Mode of Wheelchair Locomotion: Ambulation Distance 105 Walking FIM Score 2. Maximal Assistance (Patient = 25% or more. Minimum of 50 ft.) Wheelchair Propulsion Distance 150 Wheelchair FIM Score 4. Minimal Assistance (Patient = 75% or more. Minimum of 150 ft.) Eating Eating Device Adjusted Table Height Eating FIM Score 4. Minimal Assistance (Patient = 75% or more) Dressing-Upper body Patient retrieves clothing No items: Upper Body Dressing FIM Score 3. Moderate Assistance (Patient = 50% or more) Dressing-lower body Lower Body Dressing Device Supervisor Pipeline Maintenance/Stick Patient retrieves clothing No items: Patient applies/removes LE No prosthesis or orthosis: Lower Body Dressing FIM Score 3. Moderate Assistance (Patient = 50% or more) - Labs CBC & Chem 7: 11/19/18 06:30 11/19/18 06:30 Labs: Laboratory Results - last 72 hr 11/16/18 11/17/18 11/17/18 19:34 05:58 05:59 WBC RBC Hgb Hct MCV MCH MCHC RDW Plt Count Sodium 136 L Potassium 3.8 Chloride 99.4 Carbon Dioxide 28 Anion Gap 12 BUN 9 Creatinine 0.3 L Estimated GFR > 60 BUN/Creatinine Ratio 30 Glucose 100 POC Glucose 129 H 120 H Calcium 9.4 Phosphorus Magnesium 11/17/18 11/17/18 11/17/18 05:59 08:26 11:35 WBC 3.7 L RBC 2.48 L Hgb 8.5 L Hct 24.8 L MCV 100 H MCH 34 H MCHC 34 RDW 13.3 Plt Count 192 Sodium Potassium Chloride Carbon Dioxide Anion Gap BUN Creatinine Estimated GFR BUN/Creatinine Ratio Glucose POC Glucose 119 H Calcium Phosphorus 2.80 D Magnesium 1.70 11/17/18 11/17/18 11/18/18 18:03 23:52 06:12 WBC RBC Hgb Hct MCV MCH MCHC RDW Plt Count Sodium Potassium Chloride Carbon Dioxide Anion Gap BUN Creatinine Estimated GFR BUN/Creatinine Ratio Glucose POC Glucose 121 H 114 H 104 Calcium Phosphorus Magnesium 11/18/18 11/18/18 11/19/18 06:15 06:15 00:47 WBC 4.2 L RBC 2.97 L Hgb 10.0 L Hct 29.6 L MCV 100 H MCH 34 H MCHC 34 RDW 13.1 L Plt Count 220 Sodium 137 Potassium 4.4 Chloride 101.8 Carbon Dioxide 28 Anion Gap 12 BUN 8 Creatinine 0.3 L Estimated GFR > 60 BUN/Creatinine Ratio 27 Glucose 86 POC Glucose 81 Calcium 9.3 Phosphorus 3.70 D Magnesium 1.80 11/19/18 11/19/18 11/19/18 06:30 06:30 07:00 WBC 4.7 RBC 3.05 L Hgb 10.1 Hct 30.2 L MCV 99 H MCH 33 H MCHC 33 RDW 13.5 Plt Count 222 Sodium 136 L Potassium 4.4 Chloride 98.7 Carbon Dioxide 27 Anion Gap 15 BUN 7 Creatinine 0.3 L Estimated GFR > 60 BUN/Creatinine Ratio 23 Glucose 79 POC Glucose 103 Calcium 9.7 Phosphorus 4.30 Magnesium 1.70 Assessment and Plan Z73.6 ADL dysfunction: OT will work on improving ability to perform ADLs (including assistive devices) to increase independence and decrease caregiver burden and improve functional transfers and mobility training. R26.2 Difficulty walking: PT will work on gait training and proper use of assistive devices and advance as appropriate to use of stairs and outside ambulation on uneven surfaces. R26.81 Unsteadiness on feet: PT will work on improving static and dynamic sitting and standing balance as well as proper use of assistive devices to decrease risk of falls. R26.89 Abnormality of gait: PT will work to improve safety and efficiency of gait through neuromotor training and gait training along with instruction on proper use of assistive devices. M62.81 Muscle weakness: PT & OT will work on strengthening exercises to improve functional strength including mixture of closed and open kinetic chain exercises. R53.81 Debility: PT & OT will work on improving overall functional status to improve participation with ADLs, mobility and social involvement. R53.83 Fatigue: PT & OT will work on improving endurance through aerobic exercises and therapeutic activity while monitoring patients tolerance for activity and vital signs as needed. Left knee pain: Mild arthritis. Voltaren gel Asthma: Continue inhalers, supplemental oxygen and monitor Surgical Wounds: Wound consult, continue wound VAC, continue antibiotics per ID, appreciate assistance. Johanna removed by surgeon, appreciate assistance Nutrition: Continue TPN until oral intake improves. pre-albumin ordered for end of week, hope to DC TPN by end of week. DVT ppx: Heparin Pain: Continue physical modalities in therapy and pain medications as needed to achieve functional pain control. Sleep: Monitor and address as needed. Bowel: Monitor and address as needed. Monitor closely for BM and flatus, recent history of volvulus with surgical correction. Appetite: Monitor and address as needed. Discharge planning: Pending therapy progress and care plan meeting. Rahat almanza discussion with therapy team, GEE, patient and family. Restrictions/ Precautions: Falls, wound VAC WB status: FWB Functional Hx: ADLs: Independent Cognition: Independent Mobility: No AD Barriers to Discharge: Decreased mobility and ability to perform self care, balance deficits, weakness Estimated Length of Stay: 14-18 days Discharge Destination: Home with family
[2018-11-19] MEDS: NORCO 5/325 PO PRN (15:04)
[2018-11-19] MEDS ORDERED: TPN ADULT 1,800 ML IV SCH (20:00)
[2018-11-20 05:23] LABS: Hematocrit 33.3 % (30.3-42.9); Hemoglobin 11.4 gm/dl (10.1-14.3); Mean Corpuscular HGB Conc 34 % (30-34); Mean Corpuscular Volume 98 fl (79-97); Platelet Count 256 K/mm3 (140-440); Red Cell Distribution Width 13.2 % (13.2-15.2)
[2018-11-20 05:41] LABS: BUN/Creatinine Ratio 23; Blood Urea Nitrogen 7 mg/dL (7-17); Calcium 10.3 mg/dL (8.4-10.2); Hemolysis Index 2
[2018-11-20] MEDS: HEPARIN SUB-Q SCH ×3 (06:50→22:23)
[2018-11-20] MEDS: HumaLOG SUB-Q SCH ×4 (06:53→21:10)
[2018-11-20] MEDS: DICLOFENAC 1% TP SCH ×3 (08:55→22:36)
[2018-11-20] MEDS: NORCO 5/325 PO PRN ×2 (11:57→22:33)
[2018-11-20] MEDS: K-DUR PO SCH (12:53)
[2018-11-20] MEDS: DIFLUCAN PO SCH (12:53)
[2018-11-20] MEDS: PROTONIX PO SCH (12:53)
[2018-11-20] MEDS: CEFTIN PO SCH (12:54)
--- NOTE | 2018-11-20 13:53 | XRay Report ---
LEFT KNEE, 3 views: History: DVT. Osteopenia is evident. 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 No evidence for fracture, bone lesion or large joint effusion. IMPRESSION: Osteopenia. Calcinosis of the menisci. No acute process.
[2018-11-20] MEDS: DICLOFENAC 1% TP PRN ×2 (22:25→22:35)
[2018-11-21] MEDS: HumaLOG SUB-Q SCH ×4 (01:16→18:04)
[2018-11-21] MEDS: HEPARIN SUB-Q SCH ×3 (06:40→21:39)
[2018-11-21] MEDS: DICLOFENAC 1% TP PRN (08:52)
[2018-11-21] MEDS: K-DUR PO SCH (08:53)
[2018-11-21] MEDS: PROTONIX PO SCH (08:53)
[2018-11-21 10:06] LABS: Hematocrit 35.3 % (30.3-42.9); Hemoglobin 11.8 gm/dl (10.1-14.3); Mean Corpuscular HGB Conc 34 % (30-34); Mean Corpuscular Volume 99 fl (79-97); Platelet Count 275 K/mm3 (140-440); Red Blood Count 3.58 M/mm3 (3.65-5.03); Red Cell Distribution Width 13.4 % (13.2-15.2)
[2018-11-21 10:31] LABS: BUN/Creatinine Ratio 18; Blood Urea Nitrogen 7 mg/dL (7-17); Calcium 9.9 mg/dL (8.4-10.2); Hemolysis Index 9; Prealbumin 0.234 g/L (0.200-0.400)
--- NOTE | 2018-11-21 10:39 | Progress Note ---
Subjective Date of service: 11/21/18 Principal diagnosis: Debility s/p exlap with reduction of internal hernia, right hemicolectomy, Interval history: 62-year-old thin female who presented to the ER with decreased by mouth intake and weakness. 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 He was taken to the OR where she underwent an exploratory laparotomy with reduction of an internal hernia, right hemicolectomy and primary ileocolonic anastomosis. She was placed on CIWA protocol. TPN was started due to poor by mouth intake even after diet was advanced. He Stacia was consulted due to thrombocytopenia. On postop day [address] showed likely ileus along with a lateral pleural effusion. Wound care involves wound VAC along with Dakin's and packing. IV antibiotics were started and infectious disease was consulted.After the patient was medically stabilized they were transferred for further rehabilitation. All available medical records have been reviewed but there are limited records from the [facility]. Plan of care was discussed with patient and family. Patient is participating in therapy and making reasonable progress. Taking rest breaks as needed. +BM . Noticed the patient was missing her PICC line. According to nursing the patient removed yesterday morning, but I was not notified. TPN has been discontinued accordingly as patient declined to have another pick R IV line replaced area thankfully the preoperative and was imp roved and the patient's appetite is picking up. Elevated white count this morning. Antibiotics were finished yesterday. Contacted ID for recommendations. Afebrile. Contacted ID for recommendation on leukocytosis with antibiotics being stopped yesterday. We'll continue to monitor and if she worsens with a fever or grossly elevated white count will recontact ID. Chest x-ray ordered. Left knee warm, tender to palpation, with some rubor. Order knee x-ray yesterday when called by nursing, x-ray images and report reviewed and appears similar to previous x-ray(was told this was other knee on phone). Having difficulty putting weight through the knee. Due to recent infection, I do have a concern for possible septic joint and have contacted ortho for evaluation and possible arthrocentesis with culture of synovial fluid. Knee is not excessively swollen but there is a slight swelling present compared to the right. Denies history of gout. Uric acid level is low x-ray does show arthritis but this level of pain and heat are not consistent with typical arthritis picture States she has mild pain in her abdomen, otherwise denies pain, palpitations, dyspnea, cough, N/V, weakness. Improving her ability to ambulate for short distances. Heart rate is improved with activity however she still has periods of tachycardia periodically. We'll continue to monitor her wound VAC output. All records, vitals, labs and medications were reviewed. No other issues per patient, nursing or therapy. Objective - Exam Narrative Exam: MUSCULOSKELETAL SPECIALTY EXAM CONSTITUTIONAL: Well developed, well nourished, appropriately groomed, thin EENT: Visual garza full to confrontation. EOMI. Hearing intact to soft voice RESPIRATORY: Clear to auscultation bilaterally, no increased work of breathing CARDIOVASCULAR: Regular Rate/ Rhythm, no swelling, edema or tenderness in BUE or BLE. All extremities warm. PICC line left upper extremity GI: + bowel sounds, soft, mild TTP, nondistended, wound VAC in place INTEGUMENTARY: Normal, no lesion, rash, masses or bruising noted in extremities. Wound VAC on abdomen MUSCULOSKELETAL: BUE and BLE normal without defect, crepitus, subluxation, effusion, arthritic c hanges or TTP, except for left knee which has tenderness to palpation on anterior aspect and is very warm to the touch BUE 4+/5, good ROM, with normal tone. BLE 4-/5 good ROM, with normal tone NEURO: CN 2-12 grossly intact. Sensation intact in all extremities. No tremor noted in 4 extremities. POSTURE and GAIT: Sitting posture good. Balance appears reasonable. Gait slowed with short steps. PSYCH: Alert, orientated x3, affect appears normal. Insight appears intact. - Constitutional Vitals: Vital Signs - 12hr 11/21/18 11/21/18 04:35 08:28 Temperature 37.2 C 37.3 C Pulse Rate 114 H 112 H Respiratory 17 18 Rate Blood Pressure 123/80 119/78 O2 Sat by Pulse 100 98 Oximetry - Allied health notes Allied health notes reviewed: nursing, PT, OT FIMS assessment as documented by PT/OT/ST: Grooming Patient cleans teeth/dentures: Yes Patient irvin/brushes hair: Yes Patient washes, rinses and Yes dries face: Patient washes, rinses and Yes dries hands: Patient shaves: No Patient applies make-up: No Patient performs (no make-up/ 08/29 (100%) shaving): Grooming FIM Score 5. Supervision ([place] applies toothpaste or opens containers.) Toileting Toileting Device Bedside Commode Patient able to: Adjust clothes before Patient able to perform: 2/3 (67%) Toileting FIM Score 3. Moderate Assistance (Patient = 50% or more. Some lifting.) Social interaction/Memory/Problem solving Social Interaction FIM Score 5. Supervision (Needs supv. <10%. Needs encouragement to participate.) Memory FIM Score 5. Supervision (Needs cueing <10%, stressful/ unfamiliar situations.) Problem Solving FIM Score 5. Supervision (Needs cueing <10% to solve routine problems.) Transfers Mode of Locomotion: Wheelchair Bed/Chair/Wheelchair Transfers 3. Moderate Assistance (Patient = 50% or more. FIM Score Some lifting.) Toilet Transfers FIM Score 2. Maximal Assistance (Patient = 25% or more) Patient transferred to: Shower Tub Transfers FIM Score 2. Maximal Assistance (Patient = 25% or more) Shower Transfers FIM Score 2. Maximal Assistance (Patient = 25% or more) Locomotion- walk/wheelchair Most Frequent Mode of Wheelchair Locomotion: Ambulation Distance 105 Walking FIM Score 0. Activity does not occur Wheelchair Propulsion Distance 150 Wheelchair FIM Score 4. Minimal Assistance (Patient = 75% or more. Minimum of 150 ft.) Eating Eating Device Adjusted Table Height Eating FIM Score 4. Minimal Assistance (Patient = 75% or more) Dressing-Upper body Patient retrieves clothing No items: Upper Body Dressing FIM Score 4. Minimal Assistance (Patient = 75% or more. Needs touching.) Dressing-lower body Lower Body Dressing Device Housekeeping Manager/Stick Patient retrieves clothing No items: Patient applies/removes LE No prosthesis or orthosis: Lower Body Dressing FIM Score 4. Minimal Assistance (Patient = 75% or more. Needs touching.) - Labs CBC & Chem 7: 11/21/18 09:36 11/21/18 09:36 Labs: Laboratory Results - last 72 hr 11/19/18 11/19/18 11/19/18 00:47 06:30 06:30 WBC 4.7 RBC 3.05 L Hgb 10.1 Hct 30.2 L MCV 99 H MCH 33 H MCHC 33 RDW 13.5 Plt Count 222 Sodium 136 L Potassium 4.4 Chloride 98.7 Carbon Dioxide 27 Anion Gap 15 BUN 7 Creatinine 0.3 L Estimated GFR > 60 BUN/Creatinine Ratio 23 Glucose 79 POC Glucose 81 Calcium 9.7 Phosphorus 4.30 Magnesium 1.70 Prealbumin 11/19/18 11/19/18 11/19/18 07:00 12:14 17:21 WBC RBC Hgb Hct MCV MCH MCHC RDW Plt Count Sodium Potassium Chloride Carbon Dioxide Anion Gap BUN Creatinine Estimated GFR BUN/Creatinine Ratio Glucose POC Glucose 103 97 84 Calcium Phosphorus Magnesium Prealbumin 11/19/18 11/20/18 11/20/18 21:41 05:00 05:00 WBC 6.3 RBC 3.40 L Hgb 11.4 Hct 33.3 MCV 98 H MCH 34 H MCHC 34 RDW 13.2 Plt Count 256 Sodium 136 L Potassium 4.1 Chloride 96.8 L Carbon Dioxide 28 Anion Gap 15 BUN 7 Creatinine 0.3 L Estimated GFR > 60 BUN/Creatinine Ratio 23 Glucose 84 POC Glucose 107 H Calcium 10.3 H Phosphorus 4.50 Magnesium 1.60 L Prealbumin 11/20/18 11/20/18 11/20/18 07:05 11:36 17:49 WBC RBC Hgb Hct MCV MCH MCHC RDW Plt Count Sodium Potassium Chloride Carbon Dioxide Anion Gap BUN Creatinine Estimated GFR BUN/Creatinine Ratio Glucose POC Glucose 80 123 H 92 Calcium Phosphorus Magnesium Prealbumin 11/20/18 11/21/18 11/21/18 21:01 05:33 09:36 WBC 12.4 H RBC 3.58 L Hgb 11.8 Hct 35.3 MCV 99 H MCH 33 H MCHC 34 RDW 13.4 Plt Count 275 Sodium Potassium Chloride Carbon Dioxide Anion Gap BUN Creatinine Estimated GFR BUN/Creatinine Ratio Glucose POC Glucose 117 H 85 Calcium Phosphorus Magnesium Prealbumin 11/21/18 09:36 WBC RBC Hgb Hct MCV MCH MCHC RDW Plt Count Sodium 132 L Potassium 4.8 Chloride 94.1 L Carbon Dioxide 24 Anion Gap 19 BUN 7 Creatinine 0.4 L Estimated GFR > 60 BUN/Creatinine Ratio 18 Glucose 124 H POC Glucose Calcium 9.9 Phosphorus Magnesium Prealbumin 0.234 Assessment and Plan Possible left septic knee: Contact ortho for evaluation and possible arthrocentesis with synovial fluid culture. Uric acid was low, patient has no history of gout. Positive for arthritis. Z73.6 ADL dysfunction: OT will work on improving ability to perform ADLs (including assistive devices) to increase independence and decrease caregiver burden and improve functional transfers and mobility training. R26.2 Difficulty walking: PT will work on gait training and proper use of assi stive devices and advance as appropriate to use of stairs and outside ambulation on uneven surfaces. R26.81 Unsteadiness on feet: PT will work on improving static and dynamic sitting and standing balance as well as proper use of assistive devices to decrease risk of falls. R26.89 Abnormality of gait: PT will work to improve safety and efficiency of gait through neuromotor training and gait training along with instruction on proper use of assistive devices. M62.81 Muscle weakness: PT & OT will work on strengthening exercises to improve functional strength including mixture of closed and open kinetic chain exercises. R53.81 Debility: PT & OT will work on improving overall functional status to improve participation with ADLs, mobility and social involvement. R53.83 Fatigue: PT & OT will work on improving endurance through aerobic exercises and therapeutic activity while monitoring patients tolerance for activity and vital signs as needed. Left knee pain: Mild arthritis. Voltaren gel Asthma: Continue inhalers, supplemental oxygen and monitor Surgical Wounds: Wound consult, continue wound VAC, continue antibiotics per ID, appreciate assistance. [place] removed by surgeon, appreciate assistance Nutrition: Continue TPN until oral intake improves. pre-albumin ordered for end of week, hope to DC TPN by end of week. DVT ppx: Heparin Pain: Continue physical modalities in therapy and pain medications as needed to achieve functional pain control. Sleep: Monitor and address as needed. Bowel: Monitor and address as needed. Monitor closely for BM and flatus, recent history of volvulus with surgical correction. Appetite: Monitor and address as needed. Discharge planning: Pending therapy progress and care plan meeting. Will continue discussion with therapy team, SW, patient and family. Restrictions/ Precautions: Falls, wound VAC WB status: FWB Functional Hx: ADLs: Independent Cognition: Independent Mobility: No AD Barriers to Discharge: Decreased mobility and ability to perform self care, balance deficits, weakness Estimated Length of Stay: 14-18 days Discharge Destination: Home with family
[2018-11-21] MEDS: NORCO 5/325 PO PRN (14:44)
--- NOTE | 2018-11-21 17:07 | XRay Report ---
PROCEDURE: XR CHEST ROUTINE 2V TECHNIQUE: PA and lateral chest radiographs were obtained. HISTORY: Leukocytosis with recent infection, tachycardia COMPARISONS: None. FINDINGS: Heart: Normal. Mediastinum/Vessels: Normal. Lungs/Pleural space: Normal. Bony thorax: No acute osseous abnormality. IMPRESSION: Normal examination. This document is electronically signed by Stuart Nicolas MD., November 21 2018 05:04:49 PM ET
[2018-11-21] MEDS ORDERED: TYLENOL PO PRN (17:55)
[2018-11-22 05:37] LABS: Hematocrit 32.8 % (30.3-42.9); Hemoglobin 11.4 gm/dl (10.1-14.3); Mean Corpuscular HGB Conc 35 % (30-34); Mean Corpuscular Volume 97 fl (79-97); Platelet Count 276 K/mm3 (140-440); Red Blood Count 3.39 M/mm3 (3.65-5.03); Red Cell Distribution Width 12.9 % (13.2-15.2)
[2018-11-22 06:05] LABS: BUN/Creatinine Ratio 27; Blood Urea Nitrogen 8 mg/dL (7-17); Calcium 10.1 mg/dL (8.4-10.2); Hemolysis Index 0
[2018-11-22] MEDS: HEPARIN SUB-Q SCH ×3 (06:57→23:06)
[2018-11-22] MEDS: HumaLOG SUB-Q SCH ×3 (07:42→18:23)
[2018-11-22] MEDS: PROTONIX PO SCH (09:19)
[2018-11-22] MEDS: K-DUR PO SCH (09:22)
--- NOTE | 2018-11-22 14:43 | Consultation ---
History of Present Illness - HPI Consult date: 11/22/18 Consult reason: joint pain History of present illness: 62 y/o female with c/o left knee pain and swelling, no hx of injury states began insidiously but got worse within last couple wks... 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 denies: smoking, prescription drug abuse, IV drug use Family history: hypertension Medications and Allergies Allergies Allergy/AdvReac Type Severity Reaction Status Date / Time No Known Allergies Allergy Verified 10/29/18 17:40 Home Medications Medication Instructions Recorded Confirmed Last Taken Type Famotidine [Pepcid] 20 mg PO BID #30 tablet 04/10/17 11/14/18 Unknown Rx Fluconazole [Diflucan TAB] 200 mg PO QDAY #7 tablet 11/12/18 11/14/18 Unknown Rx cefUROXime [Ceftin] 500 mg PO Q12H #28 tablet 11/12/18 11/14/18 Unknown Rx Active Meds: Active Medications Acetaminophen (Tylenol) 650 mg PO Q6H PRN PRN Reason: Pain, Mild (1-3) Last Admin: 11/21/18 18:31 Dose: 650 mg Documented by: Acetaminophen/Hydrocodone Bitart ([place] 5/325) 1 each PO Q4H PRN PRN Reason: Pain, Moderate (4-6) Last Admin: 11/21/18 14:44 Dose: 1 each Documented by: Diclofenac Sodium (Diclofenac 1%) 1 applic TP TID PRN PRN Reason: Pain, Moderate (4-6) Last Admin: 11/21/18 08:52 Dose: 1 applic Documented by: Heparin Sodium (Porcine) (Heparin) 5,000 unit SUB-Q Q8HR CHRISTINE Last Admin: 11/22/18 06:57 Dose: 5,000 unit Documented by: Insulin Human Lispro (Humalog) 0 unit SUB-Q Q6HR CHRISTINE; Protocol Last Admin: 11/22/18 07:42 Dose: Not Given Documented by: Levalbuterol HCl (Xopenex) 0.63 mg IH TIDRT PRN PRN Reason: Wheezing Loperamide HCl (Imodium) 2 mg PO Q4H PRN PRN Reason: Diarrhea Meclizine HCl (Antivert) 25 mg PO Q8H PRN PRN Reason: Vertigo Ondansetron HCl (Zofran) 4 mg IV Q4H PRN PRN Reason: Nausea And Vomiting Pantoprazole Sodium (Protonix) 40 mg PO QDAY [facility] Last Admin: 11/21/18 08:53 Dose: 40 mg Documented by: Potassium Chloride (K-Dur) 20 meq PO QDAY [facility] Sodium Hypochlorite (Dakin's Half Strength) 1 applic TP Q12H PRN PRN Reason: Wound Care Physical Examination - Physical exam Narrative exam: left knee - 1-2 plus effusion, no redness/erythema noted, good active ROM plain xrays reviewed left knee and show degenerative changes along calcified meniscus Assessment and Plan left knee pain and swelling, most likely degenerative in nature, doubt sepsis recommendations - oral or topical NSAID's to left knee
--- NOTE | 2018-11-22 15:02 | Progress Note ---
Subjective Date of service: 11/22/18 Principal diagnosis: Debility s/p exlap with reduction of internal hernia, right hemicolectomy, Interval history: 62-year-old thin female who presented to the ER with decreased by mouth intake and weakness. 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 He was taken to the OR where she underwent an exploratory laparotomy with reduction of an internal hernia, right hemicolectomy and primary ileocolonic anastomosis. She was placed on CIWA protocol. TPN was started due to poor by mouth intake even after diet was advanced. He Stacia was consulted due to thrombocytopenia. On postop day [address] showed likely ileus along with a lateral pleural effusion. Wound care involves wound VAC along with Dakin's and packing. IV antibiotics were started and infectious disease was consulted.After the patient was medically stabilized they were transferred for further rehabilitation. All available medical records have been reviewed but there are limited records from the acute care hospital. Plan of care was discussed with patient and family. Patient is participating in therapy and making reasonable progress. Taking rest breaks as needed. +BM . WBCs return to normal from a high of 12.4 yesterday. Temperature repeat at 37.8 yesterday afternoon at approximately 5:00 and decreased to normal today. Patient was seen by Dr. Morris who feels this is more likely related to arthritisno arthrocentesis necessary. Appreciate his evaluation. Knee is no longer hot like it was earlier yesterday, redness around the knee has resolved. Chest x-ray reviewed and is normal. Urine was unable to be drawn. We'll continue to monitor for any other spikes or worsening condition. Patient states she feels much better today than she did yesterday. Denies pain, palpitations, dyspnea, cough, N/V, weakness. Improving her ability to ambulate, was able to walk from gym to her room today. Heart rate is improved with activity however she still has periods of tachycardia periodically. We'll continue to monitor her wound VAC output. All records, vitals, labs and medications were reviewed. No other issues per patient, nursing or therapy. Objective - Exam Narrative Exam: MUSCULOSKELETAL SPECIALTY EXAM CONSTITUTIONAL: Well developed, well nourished, appropriately groomed, thin EENT: Visual garza full to confrontation. EOMI. Hearing intact to soft voice RESPIRATORY: Clear to auscultation bilaterally, no increased work of breathing CARDIOVASCULAR: Regular Rate/ Rhythm, no swelling, edema or tenderness in BUE or BLE. All extremities warm. GI: + bowel sounds, soft, NTTP, nondistended, wound VAC in place INTEGUMENTARY: Normal, no lesion, rash, masses or bruising noted in extremities. Wound VAC on abdomen MUSCULOSKELETAL: BUE and BLE normal without defect, crepitus, subluxation, effusion, arthritic changes or TTP BUE 4+/5, good ROM, with normal tone. BLE 4-/5 good ROM, with normal tone NEURO: CN 2-12 grossly intact. Sensation intact in all extremities. No tremor noted in 4 extremities. POSTURE and GAIT: Sitting posture good. Balance appears reasonable. Gait slowed with short steps. PSYCH: Alert, orientated x3, affect appears normal. Insight appears intact. - Constitutional Vitals: Vital Signs - 12hr 11/22/18 11/22/18 11/22/18 04:56 07:00 08:31 Temperature 37.4 C 37.0 C Pulse Rate 109 H 37 L Respiratory 20 18 Rate Blood Pressure 119/79 109/71 Blood Pressure [Right] O2 Sat by Pulse 100 97 97 Oximetry 11/22/18 11/22/18 09:04 11:40 Temperature 37.1 C Pulse Rate 67 Respiratory 18 Rate Blood Pressure Blood Pressure 121/73 [Right] O2 Sat by Pulse 97 97 Oximetry - Allied health notes Allied health notes reviewed: nursing, PT, OT FIMS assessment as documented by PT/OT/ST: Grooming Patient cleans teeth/dentures: Yes Patient irvin/brushes hair: Yes Patient washes, rinses and Yes dries face: Patient washes, rinses and Yes dries hands: Patient shaves: No Patient applies make-up: No Patient performs (no make-up/ / (100%) shaving): Grooming FIM Score 5. Supervision (Atkins applies toothpaste or opens containers.) Toileting Toileting Device Bedside Commode Patient able to: Adjust clothes before Patient able to perform: 2/3 (67%) Toileting FIM Score 3. Moderate Assistance (Patient = 50% or more. Some lifting.) Social interaction/Memory/Problem solving Social Interaction FIM Score 5. Supervision (Needs supv. <10%. Needs encouragement to participate.) Memory FIM Score 5. Supervision (Needs cueing <10%, stressful/ unfamiliar situations.) Problem Solving FIM Score 5. Supervision (Needs cueing <10% to solve routine problems.) Transfers Mode of Locomotion: Wheelchair Bed/Chair/Wheelchair Transfers 3. Moderate Assistance (Patient = 50% or more. FIM Score Some lifting.) Toilet Transfers FIM Score 2. Maximal Assistance (Patient = 25% or more) Patient transferred to: Shower Tub Transfers FIM Score 2. Maximal Assistance (Patient = 25% or more) Shower Transfers FIM Score 2. Maximal Assistance (Patient = 25% or more) Locomotion- walk/wheelchair Most Frequent Mode of Wheelchair Locomotion: Ambulation Distance 50 Walking FIM Score 0. Activity does not occur Wheelchair Propulsion Distance 150 Wheelchair FIM Score 4. Minimal Assistance (Patient = 75% or more. Minimum of 150 ft.) Eating Eating Device Adjusted Table Height Eating FIM Score 4. Minimal Assistance (Patient = 75% or more) Dressing-Upper body Patient retrieves clothing No items: Upper Body Dressing FIM Score 4. Minimal Assistance (Patient = 75% or more. Needs touching.) Dressing-lower body Lower Body Dressing Device Appeals Assistant/Stick Patient retrieves clothing No items: Patient applies/removes LE No prosthesis or orthosis: Lower Body Dressing FIM Score 4. Minimal Assistance (Patient = 75% or more. Needs touching.) - Labs CBC & Chem 7: 11/22/18 05:20 11/22/18 05:20 Labs: Laboratory Results - last 72 hr 11/19/18 11/19/18 11/20/18 17:21 21:41 05:00 WBC 6.3 RBC 3.40 L Hgb 11.4 Hct 33.3 MCV 98 H MCH 34 H MCHC 34 RDW 13.2 Plt Count 256 Sodium Potassium Chloride Carbon Dioxide Anion Gap BUN Creatinine Estimated GFR BUN/Creatinine Ratio Glucose POC Glucose 84 107 H Uric Acid Calcium Phosphorus Magnesium Prealbumin 11/20/18 11/20/18 11/20/18 05:00 07:05 11:36 WBC RBC Hgb Hct MCV MCH MCHC RDW Plt Count Sodium 136 L Potassium 4.1 Chloride 96.8 L Carbon Dioxide 28 Anion Gap 15 BUN 7 Creatinine 0.3 L Estimated GFR > 60 BUN/Creatinine Ratio 23 Glucose 84 POC Glucose 80 123 H Uric Acid Calcium 10.3 H Phosphorus 4.50 Magnesium 1.60 L Prealbumin 11/20/18 11/20/18 11/21/18 17:49 21:01 05:33 WBC RBC Hgb Hct MCV MCH MCHC RDW Plt Count Sodium Potassium Chloride Carbon Dioxide Anion Gap BUN Creatinine Estimated GFR BUN/Creatinine Ratio Glucose POC Glucose 92 117 H 85 Uric Acid Calcium Phosphorus Magnesium Prealbumin 11/21/18 11/21/18 11/21/18 09:36 09:36 09:36 WBC 12.4 H RBC 3.58 L Hgb 11.8 Hct 35.3 MCV 99 H MCH 33 H MCHC 34 RDW 13.4 Plt Count 275 Sodium 132 L Potassium 4.8 Chloride 94.1 L Carbon Dioxide 24 Anion Gap 19 BUN 7 Creatinine 0.4 L Estimated GFR > 60 BUN/Creatinine Ratio 18 Glucose 124 H POC Glucose Uric Acid 2.9 L Calcium 9.9 Phosphorus Magnesium Prealbumin 0.234 11/21/18 11/22/18 11/22/18 11:56 00:16 05:20 WBC 7.4 RBC 3.39 L Hgb 11.4 Hct 32.8 MCV 97 MCH 34 H MCHC 35 H RDW 12.9 L Plt Count 276 Sodium Potassium Chloride Carbon Dioxide Anion Gap BUN Creatinine Estimated GFR BUN/Creatinine Ratio Glucose POC Glucose 119 H 91 Uric Acid Calcium Phosphorus Magnesium Prealbumin 11/22/18 11/22/18 11/22/18 05:20 07:05 12:03 WBC RBC Hgb Hct MCV MCH MCHC RDW Plt Count Sodium 137 Potassium 4.4 Chloride 97.1 L Carbon Dioxide 26 Anion Gap 18 BUN 8 Creatinine 0.3 L Estimated GFR > 60 BUN/Creatinine Ratio 27 Glucose 90 POC Glucose 122 H 134 H Uric Acid Calcium 10.1 Phosphorus Magnesium Prealbumin - Imaging and cardiology Chest x-ray: report reviewed, image reviewed (normal) Assessment and Plan Z73.6 ADL dysfunction: OT will work on improving ability to perform ADLs ( including assistive devices) to increase independence and decrease caregiver burden and improve functional transfers and mobility training. R26.2 Difficulty walking: PT will work on gait training and proper use of assistive devices and advance as appropriate to use of stairs and outside ambulation on uneven surfaces. R26.81 Unsteadiness on feet: PT will work on improving static and dynamic sitting and standing balance as well as proper use of assistive devices to decrease risk of falls. R26.89 Abnormality of gait: PT will work to improve safety and efficiency of gait through neuromotor training and gait training along with instruction on proper use of assistive devices. M62.81 Muscle weakness: PT & OT will work on strengthening exercises to improve functional strength including mixture of closed and open kinetic chain exercises. R53.81 Debility: PT & OT will work on improving overall functional status to improve participation with ADLs, mobility and social involvement. R53.83 Fatigue: PT & OT will work on improving endurance through aerobic exercises and therapeutic activity while monitoring patients tolerance for activity and vital signs as needed. Left knee pain: Mild arthritis. Voltaren gel. Monitor Asthma: Continue inhalers, supplemental oxygen and monitor Surgical Wounds: Wound consult, continue wound VAC, appreciate assistance. Cali removed by surgeon, appreciate assistance Nutrition: oral intake only now. Pre-albumin improved. Left knee symptoms have resolved overnight. Appreciate evaluation by Dr. Morris. White count and temperature returned to normal, knee no longer tender to touch or hot. DVT ppx: Heparin Pain: Continue physical modalities in therapy and pain medications as needed to achieve functional pain control. Sleep: Monitor and address as needed. Bowel: Monitor and address as needed. Monitor closely for BM and flatus, recent history of volvulus with surgical correction. Appetite: Monitor and address as needed. Discharge planning: Pending therapy progress and care plan meeting. Will continue discussion with therapy team, SW, patient and family. Restrictions/ Precautions: Falls, wound VAC WB status: FWB Functional Hx: ADLs: Independent Cognition: Independent Mobility: No AD Barriers to Discharge: Decreased mobility and ability to perform self care, balance deficits, weakness Estimated Length of Stay: 14-18 days Discharge Destination: Home with family
[2018-11-22] MEDS: IMODIUM PO PRN (18:19)
[2018-11-23] MEDS: HumaLOG SUB-Q SCH ×4 (01:21→17:44)
[2018-11-23] MEDS: HEPARIN SUB-Q SCH ×3 (05:32→22:18)
[2018-11-23] MEDS: NORCO 5/325 PO PRN (05:40)
[2018-11-23] MEDS: IMODIUM PO PRN (05:53)
[2018-11-23] MEDS: DICLOFENAC 1% TP PRN (08:05)
[2018-11-23 08:15] LABS: BUN/Creatinine Ratio 23; Blood Urea Nitrogen 9 mg/dL (7-17); Calcium 9.6 mg/dL (8.4-10.2); Hemolysis Index 5
--- NOTE | 2018-11-23 08:56 | Progress Note ---
Subjective Date of service: 11/23/18 Principal diagnosis: Debility s/p exlap with reduction of internal hernia, right hemicolectomy, Interval history: 62-year-old thin female who presented to the ER with decreased by mouth intake and weakness. 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 He was taken to the OR where she underwent an exploratory laparotomy with reduction of an internal hernia, right hemicolectomy and primary ileocolonic anastomosis. She was placed on CIWA protocol. TPN was started due to poor by mouth intake even after diet was advanced. He Stacia was consulted due to thrombocytopenia. On postop day [address] showed likely ileus along with a lateral pleural effusion. Wound care involves wound VAC along with Dakin's and packing. IV antibiotics were started and infectious disease was consulted.After the patient was medically stabilized they were transferred for further rehabilitation. All available medical records have been reviewed but there are limited records from the acute care hospital. Plan of care was discussed with patient and family. Patient is participating in therapy and making reasonable progress. Taking rest breaks as needed. +BM, few episodes of diarrhea, better now, monitor. Continues to feel better from perspective of knee. We'll continue to monitor for any other spikes or worsening condition. Appetite improving. Denies pain, palpitations, dyspnea, cough, N/V, weakness. We'll continue to monitor her wound VAC output. All records, vitals, labs and medications were reviewed. No other issues per patient, nursing or therapy. Objective - Exam Narrative Exam: MUSCULOSKELETAL SPECIALTY EXAM CONSTITUTIONAL: Well developed, well nourished, appropriately groomed, thin EENT: Visual garza full to confrontation. EOMI. Hearing intact to soft voice RESPIRATORY: Clear to auscultation bilaterally, no increased work of breathing CARDIOVASCULAR: Regular Rate/ Rhythm, no swelling, edema or tenderness in BUE or BLE. All e xtremities warm. GI: + bowel sounds, soft, NTTP, nondistended, wound VAC in place INTEGUMENTARY: Normal, no lesion, rash, masses or bruising noted in extremities. Wound VAC on abdomen MUSCULOSKELETAL: BUE and BLE normal without defect, crepitus, subluxation, effusion, arthritic changes or TTP BUE 4+/5, good ROM, with normal tone. BLE 4-/5 good ROM, with normal tone NEURO: CN 2-12 grossly intact. Sensation intact in all extremities. No tremor noted in 4 extremities. POSTURE and GAIT: Sitting posture good. Balance appears reasonable. Gait slowed with short steps. PSYCH: Alert, orientated x3, affect appears normal. Insight appears intact. - Constitutional Vitals: Vital Signs - 12hr 11/22/18 11/23/18 11/23/18 21:13 00:08 00:22 Temperature 37.1 C 37.3 C Pulse Rate 105 H 106 H 109 H Respiratory 17 18 Rate Blood Pressure 108/72 116/80 [Right] O2 Sat by Pulse 100 100 100 Oximetry 11/23/18 11/23/18 04:47 05:00 Temperature 36.9 C Pulse Rate 101 H 101 H Respiratory 16 Rate Blood Pressure 120/79 [Right] O2 Sat by Pulse 99 100 Oximetry - Allied health notes Allied health notes reviewed: nursing, PT, OT FIMS assessment as documented by PT/OT/ST: Grooming Patient cleans teeth/dentures: Yes Patient irvin/brushes hair: Yes Patient washes, rinses and Yes dries face: Patient washes, rinses and Yes dries hands: Patient shaves: No Patient applies make-up: No Patient performs (no make-up/ 4/4 (100%) shaving): Grooming FIM Score 4. Minimal Assistance (Patient = 75% or more. Needs touching.) Toileting Toileting Device Bedside Commode Patient able to: Adjust clothes before Patient able to perform: 2/3 (67%) Toileting FIM Score 3. Moderate Assistance (Patient = 50% or more. Some lifting.) Social interaction/Memory/Problem solving Social Interaction FIM Score 5. Supervision (Needs supv. <10%. Needs encouragement to participate.) Memory FIM Score 5. Supervision (Needs cueing <10%, stressful/ unfamiliar situations.) Problem Solving FIM Score 5. Supervision (Needs cueing <10% to solve routine problems.) Transfers Mode of Locomotion: Wheelchair Bed/Chair/Wheelchair Transfers 4. Minimal Assistance (Patient = 75% or more. FIM Score Needs touching.) Toilet Transfers FIM Score 2. Maximal Assistance (Patient = 25% or more) Patient transferred to: Shower Tub Transfers FIM Score 2. Maximal Assistance (Patient = 25% or more) Shower Transfers FIM Score 2. Maximal Assistance (Patient = 25% or more) Locomotion- walk/wheelchair Most Frequent Mode of Wheelchair Locomotion: Ambulation Distance 150 Walking FIM Score 4. Minimal Assistance (Patient = 75% or more. Minimum of 150 ft.) Wheelchair Propulsion Distance 150 Wheelchair FIM Score 5. Supervision (Minimum 150 ft. supv./cues or 50 ft. independently.) Eating Eating Device Adjusted Table Height Eating FIM Score 4. Minimal Assistance (Patient = 75% or more) Dressing-Upper body Patient retrieves clothing No items: Upper Body Dressing FIM Score 4. Minimal Assistance (Patient = 75% or more. Needs touching.) Dressing-lower body Lower Body Dressing Device Billing Rep/Stick Patient retrieves clothing No items: Patient applies/removes LE No prosthesis or orthosis: Lower Body Dressing FIM Score 4. Minimal Assistance (Patient = 75% or more. Needs touching.) - Labs CBC & Chem 7: 11/23/18 07:19 11/23/18 07:19 Labs: Laboratory Results - last 72 hr 11/20/18 11/20/18 11/20/18 11:36 17:49 21:01 WBC RBC Hgb Hct MCV MCH MCHC RDW Plt Count Sodium Potassium Chloride Carbon Dioxide Anion Gap BUN Creatinine Estimated GFR BUN/Creatinine Ratio Glucose POC Glucose 123 H 92 117 H Uric Acid Calcium Prealbumin 11/21/18 11/21/18 11/21/18 05:33 09:36 09:36 WBC 12.4 H RBC 3.58 L Hgb 11.8 Hct 35.3 MCV 99 H MCH 33 H MCHC 34 RDW 13.4 Plt Count 275 Sodium 132 L Potassium 4.8 Chloride 94.1 L Carbon Dioxide 24 Anion Gap 19 BUN 7 Creatinine 0.4 L Estimated GFR > 60 BUN/Creatinine Ratio 18 Glucose 124 H POC Glucose 85 Uric Acid Calcium 9.9 Prealbumin 0.234 11/21/18 11/21/18 11/22/18 09:36 11:56 00:16 WBC RBC Hgb Hct MCV MCH MCHC RDW Plt Count Sodium Potassium Chloride Carbon Dioxide Anion Gap BUN Creatinine Estimated GFR BUN/Creatinine Ratio Glucose POC Glucose 119 H 91 Uric Acid 2.9 L Calcium Prealbumin 11/22/18 11/22/18 11/22/18 05:20 05:20 07:05 WBC 7.4 RBC 3.39 L Hgb 11.4 Hct 32.8 MCV 97 MCH 34 H MCHC 35 H RDW 12.9 L Plt Count 276 Sodium 137 Potassium 4.4 Chloride 97.1 L Carbon Dioxide 26 Anion Gap 18 BUN 8 Creatinine 0.3 L Estimated GFR > 60 BUN/Creatinine Ratio 27 Glucose 90 POC Glucose 122 H Uric Acid Calcium 10.1 Prealbumin 11/22/18 11/22/18 11/22/18 12:03 17:47 22:11 WBC RBC Hgb Hct MCV MCH MCHC RDW Plt Count Sodium Potassium Chloride Carbon Dioxide Anion Gap BUN Creatinine Estimated GFR BUN/Creatinine Ratio Glucose POC Glucose 134 H 81 77 Uric Acid Calcium Prealbumin 11/23/18 11/23/18 06:00 07:19 WBC RBC Hgb Hct MCV MCH MCHC RDW Plt Count Sodium 135 L Potassium 3.9 Chloride 95.8 L Carbon Dioxide 28 Anion Gap 15 BUN 9 Creatinine 0.4 L Estimated GFR > 60 BUN/Creatinine Ratio 23 Glucose 93 POC Glucose 129 H Uric Acid Calcium 9.6 Prealbumin Assessment and Plan Z73.6 ADL dysfunction: OT will work on improving ability to perform ADLs (including assistive devices) to increase independence and decrease caregiver burden and improve functional transfers and mobility training. R26.2 Difficulty walking: PT will work on gait training and proper use of assistive devices and advance as appropriate to use of stairs and outside ambulation on uneven surfaces. R26.81 Unsteadiness on feet: PT will work on improving static and dynamic sitting and standing balance as well as proper use of assistive devices to decrease risk of falls. R26.89 Abnormality of gait: PT will work to improve safety and efficiency of gait through neuromotor training and gait training along with instruction on proper use of assistive devices. M62.81 Muscle weakness: PT & OT will work on strengthening exercises to improve functional strength including mixture of closed and open kinetic chain exercises. R53.81 Debility: PT & OT will work on improving overall functional status to improve participation with ADLs, mobility and social involvement. R53.83 Fatigue: PT & OT will work on improving endurance through aerobic exercises and therapeutic activity while monitoring patients tolerance for activity and vital signs as needed. Left knee pain: Mild arthritis. Voltaren gel. Monitor Asthma: Continue inhalers, supplemental oxygen and monitor Surgical Wounds: Wound consult, continue wound VAC, appreciate assistance. Cali removed by surgeon, appreciate assistance Nutrition: oral intake only now. Pre-albumin improved. Left knee better, monitor DVT ppx: Heparin Pain: Continue physical modalities in therapy and pain medications as needed to achieve functional pain control. Sleep: Monitor and address as needed. Bowel: Monitor and address as needed. Monitor closely for BM and flatus, recent history of volvulus with surgical correction. Appetite: Monitor and address as needed. Discharge planning: Pending therapy progress and care plan meeting. Will continue discussion with therapy team, SW, patient and family. Restrictions/ Precautions: Falls, wound VAC WB status: FWB Functional Hx: ADLs: Independent Cognition: Independent Mobility: No AD Barriers to Discharge: Decreased mobility and ability to perform self care, balance deficits, weakness Estimated Length of Stay: 14-18 days Discharge Destination: Home with family
[2018-11-23 09:00] LABS: Hematocrit 32.4 % (30.3-42.9); Hemoglobin 11.2 gm/dl (10.1-14.3); Mean Corpuscular HGB Conc 35 % (30-34); Mean Corpuscular Volume 96 fl (79-97); Platelet Count 315 K/mm3 (140-440); Red Blood Count 3.37 M/mm3 (3.65-5.03); Red Cell Distribution Width 13.2 % (13.2-15.2)
[2018-11-23] MEDS: PROTONIX PO SCH (09:44)
[2018-11-23] MEDS: K-DUR PO SCH (09:44)
[2018-11-24] MEDS: HEPARIN SUB-Q SCH ×3 (06:37→21:42)
[2018-11-24] MEDS: HumaLOG SUB-Q SCH ×2 (07:00)
[2018-11-24] MEDS: PROTONIX PO SCH (08:13)
[2018-11-24] MEDS: K-DUR PO SCH (08:13)
[2018-11-24 10:36] LABS: Hematocrit 33.6 % (30.3-42.9); Hemoglobin 11.7 gm/dl (10.1-14.3); Mean Corpuscular HGB Conc 35 % (30-34); Mean Corpuscular Volume 96 fl (79-97); Platelet Count 358 K/mm3 (140-440); Red Blood Count 3.51 M/mm3 (3.65-5.03); Red Cell Distribution Width 12.7 % (13.2-15.2)
[2018-11-24 10:51] LABS: BUN/Creatinine Ratio 17; Blood Urea Nitrogen 5 mg/dL (7-17); Calcium 9.6 mg/dL (8.4-10.2); Hemolysis Index 77
[2018-11-25] MEDS: HEPARIN SUB-Q SCH ×3 (05:58→22:00)
[2018-11-25] MEDS: K-DUR PO SCH (08:46)
[2018-11-25] MEDS: PROTONIX PO SCH (08:46)
[2018-11-25 09:09] LABS: BUN/Creatinine Ratio 10; Blood Urea Nitrogen 4 mg/dL (7-17); Calcium 9.8 mg/dL (8.4-10.2); Hemolysis Index 16
[2018-11-25 09:25] LABS: Hematocrit 36.6 % (30.3-42.9); Hemoglobin 12.3 gm/dl (10.1-14.3); Mean Corpuscular HGB Conc 34 % (30-34); Mean Corpuscular Volume 97 fl (79-97); Platelet Count 347 K/mm3 (140-440); Red Blood Count 3.77 M/mm3 (3.65-5.03); Red Cell Distribution Width 12.8 % (13.2-15.2)
--- NOTE | 2018-11-25 13:00 | Progress Note ---
Subjective Date of service: 11/25/18 Principal diagnosis: Debility s/p exlap with reduction of internal hernia, right hemicolectomy, Interval history: 62-year-old thin female who presented to the ER with decreased by mouth intake and weakness. 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 He was taken to the OR where she underwent an exploratory laparotomy with reduction of an internal hernia, right hemicolectomy and primary ileocolonic anastomosis. She was placed on CIWA protocol. TPN was started due to poor by mouth intake even after diet was advanced. He Stacia was consulted due to thrombocytopenia. On postop day [address] showed likely ileus along with a lateral pleural effusion. Wound care involves wound VAC along with Dakin's and packing. IV antibiotics were started and infectious disease was consulted.After the patient was medically stabilized they were transferred for further rehabilitation. All available medical records have been reviewed but there are limited records from the acute care hospital. Plan of care was discussed with patient and family. Patient is participating in therapy and making reasonable progress. Taking rest breaks as needed. +BM, monitor. Continues to feel better from perspective of knee, no TTP at all today. We'll continue to monitor for any other spikes or worsening condition. Afebrile, labs good. Appetite improving. Denies pain, palpitations, dyspnea, cough, N/V, weakness. We'll continue to m onitor her wound VAC output. All records, vitals, labs and medications were reviewed. No other issues per patient, nursing or therapy. Objective - Exam Narrative Exam: MUSCULOSKELETAL SPECIALTY EXAM CONSTITUTIONAL: Well developed, well nourished, appropriately groomed, thin EENT: EOMI. Hearing intact to soft voice RESPIRATORY: Clear to auscultation bilaterally, no increased work of breathing CARDIOVASCULAR: Regular Rate/ Rhythm, no swelling, edema or tenderness in BUE or BLE. All extremities warm. GI: + bowel sounds, soft, NTTP, nondistended, wound VAC in place INTEGUMENTARY: Normal, no lesion, rash, masses or bruising noted in extremities. Wound VAC on abdomen MUSCULOSKELETAL: BUE and BLE normal without defect, crepitus, subluxation, effusion, arthritic changes or TTP BUE 4+/5, good ROM, with normal tone. BLE 4-/5 good ROM, with normal tone NEURO: CN 2-12 grossly intact. Sensation intact in all extremities. No tremor noted in 4 extremities. POSTURE and GAIT: Sitting posture good. Balance appears reasonable. Gait slowed with short steps. PSYCH: Alert, orientated x3, affect appears normal. Insight appears intact. - Constitutional Vitals: Vital Signs - 12hr 11/25/18 11/25/18 11/25/18 03:43 07:37 08:03 Temperature 36.9 C 36.8 C Pulse Rate 93 H 108 H Respiratory 18 18 Rate Blood Pressure 129/83 114/78 O2 Sat by Pulse 100 100 100 Oximetry 11/25/18 12:33 Temperature 36.9 C Pulse Rate 99 H Respiratory 18 Rate Blood Pressure 127/85 O2 Sat by Pulse 100 Oximetry - Allied health notes Allied health notes reviewed: nursing, PT, OT FIMS assessment as documented by PT/OT/ST: Grooming Patient cleans teeth/dentures: Yes Patient irvin/brushes hair: Yes Patient washes, rinses and Yes dries face: Patient washes, rinses and Yes dries hands: Patient shaves: No Patient applies make-up: No Patient performs (no make-up/ 4/4 (100%) shaving): Grooming FIM Score 4. Minimal Assistance (Patient = 75% or more. Needs touching.) Toileting Toileting Device Bedside Commode Patient able to: Adjust clothes before Patient able to perform: 2/3 (67%) Toileting FIM Score 3. Moderate Assistance (Patient = 50% or more. Some lifting.) Social interaction/Memory/Problem solving Social Interaction FIM Score 5. Supervision (Needs supv. <10%. Needs encouragement to participate.) Memory FIM Score 5. Supervision (Needs cueing <10%, stressful/ unfamiliar situations.) Problem Solving FIM Score 5. Supervision (Needs cueing <10% to solve routine problems.) Transfers Mode of Locomotion: Wheelchair Bed/Chair/Wheelchair Transfers 4. Minimal Assistance (Patient = 75% or more. FIM Score Needs touching.) Toilet Transfers FIM Score 2. Maximal Assistance (Patient = 25% or more) Patient transferred to: Shower Tub Transfers FIM Score 2. Maximal Assistance (Patient = 25% or more) Shower Transfers FIM Score 2. Maximal Assistance (Patient = 25% or more) Locomotion- walk/wheelchair Most Frequent Mode of Wheelchair Locomotion: Ambulation Distance 150 Walking FIM Score 4. Minimal Assistance (Patient = 75% or more. Minimum of 150 ft.) Wheelchair Propulsion Distance 150 Wheelchair FIM Score 5. Supervision (Minimum 150 ft. supv./cues or 50 ft. independently.) Eating Eating Device Adjusted Table Height Eating FIM Score 4. Minimal Assistance (Patient = 75% or more) Dressing-Upper body Patient retrieves clothing No items: Upper Body Dressing FIM Score 4. Minimal Assistance (Patient = 75% or more. Needs touching.) Dressing-lower body Lower Body Dressing Device Tool Planner/Stick Patient retrieves clothing No items: Patient applies/removes LE No prosthesis or orthosis: Lower Body Dressing FIM Score 4. Minimal Assistance (Patient = 75% or more. Needs touching.) - Labs CBC & Chem 7: 11/25/18 07:46 11/25/18 07:46 Labs: Laboratory Results - last 72 hr 11/22/18 11/22/18 11/23/18 17:47 22:11 06:00 WBC RBC Hgb Hct MCV MCH MCHC RDW Plt Count Sodium Potassium Chloride Carbon Dioxide Anion Gap BUN Creatinine Estimated GFR BUN/Creatinine Ratio Glucose POC Glucose 81 77 129 H Calcium 11/23/18 11/23/18 11/23/18 07:19 07:19 12:24 WBC 6.0 RBC 3.37 L Hgb 11.2 Hct 32.4 MCV 96 MCH 33 H MCHC 35 H RDW 13.2 Plt Count 315 Sodium 135 L Potassium 3.9 Chloride 95.8 L Carbon Dioxide 28 Anion Gap 15 BUN 9 Creatinine 0.4 L Estimated GFR > 60 BUN/Creatinine Ratio 23 Glucose 93 POC Glucose 82 Calcium 9.6 11/23/18 11/24/18 11/24/18 17:32 00:06 06:55 WBC RBC Hgb Hct MCV MCH MCHC RDW Plt Count Sodium Potassium Chloride Carbon Dioxide Anion Gap BUN Creatinine Estimated GFR BUN/Creatinine Ratio Glucose POC Glucose 98 83 84 Calcium 11/24/18 11/24/18 11/25/18 10:03 10:03 07:46 WBC 4.8 3.7 L RBC 3.51 L 3.77 Hgb 11.7 12.3 Hct 33.6 36.6 MCV 96 97 MCH 33 H 33 H MCHC 35 H 34 RDW 12.7 L 12.8 L Plt Count 358 347 Sodium 133 L Potassium 3.9 Chloride 95.5 L Carbon Dioxide 26 Anion Gap 15 BUN 5 L Creatinine 0.3 L Estimated GFR > 60 BUN/Creatinine Ratio 17 Glucose 102 H POC Glucose Calcium 9.6 11/25/18 07:46 WBC RBC Hgb Hct MCV MCH MCHC RDW Plt Count Sodium 137 Potassium 3.4 L Chloride 98.2 Carbon Dioxide 25 Anion Gap 17 BUN 4 L Creatinine 0.4 L Estimated GFR > 60 BUN/Creatinine Ratio 10 Glucose 118 H POC Glucose Calcium 9.8 Assessment and Plan Z73.6 ADL dysfunction: OT will work on improving ability to perform ADLs (including assistive devices) to increase independence and decrease caregiver burden and improve functional transfers and mobility training. R26.2 Difficulty walking: PT will work on gait training and proper use of assistive devices and advance as appropriate to use of stairs and outside ambulation on uneven surfaces. R26.81 Unsteadiness on feet: PT will work on improving static and dynamic sitting and standing balance as well as proper use of assistive devices to decrease risk of falls. R26.89 Abnormality of gait: PT will work to improve safety and efficiency of gait through neuromotor training and gait training along with instruction on proper use of assistive devices. M62.81 Muscle weakness: PT & OT will work on strengthening exercises to improve functional strength including mixture of closed and open kinetic chain exercises. R53.81 Debility: PT & OT will work on improving overall functional status to improve participation with ADLs, mobility and social involvement. R53.83 Fatigue: PT & OT will work on improving endurance through aerobic exercises and therapeutic activity while monitoring patients tolerance for activity and vital signs as needed. Left knee pain: Mild arthritis. Voltaren gel. Monitor Asthma: Continue inhalers, supplemental oxygen and monitor Surgical Wounds: Wound consult, continue wound VAC, appreciate assistance. Sta ples removed by surgeon, appreciate assistance Nutrition: oral intake only now. Pre-albumin improved. Hypokalemia: on replacement, will increase tomorrow if not better Left knee better, monitor DVT ppx: Heparin Pain: Continue physical modalities in therapy and pain medications as needed to achieve functional pain control. Sleep: Monitor and address as needed. Bowel: Monitor and address as needed. Monitor closely for BM and flatus, recent history of volvulus with surgical correction. Appetite: Monitor and address as needed. Discharge planning: Pending therapy progress and care plan meeting. Will continue discussion with therapy team, SW, patient and family. Restrictions/ Precautions: Falls, wound VAC WB status: FWB Functional Hx: ADLs: Independent Cognition: Independent Mobility: No AD Barriers to Discharge: Decreased mobility and ability to perform self care, balance deficits, weakness Estimated Length of Stay: 14-18 days Discharge Destination: Home with family
[2018-11-26] MEDS: HEPARIN SUB-Q SCH ×3 (06:21→21:59)
[2018-11-26 06:49] LABS: Hemoglobin 11.5 gm/dl (10.1-14.3); Mean Corpuscular HGB Conc 35 % (30-34); Mean Corpuscular Volume 94 fl (79-97); Platelet Count 402 K/mm3 (140-440); Red Blood Count 3.51 M/mm3 (3.65-5.03); Red Cell Distribution Width 13.3 % (13.2-15.2)
[2018-11-26 07:14] LABS: BUN/Creatinine Ratio 18; Blood Urea Nitrogen 7 mg/dL (7-17); Calcium 9.4 mg/dL (8.4-10.2); Hemolysis Index 3
[2018-11-26] MEDS: K-DUR PO SCH (07:40)
[2018-11-26] MEDS: PROTONIX PO SCH (07:40)
--- NOTE | 2018-11-26 10:36 | Progress Note ---
Subjective Date of service: 11/26/18 Principal diagnosis: Debility s/p exlap with reduction of internal hernia, right hemicolectomy, Interval history: 62-year-old thin female who presented to the ER with decreased by mouth intake and weakness. 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 He was taken to the OR where she underwent an exploratory laparotomy with reduction of an internal hernia, right hemicolectomy and primary ileocolonic anastomosis. She was placed on CIWA protocol. TPN was started due to poor by mouth intake even after diet was advanced. He Stacia was consulted due to thrombocytopenia. On postop day [address] showed likely ileus along with a lateral pleural effusion. Wound care involves wound VAC along with Dakin's and packing. IV antibiotics were started and infectious disease was consulted.After the patient was medically stabilized they were transferred for further rehabilitation. All available medical records have been reviewed but there are limited records from the acute care hospital. Plan of care was discussed with patient and family. Patient is participating in therapy and making reasonable progress. Taking rest breaks as needed. +BM, monitor. Continues to feel better from perspective of knee, no TTP at all today. We'll continue to monitor for any other spikes or worsening condition. Afebrile, labs good. Appetite improving. Denies pain, palpitations, dyspnea, cough, N/V, weakness. We'll continue to m onitor her wound VAC output. Discussed in team conference and she is doing better than before even though she still has some activity tolerance deficits. She was able to increase her distance of walking and is able to use stairs. Discussed need for smaller wound VAC at discharge and are attempting to procure one of those from [facility]. Originally planned to discharge next week however family will be out of town so we are looking at moving of discharge to Sunday, would prefer to delay until next week if possible. She will need supervision at home. Need to get family and for family training. All records, vitals, labs and medications were reviewed. No other issues per patient, nursing or therapy. Objective - Exam Narrative Exam: MUSCULOSKELETAL SPECIALTY EXAM CONSTITUTIONAL: Well developed, well nourished, appropriately groomed, thin EENT: EOMI. Hearing intact to soft voice RESPIRATORY: Clear to auscultation bilaterally, no increased work of breathing CARDIOVASCULAR: Regular Rate/ Rhythm, no swelling, edema or tenderness in BUE or BLE. All extremities warm. GI: + bowel sounds, soft, NTTP, nondistended, wound VAC in place INTEGUMENTARY: Normal, no lesion, rash, masses or bruising noted in extremities. Wound VAC on abdomen MUSCULOSKELETAL: BUE and BLE normal without defect, crepitus, subluxation, effusion, arthritic changes or TTP BUE 4+/5, good ROM, with normal tone. BLE 4-/5 good ROM, with normal tone NEURO: CN 2-12 grossly intact. Sensation intact in all extremities. No tremor noted in 4 extremities. POSTURE and GAIT: Sitting posture good. Balance appears reasonable. Gait slowed with short steps. PSYCH: Alert, orientated x3, affect appears normal. Insight appears intact. - Allied health notes Allied health notes reviewed: nursing, PT, OT FIMS assessment as documented by PT/OT/ST: Grooming Patient cleans teeth/dentures: Yes Patient irvin/brushes hair: Yes Patient washes, rinses and Yes dries face: Patient washes, rinses and Yes dries hands: Patient shaves: No Patient applies make-up: No Patient performs (no make-up/ 08/29 (100%) shaving): Grooming FIM Score 4. Minimal Assistance (Patient = 75% or more. Needs touching.) Toileting Toileting Device Urinal,Commode over Toilet Patient able to: Adjust clothes before,Clean self,Adjust clothes after Patient able to perform: 3/3 (100%) Toileting FIM Score 5. Supv./Set-Up (Needs stand-by, set-up, applying prosth/orth.) Social interaction/Memory/Problem solving Social Interaction FIM Score 5. Supervision (Needs supv. <10%. Needs encouragement to participate.) Memory FIM Score 5. Supervision (Needs cueing <10%, stressful/ unfamiliar situations.) Problem Solving FIM Score 5. Supervision (Needs cueing <10% to solve routine problems.) Transfers Mode of Locomotion: Wheelchair Bed/Chair/Wheelchair Transfers 5. Supervision (Needs supv. or set-up for FIM Score sliding board, foot rests.) Toilet Transfers FIM Score 5. Supervision (Needs supervision or cueing.) Patient transferred to: Shower Tub Transfers FIM Score 2. Maximal Assistance (Patient = 25% or more) Shower Transfers FIM Score 2. Maximal Assistance (Patient = 25% or more) Locomotion- Stairs Device used on Stairs Handrail/s Number of Stairs Ascended/ 12 Descended Patient used handrail/support: Yes Stairs FIM Score 6. Modified [place] (12-14 stairs using handrail/support.) Locomotion- walk/wheelchair Most Frequent Mode of Wheelchair Locomotion: Ambulation Distance 340 Walking FIM Score 4. Minimal Assistance (Patient = 75% or more. Minimum of 150 ft.) Wheelchair Propulsion Distance 150 Wheelchair FIM Score 5. Supervision (Minimum 150 ft. supv./cues or 50 ft. independently.) Eating Eating Device Adjusted Table Height Eating FIM Score 4. Minimal Assistance (Patient = 75% or more) Dressing-Upper body Patient retrieves clothing No items: Upper Body Dressing FIM Score 5. Supv./Set-Up ([place] sets out clothes or applies pros./orth.) Dressing-lower body Lower Body Dressing Device Alum Plant Operator/Stick Patient retrieves clothing No items: Patient applies/removes LE No prosthesis or orthosis: Lower Body Dressing FIM Score 5. Supv./Set-Up ([place] sets out clothes or applies pros./orth.) - Labs CBC & Chem 7: 11/26/18 06:25 11/26/18 06:25 Labs: Laboratory Results - last 72 hr 11/23/18 11/23/18 11/24/18 12:24 17:32 00:06 WBC RBC Hgb Hct MCV MCH MCHC RDW Plt Count Sodium Potassium Chloride Carbon Dioxide Anion Gap BUN Creatinine Estimated GFR BUN/Creatinine Ratio Glucose POC Glucose 82 98 83 Calcium 11/24/18 11/24/18 11/24/18 06:55 10:03 10:03 WBC 4.8 RBC 3.51 L Hgb 11.7 Hct 33.6 MCV 96 MCH 33 H MCHC 35 H RDW 12.7 L Plt Count 358 Sodium 133 L Potassium 3.9 Chloride 95.5 L Carbon Dioxide 26 Anion Gap 15 BUN 5 L Creatinine 0.3 L Estimated GFR > 60 BUN/Creatinine Ratio 17 Glucose 102 H POC Glucose 84 Calcium 9.6 11/25/18 11/25/18 11/26/18 07:46 07:46 06:25 WBC 3.7 L 5.0 RBC 3.77 3.51 L Hgb 12.3 11.5 Hct 36.6 33.0 MCV 97 94 MCH 33 H 33 H MCHC 34 35 H RDW 12.8 L 13.3 Plt Count 347 402 Sodium 137 Potassium 3.4 L Chloride 98.2 Carbon Dioxide 25 Anion Gap 17 BUN 4 L Creatinine 0.4 L Estimated GFR > 60 BUN/Creatinine Ratio 10 Glucose 118 H POC Glucose Calcium 9.8 11/26/18 06:25 WBC RBC Hgb Hct MCV MCH MCHC RDW Plt Count Sodium 138 Potassium 3.9 Chloride 99.5 Carbon Dioxide 26 Anion Gap 16 BUN 7 Creatinine 0.4 L Estimated GFR > 60 BUN/Creatinine Ratio 18 Glucose 93 POC Glucose Calcium 9.4 Assessment and Plan Z73.6 ADL dysfunction: OT will work on improving ability to perform ADLs (including assistive devices) to increase independence and decrease caregiver burden and improve functional transfers and mobility training. R26.2 Difficulty walking: PT will work on gait training and proper use of assistive devices and advance as appropriate to use of stairs and outside ambulation on uneven surfaces. R26.81 Unsteadiness on feet: PT will work on improving static and dynamic sitting and standing balance as well as proper use of assistive devices to decrease risk of falls. R26.89 Abnormality of gait: PT will work to improve safety and efficiency of gait through neuromotor training and gait training along with instruction on proper use of assistive devices. M62.81 Muscle weakness: PT & OT will work on strengthening exercises to improve functional strength including mixture of closed and open kinetic chain exercises. R53.81 Debility: PT & OT will work on improving overall functional status to improve participation with ADLs, mobility and social involvement. R53.83 Fatigue: PT & OT will work on improving endurance through aerobic exer cises and therapeutic activity while monitoring patients tolerance for activity and vital signs as needed. Left knee pain: Mild arthritis. Voltaren gel. Monitor Asthma: Continue inhalers, supplemental oxygen and monitor Surgical Wounds: Wound consult, continue wound VAC, appreciate assistance. Cali removed by surgeon, appreciate assistance Nutrition: oral intake only now. Pre-albumin improved. Hypokalemia: on replacement, will increase tomorrow if not better Left knee better, monitor DVT ppx: Heparin Pain: Continue physical modalities in therapy and pain medications as needed to achieve functional pain control. Sleep: Monitor and address as needed. Bowel: Monitor and address as needed. Monitor closely for BM and flatus, recent history of volvulus with surgical correction. Appetite: Monitor and address as needed. Discharge planning: Likely discharge Sunday. Will need wound VAC, rolling walker and bedside commode. Follow-up surgeon Will continue discussion with therapy team, SW, patient and family. Restrictions/ Precautions: Falls, wound VAC WB status: FWB Functional Hx: ADLs: Independent Cognition: Independent Mobility: No AD Barriers to Discharge: Decreased mobility and ability to perform self care, balance deficits, weakness Estimated Length of Stay: 14-18 days Discharge Destination: Home with family
[2018-11-26] MEDS ORDERED: MYLICON PO PRN (10:37)
[2018-11-26] MEDS ORDERED: DULCOLAX PR PRN (12:00)
[2018-11-26] MEDS: MIRALAX 3350 PO SCH (13:07)
[2018-11-27 08:33] LABS: Hematocrit 33.5 % (30.3-42.9); Hemoglobin 11.9 gm/dl (10.1-14.3); Mean Corpuscular HGB Conc 35 % (30-34); Mean Corpuscular Volume 94 fl (79-97); Platelet Count 349 K/mm3 (140-440); Red Blood Count 3.56 M/mm3 (3.65-5.03); Red Cell Distribution Width 13.3 % (13.2-15.2)
[2018-11-27 09:48] LABS: BUN/Creatinine Ratio 20; Blood Urea Nitrogen 8 mg/dL (7-17); Calcium 9.8 mg/dL (8.4-10.2); Hemolysis Index 5
[2018-11-27] MEDS: HEPARIN SUB-Q SCH ×3 (10:32→23:40)
[2018-11-27] MEDS: K-DUR PO SCH (10:33)
[2018-11-27] MEDS: MIRALAX 3350 PO SCH (10:33)
--- NOTE | 2018-11-27 12:31 | Progress Note ---
Subjective Date of service: 11/27/18 Principal diagnosis: Debility s/p exlap with reduction of internal hernia, right hemicolectomy, Interval history: 62-year-old thin female who presented to the ER with decreased by mouth intake and weakness. 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 He was taken to the OR where she underwent an exploratory laparotomy with reduction of an internal hernia, right hemicolectomy and primary ileocolonic anastomosis. She was placed on CIWA protocol. TPN was started due to poor by mouth intake even after diet was advanced. He Stacia was consulted due to thrombocytopenia. On postop day [address] showed likely ileus along with a lateral pleural effusion. Wound care involves wound VAC along with Dakin's and packing. IV antibiotics were started and infectious disease was consulted.After the patient was medically stabilized they were transferred for further rehabilitation. All available medical records have been reviewed but there are limited records from the acute care hospital. Plan of care was discussed with patient and family. Patient is participating in therapy and making reasonable progress. Taking rest breaks as needed. +BM, monitor. Some Nausea this AM - PO zofran ordered. Continues to feel better from perspective of knee, no TTP at all today. We'll continue to monitor for any other spikes or worsening condition. Afebrile, labs good. Appetite improving. Discussed discharge with patient and family member. Wound care will likely remove vac prior to discharge and just place dressing. Denies pain, palpitations, dyspnea, cough, N/V, weakness. We'll continue to monitor her wound VAC output. All records, vitals, labs and medications were reviewed. No other issues per patient, nursing or therapy. Objective - Exam Narrative Exam: MUSCULOSKELETAL SPECIALTY EXAM CONSTITUTIONAL: Well developed, well nourished, appropriately groomed, thin EENT: EOMI. Hearing intact to soft voice RESPIRATORY: Clear to auscultation bilaterally, no increased work of breathing CARDIOVASCULAR: Regular Rate/ Rhythm, no swelling, edema or tenderness in BUE or BLE. All extremities warm. GI: + bowel sounds, soft, NTTP, nondistended, wound VAC in place INTEGUMENTARY: Normal, no lesion, rash, masses or bruising noted in extremities. Wound VAC on abdomen MUSCULOSKELETAL: BUE and BLE normal without defect, crepitus, subluxation, effusion, arthritic changes or TTP BUE 4+/5, good ROM, with normal tone. BLE 4-/5 good ROM, with normal tone NEURO: CN 2-12 grossly intact. Sensation intact in all extremities. No tremor noted in 4 extremities. POSTURE and GAIT: Sitting posture good. Balance appears reasonable. Gait slowed with short steps. PSYCH: Alert, orientated x3, affect appears normal. Insight appears intact. - Constitutional Vitals: Vital Signs - 12hr 11/27/18 11/27/18 04:37 08:00 Temperature 36.8 C 36.4 C Pulse Rate 117 H 106 H Respiratory 18 20 Rate Blood Pressure 115/76 Blood Pressure 120/83 [Right] O2 Sat by Pulse 100 100 Oximetry - Allied health notes Allied health notes reviewed: nursing, PT, OT FIMS assessment as documented by PT/OT/ST: Grooming Patient cleans teeth/dentures: Yes Patient irvin/brushes hair: Yes Patient washes, rinses and Yes dries face: Patient washes, rinses and Yes dries hands: Patient shaves: No Patient applies make-up: No Patient performs (no make-up/ 08/29 (100%) shaving): Grooming FIM Score 4. Minimal Assistance (Patient = 75% or more. Needs touching.) Toileting Toileting Device Urinal,Commode over Toilet Patient able to: Adjust clothes before,Clean self,Adjust clothes after Patient able to perform: 3/3 (100%) Toileting FIM Score 5. Supv./Set-Up (Needs stand-by, set-up, applying prosth/orth.) Social interaction/Memory/Problem solving Social Interaction FIM Score 5. Supervision (Needs supv. <10%. Needs encouragement to participate.) Memory FIM Score 5. Supervision (Needs cueing <10%, stressful/ unfamiliar situations.) Problem Solving FIM Score 5. Supervision (Needs cueing <10% to solve routine problems.) Transfers Mode of Locomotion: Wheelchair Bed/Chair/Wheelchair Transfers 5. Supervision (Needs supv. or set-up for FIM Score sliding board, foot rests.) Toilet Transfers FIM Score 5. Supervision (Needs supervision or cueing.) Patient transferred to: Shower Tub Transfers FIM Score 2. Maximal Assistance (Patient = 25% or more) Shower Transfers FIM Score 2. Maximal Assistance (Patient = 25% or more) Locomotion- Stairs Device used on Stairs Handrail/s Number of Stairs Ascended/ 12 Descended Patient used handrail/support: Yes Stairs FIM Score 6. Modified [place] (12-14 stairs using handrail/support.) Locomotion- walk/wheelchair Most Frequent Mode of Wheelchair Locomotion: Ambulation Distance 170 Walking FIM Score 5. Supervision (Minimum 150 ft. supv./cues or 50 ft. independently.) Wheelchair Propulsion Distance 200 Wheelchair FIM Score 5. Supervision (Minimum 150 ft. supv./cues or 50 ft. independently.) Eating Eating Device Adjusted Table Height Eating FIM Score 4. Minimal Assistance (Patient = 75% or more) Dressing-Upper body Patient retrieves clothing No items: Upper Body Dressing FIM Score 5. Supv./Set-Up ([place] sets out clothes or applies pros./orth.) Dressing-lower body Lower Body Dressing Device Book Jacket Cover Machine Operator/Stick Patient retrieves clothing No items: Patient applies/removes LE No prosthesis or orthosis: Lower Body Dressing FIM Score 5. Supv./Set-Up ([place] sets out clothes or applies pros./orth.) - Labs CBC & Chem 7: 11/27/18 08:09 11/27/18 08:09 Labs: Laboratory Results - last 72 hr 11/25/18 11/25/18 11/26/18 07:46 07:46 06:25 WBC 3.7 L 5.0 RBC 3.77 3.51 L Hgb 12.3 11.5 Hct 36.6 33.0 MCV 97 94 MCH 33 H 33 H MCHC 34 35 H RDW 12.8 L 13.3 Plt Count 347 402 Sodium 137 Potassium 3.4 L Chloride 98.2 Carbon Dioxide 25 Anion Gap 17 BUN 4 L Creatinine 0.4 L Estimated GFR > 60 BUN/Creatinine Ratio 10 Glucose 118 H Calcium 9.8 11/26/18 11/27/18 11/27/18 06:25 08:09 08:09 WBC 5.7 RBC 3.56 L Hgb 11.9 Hct 33.5 MCV 94 MCH 33 H MCHC 35 H RDW 13.3 Plt Count 349 Sodium 138 137 Potassium 3.9 3.7 Chloride 99.5 97.4 L Carbon Dioxide 26 29 Anion Gap 16 14 BUN 7 8 Creatinine 0.4 L 0.4 L Estimated GFR > 60 > 60 BUN/Creatinine Ratio 18 20 Glucose 93 94 Calcium 9.4 9.8 Assessment and Plan Z73.6 ADL dysfunction: OT will work on improving ability to perform ADLs (including assistive devices) to increase independence and decrease caregiver burden and improve functional transfers and mobility training. R26.2 Difficulty walking: PT will work on gait training and proper use of assistive devices and advance as appropriate to use of stairs and outside ambula tion on uneven surfaces. R26.81 Unsteadiness on feet: PT will work on improving static and dynamic s itting and standing balance as well as proper use of assistive devices to decrease risk of falls. R26.89 Abnormality of gait: PT will work to improve safety and efficiency of gait through neuromotor training and gait training along with instruction on proper use of assistive devices. M62.81 Muscle weakness: PT & OT will work on strengthening exercises to improve functional strength including mixture of closed and open kinetic chain exercises. R53.81 Debility: PT & OT will work on improving overall functional status to improve participation with ADLs, mobility and social involvement. R53.83 Fatigue: PT & OT will work on improving endurance through aerobic exercises and therapeutic activity while monitoring patients tolerance for activity and vital signs as needed. Left knee pain: Mild arthritis. Voltaren gel. Monitor Asthma: Continue inhalers, supplemental oxygen and monitor Surgical Wounds: Wound consult, continue wound VAC, appreciate assistance. Cali removed by surgeon, appreciate assistance Nutrition: oral intake only now. Pre-albumin improved. Recheck prior to discharge Hypokalemia: on replacement Left knee better, monitor DVT ppx: Heparin Pain: Continue physical modalities in therapy and pain medications as needed to achieve functional pain control. Sleep: Monitor and address as needed. Bowel: Monitor and address as needed. Monitor closely for BM and flatus, recent history of volvulus with surgical correction. Appetite: Monitor and address as needed. Discharge planning: Likely discharge Sunday. Will need wound VAC, rolling walker and bedside commode. Follow-up surgeon Will continue discussion with therapy team, SW, patient and family. Restrictions/ Precautions: Falls, wound VAC WB status: FWB Functional Hx: ADLs: Independent Cognition: Independent Mobility: No AD Barriers to Discharge: Decreased mobility and ability to perform self care, balance deficits, weakness Estimated Length of Stay: 14-18 days Discharge Destination: Home with family
[2018-11-27] MEDS ORDERED: ZOFRAN ODT PO PRN (13:00)
[2018-11-27] MEDS: PROTONIX PO SCH (19:33)
[2018-11-28] MEDS: HEPARIN SUB-Q SCH ×3 (05:45→21:43)
[2018-11-28] MEDS: K-DUR PO SCH (10:18)
[2018-11-28] MEDS: MIRALAX 3350 PO SCH (10:18)
[2018-11-28] MEDS: PROTONIX PO SCH (10:18)
--- NOTE | 2018-11-28 15:55 | Progress Note ---
Subjective Date of service: 11/28/18 Principal diagnosis: Debility s/p exlap with reduction of internal hernia, right hemicolectomy, Interval history: 62-year-old thin female who presented to the ER with decreased by mouth intake and weakness. 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 He was taken to the OR where she underwent an exploratory laparotomy with reduction of an internal hernia, right hemicolectomy and primary ileocolonic anastomosis. She was placed on CIWA protocol. TPN was started due to poor by mouth intake even after diet was advanced. He Stacia was consulted due to thrombocytopenia. On postop day [address] showed likely ileus along with a lateral pleural effusion. Wound care involves wound VAC along with Dakin's and packing. IV antibiotics were started and infectious disease was consulted.After the patient was medically stabilized they were transferred for further rehabilitation. All available medical records have been reviewed but there are limited records from the acute [facility]. Plan of care was discussed with patient and family. Patient is participating in therapy and making reasonable progress. Taking rest breaks as needed. +BM, monitor. Continues to feel better from perspective of knee, no TTP at all today. We'll continue to monitor for any other spikes or worsening condition. Afebrile. Appetite stable. Discussed discharge with patient. Wound care will likely remove vac prior to discharge and just place dressing. Denies pain, palpitations, dyspnea, cough, N/V, weakness. We'll continue to monitor her wound VAC output. All records, vitals, labs and medications were reviewed. No other issues per patient, nursing or therapy. Objective - Exam Narrative Exam: MUSCULOSKELETAL SPECIALTY EXAM CONSTITUTIONAL: Well developed, well nourished, appropriately groomed, thin EENT: EOMI. Hearing intact to soft voice RESPIRATORY: Clear to auscultation bilaterally, no increased work of breathing CARDIOVASCULAR: Regular Rate/ Rhythm, no swelling, edema or tenderness in BUE or BLE. All extremities warm. GI: + bowel sounds, soft, NTTP, nondistended, wound VAC in place INTEGUMENTARY: Normal, no lesion, rash, masses or bruising noted in extremities. Wound VAC on abdomen MUSCULOSKELETAL: BUE and BLE normal without defect, crepitus, subluxation, effusion, arthritic changes or TTP BUE 4+/5, good ROM, with normal tone. BLE 4-/5 good ROM, with normal tone NEURO: CN 2-12 grossly intact. Sensation intact in all extremities. No tremor noted in 4 extremities. POSTURE and GAIT: Sitting posture good. Balance appears reasonable. Gait slowed with short steps. PSYCH: Alert, orientated x3, affect appears normal. Insight appears intact. - Constitutional Vitals: Vital Signs - 12hr 11/28/18 11/28/18 11/28/18 05:13 07:28 12:28 Temperature 36.7 C 36.4 C L 36.6 C Pulse Rate 97 H 107 H 112 H Respiratory 20 16 16 Rate Blood Pressure 122/74 120/80 119/81 Blood Pressure [Right] O2 Sat by Pulse 100 100 100 Oximetry 11/28/18 15:00 Temperature 36.7 C Pulse Rate 94 H Respiratory 16 Rate Blood Pressure Blood Pressure 122/71 [Right] O2 Sat by Pulse 99 Oximetry - Allied health notes Allied health notes reviewed: PT, OT FIMS assessment as documented by PT/OT/ST: Grooming Patient cleans teeth/dentures: Yes: dentures Patient irvin/brushes hair: Yes Patient washes, rinses and Yes dries face: Patient washes, rinses and Yes dries hands: Patient shaves: No Patient applies make-up: No Patient performs (no make-up/ / (100%) shaving): Grooming FIM Score 5. Supervision ([place] applies toothpaste or opens containers.) Toileting Toileting Device Commode over Toilet Patient able to: Adjust clothes before,Clean self,Adjust clothes after Patient able to perform: 3/3 (100%) Toileting FIM Score 5. Supv./Set-Up (Needs stand-by, set-up, applying prosth/orth.) Social interaction/Memory/Problem solving Social Interaction FIM Score 5. Supervision (Needs supv. <10%. Needs encouragement to participate.) Memory FIM Score 6. Modified [place](Mild difficulty remembering people/routines.) Problem Solving FIM Score 5. Supervision (Needs cueing <10% to solve routine problems.) Transfers Mode of Locomotion: Wheelchair Bed/Chair/Wheelchair Transfers 5. Supervision (Needs supv. or set-up for FIM Score sliding board, foot rests.) Toilet Transfers FIM Score 5. Supervision (Needs supervision or cueing.) Patient transferred to: Shower Tub Transfers FIM Score 2. Maximal Assistance (Patient = 25% or more) Shower Transfers FIM Score 2. Maximal Assistance (Patient = 25% or more) Locomotion- Stairs Device used on Stairs Handrail/s Number of Stairs Ascended/ 12 Descended Patient used handrail/support: Yes Stairs FIM Score 5. Supervision (12-14 stairs w/ supv. 4-6 stairs independently.) Locomotion- walk/wheelchair Most Frequent Mode of Wheelchair Locomotion: Ambulation Distance 550 Walking FIM Score 5. Supervision (Minimum 150 ft. supv./cues or 50 ft. independently.) Wheelchair Propulsion Distance 400 Wheelchair FIM Score 5. Supervision (Minimum 150 ft. supv./cues or 50 ft. independently.) Eating Eating Device Adjusted Table Height Eating FIM Score 4. Minimal Assistance (Patient = 75% or more) Dressing-Upper body Patient retrieves clothing No items: Upper Body Dressing FIM Score 5. Supv./Set-Up ([place] sets out clothes or applies pros./orth.) Dressing-lower body Lower Body Dressing Device Tank Inspector/Stick Patient retrieves clothing No items: Patient applies/removes LE No prosthesis or orthosis: Lower Body Dressing FIM Score 5. Supv./Set-Up ([place] sets out clothes or applies pros./orth.) - Labs CBC & Chem 7: 11/29/18 08:13 11/29/18 08:13 Labs: Laboratory Results - last 72 hr 11/26/18 11/26/18 11/27/18 06:25 06:25 08:09 WBC 5.0 5.7 RBC 3.51 L 3.56 L Hgb 11.5 11.9 Hct 33.0 33.5 MCV 94 94 MCH 33 H 33 H MCHC 35 H 35 H RDW 13.3 13.3 Plt Count 402 349 Sodium 138 Potassium 3.9 Chloride 99.5 Carbon Dioxide 26 Anion Gap 16 BUN 7 Creatinine 0.4 L Estimated GFR > 60 BUN/Creatinine Ratio 18 Glucose 93 Calcium 9.4 11/27/18 08:09 WBC RBC Hgb Hct MCV MCH MCHC RDW Plt Count Sodium 137 Potassium 3.7 Chloride 97.4 L Carbon Dioxide 29 Anion Gap 14 BUN 8 Creatinine 0.4 L Estimated GFR > 60 BUN/Creatinine Ratio 20 Glucose 94 Calcium 9.8 Assessment and Plan Z73.6 ADL dysfunction: OT will work on improving ability to perform ADLs (including assistive devices) to increase independence and decrease caregiver burden and improve functional transfers and mobility training. R26.2 Difficulty walking: PT will work on gait training and proper use of assistive devices and advance as appropriate to use of stairs and outside ambulation on uneven surfaces. R26.81 Unsteadiness on feet: PT will work on improving static and dynamic sitting and standing balance as well as proper use of assistive devices to decrease risk of falls. R26.89 Abnormality of gait: PT will work to improve safety and efficiency of gait through neuromotor training and gait training along with instruction on proper use of assistive devices. M62.81 Muscle weakness: PT & OT will work on strengthening exercises to improve functional strength including mixture of closed and open kinetic chain exercises. R53.81 Debility: PT & OT will work on improving overall functional status to improve participation with ADLs, mobility and social involvement. R53.83 Fatigue: PT & OT will work on improving endurance through aerobic exercises and therapeutic activity while monitoring patients tolerance for activity and vital signs as needed. Left knee pain: Mild arthritis. Voltaren gel. Monitor Asthma: Continue inhalers, supplemental oxygen and monitor Surgical Wounds: Wound consult, continue wound VAC, appreciate assistance. Sod removed by surgeon, appreciate assistance Nutrition: oral intake only now. Pre-albumin improved. Recheck prior to discharge Hypokalemia: on replacement DVT ppx: Heparin Pain: Continue physical modalities in therapy and pain medications as needed to achieve functional pain control. Sleep: Monitor and address as needed. Bowel: Monitor and address as needed. Monitor closely for BM and flatus, recent history of volvulus with surgical correction. Appetite: Monitor and address as needed. Discharge planning: Likely discharge Sunday. Will need wound VAC, rolling walker and bedside commode. Follow-up surgeon Will continue discussion with therapy team, SW, patient and family. Restrictions/ Precautions: Falls, wound VAC WB status: FWB Functional Hx: ADLs: Independent Cognition: Independent Mobility: No AD Barriers to Discharge: Decreased mobility and ability to perform self care, balance deficits, weakness Estimated Length of Stay: 14-18 days Discharge Destination: Home with family
[2018-11-29] MEDS: HEPARIN SUB-Q SCH ×3 (06:16→22:35)
[2018-11-29 09:01] LABS: Hematocrit 35.7 % (30.3-42.9); Hemoglobin 12.2 gm/dl (10.1-14.3); Mean Corpuscular HGB Conc 34 % (30-34); Mean Corpuscular Volume 95 fl (79-97); Platelet Count 318 K/mm3 (140-440); Red Blood Count 3.75 M/mm3 (3.65-5.03); Red Cell Distribution Width 13.2 % (13.2-15.2)
[2018-11-29 09:24] LABS: BUN/Creatinine Ratio 13; Blood Urea Nitrogen 5 mg/dL (7-17); Calcium 10.1 mg/dL (8.4-10.2); Hemolysis Index 105; Prealbumin 0.191 g/L (0.200-0.400)
[2018-11-29] MEDS: K-DUR PO SCH (10:04)
[2018-11-29] MEDS: MIRALAX 3350 PO SCH (10:04)
[2018-11-29] MEDS: PROTONIX PO SCH (10:04)
[2018-11-30] MEDS: HEPARIN SUB-Q SCH (06:38)
[2018-11-30 07:56] VITALS: BP 114/75
[2018-11-30] MEDS ORDERED: MIRALAX 3350 PO PRN (08:45)
[2018-11-30] MEDS: K-DUR PO SCH (09:00)
[2018-11-30] MEDS: PROTONIX PO SCH (09:01)
--- NOTE | 2018-11-30 09:37 | Discharge Summary ---
Providers - Providers Date of Admission: 11/13/18 14:02 Date of discharge: 11/30/18 Attending physician: KYLEIGH BENITEZ III, MD 11/13/18 11:27 Consult to Physician [CONS] Routine Comment: Consulting Provider: RANDY STAPLETON Physician Instructions: Reason For Exam: Wound infection Occupational Therapy Evaluate and Treat [CONS] Routine Comment: Reason For Exam: ADL dysfunction Physical Therapy Evaluation and Treat [CONS] Routine Comment: Reason For Exam: Mobility Dysfunction 11/13/18 11:36 Consult to Case Management [CONS] Routine Services Needed at Discharge: Home Health Services Wound Vac Notified:: cm notified 11/13/18 11:57 Consult to Wound/ET Nurse [CONS] Routine Reason For Exam: wound eval 11/13/18 12:06 Consult to Dietitian/Nutrition [CONS] Routine Physician Instructions: Reason For Exam: Reason for Consult: Write/Manage TPN/PPN 11/14/18 09:01 Consult to Physician [CONS] Routine Comment: Consulting Provider: KEATON VELA Physician Instructions: Reason For Exam: Medical Management, asthma, electrolyte abn 11/14/18 09:25 Consult to Physician [CONS] Routine Comment: Pt in IRU, please follow at your discretion Consulting Provider: JAME HARPER Physician Instructions: Reason For Exam: Surgical follow up 11/14/18 09:27 Speech Therapy Evaluation and Treat [CONS] Routine Reason For Exam: Swallow 11/21/18 15:42 Consult to Physician [CONS] Routine Comment: +Arthritis, -GOUT, decr uric acid, recent infxn Consulting Provider: FREEDOM PUGA Physician Instructions: Please eval left knee for possible septic joint Reason For Exam: Left knee- possible septic joint Primary care physician: JAZMIN GILBERT Hospitalization Reason for admission: Debility s/p exlap with reduction of internal hernia, right hemicolectomy Condition: Fair Hospital course: 62-year-old thin female who presented to the ER with decreased by mouth intake and weakness. 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 He was taken to the OR where she underwent an exploratory laparotomy with reduction of an internal hernia, right hemicolectomy and primary ileocolonic anastomosis. She was placed on CIWA protocol. TPN was started due to poor by mouth intake even after diet was advanced. He Stacia was consulted due to thrombocytopenia. On postop day [address] showed likely ileus along with a lateral pleural effusion. Wound care involves wound VAC along with Dakin's and packing. IV antibiotics were started and infectious disease was consulted.After the patient was medically stabilized she was transferred for further rehabilitation. IV antibiotics were completed per ID recommendations. Shortly after completion, her left knee became hot, was slightly swollen with a small effusion, her WBC spiked, and she became febrile. Ortho was consulted for possible knee infection. 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 These symptoms quickly resolved and no further treatment was needed. She was continued on Voltaren gel for knee OA. Appetite slowly improved. PICC line became dislodged, TPN was discontinued and pre-albumin had normalized. Patient has issues with hospital food and therefore was not eating as much as she should and albumin later decreased. I've spoken with patient several times about need for increased protein while she continues to heal as well as discontinuing alcohol intake. Abdominal wound is healing well, johanna were removed by the surgeon. Wound nurse removed wound VAC and started dressing the wound with bandages. She will have a follow-up with wound care early next week. As far as therapy, patient was modified independent or supervision for ADLs and modified independent or supervision for transfers and ambulation. She is able to negotiate 12-14 stairs using a handrail at modified [facility]. Labs were checked just prior to discharge and have remained fairly stable with the exception of her sodium which has bounced around both on the acute care side as well as in rehabilitation. This seems to vary mostly with her oral intake and typically recovers within 1 or 2 days. Suggest follow-up with primary care to follow once she is at home and on her normal dietary schedule. Disposition: [id number] [facility] Time spent for discharge: >30 mins Core Measure Documentation - Palliative Care Palliative Care/ Comfort Measures: Not Applicable - Core Measures Any of the following diagnoses?: none Exam - Physical Exam Narrative exam: MUSCULOSKELETAL SPECIALTY EXAM CONSTITUTIONAL: Well developed, well nourished, appropriately groomed, thin EENT: EOMI. Hearing intact to soft voice RESPIRATORY: Clear to auscultation bilaterally, no increased work of breathing CARDIOVASCULAR: Regular Rate/ Rhythm, no swelling, edema or tenderness in BUE or BLE. All extremities warm. GI: + bowel sounds, soft, NTTP, nondistended, dressing in place INTEGUMENTARY: Normal, no lesion, rash, masses or bruising noted in extremities. dressing on abdomen, healing well. MUSCULOSKELETAL: BUE and BLE normal without defect, crepitus, subluxation, effusion, arthritic changes or TTP BUE 4+/5, good ROM, with normal tone. BLE 4-/5 good ROM, with normal tone NEURO: CN 2-12 grossly intact. Sensation intact in all extremities. No tremor noted in 4 extremities. POSTURE and GAIT: Sitting posture good. Balance appears reasonable. Gait slowed with short steps. PSYCH: Alert, orientated x3, affect appears normal. Insight appears intact. - Constitutional Vitals: Temp Pulse Resp BP Pulse Ox 36.7 C 100 H 16 114/75 100 11/30/18 07:25 11/30/18 07:25 11/30/18 07:25 11/30/18 07:25 11/30/18 07:25 - Allied Health Allied health notes reviewed: nursing, PT, OT Plan Activity: fall precautions Weight Bearing Status: Full Weight Bearing Diet: regular (Mech Soft, daily protein supplement like Boost or Ensure while wound is healing) Wound: per wound nurse instructions (cleanse with wound cleanser, pack with calcium alginate, cover with gauze and then telfa) Special Instructions: no heavy lifting (4 weeks), physical therapy, occupational therapy, home health RN Durable Medical Equipment Needed Upon Discharge: Walker-Rolling, Bedside Commode Follow up with: JAZMIN GILBERT MD [Primary Care Provider] - 7 Days NIALL JIM [Registered Nurse] - 12/02/18 1:00 pm (Wound Clinic Follow Up) JAME HARPER DO [Staff Physician] - 14 Days (Please call to see if follow up appointment is needed.) Prescriptions: Sodium Hypochlorite [Dakin's Half Strength] 1 applic TP Q12H PRN #1 bottle PRN Reason: Wound Care Polyethylene Glycol 3350 [Miralax 3350] 17 gm PO QDAY PRN 30 Days powd.pack PRN Reason: Constipation Pantoprazole [Protonix TAB] 40 mg PO QDAY #30 tablet
== END 2018-11-30 12:15 | disposition home health service (06) | DRG 947 ==
LOC: 3A 10:50 → UNDOADMIN 10:50 → 3B 14:02
PROVIDERS: ADMIT Physical Medicine & Rehabilitation; ATTEND Physical Medicine & Rehabilitation
DX: R53.81 Other malaise (principal); K56.2 Volvulus; T81.40XA Infection following a procedure, unspecified, initial encounter; E46 Unspecified protein-calorie malnutrition; F05 Delirium due to known physiological condition; N17.9 Acute kidney failure, unspecified; Z68.1 Body mass index [BMI] 19.9 or less, adult; F10.10 Alcohol abuse, uncomplicated; E87.6 Hypokalemia; D69.6 Thrombocytopenia, unspecified; Y83.8 Other surgical procedures as the cause of abnormal reaction of the patient, or of later complication, without mention of misadventure at the time of the procedure; J45.909 Unspecified asthma, uncomplicated; Z82.49 Family history of ischemic heart disease and other diseases of the circulatory system; Y92.89 Other specified places as the place of occurrence of the external cause
CPT/HCPCS: 36415; 71046; 80048; 80053; 82962; 83735; 84100; 84134; 84478; 84550; 85007; 85025; 85027; 85652; 86140; 94640; 94760; G0378; A6260; J0692; J1450; J1644

== ENCOUNTER 2018-12-02 12:56 | Outpatient (CLI) | payer BC ==
[2018-12-02] MEDS ORDERED: XYLOCAINE TOPICAL 4% TP ONE (14:00)
== END 2018-12-02 12:57 | disposition home or self-care (01) ==
LOC: WOUND 12:56
PROVIDERS: ATTEND Surgery
DX: T81.89XD Other complications of procedures, not elsewhere classified, subsequent encounter (principal); J45.909 Unspecified asthma, uncomplicated; Y83.8 Other surgical procedures as the cause of abnormal reaction of the patient, or of later complication, without mention of misadventure at the time of the procedure
CPT/HCPCS: 11042; G0463; 99214

== ENCOUNTER 2018-12-09 09:33 | Outpatient (CLI) | payer BC ==
[2018-12-09] MEDS ORDERED: XYLOCAINE TOPICAL 4% TP ONE (10:00)
[2018-12-09] MEDS ORDERED: SILVER NITRATE TP ONE (10:00)
== END 2018-12-09 09:34 | disposition home or self-care (01) ==
LOC: WOUND 09:33
PROVIDERS: ATTEND Surgery
DX: T81.89XD Other complications of procedures, not elsewhere classified, subsequent encounter (principal); J45.909 Unspecified asthma, uncomplicated; Y83.8 Other surgical procedures as the cause of abnormal reaction of the patient, or of later complication, without mention of misadventure at the time of the procedure
CPT/HCPCS: 17250

== ENCOUNTER 2018-12-16 08:58 | Outpatient (CLI) | payer BC | END 2018-12-16 08:59 | disposition home or self-care (01) | LOC: WOUND 08:58 | PROVIDERS: ATTEND Surgery | DX: T81.89XD Other complications of procedures, not elsewhere classified, subsequent encounter (principal); J45.909 Unspecified asthma, uncomplicated; Y83.8 Other surgical procedures as the cause of abnormal reaction of the patient, or of later complication, without mention of misadventure at the time of the procedure | CPT/HCPCS: 99213; G0463 ==